=== PATIENT | female | born 1955 | race Caucasian/White ===

== ENCOUNTER → 2018-06-22 20:02 | Outpatient (REF) | payer OTHER, SELFPAY | LOC: LAB 20:02 | PROVIDERS: Family Provider Physician Assistant; PCP Physician Assistant; Visit Provider Otolaryngology | DX: J32.0 Chronic maxillary sinusitis (principal); R09.82 Postnasal drip; R07.0 Pain in throat | CPT/HCPCS: 87070; 87077; 87147; 87186 ==

== ENCOUNTER → 2018-08-30 12:49 | Outpatient (CLI) | payer OTHER, SELFPAY | PROVIDERS: PCP Physician Assistant; Visit Provider Physician Assistant | DX: M81.0 Age-related osteoporosis without current pathological fracture (principal); Z78.0 Asymptomatic menopausal state; Z82.62 Family history of osteoporosis; Z87.891 Personal history of nicotine dependence | CPT/HCPCS: 77080; 77081 ==

== ENCOUNTER → 2018-09-02 08:10 | Outpatient (CLI) | payer OTHER, SELFPAY ==
[2018-09-02 08:50] LABS: Add Manual Diff / Slide Review NO; Basophils Percent Auto 0.3 % (0-2); Eosinophils Percent Auto 3.7 % (2-4); Hematocrit 38.6 % (36-46); Hemoglobin 12.9 g/dL (12.0-16.0); Lymphocytes Percent Auto 36.7 % (25-40); Mean Corpuscular HGB Conc 33.3 % (30-36); Mean Corpuscular Hemoglobin 30.3 PG (26-34); Mean Corpuscular Volume 90.9 fL (80-100); Monocytes Percent Auto 10.6 % (3-14); Neutrophils Absolute Auto 3100 /uL (3000-5900); Neutrophils Percent Auto 48.7 % (50-75); Platelet Count 238 X10^3/uL (150-400); Red Blood Cell Count 4.25 X10^6/uL (4.0-5.2); Red Cell Distribution Width 14.2 % (11.6-14.8); White Blood Cell Count 6.3 X10^3/uL (4.5-11.0)
[2018-09-02 09:11] LABS: Alanine Aminotransferase 36 IU/L (9-52); Albumin 4.4 g/dL (3.5-5.0); Albumin Globulin Ratio 1.7 (1.0-2.8); Alkaline Phosphatase 111 U/L (38-126); Aspartate Aminotransferase 37 IU/L (14-36); BUN Creatinine Ratio 18.8 (6-22); Bilirubin Total 0.5 mg/dL (0.2-1.3); Blood Urea Nitrogen 15 mg/dL (7-17); Calcium 9.3 mg/dL (8.4-10.2); Carbon Dioxide 33 mmol/L (22-32); Chloride 100 mmol/L (98-107); Cholesterol 190 mg/dL (140-199); Estimated Glomerular Filt Rate > 60.0 mL/min (>60); Globulin 2.6 g/dL (1.7-4.1); Glucose 120 mg/dL (80-110); HDL Cholesterol 100 mg/dL (40-60); HEMOLYSIS < 15 (0-50); LDL Cholesterol Calculated 74 mg/dL (<100); Potassium 4.3 mmol/L (3.4-5.1); Sodium 139 mmol/L (137-145); Triglycerides 82 mg/dL (35-150)
[2018-09-02 09:21] LABS: HEMOLYSIS < 15 (0-50); Iron 122 ug/dL (37-170)
[2018-09-02 09:27] LABS: Vitamin D 25 Hydroxy (D3) 79.4 ng/mL (30.0-100.0)
[2018-09-02 09:31] LABS: Percent Iron Saturation 39 % (15-50); Total Iron Binding Capacity 314 ug/dL (265-497); Transferrin 283 mg/dL (206-381)
[2018-09-02 09:59] LABS: Vitamin B12 > 1000 pg/mL (239-931)
== END ==
PROVIDERS: PCP Physician Assistant; Visit Provider Physician Assistant
DX: M81.0 Age-related osteoporosis without current pathological fracture (principal); R53.83 Other fatigue; R74.8 Abnormal levels of other serum enzymes; Z86.2 Personal history of diseases of the blood and blood-forming organs and certain disorders involving the immune mechanism
CPT/HCPCS: 36415; 80053; 80061; 82306; 82607; 83540; 83550; 85025

== ENCOUNTER → 2019-02-12 10:27 | Outpatient (CLI) | payer OTHER, SELFPAY ==
--- NOTE | 2019-02-12 10:29 | DI.MG.S_ITS ---
BILATERAL DIGITAL SCREENING MAMMOGRAM 3D/2D WITH CAD: 02/12/2019 CLINICAL: Routine screening. Comparison is made to exams dated: 12/11/2017 mammogram, 11/18/2016 mammogram, 11/15/2015 mammogram, and 11/10/2014 mammogram - [facility]. The tissue of both breasts is heterogeneously dense. This may lower the sensitivity of mammography. Current study was also evaluated with a Computer Aided Detection (CAD) system. There are benign vascular calcifications in both breasts. No significant masses, calcifications, or other findings are seen in either breast. There has been no significant interval change. IMPRESSION: There is no mammographic evidence of malignancy. A 1 year screening mammogram is recommended. This exam was interpreted at Station ID: [id number]. NOTE: For mammograms, a report in lay terms will be sent to the patient. Approximately 15% of breast malignancies will not be visualized mammographically. In the management of a palpable breast mass, a negative mammogram must not discourage biopsy of a clinically suspicious lesion. Electronically Signed By: Keny estrella/ihsan:02/14/2019 12:16:21 letter sent: Normal Exam ACR BI-RADS Category 2: Benign Finding(s) 3342F
== END ==
PROVIDERS: PCP Physician Assistant; Visit Provider Physician Assistant
DX: Z12.31 Encounter for screening mammogram for malignant neoplasm of breast (principal)
CPT/HCPCS: 77063; 77067

== ENCOUNTER → 2019-03-25 08:37 | Outpatient (CLI) | payer OTHER, SELFPAY ==
[2019-03-25 10:24] LABS: Hematocrit 36.6 % (36-46); Hemoglobin 11.9 g/dL (12.0-16.0)
[2019-03-25 10:46] LABS: HEMOLYSIS < 15 (0-50); Iron 47 ug/dL (37-170)
[2019-03-25 10:57] LABS: Percent Iron Saturation 15 % (15-50); Total Iron Binding Capacity 311 ug/dL (265-497); Transferrin 253 mg/dL (206-381)
[2019-03-25 11:21] LABS: Ferritin 44.1 ng/mL (11.1-264)
== END ==
PROVIDERS: PCP Physician Assistant; Visit Provider Physician Assistant
DX: D50.9 Iron deficiency anemia, unspecified (principal); Z98.84 Bariatric surgery status
CPT/HCPCS: 36415; 82728; 83540; 83550; 85014; 85018

== ENCOUNTER → 2019-05-10 10:02 | Outpatient (CLI) | payer OTHER, SELFPAY ==
[2019-05-10 11:17] LABS: Add Manual Diff / Slide Review NO; Basophils Absolute Auto 0 /uL (0-100); Basophils Percent Auto 0.5 % (0-2); Eosinophils Absolute Auto 300 /uL (0-450); Eosinophils Percent Auto 4.4 % (2-4); Hematocrit 38.6 % (36-46); Hemoglobin 12.8 g/dL (12.0-16.0); Lymphocytes Absolute Auto 2200 /uL (1100-4500); Lymphocytes Percent Auto 36.8 % (25-40); Mean Corpuscular HGB Conc 33.3 % (30-36); Mean Corpuscular Hemoglobin 30.5 PG (26-34); Mean Corpuscular Volume 91.7 fL (80-100); Monocytes Absolute Auto 700 /uL (0-900); Monocytes Percent Auto 10.9 % (3-14); Neutrophils Absolute Auto 2900 /uL (1500-7000); Neutrophils Percent Auto 47.4 % (50-75); Platelet Count 299 X10^3/uL (150-400); Red Blood Cell Count 4.21 X10^6/uL (4.0-5.2); Red Cell Distribution Width 14.7 % (11.6-14.8)
[2019-05-10 11:30] LABS: Alanine Aminotransferase 22 IU/L (9-52); Albumin 4.5 g/dL (3.5-5.0); Albumin Globulin Ratio 1.8 (1.0-2.8); Alkaline Phosphatase 156 U/L (38-126); Aspartate Aminotransferase 32 IU/L (14-36); Bilirubin Total 0.3 mg/dL (0.2-1.3); Blood Urea Nitrogen 16 mg/dL (7-17); Calcium 10.4 mg/dL (8.4-10.2); Carbon Dioxide 29 mmol/L (22-32); Chloride 97 mmol/L (98-107); Globulin 2.5 g/dL (1.7-4.1); Glucose 104 mg/dL (80-110); HEMOLYSIS < 15 (0-50); Sodium 135 mmol/L (137-145)
== END ==
PROVIDERS: PCP Physician Assistant; Visit Provider Hospitalist
DX: R11.0 Nausea (principal)
CPT/HCPCS: 36415; 80053; 85025

== ENCOUNTER → 2019-08-31 09:54 | Outpatient (CLI) | payer OTHER, SELFPAY ==
[2019-08-31 10:55] LABS: HEMOLYSIS < 15 (0-50)
[2019-08-31 11:04] LABS: Alanine Aminotransferase 21 IU/L (9-52); Albumin 4.8 g/dL (3.5-5.0); Albumin Globulin Ratio 1.7 (1.0-2.8); Alkaline Phosphatase 178 U/L (38-126); Aspartate Aminotransferase 31 IU/L (14-36); BUN Creatinine Ratio 17.8 (6-22); Bilirubin Total 0.5 mg/dL (0.2-1.3); Blood Urea Nitrogen 16 mg/dL (7-17); Calcium 9.6 mg/dL (8.4-10.2); Carbon Dioxide 26 mmol/L (22-32); Chloride 98 mmol/L (98-107); Estimated Glomerular Filt Rate > 60.0 mL/min (>60); Globulin 2.9 g/dL (1.7-4.1); Glucose 178 mg/dL (80-110); Potassium 4.3 mmol/L (3.4-5.1); Sodium 133 mmol/L (137-145); Total Protein 7.7 g/dL (6.3-8.2); Vitamin D 25 Hydroxy (D3) 54.6 ng/mL (30.0-100.0)
[2019-09-01 15:07] LABS: HEMOLYSIS < 15 (0-50); Iron 134 ug/dL (37-170)
[2019-09-01 15:18] LABS: Percent Iron Saturation 33 % (15-50); Total Iron Binding Capacity 402 ug/dL (265-497); Transferrin 363 mg/dL (206-381)
[2019-09-01 15:36] LABS: Vitamin B12 > 1000 pg/mL (239-931)
== END ==
PROVIDERS: PCP Physician Assistant; Visit Provider Physician Assistant
DX: E53.8 Deficiency of other specified B group vitamins (principal); M81.0 Age-related osteoporosis without current pathological fracture; Z98.84 Bariatric surgery status; D50.0 Iron deficiency anemia secondary to blood loss (chronic); G43.009 Migraine without aura, not intractable, without status migrainosus; J44.9 Chronic obstructive pulmonary disease, unspecified; J45.909 Unspecified asthma, uncomplicated
CPT/HCPCS: 36415; 80053; 82306; 82607; 83540; 83550

== ENCOUNTER → 2019-09-05 13:47 | Outpatient (CLI) | payer OTHER, SELFPAY ==
[2019-09-05 15:17] LABS: Hemoglobin A1C% w Est Avg Glu 6.2 % (4.0-6.0)
== END ==
PROVIDERS: PCP Physician Assistant; Visit Provider Physician Assistant
DX: R73.09 Other abnormal glucose (principal)
CPT/HCPCS: 36415; 83036

== ENCOUNTER → 2019-12-06 10:54 | Outpatient (CLI) | payer OTHER, SELFPAY ==
[2019-12-06 12:29] LABS: Alanine Aminotransferase 17 IU/L (<35); Albumin 4.5 g/dL (3.5-5.0); Albumin Globulin Ratio 1.8 (1.0-2.8); Alkaline Phosphatase 155 U/L (38-126); Aspartate Aminotransferase 31 IU/L (14-36); BUN Creatinine Ratio 21.4 (6-22); Bilirubin Total 0.2 mg/dL (0.2-1.3); Blood Urea Nitrogen 15 mg/dL (7-17); Calcium 9.4 mg/dL (8.4-10.2); Carbon Dioxide 28 mmol/L (22-32); Chloride 101 mmol/L (98-107); Estimated Glomerular Filt Rate > 60.0 mL/min (>60); Globulin 2.5 g/dL (1.7-4.1); Glucose 75 mg/dL (80-110); HEMOLYSIS < 15 (0-50); Sodium 136 mmol/L (137-145)
[2019-12-06 12:39] LABS: Potassium 5.5 mmol/L (3.4-5.1)
== END ==
PROVIDERS: PCP Physician Assistant; Visit Provider Physician Assistant
DX: R73.01 Impaired fasting glucose (principal); R74.8 Abnormal levels of other serum enzymes
CPT/HCPCS: 36415; 80053; 83036

== ENCOUNTER → 2019-12-20 13:19 | Outpatient (CLI) | payer OTHER, SELFPAY ==
[2019-12-20 14:13] LABS: HEMOLYSIS < 15 (0-50)
== END ==
PROVIDERS: PCP Physician Assistant; Referring Provider Physician Assistant; Visit Provider Physician Assistant
DX: E87.5 Hyperkalemia (principal)
CPT/HCPCS: 36415; 84132

== ENCOUNTER → 2020-05-15 09:42 | Outpatient (CLI) | payer OTHER, SELFPAY ==
--- NOTE | 2020-05-15 | DI.CT.S_ITS ---
PROCEDURE: CT ABDOMEN PELVIS W CON INDICATIONS: Other constipation,Personal history of peptic ulce TECHNIQUE: After the administration of oral and intravenous contrast, 5 mm thick sections acquired from the diaphragms to the symphysis. 5 mm thick coronal and sagittal reformats were performed. For radiation dose reduction, the following was used: automated exposure control, adjustment of mA and/or kV according to patient size. COMPARISON: [facility], CT, CHEST/ABD/PEL WITH CONTRAST, 03/10/2014, 9:54. FINDINGS: Image quality: Excellent. ABDOMEN: Lung bases: Lung bases are clear. Heart size is normal. Solid organs: Liver is normal in size and enhancement. Liver is diffusely lower in attenuation relative to the spleen. Gallbladder is unremarkable. Biliary system is non-dilated. Pancreas enhances normally. Stable appearance of atrophy and coarse calcifications involving the pancreatic tail. Spleen is normal in size and enhancement. No adrenal nodules. Kidneys are normal in size and enhancement, without hydronephrosis. Peritoneum and bowel: Stable post surgical changes of the upper abdomen involving the lesser curvature of the stomach and distal pylorus/proximal duodenum. There is a 1.1 x 1.5 cm hypoattenuating focus adjacent to the medial margin of the duodenum (image 48, series 2) seen anterior to the aorta and IVC which possibly communicates with the duodenal lumen and is likely a duodenal diverticulum. Stomach, small bowel, and colon loops are normal in caliber and wall thickness. Moderate fecal load seen in the descending colon and sigmoid colon. No free fluid or air. No organized fluid collection. Nodes and vessels: No retroperitoneal or mesenteric adenopathy. Scattered atherosclerotic calcifications of the abdominal aorta and iliac vessels without aneurysmal dilatation. Miscellaneous: There is a tiny fat-containing umbilical hernia without acute inflammation. PELVIS: Genitourinary: Urinary bladder is decompressed. Miscellaneous: No inguinal hernias or pelvic adenopathy. Bones: No suspicious bony lesions. Status post ORIF for remote left hip fracture. No acute vertebral body compression fractures. Multilevel spondylitic changes throughout the imaged spine. IMPRESSION: 1. Moderate fecal load seen in the descending colon and sigmoid colon without evidence for obstruction. Findings are consistent with reported history constipation. 2. Stable postsurgical changes of the upper abdomen involving the stomach and proximal duodenum likely sequela of reported history of intervention for peptic ulcer disease. 3. Diffuse hepatic steatosis. Other chronic findings as above. Dictated by: Brendan Crawford M.D. on 05/15/2020 at 12:27 Approved by: Brendan Crawford M.D. on 05/15/2020 at 12:52
[2020-05-15 10:15] LABS: Blood Urea Nitrogen 12 mg/dL (7-17); Estimated Glomerular Filt Rate > 60.0 mL/min (>60)
[2020-05-15 11:24] LABS: Hemoglobin A1C% w Est Avg Glu 6.4 % (4.0-6.0)
[2020-05-15 11:35] LABS: Alanine Aminotransferase 13 IU/L (<35); Albumin 4.1 g/dL (3.5-5.0); Alkaline Phosphatase 142 U/L (38-126); Aspartate Aminotransferase 24 IU/L (14-36); Bilirubin Total 0.4 mg/dL (0.2-1.3); Blood Urea Nitrogen 12 mg/dL (7-17); Calcium 9.4 mg/dL (8.4-10.2); Carbon Dioxide 26 mmol/L (22-32); Chloride 102 mmol/L (98-107); Cholesterol 166 mg/dL (140-199); Estimated Glomerular Filt Rate > 60.0 mL/min (>60); Globulin 2.1 g/dL (1.7-4.1); Glucose 120 mg/dL (80-110); HDL Cholesterol 90 mg/dL (40-60); HEMOLYSIS < 15 (0-50); LDL Cholesterol Calculated 60 mg/dL (<100); Potassium 4.4 mmol/L (3.4-5.1); Sodium 135 mmol/L (137-145); Total Protein 6.2 g/dL (6.3-8.2); Triglycerides 80 mg/dL (35-150)
[2020-05-15 12:55] LABS: Creatinine Urine Random 64.2 mg/dL
[2020-05-15 12:59] LABS: Microalbumi Creatinin Ratio Ur 9.3 ug/mg CR (<30); Microalbumin Urine Random < 0.6 mg/dL (0-1.6)
== END ==
PROVIDERS: PCP Internal Medicine; Referring Provider Internal Medicine Gastroenterology; Visit Provider Internal Medicine Gastroenterology
DX: Z13.220 Encounter for screening for lipoid disorders (principal); Z13.6 Encounter for screening for cardiovascular disorders; K59.09 Other constipation; K76.0 Fatty (change of) liver, not elsewhere classified; E11.9 Type 2 diabetes mellitus without complications; J44.9 Chronic obstructive pulmonary disease, unspecified; Z87.11 Personal history of peptic ulcer disease
CPT/HCPCS: 36415; 74177; 80053; 80061; 82043; 82565; 82570; 83036; 84520; Q9967

== ENCOUNTER → 2020-06-17 10:21 | Outpatient (CLI) | payer OTHER, SELFPAY ==
[2020-06-18 20:29] LABS: COVID19 Sendout Not Detected (Not Detect)
== END ==
PROVIDERS: PCP Internal Medicine; Visit Provider Nurse Practitioner
DX: Z11.59 Encounter for screening for other viral diseases (principal)
CPT/HCPCS: 87635

== ENCOUNTER 2020-06-20 08:34 | Day surgery (SDC) | payer OTHER, SELFPAY ==
[2020-06-20] VITALS (7 sets, daily range): BP systolic 101–128; BP diastolic 63–80; PULSE 64–74; RESP 13–21; TEMP 35.8–36.4; O2SAT 97–99; BMI 19.0
--- NOTE | 2020-06-20 | PATH_ITS ---
[facility] Accession Number: [id number] . 01 Material submitted: . PART A: small bowel - SMALL BOWEL PART B: gastrointestinal site - GASTRIC . 02 Diagnosis: A. Small Bowel: Superficial portions of small bowel mucosa with no significant histomorphologic abnormality. Negative for granulomas, active inflammation, regions of dysplasia or malignancy. . B. Gastric: Portions of gastric body-type mucosa with mild chronic inflammation. Negative for Helicobacter organisms by immunohistochemistry. Negative for intestinal metaplasia. Negative for dysplasia and malignancy. [facility] 06/22/2020 1452 Local . 02 Electronically signed: . Zaina Tesfaye MD, Pathologist NPI- [id number] . 01 Gross description: . Part A: SMALL BOWEL: Received in formalin are 2 fragment(s) of mejia, soft tissue measuring 0.2 x 0.2 x 0.2 cm to 0.3 x 0.2 x 0.2 cm submitted entirely in 1 cassette(s) Part B: GASTRIC: Received in formalin are 2 fragment(s) of mejia, soft tissue measuring 0.2 x 0.2 x 0.1 cm to 0.3 x 0.2 x 0.2 cm submitted entirely in 1 cassette(s) /JONNY 06/21/2020 0139 Local . 02 Microscopic: . B. An immunohistochemical stain was performed to evaluate for Helicobacter organisms and is negative. The control stain showed appropriate reactivity. . * This test was developed and its performance characteristics determined by [employer]. It has not been cleared or approved by the U.S. Food and Drug Administration. The FDA has determined that such clearance or approval is not necessary. This test is used for clinical purposes. It should not be regarded as investigational or for research. . 02 Pathologist provided ICD-10: Z87.11, K29.70 . 02 CPT . 131858, 729011, U92256 Performed at: [facility] [address] [place] [address], [place], [place] [id number] MD Brant Hamilton MD Phone: [phone] [facility]formed [facility]: [facility] [address] [place], [place] [id number] MD Mariana Acosta MD Phone: [phone]
[2020-06-20] MEDS: fentaNYL 250 MCG/5 ML INJ IV (09:59)
[2020-06-20] MEDS: MIDAZOLAM 5 MG/5 ML VIAL IV ×2 (10:01→10:08)
--- NOTE | 2020-06-20 10:01 | PM.HP.1 ---
History of Present Illness History of Present Illness Date Patient Seen: 06/20/20 Time Patient Seen: 10:01 Chief complaint: EGD Narrative: History of peptic ulcer disease with GI bleeding at the anastomotic site from a Billroth II anastomosis. Need to follow-up to ensure complete healing. Patient History Medical History (Updated 02/29/20 @ 10:04 by Mike Amezcua MD) Asthma (Acute Unknown) Cervical spine disease (Chronic Unknown) Chronic constipation (Chronic) Depression (Chronic Unknown) Diabetes type 2, controlled (Chronic) Herpes (Chronic ~1992) History of bleeding peptic ulcer (Resolved 2011) Migraines (Chronic Unknown) Osteoporosis (Chronic Unknown) Pancreatic insufficiency (Chronic) Peptic ulcer disease (Chronic Unknown) Substance abuse (Resolved ~1983) Surgical History (Updated 01/12/20 @ 12:27 by Mike Amezcua MD) History of incision and drainage (Resolved 02/2018) History of open reduction and internal fixation (ORIF) procedure (Resolved 01/2017) Hx of gastric bypass (Resolved Unknown) Family & Social History Tobacco & Substance use: Smoking Status Former smoker alcohol intake former Substance Use Type does not use Meds Home Medications and Allergies Home Medications Medication Instructions Recorded Confirmed Type [VITAMIN B-12] 1 tab SUBLINGUAL QDAY #0 10/28/16 06/20/20 History [VITAMIN D3] 1 tab PO QDAY #0 10/28/16 06/20/20 History ipratropium-albuterol 3 ml INH Q6HP PRN #2 box 02/01/18 06/20/20 Rx Sucralfate See Rx Instructions .ROUTE .COMPLEX 06/22/18 04/17/20 History Calcium/Magnesium See Rx Instructions .ROUTE .COMPLEX 08/02/18 06/20/20 History [place] 3 See Rx Instructions .ROUTE .COMPLEX 08/02/18 06/20/20 History Reclast See Rx Instructions .ROUTE .COMPLEX 08/02/18 06/20/20 History olopatadine 0.6 % nasal spray 2 spray NASAL BID #30.5 gram 03/16/19 06/20/20 Rx bisacodyl 10 mg rectal suppository 10 mg [place] PRN PRN #12 sup 04/12/19 06/20/20 Rx onabotulinumtoxinA 200 unit 200 unit IM ONCE #1 each 05/24/19 06/20/20 Rx solution for injection scopolamine base 1 mg over 3 days 1 patch TRANSDERMAL Q3D PRN #4 each 05/24/19 04/17/20 Rx transdermal patch ferrous sulfate 5 ml PO BID #1 bot 06/30/19 06/20/20 Rx hydroxyzine pamoate 25 mg capsule See Rx Instructions PO DAILY PRN 08/03/19 06/20/20 Rx #60 cap conjugated estrogens 0.625 mg/gram 0.3125 mg VAG 2XW #30 gram 08/31/19 06/20/20 Rx vaginal cream ipratropium 20 mcg-albuterol 100 1 puff INHALATION QID PRN #4 gram 09/21/19 06/20/20 Rx mcg/actuation mist for inhalation orphenadrine citrate 100 mg 100 mg PO DAILY #30 tab 10/17/19 06/20/20 Rx tablet,extended release fluticasone propionate 110 1 puff INHALATION BID #12 gram 11/01/19 06/20/20 Rx mcg/actuation HFA aerosol inhaler pantoprazole 40 mg tablet,delayed 40 mg PO BID #180 tab 11/01/19 06/20/20 Rx release olopatadine 0.1 % eye drops 1 drop EYE-BOTH BID #5 ml 11/17/19 06/20/20 Rx Acupuncture 1 each SUBCUT .EVERY 2 WEEKS #16 11/18/19 06/20/20 Rx each Chiropractor 1 each TOPICAL .EVERY 2 WEEKS #24 11/18/19 06/20/20 Rx each Massage Therapy 1 each TOPICAL .EVERY 2 WEEKS #24 11/18/19 06/20/20 Rx each montelukast 10 mg tablet 10 mg PO QDAY #90 tab 01/12/20 06/20/20 Rx metformin 500 mg tablet,extended 500 mg PO DAILY #90 tab 02/13/20 06/20/20 Rx release 24 hr venlafaxine 75 mg tablet 150 mg PO BID #360 tab 02/29/20 04/17/20 Rx amitriptyline 50 mg tablet 100 mg PO HS #60 tab 03/16/20 06/20/20 Rx buspirone 10 mg tablet 10 mg PO BID #180 tab 03/16/20 06/20/20 Rx lubiprostone 24 mcg capsule 24 mcg PO BID cap 04/17/20 06/20/20 History acyclovir 400 mg tablet See Rx Instructions .ROUTE 04/20/20 06/20/20 Rx .COMPLEX #60 tablet baclofen 20 mg tablet 20 mg PO .COMPLEX #180 tab 04/20/20 06/20/20 Rx misoprostol 200 mcg tablet 200 mcg PO BID #60 tab 05/10/20 06/20/20 Rx benzonatate 200 mg capsule 200 mg PO TID PRN #30 cap 05/28/20 06/20/20 Rx ondansetron 8 mg disintegrating 8 mg PO TID PRN #30 tab 05/30/20 06/20/20 Rx tablet hydrocodone 7.5 mg-acetaminophen 1 tab PO Q12H PRN #15 tab 05/31/20 06/20/20 Rx 325 mg tablet iumiro-whghdqfi-evsjbjh 2 cap PO TID #540 cap 06/18/20 06/20/20 Rx 3,000-9,500-15,000 unit capsule,delayed releas Allergies Allergy/AdvReac Type Severity Reaction Status Date / Time Sulfa (Sulfonamide Allergy Severe ITCHING Verified 06/17/20 10:33 Antibiotics) [SULFA (SULFONAMIDE ANTIBIOTICS)] codeine [CODEINE] AdvReac Mild JITTERS Verified 06/17/20 10:33 morphine [MORPHINE] AdvReac Mild JITTERS Verified 06/17/20 10:33 Exam Vital Signs (past 8 hours): - 06/20/20 09:23 Temperature 97.5 F L Pulse Rate 74 Respiratory Rate 16 Blood Pressure 118/80 Pulse Oximetry 98 Oxygen Delivery Method Room Air Narrative Exam Narrative: Oropharynx free of lesions Chest clear to auscultation percussion Cardiac exam reveals no S3 or murmur Assessment & Plan Assessment & Plan narrative: History of anastomotic ulcer with GI bleeding need to check for complete healing. Risks, benefits, alternatives have been explained
--- NOTE | 2020-06-20 10:02 | PM.OP.ENDO ---
Operative Date/Time/Diagnoses Date of procedure: 06/20/20 Time of procedure: 10:02 Pre-op diagnosis: A see indication and findings Procedure & Clinicians Study performed: EGD Same procedure as scheduled: Yes Indications: History of anastomotic ulcer with GI bleeding at the site. Need to follow up for complete healing. Surgeon: Kera Lindsey Procedure Notes Procedure in detail: After informed consent was obtained patient was placed in left lateral decubitus position. The video upper scope placed into the oropharynx and with the patient's of small in the esophagus. The esophagus stomach and duodenum were carefully examined. On withdrawal retroflexed view the GE junction was performed. The scope was removed. The patient tolerated procedure well. Blood loss none Complications none Sedation Total sedation time
--- NOTE | 2020-06-20 10:14 | PM.OP.ENDO ---
Operative Date/Time/Diagnoses Date of procedure: 06/20/20 Time of procedure: 10:14 Pre-op diagnosis: See Procedure & Clinicians Study performed: EGD Same procedure as scheduled: Yes Indications: History of peptic ulcer disease with some continued symptoms. This had of bleeding anastomotic ulcer. Need to check for complete healing. Status post Billroth II anastomosis. Surgeon: Kera Lindsey Procedure Notes Procedure in detail: After informed consent was obtained patient was placed in left lateral decubitus position. The video upper scope was placed in the oropharynx and with the patient's help swelled the esophagus. The esophagus stomach and duodenum were carefully examined. On withdrawal, retroflexed view of the GE junction was performed. The scope was removed. The patient tolerated the procedure well. Blood loss none Complications none Sedation Total sedation time 16 minutes Versed 4 mg fentanyl 100 mg IV titration Findings 1. Normal esophagus and normal GE junction 2. Beefy red mucosa in the remaining body of the stomach consistent with typical sore up to anastomosis. Biopsies taken to rule out Helicobacter 3. Two anastomoses seen 1 in mid body greater curve in 1 distal. Both were wide open both had no ulceration. 4. The more proximal anastomosis could be traversed easily and the scope passed. I assume that this is the efferent limb. Biopsies taken in the small bowel to rule out celiac 5. The distal anastomosis took a very sharp turn right out of these surgical sites. I was unable to pass scope beyond this easily. We will merely await biopsy results and have her come back to the office to discuss further. Fortunately ulceration is completely healed.
--- NOTE | 2020-06-20 10:19 | SUR.PHASEI ---
Addendum entered by Alba Krishnan R.N. 06/20/20 10:43: Patient remained stable throughout pacu. Breathing normally and vitals stable. Transferred to Phase 2 Original Note: Patient noted to be apneic on arrival to PACU. Placed on monitors, placed on 4L O2, and given a sternal rub. Patient opened eyes and started breathing normally. 98% O2 saturation, heart rate in the 60's and blood pressure 127/74.
--- NOTE | 2020-06-20 11:11 | SUR.PHASEII ---
1045-Pt wanting to go home. All dc instructions given and pt verbalizes understanding. Getting dressed now. Iv dcd and site clear. on his way for pu.
--- NOTE | 2020-06-20 11:12 | SUR.PHASEII ---
1100-Pt dcd via [facility] in stable condition to private vehicle at [facility]. Gait steady and taking po fluids without problems
== END 2020-06-20 11:00 | disposition home or self-care (01) ==
PROVIDERS: PCP Internal Medicine; Referring Provider Internal Medicine; Visit Provider Internal Medicine Gastroenterology
PROC: 0DJ08ZZ Inspection of Upper Intestinal Tract, Via Natural or Artificial Opening Endoscopic (ICD-10-PCS; CPT 43235; principal; 2020-06-20 09:30)
DX: K29.70 Gastritis, unspecified, without bleeding (principal); Z87.11 Personal history of peptic ulcer disease; K59.00 Constipation, unspecified; K86.89 Other specified diseases of pancreas
CPT/HCPCS: 43239; J2250; J3010

== ENCOUNTER → 2020-07-17 10:33 | Outpatient (CLI) | payer OTHER, SELFPAY ==
[2020-07-17 11:59] LABS: BUN Creatinine Ratio 23.3 (6-22); Blood Urea Nitrogen 17 mg/dL (7-17); Estimated Glomerular Filt Rate > 60.0 mL/min (>60)
== END ==
PROVIDERS: PCP Internal Medicine; Referring Provider Internal Medicine; Visit Provider Internal Medicine
DX: Z01.812 Encounter for preprocedural laboratory examination (principal)
CPT/HCPCS: 36415; 82565; 84520

== ENCOUNTER → 2020-12-19 08:58 | Outpatient (CLI) | payer MEDICARE, BC, SELFPAY ==
[2020-12-19 09:44] LABS: Hemoglobin A1C% w Est Avg Glu 6.5 % (4.0-6.0)
[2020-12-19 09:46] LABS: Alanine Aminotransferase 12 IU/L (<35); Albumin Globulin Ratio 1.4 (1.0-2.8); Alkaline Phosphatase 128 U/L (38-126); Aspartate Aminotransferase 24 IU/L (14-36); BUN Creatinine Ratio 16.7 (6-22); Bilirubin Total 0.5 mg/dL (0.2-1.3); Blood Urea Nitrogen 15 mg/dL (7-17); Calcium 9.6 mg/dL (8.4-10.2); Carbon Dioxide 31 mmol/L (22-32); Chloride 103 mmol/L (98-107); Estimated Glomerular Filt Rate > 60.0 mL/min (>60); Globulin 2.8 g/dL (1.7-4.1); Glucose 132 mg/dL (80-110); HEMOLYSIS 15 (0-50); Magnesium 1.7 mg/dL (1.6-2.3); Potassium 4.3 mmol/L (3.4-5.1); Sodium 135 mmol/L (137-145); Total Protein 6.8 g/dL (6.3-8.2)
[2020-12-19 09:55] LABS: HEMOLYSIS < 15 (0-50); Iron 146 ug/dL (37-170)
[2020-12-19 10:08] LABS: Percent Iron Saturation 36 % (15-50); Total Iron Binding Capacity 402 ug/dL (265-497); Transferrin 298 mg/dL (206-381)
== END ==
PROVIDERS: PCP Internal Medicine; Referring Provider Internal Medicine; Visit Provider Internal Medicine
DX: E11.9 Type 2 diabetes mellitus without complications (principal); G43.709 Chronic migraine without aura, not intractable, without status migrainosus; J44.9 Chronic obstructive pulmonary disease, unspecified; K59.09 Other constipation; M81.0 Age-related osteoporosis without current pathological fracture
CPT/HCPCS: 36415; 80053; 83036; 83540; 83550; 83735

== ENCOUNTER → 2021-03-19 16:14 | Outpatient (CLI) | payer MEDICARE, BC, SELFPAY ==
[2021-03-19 16:42] LABS: Add Manual Diff / Slide Review NO; Basophils Absolute Auto 0 /uL (0-100); Basophils Percent Auto 0.4 % (0-2); Eosinophils Absolute Auto 300 /uL (0-450); Eosinophils Percent Auto 5.1 % (2-4); Hematocrit 33.7 % (36-46); Hemoglobin 11.1 g/dL (12.0-16.0); Lymphocytes Absolute Auto 1600 /uL (1100-4500); Lymphocytes Percent Auto 23.7 % (25-40); Mean Corpuscular HGB Conc 32.8 % (30-36); Mean Corpuscular Hemoglobin 29.4 PG (26-34); Mean Corpuscular Volume 89.5 fL (80-100); Monocytes Absolute Auto 500 /uL (0-900); Monocytes Percent Auto 7.8 % (3-14); Neutrophils Absolute Auto 4300 /uL (1500-7000); Platelet Count 290 X10^3/uL (150-400); Red Blood Cell Count 3.76 X10^6/uL (4.0-5.2); Red Cell Distribution Width 14.2 % (11.6-14.8); White Blood Cell Count 6.8 X10^3/uL (4.5-11.0)
[2021-03-19 16:59] LABS: Hemoglobin A1C% w Est Avg Glu 6.3 % (4.0-6.0)
[2021-03-19 17:14] LABS: Iron 61 ug/dL (37-170)
[2021-03-19 17:27] LABS: Percent Iron Saturation 15 % (15-50); Total Iron Binding Capacity 415 ug/dL (265-497)
[2021-03-19 17:51] LABS: Ferritin 8 ng/mL (11-264)
[2021-03-19 18:21] LABS: Folate > 20.0 ng/mL (2.76-20.0); Vitamin B12 > 1000 pg/mL (239-931)
== END ==
PROVIDERS: PCP Internal Medicine; Referring Provider Physician Assistant; Visit Provider Physician Assistant
DX: R73.01 Impaired fasting glucose (principal); D64.9 Anemia, unspecified; R53.83 Other fatigue; E03.9 Hypothyroidism, unspecified; E11.8 Type 2 diabetes mellitus with unspecified complications; E78.2 Mixed hyperlipidemia; E78.5 Hyperlipidemia, unspecified; I10 Essential (primary) hypertension
CPT/HCPCS: 36415; 82607; 82728; 82746; 83036; 83540; 83550; 85025

== ENCOUNTER → 2021-05-30 16:38 | Outpatient (CLI) | payer MEDICARE, BC, SELFPAY ==
[2021-05-30 17:46] LABS: Add Manual Diff / Slide Review NO; Basophils Absolute Auto 0 /uL (0-100); Basophils Percent Auto 0.4 % (0-2); Eosinophils Absolute Auto 200 /uL (0-450); Eosinophils Percent Auto 2.6 % (2-4); Hematocrit 36.2 % (36-46); Lymphocytes Absolute Auto 1700 /uL (1100-4500); Lymphocytes Percent Auto 24.6 % (25-40); Mean Corpuscular HGB Conc 33.1 % (30-36); Mean Corpuscular Hemoglobin 29.7 PG (26-34); Mean Corpuscular Volume 89.8 fL (80-100); Monocytes Absolute Auto 600 /uL (0-900); Monocytes Percent Auto 7.9 % (3-14); Neutrophils Absolute Auto 4600 /uL (1500-7000); Neutrophils Percent Auto 64.5 % (50-75); Platelet Count 266 X10^3/uL (150-400); Red Blood Cell Count 4.03 X10^6/uL (4.0-5.2); Red Cell Distribution Width 14.8 % (11.6-14.8); White Blood Cell Count 7.1 X10^3/uL (4.5-11.0)
[2021-05-30 17:52] LABS: Hemoglobin A1C% w Est Avg Glu 6.3 % (4.0-6.0)
[2021-05-30 17:54] LABS: Alanine Aminotransferase 19 IU/L (<35); Albumin 3.7 g/dL (3.5-5.0); Albumin Globulin Ratio 1.5 (1.0-2.8); Alkaline Phosphatase 147 U/L (38-126); Aspartate Aminotransferase 27 IU/L (14-36); BUN Creatinine Ratio 18.9 (6-22); Bilirubin Total 0.2 mg/dL (0.2-1.3); Blood Urea Nitrogen 14 mg/dL (7-17); Carbon Dioxide 28 mmol/L (22-32); Chloride 103 mmol/L (98-107); Estimated Glomerular Filt Rate > 60.0 mL/min (>60); Globulin 2.5 g/dL (1.7-4.1); Glucose 226 mg/dL (80-110); HEMOLYSIS < 15 (0-50); Sodium 135 mmol/L (137-145); Total Protein 6.2 g/dL (6.3-8.2)
[2021-05-30 18:09] LABS: Total Iron Binding Capacity 349 ug/dL (265-497)
[2021-05-30 18:36] LABS: Ferritin 16 ng/mL (11-264)
[2021-05-30 19:06] LABS: Vitamin B12 > 1000 pg/mL (239-931)
[2021-05-30 20:27] LABS: Percent Iron Saturation 36 % (15-50)
[2021-05-30 20:28] LABS: Iron 126 ug/dL (37-170)
== END ==
PROVIDERS: PCP Internal Medicine; Referring Provider Internal Medicine Infectious Disease; Visit Provider Physician Assistant
DX: J32.9 Chronic sinusitis, unspecified (principal); D64.9 Anemia, unspecified; R73.01 Impaired fasting glucose; R11.2 Nausea with vomiting, unspecified; R53.83 Other fatigue; E03.9 Hypothyroidism, unspecified; E11.8 Type 2 diabetes mellitus with unspecified complications; E11.9 Type 2 diabetes mellitus without complications; E78.2 Mixed hyperlipidemia; E78.5 Hyperlipidemia, unspecified; I10 Essential (primary) hypertension
CPT/HCPCS: 36415; 80053; 82607; 82728; 82746; 83036; 83540; 83550; 85025

== ENCOUNTER 2021-06-07 13:39 | Observation (INO) | payer MEDICARE, BC, SELFPAY ==
[2021-06-07] VITALS (13 sets, daily range): BP systolic 115–157; BP diastolic 43–99; PULSE 66–101; RESP 12–28; TEMP 36.2–36.6; O2SAT 92–100; BMI 19.0; BMI 18.6
[2021-06-07 15:03] LABS: Add Manual Diff / Slide Review NO; Basophils Absolute Auto 0 /uL (0-100); Basophils Percent Auto 0.5 % (0-2); Eosinophils Absolute Auto 100 /uL (0-450); Eosinophils Percent Auto 1.2 % (2-4); Hematocrit 29.2 % (36-46); Hemoglobin 9.9 g/dL (12.0-16.0); Lymphocytes Absolute Auto 2000 /uL (1100-4500); Lymphocytes Percent Auto 25.2 % (25-40); Mean Corpuscular HGB Conc 33.7 % (30-36); Mean Corpuscular Hemoglobin 29.9 PG (26-34); Mean Corpuscular Volume 88.6 fL (80-100); Monocytes Absolute Auto 800 /uL (0-900); Monocytes Percent Auto 9.6 % (3-14); Neutrophils Absolute Auto 5100 /uL (1500-7000); Neutrophils Percent Auto 63.5 % (50-75); Platelet Count 251 X10^3/uL (150-400); Red Cell Distribution Width 14.7 % (11.6-14.8)
[2021-06-07] MEDS: SODIUM CHLORIDE 0.9% 1,000 ML 1000 ML IV (15:12)
[2021-06-07] MEDS: ONDANSETRON 4 MG/2 ML INJ IV ×2 (15:14→21:14)
[2021-06-07 15:16] LABS: Creatine Kinase 45 U/L (30-135)
[2021-06-07 15:18] LABS: Alanine Aminotransferase 20 IU/L (<35); Albumin 3.5 g/dL (3.5-5.0); Albumin Globulin Ratio 1.5 (1.0-2.8); Alkaline Phosphatase 92 U/L (38-126); Aspartate Aminotransferase 24 IU/L (14-36); BUN Creatinine Ratio 53.3 (6-22); Bilirubin Total 0.2 mg/dL (0.2-1.3); Blood Urea Nitrogen 32 mg/dL (7-17); Carbon Dioxide 26 mmol/L (22-32); Chloride 103 mmol/L (98-107); Estimated Glomerular Filt Rate > 60.0 mL/min (>60); Globulin 2.4 g/dL (1.7-4.1); Glucose 163 mg/dL (80-110); HEMOLYSIS < 15 (0-50); Potassium 3.8 mmol/L (3.4-5.1); Sodium 133 mmol/L (137-145); Total Protein 5.9 g/dL (6.3-8.2)
[2021-06-07 15:29] LABS: Troponin I < 0.012 ng/mL (0.01-0.034)
--- NOTE | 2021-06-07 15:29 | ED.DIZZY ---
HPI - Dizziness General Chief Complaint: Dizziness Stated Complaint: Dehydrated, Dizzy, Cramping Time Seen by Provider: 06/07/21 14:15 Source: patient Mode of arrival: Wheelchair Limitations: no limitations History of Present Illness HPI Narrative: Patient is a 65-year-old female with history of GI bleeding, chronic sinusitis presenting today with a diarrhea abdominal pain and nausea. She states that she has had chronic ongoing sinusitis she saw specialist who detected MRSA. She then went to infectious disease specialist who started her on rifampin and then later added doxycycline as well. She has been on these medications for the last 2 weeks if caused her to have multiple episodes of diarrhea nausea and abdominal cramping. She occasionally feels dizzy and lightheaded when she stands up. She has been taking lots of Pepto-Bismol to help with her pain which does not seem to be helping. Today she just generally feels weak. She has previously had endoscopies. She says that she can not take medication without food but was unable to keep food down. She is not on any anti-platelet or anticoagulation medications. Related Data Home Medications Medication Instructions Recorded Confirmed [place] 3 See Rx Instructions .ROUTE .COMPLEX 08/02/18 06/07/21 Reclast See Rx Instructions .ROUTE .COMPLEX 08/02/18 06/07/21 fluticasone propionate 110 1 puff INHALATION PRN PRN 06/08/21 06/08/21 mcg/actuation HFA aerosol inhaler (Flovent HFA) Previous Rx's Medication Instructions Recorded olopatadine 0.6 % nasal spray 2 spray NASAL BID #30.5 gram 03/16/19 onabotulinumtoxinA 200 unit 200 unit IM ONCE #1 each 05/24/19 solution for injection (Botox) ipratropium 20 mcg-albuterol 100 1 puff INHALATION QID PRN #4 gram 09/21/19 mcg/actuation mist for inhalation (Combivent Respimat) olopatadine 0.1 % eye drops 1 drop EYE-BOTH BID #5 ml 11/17/19 Chiropractor 1 each TOPICAL .EVERY 2 WEEKS #24 11/18/19 each Massage Therapy 1 each TOPICAL .EVERY 2 WEEKS #24 11/18/19 each venlafaxine 75 mg tablet 150 mg PO BID #360 tab 02/29/20 baclofen 20 mg tablet 20 mg PO .COMPLEX #180 tab 04/20/20 scopolamine base 1 mg over 3 days 1 patch TRANSDERMAL Q3D PRN #4 each 06/22/20 transdermal patch sucralfate 1 gram tablet 1 gram PO BID PRN #180 tab 06/25/20 acyclovir 400 mg tablet 400 mg PO QID #1080 tab 07/30/20 amitriptyline 50 mg tablet 100 - 200 mg PO HS #1080 tab 07/30/20 hydrocodone 7.5 mg-acetaminophen 1 tab PO Q12H PRN #30 tab 07/30/20 325 mg tablet ipratropium 0.5 mg-albuterol 3 mg 3 ml INHALATION Q6HP PRN #2 ml 08/02/20 (2.5 mg base)/3 mL nebulization soln [id number] 1 cap PO TID #90 cap 10/01/20 6,000-19,000-30,000 unit capsule,delayed rel misoprostol 200 mcg tablet 200 mcg PO BID #180 tab 11/29/20 (Cytotec) montelukast 10 mg tablet 10 mg PO QDAY #90 tab 12/03/20 (Singulair) pantoprazole 40 mg tablet,delayed 40 mg PO BID #90 tab 12/17/20 release (Protonix) buspirone 10 mg tablet 10 mg PO BID #180 tab 03/08/21 hydroxyzine pamoate 25 mg capsule See Rx Instructions PO DAILY PRN 03/13/21 #60 cap ondansetron 8 mg disintegrating 8 mg PO TID PRN #30 tab 05/27/21 tablet Allergies Allergy/AdvReac Type Severity Reaction Status Date / Time fentanyl Allergy Severe Drug Verified 06/07/21 13:46 Sick/Can't take it. Adverse Reaction as well. Sulfa (Sulfonamide Allergy Severe ITCHING Verified 06/07/21 13:46 Antibiotics) [SULFA (SULFONAMIDE ANTIBIOTICS)] codeine [CODEINE] AdvReac Mild JITTERS Verified 06/07/21 13:46 morphine [MORPHINE] AdvReac Mild JITTERS Verified 06/07/21 13:46 Review of Systems Review of Systems Narrative: GENERAL: Denies chills, fatigue, malaise, fever, sweats, travel HEENT: Denies sinus pain, ear pain, sore throat, difficulty swallowing, neck pain RESPIRATORY: Denies dyspnea, cough, wheezing, hemoptysis, sputum. CARDIOVASCULAR: Denies chest pain, palpitations, orthopnea, edema GASTROINTESTINAL: See HPI : Denies dysuria, frequency, incontinence, hematuria, urinary retention, flank pain. MUSCULOSKELETAL: Denies weakness, joint pain, or bony pain SKIN: No rash, no erythema, no pruritus NEUROLOGIC: Denies weakness, dizziness, headache, numbness, change in speech, confusion PSYCHIATRIC: No concerning psychosocial issues. 12 point review of systems is negative except for those stated above and HPI Patient History Medical History Asthma (Unknown) Cervical spine disease (Unknown) Chronic constipation Depression (Unknown) Diabetes type 2, controlled Herpes (~1992) History of bleeding peptic ulcer (2011) Migraines (Unknown) Osteoporosis (Unknown) Pancreatic insufficiency Peptic ulcer disease (Unknown) Substance abuse (~1983) Surgical History History of incision and drainage (02/2018) History of open reduction and internal fixation (ORIF) procedure (01/2017) Hx of gastric bypass (Unknown) Family History Mother Pancreatic cancer Father Old age Son Alive and well Social History household members: spouse and children Smoking Status: Former smoker Tobacco: How many years used: 20 second hand exposure: No alcohol intake: former substance use type: does not use Smoking Status: Former smoker alcohol intake frequency: holidays/special occasions only Substance Use Type: does not use Exam Initial Vital Signs Initial Vital Signs: Vital Signs Temperature 97.2 F L 06/07/21 13:45 Pulse Rate 91 H 06/07/21 13:45 Respiratory Rate 14 06/07/21 13:45 Blood Pressure 139/76 06/07/21 13:45 Pulse Oximetry 100 06/07/21 13:45 GENERAL: 65-year-old female slightly anxious and in no acute distress. HEENT: Head atraumatic,EOMI, pupils reactive, face symmetric, moist mucous membranes CARDIOVASCULAR: Regular rate and rhythm without murmurs, rubs or gallops. RESPIRATORY: Breath sounds equal bilaterally, no wheezes rales or rhonchi. ABDOMEN: Soft, nontender. Normoactive bowel sounds all 4 quadrants. No guarding or rebound. RECTAL: Hemoccult-positive, no hemorrhoids, nontender EXTREMITIES: Normal range of motion, no clubbing or edema. Neurovascularly intact NEUROLOGICAL: Alert and oriented x4.Normal gait and speech. SKIN: Warm, dry, no laceration, no petechiae, no rashes or lesions. Course Orders Ordered: Sodium Chloride (Normal Saline 0.9%) 1,000 mls @ 100 mls/hr IV CONT CHAYO Last Admin: 06/08/21 05:39 Dose: 100 mls/hr Documented by: Infusion: 06/08/21 05:39 Dose: 100 mls/hr Documented by: Admin: 06/07/21 21:19 Dose: 100 mls/hr Documented by: JEANINE Naloxone HCl (Naloxone 0.4 Mg/Ml Vial) 0.2 mg IV Q2MIN PRN PRN Reason: Opiate Reversal Ondansetron HCl (Ondansetron 4 Mg/2 Ml Inj) 4 mg IV Q6HR PRN PRN Reason: Nausea And Vomiting Last Admin: 06/08/21 05:34 Dose: 4 mg Documented by: Admin: 06/07/21 21:14 Dose: 4 mg Documented by: JEANINE Ondansetron HCl (Ondansetron 4 Mg/2 Ml Inj) 4 mg IV Q6HR PRN PRN Reason: Nausea And Vomiting Oxycodone HCl (Oxycodone Ir 5 Mg Tablet) 5 mg PO Q3HR PRN PRN Reason: Pain, Moderate (4-6) Last Admin: 06/08/21 05:34 Dose: 5 mg Documented by: Admin: 06/08/21 01:16 Dose: 5 mg Documented by: Admin: 06/07/21 21:35 Dose: 5 mg Documented by: JEANINE Pantoprazole Sodium (Pantoprazole 40 Mg Vial) 40 mg IV BID [facility] Last Admin: 06/07/21 21:13 Dose: 40 mg Documented by: JEANINE Pantoprazole Sodium (Pantoprazole 40 Mg Vial) 40 mg IV BID [facility] Last Admin: 06/07/21 21:32 Dose: Not Given Documented by: JEANINE Prochlorperazine (Prochlorperazine 10 Mg/2 Ml Vial) 5 mg IV Q6HR PRN PRN Reason: Nausea Last Admin: 06/08/21 01:17 Dose: 5 mg Documented by: ZITA Prochlorperazine (Prochlorperazine 10 Mg/2 Ml Vial) 5 mg IV Q6HR PRN PRN Reason: Nausea Sennosides (Sennosides 8.6 Mg Tablet) 17.2 mg PO BEDTIME CHAYO Last Admin: 06/07/21 21:13 Dose: 17.2 mg Documented by: TRANGNOTT Discontinued Medications Sodium Chloride (Normal Saline 0.9%) 1,000 mls @ 1,000 mls/hr IV CONT CHAYO Last Infusion: 06/07/21 16:41 Dose: 0 mls/hr Documented by: [email or web address] Admin: 06/07/21 15:12 Dose: 1,000 mls/hr Documented by: [email or web address] Morphine Sulfate (Morphine 2 Mg/Ml Inj) 2 mg IV Q4HR PRN PRN Reason: Pain, Moderate (4-6) Ondansetron HCl (Ondansetron 4 Mg/2 Ml Inj) 4 mg IV NOW ONE Stop: 06/07/21 15:03 Last Admin: 06/07/21 15:14 Dose: 4 mg Documented by: [email or web address] Pantoprazole Sodium (Pantoprazole 40 Mg Vial) 40 mg IV NOW ONE Stop: 06/07/21 15:30 Last Admin: 06/07/21 16:30 Dose: 40 mg Documented by: [email or web address] Vital Signs Vital signs: Vital Signs - 8 hr 06/07/21 13:45 06/07/21 14:30 06/07/21 14:31 Temperature 97.2 F L Pulse Rate 91 H 78 77 Respiratory Rate 14 Blood Pressure 139/76 126/64 Pulse Oximetry 100 92 94 06/07/21 15:00 06/07/21 15:30 06/07/21 15:31 Temperature Pulse Rate 72 66 67 Respiratory Rate 12 20 28 H Blood Pressure 120/67 119/99 H Pulse Oximetry 98 96 100 06/07/21 16:00 06/07/21 16:25 06/07/21 16:30 Temperature Pulse Rate 68 78 77 Respiratory Rate 26 H Blood Pressure 134/72 134/69 141/64 H Pulse Oximetry 100 100 98 MDM - Dizziness Lab Data Result diagrams: 06/08/21 06:43 06/07/21 14:55 Labs: Lab Results 06/07/21 06/07/21 06/07/21 Range/Units 14:55 14:55 14:55 WBC 8.0 (4.5-11.0) X10^3/uL RBC 3.30 L (4.0-5.2) X10^6/uL Hgb 9.9 L (12.0-16.0) g/dL Hct 29.2 L (36-46) % MCV 88.6 (80-100) fL MCH 29.9 (26-34) PG MCHC 33.7 (30-36) % RDW 14.7 (11.6-14.8) % Plt Count 251 (150-400) X10^3/uL Neut % (Auto) 63.5 (50-75) % Lymph % (Auto) 25.2 (25-40) % [place] % (Auto) 9.6 (3-14) % Eos % (Auto) 1.2 L (2-4) % Baso % (Auto) 0.5 (0-2) % Neut # (Auto) 5100 (1998-5747) /uL Lymph # (Auto) 2000 (5883-6798) /uL [place] # (Auto) 800 (0-900) /uL Eos # (Auto) 100 (0-450) /uL Baso # (Auto) 0 (0-100) /uL Sodium 133 L (137-145) mmol/L Potassium 3.8 (3.4-5.1) mmol/L Chloride 103 (98-107) mmol/L Carbon Dioxide 26 (22-32) mmol/L BUN 32 H (7-17) mg/dL Creatinine 0.60 (0.52-1.04) mg/dL Estimated GFR > 60.0 (>60) mL/min BUN/Creatinine Ratio 53.3 H (6-22) Glucose 163 H (80-110) mg/dL Calcium 9.0 (8.4-10.2) mg/dL Total Bilirubin 0.2 (0.2-1.3) mg/dL AST 24 (14-36) IU/L ALT 20 (<35) IU/L Alkaline Phosphatase 92 D (38-126) U/L Total Creatine Kinase 45 (30-135) U/L CK-MB (CK-2) TNP CK-MB (CK-2) Rel Index TNP Troponin I < 0.012 (0.01-0.034) ng/mL Total Protein 5.9 L (6.3-8.2) g/dL Albumin 3.5 (3.5-5.0) g/dL Globulin 2.4 (1.7-4.1) g/dL Albumin/Globulin Ratio 1.5 (1.0-2.8) SARS-CoV-2 (PCR) (Negative) 06/07/21 Range/Units 16:35 WBC (4.5-11.0) X10^3/uL RBC (4.0-5.2) X10^6/uL Hgb (12.0-16.0) g/dL Hct (36-46) % MCV (80-100) fL MCH (26-34) PG MCHC (30-36) % RDW (11.6-14.8) % Plt Count (150-400) X10^3/uL Neut % (Auto) (50-75) % Lymph % (Auto) (25-40) % [place] % (Auto) (3-14) % Eos % (Auto) (2-4) % Baso % (Auto) (0-2) % Neut # (Auto) (1362-5106) /uL Lymph # (Auto) (3216-7387) /uL [place] # (Auto) (0-900) /uL Eos # (Auto) (0-450) /uL Baso # (Auto) (0-100) /uL Sodium (137-145) mmol/L Potassium (3.4-5.1) mmol/L Chloride (98-107) mmol/L Carbon Dioxide (22-32) mmol/L BUN (7-17) mg/dL Creatinine (0.52-1.04) mg/dL Estimated GFR (>60) mL/min BUN/Creatinine Ratio (6-22) Glucose (80-110) mg/dL Calcium (8.4-10.2) mg/dL Total Bilirubin (0.2-1.3) mg/dL AST (14-36) IU/L ALT (<35) IU/L Alkaline Phosphatase (38-126) U/L Total Creatine Kinase (30-135) U/L CK-MB (CK-2) CK-MB (CK-2) Rel Index Troponin I (0.01-0.034) ng/mL Total Protein (6.3-8.2) g/dL Albumin (3.5-5.0) g/dL Globulin (1.7-4.1) g/dL Albumin/Globulin Ratio (1.0-2.8) SARS-CoV-2 (PCR) Negative (Negative) Urine Dip Bedside Urine Glucose Negative Bedside Urine Bilirubin - Negative Bedside Urine Ketone - Negative Urine Specific Recluse 1.010 Bedside Urine Occult Blood ++ Bedside Urine pH 6.5 Bedside Urine Protein - Negative Bedside Urine Urobilinogen - Negative Bedside Urine Nitrite - Negative Bedside Urine Leukocytes - Negative Esterase Imaging Data CT scan - abdomen/pelvis: Radiologist's Impression: PROCEDURE: CT ABDOMEN PELVIS W CON INDICATIONS: pain GI bleed TECHNIQUE: After the administration of intravenous contrast, axial sections acquired from the lung bases to the pubic symphysis. Coronal and sagittal reformats were performed. For radiation dose reduction, the following was used: automated exposure control, adjustment of mA and/or kV according to patient size. COMPARISON: [facility], CT, CT ABDOMEN PELVIS W CON, 05/15/2020, 10:59. FINDINGS: Image quality: Portions of the lower pelvis are suboptimally evaluated secondary to metallic streak artifact from hip arthroplasty. Lung bases: Unremarkable. Heart: No significant findings. ABDOMEN: Liver: The liver is mildly enlarged with steatosis. Gallbladder: The gallbladder is unremarkable. Biliary ducts: Unremarkable. Pancreas: Pancreas demonstrates calcifications likely sequela of prior inflammation. Spleen: Unremarkable. Adrenal Glands: Unremarkable. Kidneys and Ureters: No obstruction. Stomach and Bowel: Prominent colonic stool is present without obstruction. Postsurgical changes within the upper abdomen are again noted. 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 Minimal scattered diverticula without associated inflammatory change. Peritoneum: No abnormal intraperitoneal fluid. No free air. Ventral Wall: No hernias. Abdominal Nodes: No retroperitoneal or mesenteric adenopathy by size criteria. Vessels: Aorta and inferior vena cava are normal in size. PELVIS: Pelvic Organs: Unremarkable. Bladder: Unremarkable. Pelvic Nodes: No enlarged lymph nodes. Miscellaneous: No hernias are seen. Bones: Unremarkable. IMPRESSION: 1. Prominent colonic stool consistent with constipation. No obstruction. 2. Minimal scattered diverticula consistent with diverticulosis. No associated inflammatory change. Dictated by: Odalis Damon M.D. on 06/07/2021 at 16:38 ECG Data Interpretation: Sinus rhythm rate 77 IA interval 136 QRS 90 low voltage T-wave inversion noted in lead 3, which is new from [place] E[place] [address] elevations and no congruent changes MDM Narrative Medical decision making narrative: Initially black stool thought to be from Pepto-Bismol however hemoglobin today is 9.9 with hematocrit 29 last week it was 12/36 and she is Hemoccult-positive. I do not believe this to be from antibiotics she is taking. She has a prior history of what she thinks is gastric ulcers. She has no abdominal pain she is generally weak. She is otherwise hemodynamically stable. 1700-Dr. Elliott updated patient's symptoms test results and happily consult 1715 Dr. de leon updated on patient's symptoms test results and happily admits Discharge Plan Departure Patient Disposition: Admitted as Observation Clinical Impression: Acute GI bleeding Admit Date/Time: 06/07/21 17:25 Admit Provider: Sheri De Leon
--- NOTE | 2021-06-07 16:03 | DI.CT.S_ITS ---
PROCEDURE: CT ABDOMEN PELVIS W CON INDICATIONS: pain GI bleed TECHNIQUE: After the administration of intravenous contrast, axial sections acquired from the lung bases to the pubic symphysis. Coronal and sagittal reformats were performed. For radiation dose reduction, the following was used: automated exposure control, adjustment of mA and/or kV according to patient size. COMPARISON: [facility], CT, CT ABDOMEN PELVIS W CON, 05/15/2020, 10:59. FINDINGS: Image quality: Portions of the lower pelvis are suboptimally evaluated secondary to metallic streak artifact from hip arthroplasty. Lung bases: Unremarkable. Heart: No significant findings. ABDOMEN: Liver: The liver is mildly enlarged with steatosis. Gallbladder: The gallbladder is unremarkable. Biliary ducts: Unremarkable. Pancreas: Pancreas demonstrates calcifications likely sequela of prior inflammation. Spleen: Unremarkable. Adrenal Glands: Unremarkable. Kidneys and Ureters: No obstruction. Stomach and Bowel: Prominent colonic stool is present without obstruction. Postsurgical changes within the upper abdomen are again noted. 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 Minimal scattered diverticula without associated inflammatory change. Peritoneum: No abnormal intraperitoneal fluid. No free air. Ventral Wall: No hernias. Abdominal Nodes: No retroperitoneal or mesenteric adenopathy by size criteria. Vessels: Aorta and inferior vena cava are normal in size. PELVIS: Pelvic Organs: Unremarkable. Bladder: Unremarkable. Pelvic Nodes: No enlarged lymph nodes. Miscellaneous: No hernias are seen. Bones: Unremarkable. IMPRESSION: 1. Prominent colonic stool consistent with constipation. No obstruction. 2. Minimal scattered diverticula consistent with diverticulosis. No associated inflammatory change. Dictated by: Odalis Damon M.D. on 06/07/2021 at 16:38 Approved by: Odalis Damon M.D. on 06/07/2021 at 16:42
[2021-06-07] MEDS: PANTOPRAZOLE 40 MG VIAL IV ×2 (16:30→21:13)
[2021-06-07 17:35] LABS: COVID19 - ADMIT (NP swab/PCR) Negative (Negative)
--- NOTE | 2021-06-07 20:51 | PM.CN ---
History of Present Illness Consult details Date Patient Seen: 06/07/21 Time Patient Seen: 20:51 Chief complaint: Black bowel movements Narrative: The patient is a woman who for the last 2 or 3 days has been having black bowel movements. She thought it was due to Pepto-Bismol but then realized was not. She does have a history of hematemesis in the past and peptic ulcer disease treated his recently as 2019. She has had by history a prior gastric perforation and bypass. This was 35 years ago.(from the prior op notes and her history I suspect she had an antrectomy and Billroth II anastomosis, but I do not have those records.) The patient has been weak. She blames all of this on antibiotics she took to get rid of MRSA. She was on doxycycline and rifampin started 2 weeks ago. She has stopped some because they caused her to have nausea and breakthrough migraines migraines.(she uses Botox injections to control her migraines along with other meds) Meds Home Medications and Allergies Home Medications Medication Instructions Recorded Confirmed Type [place] 3 See Rx Instructions .ROUTE .COMPLEX 08/02/18 06/07/21 History Reclast See Rx Instructions .ROUTE .COMPLEX 08/02/18 06/07/21 History olopatadine 0.6 % nasal spray 2 spray NASAL BID #30.5 gram 03/16/19 06/07/21 Rx onabotulinumtoxinA 200 unit 200 unit IM ONCE #1 each 05/24/19 06/07/21 Rx solution for injection (Botox) ipratropium 20 mcg-albuterol 100 1 puff INHALATION QID PRN #4 gram 09/21/19 06/07/21 Rx mcg/actuation mist for inhalation (Combivent Respimat) fluticasone propionate 110 1 puff INHALATION BID #12 gram 11/01/19 06/07/21 Rx mcg/actuation HFA aerosol inhaler (Flovent HFA) olopatadine 0.1 % eye drops 1 drop EYE-BOTH BID #5 ml 11/17/19 06/07/21 Rx Chiropractor 1 each TOPICAL .EVERY 2 WEEKS #24 11/18/19 06/07/21 Rx each Massage Therapy 1 each TOPICAL .EVERY 2 WEEKS #24 11/18/19 06/07/21 Rx each venlafaxine 75 mg tablet 150 mg PO BID #360 tab 02/29/20 06/07/21 Rx baclofen 20 mg tablet 20 mg PO .COMPLEX #180 tab 04/20/20 06/07/21 Rx scopolamine base 1 mg over 3 days 1 patch TRANSDERMAL Q3D PRN #4 each 06/22/20 06/07/21 Rx transdermal patch sucralfate 1 gram tablet 1 gram PO BID PRN #180 tab 06/25/20 06/07/21 Rx acyclovir 400 mg tablet 400 mg PO QID #1080 tab 07/30/20 06/07/21 Rx amitriptyline 50 mg tablet 100 - 200 mg PO HS #1080 tab 07/30/20 06/07/21 Rx hydrocodone 7.5 mg-acetaminophen 1 tab PO Q12H PRN #30 tab 07/30/20 06/07/21 Rx 325 mg tablet ipratropium 0.5 mg-albuterol 3 mg 3 ml INHALATION Q6HP PRN #2 ml 08/02/20 06/07/21 Rx (2.5 mg base)/3 mL nebulization soln [id number] 1 cap PO TID #90 cap 10/01/20 06/07/21 Rx 6,000-19,000-30,000 unit capsule,delayed rel misoprostol 200 mcg tablet 200 mcg PO BID #180 tab 11/29/20 06/07/21 Rx (Cytotec) montelukast 10 mg tablet 10 mg PO QDAY #90 tab 12/03/20 06/07/21 Rx (Singulair) pantoprazole 40 mg tablet,delayed 40 mg PO BID #90 tab 12/17/20 06/07/21 Rx release (Protonix) buspirone 10 mg tablet 10 mg PO BID #180 tab 03/08/21 06/07/21 Rx hydroxyzine pamoate 25 mg capsule See Rx Instructions PO DAILY PRN 03/13/21 06/07/21 Rx #60 cap ondansetron 8 mg disintegrating 8 mg PO TID PRN #30 tab 05/27/21 06/07/21 Rx tablet Allergies Allergy/AdvReac Type Severity Reaction Status Date / Time fentanyl Allergy Severe Drug Verified 06/07/21 13:46 Sick/Can't take it. Adverse Reaction as well. Sulfa (Sulfonamide Allergy Severe ITCHING Verified 06/07/21 13:46 Antibiotics) [SULFA (SULFONAMIDE ANTIBIOTICS)] codeine [CODEINE] AdvReac Mild JITTERS Verified 06/07/21 13:46 morphine [MORPHINE] AdvReac Mild JITTERS Verified 06/07/21 13:46 Review of Systems Review of Systems Narrative: Patient has migraine now. No cough or cold. No chest pain heart problems. No hematemesis. No alcohol use or smoking. Exam Vital Signs (past 8 hours): - 06/07/21 13:45 06/07/21 14:30 06/07/21 14:31 Temperature 97.2 F L Pulse Rate 91 H 78 77 Pulse Rate [Orthostatic Lying] Pulse Rate [Orthostatic Sitting] Pulse Rate [Orthostatic Standing] Respiratory Rate 14 Blood Pressure 139/76 126/64 Blood Pressure [Orthostatic Lying] Blood Pressure [Orthostatic Sitting] Blood Pressure [Orthostatic Standing] Pulse Oximetry 100 92 94 06/07/21 15:00 06/07/21 15:30 06/07/21 15:31 Temperature Pulse Rate 72 66 67 Pulse Rate [Orthostatic Lying] Pulse Rate [Orthostatic Sitting] Pulse Rate [Orthostatic Standing] Respiratory Rate 12 20 28 H Blood Pressure 120/67 119/99 H Blood Pressure [Orthostatic Lying] Blood Pressure [Orthostatic Sitting] Blood Pressure [Orthostatic Standing] Pulse Oximetry 98 96 100 06/07/21 16:00 06/07/21 16:25 06/07/21 16:30 Temperature Pulse Rate 68 78 77 Pulse Rate [Orthostatic Lying] Pulse Rate [Orthostatic Sitting] Pulse Rate [Orthostatic Standing] Respiratory Rate 26 H Blood Pressure 134/72 134/69 141/64 H Blood Pressure [Orthostatic Lying] Blood Pressure [Orthostatic Sitting] Blood Pressure [Orthostatic Standing] Pulse Oximetry 100 100 98 06/07/21 17:00 06/07/21 17:43 06/07/21 18:10 Temperature 97.8 F Pulse Rate 75 80 Pulse Rate [Orthostatic Lying] 76 Pulse Rate [Orthostatic Sitting] 87 Pulse Rate [Orthostatic Standing] 101 H Respiratory Rate 23 17 Blood Pressure 145/63 H 124/43 L Blood Pressure [Orthostatic Lying] 140/72 Blood Pressure [Orthostatic Sitting] 157/93 H Blood Pressure [Orthostatic Standing] 115/72 Pulse Oximetry 100 98 Oxygen Delivery Method Room Air Oxygen Flow Rate 0 Narrative Exam Narrative: Thin cooperative woman in no apparent distress. Eyes are nonicteric. Lungs are clear to auscultation no rales or rhonchi. Heart regular rate and rhythm without murmur gallop. Abdomen is soft no tenderness. No guarding. No hernias appreciated. Objective Labs Result Diagrams: 06/07/21 14:55 06/07/21 14:55 Labs: Laboratory Results - last 24 hr 06/07/21 06/07/21 06/07/21 14:55 14:55 14:55 WBC 8.0 RBC 3.30 L Hgb 9.9 L Hct 29.2 L MCV 88.6 MCH 29.9 MCHC 33.7 RDW 14.7 Plt Count 251 Neut % (Auto) 63.5 Lymph % (Auto) 25.2 [place] % (Auto) 9.6 Eos % (Auto) 1.2 L Baso % (Auto) 0.5 Neut # (Auto) 5100 Lymph # (Auto) 2000 [place] # (Auto) 800 Eos # (Auto) 100 Baso # (Auto) 0 Sodium 133 L Potassium 3.8 Chloride 103 Carbon Dioxide 26 BUN 32 H Creatinine 0.60 Estimated GFR > 60.0 BUN/Creatinine Ratio 53.3 H Glucose 163 H Calcium 9.0 Total Bilirubin 0.2 AST 24 ALT 20 Alkaline Phosphatase 92 D Total Creatine Kinase 45 CK-MB (CK-2) TNP CK-MB (CK-2) Rel Index TNP Troponin I < 0.012 Total Protein 5.9 L Albumin 3.5 Globulin 2.4 Albumin/Globulin Ratio 1.5 SARS-CoV-2 (PCR) 06/07/21 16:35 WBC RBC Hgb Hct MCV MCH MCHC RDW Plt Count Neut % (Auto) Lymph % (Auto) Worth % (Auto) Eos % (Auto) Baso % (Auto) Neut # (Auto) Lymph # (Auto) Worth # (Auto) Eos # (Auto) Baso # (Auto) Sodium Potassium Chloride Carbon Dioxide BUN Creatinine Estimated GFR BUN/Creatinine Ratio Glucose Calcium Total Bilirubin AST ALT Alkaline Phosphatase Total Creatine Kinase CK-MB (CK-2) CK-MB (CK-2) Rel Index Troponin I Total Protein Albumin Globulin Albumin/Globulin Ratio SARS-CoV-2 (PCR) Negative Assessment & Plan Assessment and plan (1) Acute GI bleeding: Status: Acute Assessment & Plan narrative: Monitor hematocrit. Begin Protonix IV(already begun in the emergency room) plan EGD in a.m.. Patient was made aware that Dr. Garner my partner would be doing it. She will be put to sleep for that procedure. Given her overall disposition and the possibility of blood in her upper tract I think it appropriate to have an anesthesiologist available and intubate the patient to protect her airway. She had questions about what medication will be given and I told her it would be more appropriate asked the anesthesiologist tomorrow.
[2021-06-07] MEDS: SENNOSIDES 8.6 MG TABLET 17.2 MG PO (21:13)
[2021-06-07] MEDS: SODIUM CHLORIDE 0.9% 1,000 ML 100 ML IV (21:19)
[2021-06-07] MEDS: OXYCODONE IR 5 MG TABLET PO (21:35)
[2021-06-08] VITALS (21 sets, daily range): BP systolic 104–147; BP diastolic 43–78; PULSE 68–95; RESP 12–18; TEMP 36.1–37.1; O2SAT 94–100; BMI 18.6
--- NOTE | 2021-06-08 | PATH_ITS ---
[facility] Accession Number: [id number] . 01 Material submitted: . small bowel - SMALL BOWEL . 01 Clinical history: . BLACK BOWEL MOVEMENTS . 02 Diagnosis: Small Bowel, Biopsies: Duodenal mucosa with no diagnostic abnormality. Negative for active inflammation, features of sprue, dysplasia, or malignancy. . I 06/12/2021 1339 Local . 02 Electronically signed: . Eloy Ashley MD, PhD, Pathologist NPI- [id number] . 01 Gross description: . SMALL BOWEL: Received in formalin are 2 fragment(s) of mejia, soft tissue measuring 0.2 x 0.2 x 0.2 cm to 0.2 x 0.2 x 0.2 cm submitted entirely in 1 cassette(s) /RICHA 06/11/2021 0519 Local . 02 Pathologist provided ICD-10: K92.2 . 02 CPT . 849310 Performed at: 01 [facility] [address], [place], [place] [id number] MD Brant Hamilton MD Phone: [phone] Performed at: 02 [facility] [address] [place], [place] [id number] MD Mariana Acosta MD Phone: [phone]
--- NOTE | 2021-06-08 01:11 | P.HP_ITS ---
History of Present Illness History of Present Illness Date Patient Seen: 06/07/21 Time Patient Seen: 21:00 Chief complaint: Black bowel movements Narrative: Shirin Tuttle is a 65 y.o. female with a history of hematemesis in the past and peptic ulcer disease having undergone endoscopy as recently as 2019 who presented with a several week history of nausea, she states it snowballed early this week and has aggrevated her migranes. She has had by history a prior gastric perforation and bypass antrectomy and Billroth II anastomosis. She was recently treated for MRSA with doxycycline and rifampin 2 weeks ago, and believes the initiation of these antibiotics triggered her migraines. She goes to a chronic pain clinic and has been receiving Botox injections for migraines and states this is the only therapy that helpes. She states she has been weak, was developing hot and cold flashes since arriving to the floor, compaints of abdominal crampting, nausea and vomiting black emesis as well as having black, clumpy stool. She denies dysurea. Dr. Elliott saw her in the ED and plans are for her to undergo an upper endoscopy under general anesthesia. CT of the abdomen indicated stool obstipation and scattered diverticula consistent with diverticulitis. Patient is afebrile, blood pressure 124/43, heart rate 80, respiratory rate 17, oxygen saturation 98% on room air, she weighs 55.4 kg with a BMI of 18.6. Hemoglobin hematocrit are slightly low 9.9 and 29.2 respectively however the this appears to be a slightly lower than her baseline, glucose is 163, COVID-19 PCR was negative. Patient History Medical History (Updated 06/08/21 @ 01:39 by MARY Jerry) Asthma (Unknown) Cervical spine disease (Unknown) Chronic constipation Depression (Unknown) Diabetes type 2, controlled Herpes (~1992) History of bleeding peptic ulcer (2011) Migraines (Unknown) Osteoporosis (Unknown) Pancreatic insufficiency Peptic ulcer disease (Unknown) Substance abuse (~1983) Surgical History History of incision and drainage (02/2018) History of open reduction and internal fixation (ORIF) procedure (01/2017) Hx of gastric bypass (Unknown) Family & Social History Family History Mother Pancreatic cancer Father Old age Son Alive and well Social History: household members spouse,children Safety & Behavioral: Feels Safe in Current Yes Environment Been Physically Hurt or No Threatened By a Person Suicidal Ideation Description None Suicide Plan Description No Plan Tobacco & Substance use: Smoking Status Former smoker alcohol intake former alcohol intake frequency holiday/special occasion Substance Use Type does not use Meds Home Medications and Allergies Home Medications Medication Instructions Recorded Confirmed Type [place] 3 See Rx Instructions .ROUTE .COMPLEX 08/02/18 06/07/21 History Reclast See Rx Instructions .ROUTE .COMPLEX 08/02/18 06/07/21 History olopatadine 0.6 % nasal spray 2 spray NASAL BID #30.5 gram 03/16/19 06/07/21 Rx onabotulinumtoxinA 200 unit 200 unit IM ONCE #1 each 05/24/19 06/07/21 Rx solution for injection (Botox) ipratropium 20 mcg-albuterol 100 1 puff INHALATION QID PRN #4 gram 09/21/19 06/07/21 Rx mcg/actuation mist for inhalation (Combivent Respimat) olopatadine 0.1 % eye drops 1 drop EYE-BOTH BID #5 ml 11/17/19 06/07/21 Rx Chiropractor 1 each TOPICAL .EVERY 2 WEEKS #24 11/18/19 06/07/21 Rx each Massage Therapy 1 each TOPICAL .EVERY 2 WEEKS #24 11/18/19 06/07/21 Rx each venlafaxine 75 mg tablet 150 mg PO BID #360 tab 02/29/20 06/07/21 Rx baclofen 20 mg tablet 20 mg PO .COMPLEX #180 tab 04/20/20 06/07/21 Rx scopolamine base 1 mg over 3 days 1 patch TRANSDERMAL Q3D PRN #4 each 06/22/20 06/07/21 Rx transdermal patch sucralfate 1 gram tablet 1 gram PO BID PRN #180 tab 06/25/20 06/07/21 Rx acyclovir 400 mg tablet 400 mg PO QID #1080 tab 07/30/20 06/07/21 Rx amitriptyline 50 mg tablet 100 - 200 mg PO HS #1080 tab 07/30/20 06/07/21 Rx hydrocodone 7.5 mg-acetaminophen 1 tab PO Q12H PRN #30 tab 07/30/20 06/07/21 Rx 325 mg tablet ipratropium 0.5 mg-albuterol 3 mg 3 ml INHALATION Q6HP PRN #2 ml 08/02/20 06/07/21 Rx (2.5 mg base)/3 mL nebulization soln vylqcz-rjifkniq-qalukij 1 cap PO TID #90 cap 10/01/20 06/07/21 Rx 6,000-19,000-30,000 unit capsule,delayed rel misoprostol 200 mcg tablet 200 mcg PO BID #180 tab 11/29/20 06/07/21 Rx (Cytotec) montelukast 10 mg tablet 10 mg PO QDAY #90 tab 12/03/20 06/07/21 Rx (Singulair) pantoprazole 40 mg tablet,delayed 40 mg PO BID #90 tab 12/17/20 06/07/21 Rx release (Protonix) buspirone 10 mg tablet 10 mg PO BID #180 tab 03/08/21 06/07/21 Rx hydroxyzine pamoate 25 mg capsule See Rx Instructions PO DAILY PRN 03/13/21 06/07/21 Rx #60 cap ondansetron 8 mg disintegrating 8 mg PO TID PRN #30 tab 05/27/21 06/07/21 Rx tablet fluticasone propionate 110 1 puff INHALATION PRN PRN 06/08/21 06/08/21 History mcg/actuation HFA aerosol inhaler (Flovent HFA) Allergies Allergy/AdvReac Type Severity Reaction Status Date / Time fentanyl Allergy Severe Drug Verified 06/07/21 13:46 Sick/Can't take it. Adverse Reaction as well. Sulfa (Sulfonamide Allergy Severe ITCHING Verified 06/07/21 13:46 Antibiotics) [SULFA (SULFONAMIDE ANTIBIOTICS)] codeine [CODEINE] AdvReac Mild JITTERS Verified 06/07/21 13:46 morphine [MORPHINE] AdvReac Mild JITTERS Verified 06/07/21 13:46 Review of Systems Review of Systems ROS: Yes All systems reviewed with the patient and are negative except as otherwise documented Exam Vital Signs (past 8 hours): - 06/07/21 17:43 06/07/21 18:10 06/07/21 21:31 Temperature 97.8 F Pulse Rate 80 Pulse Rate [Orthostatic Lying] 76 Pulse Rate [Orthostatic Sitting] 87 Pulse Rate [Orthostatic Standing] 101 H Respiratory Rate 17 Blood Pressure 124/43 L Blood Pressure [Orthostatic Lying] 140/72 Blood Pressure [Orthostatic Sitting] 157/93 H Blood Pressure [Orthostatic Standing] 115/72 Pulse Oximetry 98 98 Oxygen Delivery Method Room Air Oxygen Flow Rate 0 Narrative Exam Narrative: Gen: Alert, oriented ill and cachectic appearing 65 y.o. female, appears older than stated age HEENT: normocephalic, atraumatic, conjunctiva clear, sclera non-icteric, oral mucosa pink and moist Neck: supple, full ROM, no JVD, trachea is midline Resp: Lungs CTA, non-labored breathing CV: RRR, no murmur or rubs Abd: soft, non-tender, hypoactive BTs Skin: mildly jaundiced appearing no lesions or rashes, dry and intact Neuro: Alert and oriented X 4 w/no focal deficits. Speech clear and coherent. Extremities: moves all 4 extremities, is ambulatory, negative Kayla?s sign Psyche: anxious Objective Labs Result Diagrams: 06/07/21 14:55 06/07/21 14:55 Labs: Laboratory Results - last 24 hr 06/07/21 06/07/21 06/07/21 14:55 14:55 14:55 WBC 8.0 RBC 3.30 L Hgb 9.9 L Hct 29.2 L MCV 88.6 MCH 29.9 MCHC 33.7 RDW 14.7 Plt Count 251 Neut % (Auto) 63.5 Lymph % (Auto) 25.2 [place] % (Auto) 9.6 Eos % (Auto) 1.2 L Baso % (Auto) 0.5 Neut # (Auto) 5100 Lymph # (Auto) 2000 [place] # (Auto) 800 Eos # (Auto) 100 Baso # (Auto) 0 Sodium 133 L Potassium 3.8 Chloride 103 Carbon Dioxide 26 BUN 32 H Creatinine 0.60 Estimated GFR > 60.0 BUN/Creatinine Ratio 53.3 H Glucose 163 H Calcium 9.0 Total Bilirubin 0.2 AST 24 ALT 20 Alkaline Phosphatase 92 D Total Creatine Kinase 45 CK-MB (CK-2) TNP CK-MB (CK-2) Rel Index TNP Troponin I < 0.012 Total Protein 5.9 L Albumin 3.5 Globulin 2.4 Albumin/Globulin Ratio 1.5 SARS-CoV-2 (PCR) 06/07/21 16:35 WBC RBC Hgb Hct MCV MCH MCHC RDW Plt Count Neut % (Auto) Lymph % (Auto) [place] % (Auto) Eos % (Auto) Baso % (Auto) Neut # (Auto) Lymph # (Auto) [place] # (Auto) Eos # (Auto) Baso # (Auto) Sodium Potassium Chloride Carbon Dioxide BUN Creatinine Estimated GFR BUN/Creatinine Ratio Glucose Calcium Total Bilirubin AST ALT Alkaline Phosphatase Total Creatine Kinase CK-MB (CK-2) CK-MB (CK-2) Rel Index Troponin I Total Protein Albumin Globulin Albumin/Globulin Ratio SARS-CoV-2 (PCR) Negative Assessment & Plan Assessment & Plan narrative: Shirin Escobar is a 65 y.o. with a history of upper GI bleeds and a Billroth II gastric bypass who presents with a likely upper GI bleed and plans are for her to undergo an upper endoscopy under general anesthesia. 1. Upper GI bleed, acute and present on admission * NPO past midnight * IV Protonix 40 mg bid * Upper endoscopy to be done by Dr. Garner 2. Nausea and vomiting in the setting of an upper GI bleed, present on admission * IV Zofran and compazine for nausea and vomiting. * Pain control with IV dilaudid 3. Moderate protein malnutrition with a BMI of 18% in the setting of the Billroth II enterotomy, chronic and present on admission * Dietary consult ordered VTE prophylaxis: Wells risk score: 1 Bilateral SCDs Consults: Dr. Elliott, General Surgery, consult and involvement is appreciated. Patient is admitted under inpatient status with expected length of stay greater than 2 midnights due to severity of presenting symptoms, risk of adverse event, and complexity of treatment plan. FEN: NS at 100 ml/hour, NPO, BMP and magnesium in the am. Dispo: Eventual discharge to home Code Status: Full Code as discussed with patient who states her son, Mike Tuttle is her surrogate and POA COVID-19 COVID-19 status: Negative Result date/Date tested (Pos, Neg/Pending): 06/07/21 Scores Wells' Criteria for PE Clinical signs and symptoms of DVT: No PE is #1 Dx or equally likely: No Heart rate > 100: No Immobilization at least 3 days or surg in previous 4 weeks: No History of PE or DVT: No Hemoptysis: Yes Malignancy w/Treatment within 6 months or palliative: No Wells' PE Score total: 1 Quality VTE Deep Vein Thrombosis/Pulmonary Embolism Present on Admission: No MIPS - Admit I confirm the patient?s Advance Care Plan is present, Code status is documented, Surrogate decision maker is in patient?s record [If Yes, STOP here]: Yes
[2021-06-08] MEDS: OXYCODONE IR 5 MG TABLET PO ×4 (01:16→13:45)
[2021-06-08] MEDS: PROCHLORPERAZINE 10 MG/2 ML VIAL 5 MG IV ×3 (01:17→15:27)
[2021-06-08 02:06] LABS: Hemoglobin 7.6 g/dL (12.0-16.0)
[2021-06-08 02:13] LABS: Hematocrit 23.2 % (36-46)
[2021-06-08] MEDS: ONDANSETRON 4 MG/2 ML INJ IV ×4 (05:34→18:08)
[2021-06-08] MEDS: SODIUM CHLORIDE 0.9% 1,000 ML 100 ML IV (05:39)
[2021-06-08 07:00] LABS: Add Manual Diff / Slide Review NO; Basophils Absolute Auto 0 /uL (0-100); Basophils Percent Auto 0.6 % (0-2); Eosinophils Absolute Auto 200 /uL (0-450); Eosinophils Percent Auto 3.1 % (2-4); Hematocrit 23.1 % (36-46); Hemoglobin 7.6 g/dL (12.0-16.0); Lymphocytes Absolute Auto 2000 /uL (1100-4500); Lymphocytes Percent Auto 33.5 % (25-40); Mean Corpuscular HGB Conc 33.1 % (30-36); Mean Corpuscular Hemoglobin 29.7 PG (26-34); Mean Corpuscular Volume 89.9 fL (80-100); Monocytes Absolute Auto 600 /uL (0-900); Monocytes Percent Auto 9.7 % (3-14); Neutrophils Absolute Auto 3100 /uL (1500-7000); Neutrophils Percent Auto 53.1 % (50-75); Platelet Count 182 X10^3/uL (150-400); Red Blood Cell Count 2.57 X10^6/uL (4.0-5.2); Red Cell Distribution Width 14.7 % (11.6-14.8); White Blood Cell Count 5.9 X10^3/uL (4.5-11.0)
[2021-06-08 07:55] LABS: Alanine Aminotransferase 16 IU/L (<35); Albumin 2.8 g/dL (3.5-5.0); Albumin Globulin Ratio 1.3 (1.0-2.8); Alkaline Phosphatase 71 U/L (38-126); Aspartate Aminotransferase 26 IU/L (14-36); BUN Creatinine Ratio 29.6 (6-22); Bilirubin Unconjugated 0.1 mg/dL (0.0-1.1); Blood Urea Nitrogen 16 mg/dL (7-17); Calcium 8.3 mg/dL (8.4-10.2); Carbon Dioxide 24 mmol/L (22-32); Chloride 110 mmol/L (98-107); Estimated Glomerular Filt Rate > 60.0 mL/min (>60); Globulin 2.2 g/dL (1.7-4.1); Glucose 106 mg/dL (80-110); HEMOLYSIS < 15 (0-50); Magnesium 1.6 mg/dL (1.6-2.3); Potassium 3.7 mmol/L (3.4-5.1); Sodium 135 mmol/L (137-145)
[2021-06-08 08:07] LABS: Bilirubin Total < 0.1 mg/dL (0.2-1.3)
[2021-06-08] MEDS: PANTOPRAZOLE 40 MG VIAL IV ×2 (08:19→20:05)
[2021-06-08] MEDS: LACTATED RINGERS 1,000 ML 100 ML IV (08:45)
--- NOTE | 2021-06-08 08:49 | PM.PREOP ---
Pre-operative Note Interval Note History & Physical reviewed/Exam performed by Physician: Yes Changes to H&P: No
--- NOTE | 2021-06-08 09:06 | P.OP.ENDO_ITS ---
Operative Date/Time/Diagnoses Date of procedure: 06/08/21 Time of procedure: 09:06 Pre-op diagnosis: GI bleed Post-op diagnosis: other (gastritis, marginal ulcer) Procedure Notes Procedure in detail: Patient placed in left lateral decubitus position. Time out was performed. Patient was intubated with an endotracheal tube. A bite block was placed. the scope was inserted into the mouth and advanced through the eso phagus and into the stomach. The stomach was notable for diffuse gastritis. At the gastro jejunostomy there was ulceration consistent with a marginal ulcer. No active bleeding. Biopsy of the GJ junction was performed with forceps labeled small bowel. The small bowel was transverse for several cm and was grossly normal in its appearance.. The scope was retroflexed within the stomach and there was a no l hiatal hernia. The scope was withdrawn into the esophagus the Z line was seen at 40 cm from the incisions. There was no Albarado's esophagitis or masses or strictures. Stomach was desufflated and scope removed. Patient tolerated procedure well. Specimen(s): other (Small-bowel) Complications: none Impression: Marginal ulcer Post-procedure Plan for aftercare: Continue IV Protonix Disposition: Acute Care
--- NOTE | 2021-06-08 10:03 | P.PN_ITS ---
Subjective Subjective Date Patient Seen: 06/08/21 Time Patient Seen: 10:03 Interval history: She complains of back pain, sore throat, mild nausea after EGD today. No further bowel movements today. Denies chest pain, shortness of breath, weakness, fatigue. EGD showed a marginal ulcer, biopsies were taken, likely secondary to her history of gastric bypass. Exam Vital Signs (past 8 hours): - 06/08/21 04:11 06/08/21 05:00 06/08/21 08:41 Temperature 97.0 F L 97.5 F L Pulse Rate 79 76 Respiratory Rate 18 14 Blood Pressure 104/59 L 121/65 Pulse Oximetry 99 99 99 06/08/21 09:11 06/08/21 09:15 06/08/21 09:21 Temperature 98.7 F Pulse Rate 89 87 91 H Respiratory Rate 15 15 12 Blood Pressure 147/69 H 131/72 127/65 Pulse Oximetry 98 97 98 06/08/21 09:25 Temperature Pulse Rate 81 Respiratory Rate 17 Blood Pressure 123/70 Pulse Oximetry 94 Oxygen Delivery Method Room Air Oxygen Flow Rate 0 Narrative Exam Narrative: Gen: Alert, oriented pale, chronically ill appearing 65 y.o. female HEENT: normocephalic, atraumatic, conjunctiva clear, sclera non-icteric, oral mucosa pink and moist Neck: supple, full ROM, no JVD, trachea is midline Resp: Lungs CTA, non-labored breathing CV: RRR, no murmur or rubs Abd: soft, non-tender, hypoactive BTs Skin: no lesions or rashes, dry and intact Neuro: Alert and oriented X 4 w/no focal deficits. Speech clear and coherent. Extremities: moves all 4 extremities, is ambulatory, negative Kayla?s sign Psyche: anxious Objective Labs Result Diagrams: 06/08/21 06:43 06/08/21 06:43 Labs: Laboratory Results - last 24 hr 06/07/21 06/07/21 06/07/21 14:55 14:55 14:55 WBC 8.0 RBC 3.30 L Hgb 9.9 L Hct 29.2 L MCV 88.6 MCH 29.9 MCHC 33.7 RDW 14.7 Plt Count 251 Neut % (Auto) 63.5 Lymph % (Auto) 25.2 [place] % (Auto) 9.6 Eos % (Auto) 1.2 L Baso % (Auto) 0.5 Neut # (Auto) 5100 Lymph # (Auto) 2000 [place] # (Auto) 800 Eos # (Auto) 100 Baso # (Auto) 0 Sodium 133 L Potassium 3.8 Chloride 103 Carbon Dioxide 26 BUN 32 H Creatinine 0.60 Estimated GFR > 60.0 BUN/Creatinine Ratio 53.3 H Glucose 163 H Calcium 9.0 Magnesium Total Bilirubin 0.2 Conjugated Bilirubin Unconjugated Bilirubin AST 24 ALT 20 Alkaline Phosphatase 92 D Total Creatine Kinase 45 CK-MB (CK-2) TNP CK-MB (CK-2) Rel Index TNP Troponin I < 0.012 Total Protein 5.9 L Albumin 3.5 Globulin 2.4 Albumin/Globulin Ratio 1.5 SARS-CoV-2 (PCR) Blood Type Antibody Screen 06/07/21 06/08/21 06/08/21 16:35 01:50 01:50 WBC RBC Hgb 7.6 L Hct 23.2 L MCV MCH MCHC RDW Plt Count Neut % (Auto) Lymph % (Auto) [place] % (Auto) Eos % (Auto) Baso % (Auto) Neut # (Auto) Lymph # (Auto) [place] # (Auto) Eos # (Auto) Baso # (Auto) Sodium Potassium Chloride Carbon Dioxide BUN Creatinine Estimated GFR BUN/Creatinine Ratio Glucose Calcium Magnesium Total Bilirubin Conjugated Bilirubin Unconjugated Bilirubin AST ALT Alkaline Phosphatase Total Creatine Kinase CK-MB (CK-2) CK-MB (CK-2) Rel Index Troponin I Total Protein Albumin Globulin Albumin/Globulin Ratio SARS-CoV-2 (PCR) Negative Blood Type O Positive Antibody Screen Negative 06/08/21 06/08/21 06:43 06:43 WBC 5.9 RBC 2.57 L Hgb 7.6 L Hct 23.1 L MCV 89.9 MCH 29.7 MCHC 33.1 RDW 14.7 Plt Count 182 Neut % (Auto) 53.1 Lymph % (Auto) 33.5 [place] % (Auto) 9.7 Eos % (Auto) 3.1 Baso % (Auto) 0.6 Neut # (Auto) 3100 Lymph # (Auto) 2000 [place] # (Auto) 600 Eos # (Auto) 200 Baso # (Auto) 0 Sodium 135 L Potassium 3.7 Chloride 110 H Carbon Dioxide 24 BUN 16 Creatinine 0.54 Estimated GFR > 60.0 BUN/Creatinine Ratio 29.6 H Glucose 106 Calcium 8.3 L Magnesium 1.6 Total Bilirubin < 0.1 L Conjugated Bilirubin 0.0 Unconjugated Bilirubin 0.1 AST 26 ALT 16 Alkaline Phosphatase 71 Total Creatine Kinase CK-MB (CK-2) CK-MB (CK-2) Rel Index Troponin I Total Protein 5.0 L Albumin 2.8 L Globulin 2.2 Albumin/Globulin Ratio 1.3 SARS-CoV-2 (PCR) Blood Type Antibody Screen [facility] Medical History Asthma (Unknown) Cervical spine disease (Unknown) Chronic constipation Depression (Unknown) Diabetes type 2, controlled Herpes (~1992) History of bleeding peptic ulcer (2011) Migraines (Unknown) Osteoporosis (Unknown) Pancreatic insufficiency Peptic ulcer disease (Unknown) Substance abuse (~1983) Surgical History History of incision and drainage (02/2018) History of open reduction and internal fixation (ORIF) procedure (01/2017) Hx of gastric bypass (Unknown) Family History Mother Pancreatic cancer Father Old age Son Alive and well Social History household members: spouse and children Smoking Status: Former smoker Tobacco: How many years used: 20 second hand exposure: No alcohol intake: former substance use type: does not use Assessment & Plan Assessment & Plan narrative: Shirin Escobar is a 65 y.o. with a history of upper GI bleeds and a Billroth II gastric bypass who presents with a likely upper GI bleed and plans are for her to undergo an upper endoscopy under general anesthesia. 1. Upper GI bleed, acute and present on admission continue IV protonix, carafate added per surgery. EGD showing a marginal ulcer, biopsies taken. Appreciate general surgery consultation from Dr. Garner. watch h/h today, continue regular diet, okay to discharge home tomorrow if stable h/h. 2. Nausea and vomiting in the setting of an upper GI bleed, present on admission IV Zofran and compazine for nausea and vomiting. Pain control with oral medications. 3. Moderate protein malnutrition with a BMI of 18% in the setting of the Billroth II, chronic and present on admission Dietary consult ordered 4. COPD, chronic - replace home medications with pulmicort BID, duonebs BID, prn albuterol. - no evidence for COPD exacerbation 5. Anxiety and depression, chronic - continue home medications 6. Chronic headaches and migraine - can resume home baclofen. VTE prophylaxis: SCDs given GI bleeding. Consults: General surgery. Dispo: Eventual discharge to home, probably tomorrow. Code Status: Full Code as discussed with patient who states her son, Mike Tuttle is her surrogate and POA Quality VTE Deep Vein Thrombosis/Pulmonary Embolism Present on Admission: No
--- NOTE | 2021-06-08 11:10 | CM.DANOTE ---
Addendum entered by CHRISTINE Briceño 06/08/21 12:49: ADD: SW went by pt's room again and spoke to RN who states pt is really feeling unwell and requested SW hold off until tomorrow as pt is not discharging today and no concerns noted at this time by MD vendor representatives. Plan: SW to complete bedside assessment tomorrow when pt more medically appropriate to participate to confirm safe home plan. No d/c needs at this time. BF Original Note: Patient is a 65 yo female who was admitted on 06/07/21 for Dehydration/Cramps. Pt has MCR and [employer] OUT [employer] PRE for insurance and her PCP is Dr. Bala Paula. EMR was reviewed. Per MD, pt with hx of peptic ulcer, endoscopy, gastric perforation, migraines and Surgeon to Consult. Per Surgeon, pt to have upper endoscopy today for likely upper GI Bleed. SW attempted bedside assessment this morning but pt was off the floor for endoscopy. SW attempted bedside assessment again when pt returned and FINANCE OFFICER getting pt up to void and pt states she is feeling very nauseous and sick right now post procedure. Per hospitalist, pt still quite tender and not medically stable to d/c yet today but will begin advancing her diet with plan of likely d/c home tomorrow if stable. Plan: SW to follow for bedside assessment later today when pt more medically appropriate to participate towards confirming safe d/c plan home with family assist. CHRISTINE Briceño Discharge Planning/Care Management CM Discharge Assessment Start: 06/08/21 11:08 Freq: Status: Active Protocol: Document 06/08/21 11:08 (Rec: 06/08/21 11:10 [id number]) Discharge Planning Assessment Assigned Sod Cutter CHRISTINE Benoit DPOA/Assigned Designee Name giancarlo Tuttle Contact Information [phone] Advance Directives? No Advance Directives on File No History Provided By Patient,Medical Record Has Patient been admitted in last 30 No days? Prior Living Arrangements House Household Members spouse,children Type of transporation used prior to Drives own vehicle admit Independent with ADL's Yes Is patient alert and oriented? Yes Caregiver for Another No Barriers to Discharge No Discharge Plan Home Transportation Arrangement Family can provide transport at d/c Referrals Initiated None needed Review Status In Process Please Provide Date Initial DC 06/08/21 Assessment Was Performed Next Review Type Continued Stay Review
[2021-06-08] MEDS: SUCRALFATE 1 GM TABLET PO ×2 (12:02→17:03)
[2021-06-08] MEDS: LIPASE/PROTEASE/AMYLASE 5/17/24 CAP PO ×2 (12:09→17:03)
--- NOTE | 2021-06-08 13:54 | PC.NURSE ---
Frequent nausea, only slightly alleviated with IV Zofran and Compezine; ice pack to back of neck; @ 1400 belching and dry heaves, BTs hyperactive; moderate pain to RLQ, PO Oxycodone
[2021-06-08] MEDS: hydrOXYzine pamoate 25 MG CAPSULE PO (16:24)
[2021-06-08] MEDS: BUSPIRONE 5 MG TABLET 10 MG PO (20:05)
[2021-06-08] MEDS: AMITRIPTYLINE 25 MG TABLET 100 MG PO (20:05)
[2021-06-08] MEDS: VENLAFAXINE HCL 100 MG TABLET 150 MG PO (20:06)
[2021-06-09] VITALS: BP 144/77; PULSE 80
[2021-06-09] MEDS: OXYCODONE IR 5 MG TABLET PO ×2 (00:01→03:51)
[2021-06-09 01:45] VITALS: O2SAT 99
[2021-06-09] MEDS: ONDANSETRON 4 MG/2 ML INJ IV (03:51)
[2021-06-09 04:00] VITALS: BP 119/61; PULSE 73; RESP 16; TEMP 35.9; O2SAT 97
[2021-06-09 05:48] LABS: Add Manual Diff / Slide Review NO; Basophils Absolute Auto 0 /uL (0-100); Basophils Percent Auto 0.5 % (0-2); Eosinophils Absolute Auto 300 /uL (0-450); Eosinophils Percent Auto 4.1 % (2-4); Hematocrit 23.3 % (36-46); Hemoglobin 7.8 g/dL (12.0-16.0); Lymphocytes Absolute Auto 1500 /uL (1100-4500); Lymphocytes Percent Auto 20.5 % (25-40); Mean Corpuscular HGB Conc 33.3 % (30-36); Mean Corpuscular Hemoglobin 29.8 PG (26-34); Mean Corpuscular Volume 89.4 fL (80-100); Monocytes Absolute Auto 700 /uL (0-900); Monocytes Percent Auto 9.1 % (3-14); Neutrophils Absolute Auto 4900 /uL (1500-7000); Neutrophils Percent Auto 65.8 % (50-75); Platelet Count 172 X10^3/uL (150-400); Red Cell Distribution Width 14.6 % (11.6-14.8); White Blood Cell Count 7.4 X10^3/uL (4.5-11.0)
[2021-06-09] MEDS: hydrOXYzine pamoate 25 MG CAPSULE PO (05:48)
[2021-06-09] MEDS: SUCRALFATE 1 GM TABLET PO ×2 (05:48)
[2021-06-09 05:49] VITALS: BP 119/61; PULSE 73
[2021-06-09] MEDS: PROCHLORPERAZINE 10 MG/2 ML VIAL 5 MG IV ×2 (05:49)
[2021-06-09 05:59] LABS: Alanine Aminotransferase 15 IU/L (<35); Albumin 2.9 g/dL (3.5-5.0); Albumin Globulin Ratio 1.3 (1.0-2.8); Alkaline Phosphatase 66 U/L (38-126); Aspartate Aminotransferase 24 IU/L (14-36); Bilirubin Total 0.1 mg/dL (0.2-1.3); Bilirubin Unconjugated 0.1 mg/dL (0.0-1.1); Globulin 2.2 g/dL (1.7-4.1); HEMOLYSIS < 15 (0-50); Magnesium 1.6 mg/dL (1.6-2.3); Total Protein 5.1 g/dL (6.3-8.2)
[2021-06-09 06:01] LABS: BUN Creatinine Ratio 16.7 (6-22); Blood Urea Nitrogen 8 mg/dL (7-17); Calcium 8.4 mg/dL (8.4-10.2); Carbon Dioxide 26 mmol/L (22-32); Chloride 107 mmol/L (98-107); Estimated Glomerular Filt Rate > 60.0 mL/min (>60); Glucose 114 mg/dL (80-110); HEMOLYSIS < 15 (0-50); Potassium 3.7 mmol/L (3.4-5.1); Sodium 134 mmol/L (137-145)
[2021-06-09 07:50] VITALS: O2SAT 94
[2021-06-09 07:52] VITALS: BP 123/65; PULSE 77; RESP 15; TEMP 36.6; O2SAT 99
[2021-06-09] MEDS: BUSPIRONE 5 MG TABLET 10 MG PO (08:12)
[2021-06-09] MEDS: MONTELUKAST 10 MG TABLET PO (08:12)
[2021-06-09] MEDS: PANTOPRAZOLE 40 MG VIAL IV (08:13)
[2021-06-09] MEDS: VENLAFAXINE HCL 100 MG TABLET 150 MG PO (08:15)
[2021-06-09] MEDS: LIPASE/PROTEASE/AMYLASE 5/17/24 CAP PO (08:15)
[2021-06-09] MEDS: SODIUM CHLORIDE 0.9% 1,000 ML 100 ML IV (08:25)
--- NOTE | 2021-06-09 08:31 | P.DS_ITS ---
History of Present Illness History of Present Illness Date Patient Seen: 06/09/21 Time Patient Seen: 08:31 Chief complaint: Black bowel movements Narrative: Per MARY Jerry: Shirin Tuttle is a 65 y.o. female with a history of hematemesis in the past and peptic ulcer disease having undergone endoscopy as recently as 2019 who present ed with a several week history of nausea, she states it snowballed early this week and has aggrevated her migranes. She has had by history a prior gastric perforation and bypass antrectomy and Billroth II anastomosis. She was recently treated for MRSA with doxycycline and rifampin 2 weeks ago, and believes the initiation of these antibiotics triggered her migraines. She goes to a chronic pain clinic and has been receiving Botox injections for migraines and states this is the only therapy that helpes. She states she has been weak, was developing hot and cold flashes since arriving to the floor, compaints of abdominal crampting, nausea and vomiting black emesis as well as having black, clumpy stool. She denies dysurea. Dr. Elliott saw her in the ED and plans are for her to undergo an upper endoscopy under general anesthesia. CT of the abdomen indicated stool obstipation and scattered diverticula consistent with diverticulitis. Patient is afebrile, blood pressure 124/43, heart rate 80, respiratory rate 17, oxygen saturation 98% on room air, she weighs 55.4 kg with a BMI of 18.6. Hemoglobin hematocrit are slightly low 9.9 and 29.2 respectively however the this appears to be a slightly lower than her baseline, glucose is 163, COVID-19 PCR was negative. Discharge Providers Provider Date of admission: 06/07/21 17:25 Discharge Date: 06/09/21 Primary care physician: Bala Paula MD Consults: 06/07/21 21:06 Consult to General Surgery Routine Comment: Consulting Provider: Josiah Elliott Reason for consultation: Upper GIB Has provider been notified: Yes 06/08/21 09:00 Consult to Dietitian, Adult Routine Comment: Reason For Exam: Billroth II gastric bypass Discharge provider: Elpidio Tinoco DO Summary Hospital Course Discharge Diagnosis: 1. Acute blood loss anemia secondary to Upper GI bleed, acute and present on admission. GI bleeding from marginal ulcer. 2. Nausea and vomiting in the setting of an upper GI bleed, present on admission 3. Moderate protein malnutrition with a BMI of 18% in the setting of the Billroth II, chronic and present on admission 4. COPD, chronic 5. Anxiety and depression, chronic 6. Chronic headaches and migraine Hospital Course: This is a 65-year-old female with a past medical history of anxiety depression, chronic headaches, COPD, and previous Biliroth II surgery who was admitted with acute blood loss anemia secondary to a GI bleed. EGD was performed which ultimately showed a marginal ulcer. After initiation of Protonix, sucralfate was also added according to the General surgery recommendations. Biopsies were taken the patient will follow-up with [facility] for these results. She was recommended for at least 24 hours of monitoring after EGD given the appearance of her marginal ulcer. Ultimately her H&H stabilized and actually improved after initiation of a diet after her EGD. Patient was discharged on sucralfate as well as Protonix 40 mg twice a day. Her nausea was controlled and improved over the course of admission. No other medication changes are recommended at this time. Recommend the patient follow- up with her primary care provider in approximately 2 weeks. Code Status: Full Code as discussed with patient who states her son, Mike Tuttle is her surrogate and POA Exam Vital Signs (past 8 hours): - 06/09/21 01:45 06/09/21 04:00 06/09/21 05:49 Temperature 96.6 F L Pulse Rate 73 73 Respiratory Rate 16 Blood Pressure 119/61 119/61 Pulse Oximetry 99 97 06/09/21 07:50 06/09/21 07:52 Temperature 97.9 F Pulse Rate 77 Respiratory Rate 15 Blood Pressure 123/65 Pulse Oximetry 94 99 Oxygen Delivery Method Room Air Oxygen Flow Rate 0 Narrative Exam Narrative: Gen: Alert, oriented pale, chronically ill appearing 65 y.o. female HEENT: normocephalic, atraumatic, conjunctiva clear, sclera non-icteric, oral mucosa pink and moist Neck: supple, full ROM, no JVD, trachea is midline Resp: Lungs CTA, non-labored breathing CV: RRR, no murmur or rubs Abd: soft, non-tender, hypoactive BTs Skin: no lesions or rashes, dry and intact Neuro: Alert and oriented X 4 w/no focal deficits. Speech clear and coherent. Extremities: moves all 4 extremities, is ambulatory, negative Kayla?s sign Psyche: anxious Objective Labs Result Diagrams: 06/09/21 05:25 06/09/21 05:25 Labs: Laboratory Results - last 24 hr 06/09/21 06/09/21 06/09/21 05:25 05:25 05:25 WBC 7.4 RBC 2.60 L Hgb 7.8 L Hct 23.3 L MCV 89.4 MCH 29.8 MCHC 33.3 RDW 14.6 Plt Count 172 Neut % (Auto) 65.8 Lymph % (Auto) 20.5 L [place] % (Auto) 9.1 Eos % (Auto) 4.1 H Baso % (Auto) 0.5 Neut # (Auto) 4900 Lymph # (Auto) 1500 [place] # (Auto) 700 Eos # (Auto) 300 Baso # (Auto) 0 Sodium 134 L Potassium 3.7 Chloride 107 Carbon Dioxide 26 BUN 8 Creatinine 0.48 L Estimated GFR > 60.0 BUN/Creatinine Ratio 16.7 Glucose 114 H Calcium 8.4 Magnesium 1.6 Total Bilirubin 0.1 L Conjugated Bilirubin 0.0 Unconjugated Bilirubin 0.1 AST 24 ALT 15 Alkaline Phosphatase 66 Total Protein 5.1 L Albumin 2.9 L Globulin 2.2 Albumin/Globulin Ratio 1.3 [facility] Medical History Asthma (Unknown) Cervical spine disease (Unknown) Chronic constipation Depression (Unknown) Diabetes type 2, controlled Herpes (~1992) History of bleeding peptic ulcer (2011) Migraines (Unknown) Osteoporosis (Unknown) Pancreatic insufficiency Peptic ulcer disease (Unknown) Substance abuse (~1983) Surgical History History of incision and drainage (02/2018) History of open reduction and internal fixation (ORIF) procedure (01/2017) Hx of gastric bypass (Unknown) Family History Mother Pancreatic cancer Father Old age Son Alive and well Social History household members: spouse and children Smoking Status: Former smoker Tobacco: How many years used: 20 second hand exposure: No alcohol intake: former substance use type: does not use Discharge Plan Discharge Plan Patient Disposition: Home Provider Discharge Comment: You were admitted to the hospital with bleeding from her stomach. You had an EGD which showed that you had a ulcer. Please continue taking pantoprazole and sucralfate. Please follow-up with General surgery either with a phone call or in the office for the results of your biopsy. Try and schedule follow-up with your primary care provider in the next 2 weeks or so. No other medication changes are recommended at this time. Discharge orders & Medications Prescriptions: Continued [place] 3 See Rx Instructions .ROUTE .COMPLEX RF: 0 Reclast See Rx Instructions .ROUTE .COMPLEX RF: 0 Combivent Respimat 20-100 mcg/actuation mist 1 puff INHALATION QID PRN (Reason: shortness of breath or wheezing) Qty: 4 RF: 6 olopatadine 0.1 % drops 1 drop EYE-BOTH BID Qty: 5 RF: 3 Massage Therapy 1 each topical .EVERY 2 WEEKS Qty: 24 RF: 0 Chiropractor 1 each topical .EVERY 2 WEEKS Qty: 24 RF: 3 baclofen 20 mg tablet 20 mg PO .COMPLEX Qty: 180 RF: 11 scopolamine base 1 mg over 3 days patch 3 day 1 patch transdermal Q3D PRN (Reason: nausea and vomiting) Qty: 4 RF: 2 sucralfate 1 gram tablet 1 gram PO BID PRN (Reason: acid reflux) Qty: 180 RF: 3 ipratropium-albuterol 0.5 mg-3 mg(2.5 mg base)/3 mL solution for nebulization 3 ml inhalation Q6HP PRN (Reason: shortness of breath or wheezing) Qty: 2 RF: 3 arexxh-dhegauqx-gmdrnuj 6,000-19,000 -30,000 unit capsule,delayed release(DR/EC) 1 cap PO TID Qty: 90 RF: 3 misoprostol [Cytotec] 200 mcg tablet 200 mcg PO BID Qty: 180 RF: 2 montelukast [Singulair] 10 mg tablet 10 mg PO QDAY Qty: 90 RF: 3 buspirone 10 mg tablet 10 mg PO BID Qty: 180 RF: 2 hydroxyzine pamoate 25 mg capsule See Rx Instructions PO DAILY PRN (Reason: anxiety) Qty: 60 RF: 3 ondansetron 8 mg tablet,disintegrating 8 mg PO TID PRN (Reason: nausea and vomiting) Qty: 30 RF: 1 olopatadine 0.6 % spray,non-aerosol 2 spray NASAL BID Qty: 30.5 RF: 3 venlafaxine 75 mg tablet 150 mg PO BID Qty: 360 RF: 3 acyclovir 400 mg tablet 400 mg PO QID Qty: 1080 RF: 3 amitriptyline 50 mg tablet 100 - 200 mg PO HS Qty: 1080 RF: 3 hydrocodone-acetaminophen 7.5-325 mg tablet 1 tab PO Q12H PRN (Reason: pain) Qty: 30 RF: 0 Flovent HFA 110 mcg/actuation HFA aerosol inhaler 1 puff INHALATION PRN PRN (Reason: Congestion) RF: 0 pantoprazole [Protonix] 40 mg tablet,delayed release (DR/EC) 40 mg PO BID 30 Days Qty: 60 RF: 1 Botox 200 unit recon soln 200 unit IM ONCE Qty: 1 RF: 3 Follow up/Referrals: Bala Paula MD [Primary Care Provider] - Diet/Activity/Treatments Diet: Diet as Tolerated Activity: As tolerated Visit Report/Discharge Packet Stand Alone Forms: EGD Result: [facility] Discharge Data Primary Care Provider: Bala Paula Attending Provider: Sheri De Leon VTE Deep Vein Thrombosis/Pulmonary Embolism Present on Admission: No
[2021-06-09] MEDS: BUSPIRONE 5 MG TABLET 20 MG PO (09:31)
--- NOTE | 2021-06-09 10:27 | PC.NURSE ---
Discharge note: Patient ambulating independently in room, tolerated breakfast. Discharged home per MD order. Discussed importance of F/U with General surgery and PMD in 2 weeks. Discussed importance of new RX medication adherence, signs of worsening symptoms, and EGD aftercare. Both spouse and patient verbalized understanding. Home via private vehicle, accompanied by spouse.
== END 2021-06-09 10:00 | disposition home or self-care (01) ==
LOC: ED 17:24 → AC 17:25
PROVIDERS: Internal Medicine; Nurse Practitioner Family; Specialist; Admitting Provider Internal Medicine; Emergency Provider Emergency Medicine; PCP Internal Medicine; Referring Provider Emergency Medicine; Visit Provider Internal Medicine
PROC: 0DJ08ZZ Inspection of Upper Intestinal Tract, Via Natural or Artificial Opening Endoscopic (ICD-10-PCS; CPT 43235; principal; 2021-06-08 08:30)
DX: D62 Acute posthemorrhagic anemia (principal); K28.4 Chronic or unspecified gastrojejunal ulcer with hemorrhage; K29.70 Gastritis, unspecified, without bleeding; G43.909 Migraine, unspecified, not intractable, without status migrainosus; E44.0 Moderate protein-calorie malnutrition; Z68.1 Body mass index [BMI] 19.9 or less, adult; K86.89 Other specified diseases of pancreas; F32.9 Major depressive disorder, single episode, unspecified; F41.9 Anxiety disorder, unspecified; J44.9 Chronic obstructive pulmonary disease, unspecified; Z98.84 Bariatric surgery status; Z87.891 Personal history of nicotine dependence; Z20.822 Contact with and (suspected) exposure to COVID-19
CPT/HCPCS: 43239; 36415; 74177; 80048; 80053; 80076; 81003; 82550; 83735; 84484; 85014; 85018; 85025; 86850; 86900; 86901; 87635; 93005; 93010; 96361; 96374; 96375; 96376; 99225; 99284; C9803; G0378; A9270; C9113; J0780; J2405; Q9967

== ENCOUNTER 2021-06-14 19:33 | Observation (INO) | payer MEDICARE, BC, SELFPAY ==
[2021-06-07 21:43] VITALS: BMI 18.6
[2021-06-14] VITALS (8 sets, daily range): BP systolic 135–155; BP diastolic 70–76; PULSE 68–85; RESP 14–20; TEMP 36.8; O2SAT 99–100; BMI 19.0
[2021-06-14 20:14] LABS: Add Manual Diff / Slide Review NO; Basophils Absolute Auto 0 /uL (0-100); Basophils Percent Auto 0.4 % (0-2); Eosinophils Absolute Auto 400 /uL (0-450); Eosinophils Percent Auto 6.2 % (2-4); Hematocrit 19.6 % (36-46); Lymphocytes Absolute Auto 1800 /uL (1100-4500); Lymphocytes Percent Auto 27.5 % (25-40); Mean Corpuscular HGB Conc 33.5 % (30-36); Mean Corpuscular Hemoglobin 30.3 PG (26-34); Mean Corpuscular Volume 90.5 fL (80-100); Monocytes Absolute Auto 600 /uL (0-900); Monocytes Percent Auto 8.8 % (3-14); Neutrophils Absolute Auto 3700 /uL (1500-7000); Neutrophils Percent Auto 57.1 % (50-75); Platelet Count 277 X10^3/uL (150-400); Red Blood Cell Count 2.17 X10^6/uL (4.0-5.2); Red Cell Distribution Width 15.4 % (11.6-14.8); White Blood Cell Count 6.5 X10^3/uL (4.5-11.0)
[2021-06-14 20:16] LABS: Hemoglobin 6.6 g/dL (12.0-16.0)
[2021-06-14 20:23] LABS: Alanine Aminotransferase 18 IU/L (<35); Albumin 3.7 g/dL (3.5-5.0); Albumin Globulin Ratio 1.5 (1.0-2.8); Alkaline Phosphatase 104 U/L (38-126); Aspartate Aminotransferase 29 IU/L (14-36); BUN Creatinine Ratio 17.3 (6-22); Bilirubin Total 0.2 mg/dL (0.2-1.3); Blood Urea Nitrogen 14 mg/dL (7-17); Calcium 9.2 mg/dL (8.4-10.2); Carbon Dioxide 25 mmol/L (22-32); Chloride 105 mmol/L (98-107); Estimated Glomerular Filt Rate > 60.0 mL/min (>60); Globulin 2.4 g/dL (1.7-4.1); Glucose 128 mg/dL (80-110); HEMOLYSIS < 15 (0-50); Potassium 4.2 mmol/L (3.4-5.1); Sodium 135 mmol/L (137-145); Total Protein 6.1 g/dL (6.3-8.2)
--- NOTE | 2021-06-14 21:40 | PC.NURSE ---
Second PIV unsuccessful x1
--- NOTE | 2021-06-14 22:09 | ED.GIBLEED ---
HPI - GI Bleed General Chief complaint: GI Bleed Stated complaint: CRAMPING OF THE STOMACH AND SHOULDERS SENT BY Time Seen by Provider: 06/14/21 20:47 Source: patient Mode of arrival: Ambulatory Limitations: no limitations History of Present Illness HPI Narrative: 65-year-old woman with history of chronic sinusitis and GI bleeding and prior Billroth II surgery, presents with recurrent bleeding. She was initially seen on June 07 after taking rifampin and doxycycline for chronic sinusitis and having multiple episodes of diarrhea and abdominal cramping. She is found to be moderately anemic and was admitted to the hospitalist service with surgical consult for endoscopy. She underwent an upper endoscopy on June 08 that showed diffuse gastritis and at the gastro jejunostomy there was ulceration consistent with a marginal ulcer. She ended up not receiving any blood at that time was discharged home and continued to have nausea no vomiting and had had a bowel movement until yesterday after she took some MiraLax. Since then she has been having black/melanic diarrhea with increasing dizziness continued migraine pain and mild epigastric pain with mild diffuse abdominal cramping. Related Data Home Medications Medication Instructions Recorded Confirmed [place] 3 See Rx Instructions .ROUTE .COMPLEX 08/02/18 06/07/21 Reclast See Rx Instructions .ROUTE .COMPLEX 08/02/18 06/07/21 fluticasone propionate 110 1 puff INHALATION PRN PRN 06/08/21 06/08/21 mcg/actuation HFA aerosol inhaler (Flovent HFA) Previous Rx's Medication Instructions Recorded olopatadine 0.6 % nasal spray 2 spray NASAL BID #30.5 gram 03/16/19 onabotulinumtoxinA 200 unit 200 unit IM ONCE #1 each 05/24/19 solution for injection (Botox) ipratropium 20 mcg-albuterol 100 1 puff INHALATION QID PRN #4 gram 09/21/19 mcg/actuation mist for inhalation (Combivent Respimat) olopatadine 0.1 % eye drops 1 drop EYE-BOTH BID #5 ml 11/17/19 Chiropractor 1 each TOPICAL .EVERY 2 WEEKS #24 11/18/19 each Massage Therapy 1 each TOPICAL .EVERY 2 WEEKS #24 11/18/19 each venlafaxine 75 mg tablet 150 mg PO BID #360 tab 04/15/20 baclofen 20 mg tablet 20 mg PO .COMPLEX #180 tab 04/20/20 scopolamine base 1 mg over 3 days 1 patch TRANSDERMAL Q3D PRN #4 each 06/22/20 transdermal patch sucralfate 1 gram tablet 1 gram PO BID PRN #180 tab 06/25/20 acyclovir 400 mg tablet 400 mg PO QID #1080 tab 07/30/20 amitriptyline 50 mg tablet 100 - 200 mg PO HS #1080 tab 07/30/20 hydrocodone 7.5 mg-acetaminophen 1 tab PO Q12H PRN #30 tab 07/30/20 325 mg tablet ipratropium 0.5 mg-albuterol 3 mg 3 ml INHALATION Q6HP PRN #2 ml 08/02/20 (2.5 mg base)/3 mL nebulization soln [id number] 1 cap PO TID #90 cap 10/01/20 6,000-19,000-30,000 unit capsule,delayed rel misoprostol 200 mcg tablet 200 mcg PO BID #180 tab 11/29/20 (Cytotec) montelukast 10 mg tablet 10 mg PO QDAY #90 tab 12/03/20 (Singulair) buspirone 10 mg tablet 10 mg PO BID #180 tab 03/08/21 hydroxyzine pamoate 25 mg capsule See Rx Instructions PO DAILY PRN 03/13/21 #60 cap ondansetron 8 mg disintegrating 8 mg PO TID PRN #30 tab 05/27/21 tablet pantoprazole 40 mg tablet,delayed 40 mg PO BID 30 Days #60 tab 06/09/21 release (Protonix) Allergies Allergy/AdvReac Type Severity Reaction Status Date / Time fentanyl Allergy Severe Drug Verified 06/14/21 19:40 Sick/Can't take it. Adverse Reaction as well. Sulfa (Sulfonamide Allergy Severe ITCHING Verified 06/14/21 19:40 Antibiotics) [SULFA (SULFONAMIDE ANTIBIOTICS)] codeine [CODEINE] AdvReac Mild JITTERS Verified 06/14/21 19:40 morphine [MORPHINE] AdvReac Mild JITTERS Verified 06/14/21 19:40 Review of Systems Review of Systems Narrative: Remainder of complete review of systems is otherwise unremarkable except for that included in the HPI. Patient History Medical History Asthma (Unknown) Cervical spine disease (Unknown) Chronic constipation Depression (Unknown) Diabetes type 2, controlled Herpes (~1992) History of bleeding peptic ulcer (2011) Migraines (Unknown) Osteoporosis (Unknown) Pancreatic insufficiency Peptic ulcer disease (Unknown) Substance abuse (~1983) Surgical History History of incision and drainage (02/2018) History of open reduction and internal fixation (ORIF) procedure (01/2017) Hx of gastric bypass (Unknown) Family History Mother Pancreatic cancer Father Old age Son Alive and well Social History household members: spouse and children Smoking Status: Former smoker Tobacco: How many years used: 20 second hand exposure: No alcohol intake: former substance use type: does not use Smoking Status: Former smoker alcohol intake frequency: holidays/special occasions only Substance Use Type: does not use Exam Narrative Exam Narrative: General: Frail-appearing but in no acute distress. Able to give a complete and coherent history. Well-nourished well-developed HEENT: Moist mucous membranes, normal sclera with reactive pupils, Neck: No JVD, supple Respiratory: Lungs are clear to auscultation, no wheezing no rales no rhonchi. Full and symmetrical air movement Cardiac: Regular rate and rhythm no murmurs no bruits Abdomen: Soft, mild diffuse tenderness and more specific mild tenderness in the epigastrium with hyperactive bowel tones and no flank pain appreciated Skin: Warm and dry, no rashes Neurologic: Grossly neurologically intact with no obvious asymmetries or abnormalities Extremities: No trauma, pale with slightly delayed capillary refill distally Psych: Cooperative, appropriate insight and affect Initial Vital Signs Initial Vital Signs: Vital Signs Temperature 98.3 F 06/14/21 19:35 Pulse Rate 85 06/14/21 19:35 Respiratory Rate 14 06/14/21 19:35 Blood Pressure 155/71 H 06/14/21 19:35 Pulse Oximetry 99 06/14/21 19:35 Course Orders Ordered: ED Orders 06/15/21 00:02 Packed Cells Stat Acetaminophen (Acetaminophen 325 Mg Tablet) 650 mg PO Q6HR PRN PRN Reason: Fever/Mild Pain (1-3) Albuterol/Ipratropium (Albuterol/Ipratropium 3 Ml Ampul) 3 ml INH RTQ4HR PRN PRN Reason: Shortness Of Breath Budesonide (Budesonide 0.5 Mg/2 Ml Neb) 0.5 mg INH RTBID CHAYO Hydromorphone HCl (Hydromorphone 0.5 Mg Inj) 0.5 mg IV Q15MIN PRN PRN Reason: Pain, Last Admin: 06/15/21 00:15 Dose: 0.5 mg Documented by: DAVINA Sodium Chloride (Normal Saline 0.9%) 1,000 mls @ 150 mls/hr IV CONT [facility] Last Admin: 06/15/21 06:57 Dose: 150 mls/hr Documented by: BONIFACIO Naloxone HCl (Naloxone 0.4 Mg/Ml Vial) 0.2 mg IV Q2MIN PRN PRN Reason: Opiate Reversal Ondansetron HCl (Ondansetron 4 Mg/2 Ml Inj) 4 mg IV Q8HR PRN PRN Reason: Nausea And Vomiting Pantoprazole Sodium (Pantoprazole 40 Mg Vial) 40 mg IV BID CHAYO Prochlorperazine (Prochlorperazine 10 Mg/2 Ml Vial) 10 mg IV Q6HR PRN PRN Reason: Nausea Discontinued Medications Sodium Chloride (Normal Saline 0.9%) 1,000 mls @ 150 mls/hr IV CONT [facility] Last Admin: 06/15/21 06:08 Dose: Not Given Documented by: BONIFACIO Ondansetron HCl (Ondansetron 4 Mg/2 Ml Inj) 4 mg IV NOW ONE Stop: 06/15/21 00:03 Last Admin: 06/15/21 00:15 Dose: 4 mg Documented by: DAVINA Pantoprazole Sodium (Pantoprazole 40 Mg Vial) 80 mg IV NOW ONE Stop: 06/15/21 00:03 Last Admin: 06/15/21 00:15 Dose: 80 mg Documented by: DAVINA Prochlorperazine (Prochlorperazine 10 Mg/2 Ml Vial) 10 mg IV NOW ONE Stop: 06/15/21 00:03 Last Admin: 06/15/21 00:15 Dose: 10 mg Documented by: HGUBERN Vital Signs Vital signs: Vital Signs - 8 hr 06/14/21 23:30 Pulse Rate 69 Respiratory Rate 16 Blood Pressure 142/76 H Pulse Oximetry 99 MDM - GI Bleed Medical Records Medical records narrative: 65-year-old woman with history of GI bleeding at the marginal site with her Billroth II surgery. Was hospitalized last week with upper endoscopy done. Did not receive blood at that time. Has not had a bowel movement after discharge from that hospitalization until yesterday after she took MiraLax. At that point she is having zahra melena with increasing dizziness. Continued epigastric pain and abdominal cramping. She continues to have migraine pain which responded well with Compazine with her last visit. Pain was controlled with hydrocodone 7.5 mg she is continued on her Protonix b.i.d.. Will admit her to the hospitalist service with 2 unit of blood given and H&H at 6.6 and 19.6 and evidence of ongoing bleeding. Platelets are at 277, she is not on anticoagulants and are all within normal limits. Lab Data Result diagrams: 06/14/21 19:50 06/14/21 19:50 Labs: Lab Results 06/14/21 06/14/21 06/14/21 Range/Units 19:50 19:50 19:50 WBC 6.5 (4.5-11.0) X10^3/uL RBC 2.17 L (4.0-5.2) X10^6/uL Hgb 6.6 L* (12.0-16.0) g/dL Hct 19.6 L* (36-46) % MCV 90.5 (80-100) fL MCH 30.3 (26-34) PG MCHC 33.5 (30-36) % RDW 15.4 H (11.6-14.8) % Plt Count 277 (150-400) X10^3/uL Neut % (Auto) 57.1 (50-75) % Lymph % (Auto) 27.5 (25-40) % Kim[place] % (Auto) 8.8 (3-14) % Eos % (Auto) 6.2 H (2-4) % Baso % (Auto) 0.4 (0-2) % Neut # (Auto) 3700 (9600-8550) /uL Lymph # (Auto) 1800 (3971-6475) /uL [place] # (Auto) 600 (0-900) /uL Eos # (Auto) 400 (0-450) /uL Baso # (Auto) 0 (0-100) /uL Sodium 135 L (137-145) mmol/L Potassium 4.2 (3.4-5.1) mmol/L Chloride 105 (98-107) mmol/L Carbon Dioxide 25 (22-32) mmol/L BUN 14 (7-17) mg/dL Creatinine 0.81 (0.52-1.04) mg/dL Estimated GFR > 60.0 (>60) mL/min BUN/Creatinine Ratio 17.3 (6-22) Glucose 128 H (80-110) mg/dL Calcium 9.2 (8.4-10.2) mg/dL Magnesium (1.6-2.3) mg/dL Total Bilirubin 0.2 (0.2-1.3) mg/dL AST 29 (14-36) IU/L ALT 18 (<35) IU/L Alkaline Phosphatase 104 (38-126) U/L Total Protein 6.1 L (6.3-8.2) g/dL Albumin 3.7 (3.5-5.0) g/dL Globulin 2.4 (1.7-4.1) g/dL Albumin/Globulin Ratio 1.5 (1.0-2.8) SARS-CoV-2 (PCR) (Negative) Blood Type O Positive Antibody Screen Negative Crossmatch See Detail 06/14/21 06/14/21 Range/Units 19:50 21:18 WBC (4.5-11.0) X10^3/uL RBC (4.0-5.2) X10^6/uL Hgb (12.0-16.0) g/dL Hct (36-46) % MCV (80-100) fL MCH (26-34) PG MCHC (30-36) % RDW (11.6-14.8) % Plt Count (150-400) X10^3/uL Neut % (Auto) (50-75) % Lymph % (Auto) (25-40) % Kimble % (Auto) (3-14) % Eos % (Auto) (2-4) % Baso % (Auto) (0-2) % Neut # (Auto) (1589-5838) /uL Lymph # (Auto) (2897-6507) /uL Kimble # (Auto) (0-900) /uL Eos # (Auto) (0-450) /uL Baso # (Auto) (0-100) /uL Sodium (137-145) mmol/L Potassium (3.4-5.1) mmol/L Chloride (98-107) mmol/L Carbon Dioxide (22-32) mmol/L BUN (7-17) mg/dL Creatinine (0.52-1.04) mg/dL Estimated GFR (>60) mL/min BUN/Creatinine Ratio (6-22) Glucose (80-110) mg/dL Calcium (8.4-10.2) mg/dL Magnesium 1.6 (1.6-2.3) mg/dL Total Bilirubin (0.2-1.3) mg/dL AST (14-36) IU/L ALT (<35) IU/L Alkaline Phosphatase (38-126) U/L Total Protein (6.3-8.2) g/dL Albumin (3.5-5.0) g/dL Globulin (1.7-4.1) g/dL Albumin/Globulin Ratio (1.0-2.8) SARS-CoV-2 (PCR) Negative (Negative) Blood Type Antibody Screen Crossmatch Point of Care Testing Stool Occult Blood Positive Glucose POC 121 Discharge Plan Departure Patient Disposition: Admitted As Inpatient Clinical Impression: Acute GI bleeding Admit Date/Time: 06/15/21 00:07 Admit Provider: Lucina Archuleta
[2021-06-14 22:12] LABS: COVID19 - ADMIT (NP swab/PCR) Negative (Negative)
--- NOTE | 2021-06-14 23:51 | PC.NURSE ---
Assisted pt to bathroom. steady on feet with acute dizziness. large dark incontinent stool. assisted with incontinence care and pt ambulated back to room. awaiting blood transfusion and admission.
[2021-06-15] VITALS (20 sets, daily range): BP systolic 105–149; BP diastolic 59–78; PULSE 66–81; RESP 14–22; TEMP 35.9–36.7; O2SAT 96–99; BMI 17.6
[2021-06-15] MEDS: HYDROMORPHONE 0.5 MG INJ IV (00:15)
[2021-06-15] MEDS: ONDANSETRON 4 MG/2 ML INJ IV (00:15)
[2021-06-15] MEDS: PROCHLORPERAZINE 10 MG/2 ML VIAL IV (00:15)
[2021-06-15] MEDS: PANTOPRAZOLE 40 MG VIAL 80 MG IV (00:15)
--- NOTE | 2021-06-15 00:35 | P.HP_ITS ---
History of Present Illness History of Present Illness Date Patient Seen: 06/15/21 Time Patient Seen: 00:35 Chief complaint: CRAMPING OF THE STOMACH AND SHOULDERS SENT BY DR Matthew: Patient is a 65-year-old woman Shirin Tuttle with history of chronic sinusitis and GI bleeding and prior Billroth II surgery, presents with recurrent bleeding. She was initially seen on June 07 after taking rifampin and doxycycline for chronic sinusitis and having multiple episodes of diarrhea and abdominal cramping. She is found to be moderately anemic and was admitted to [facility] hospitalist service with upper GI bleed-surgical consult for endoscopy. She underwent an upper endoscopy on June 08 that showed diffuse gastritis and at the gastro jejunostomy there was a ulceration consistent with a marginal ulcer. She ended up not receiving any blood at that time was discharged home and continued to have nausea, no vomiting and had not had a bowel movement since hospital discharge, until she took some MiraLax yesterday. Since then she has been having black/melanic diarrhea x 8 with increasing dizziness continued migraine pain and mild epigastric pain with mild diffuse abdominal cramping. Patient became very dizzy when she got up to the restroom in the ED and produced voluminous black melanotic liquid stool. Upon admit patient is pale extremely fatigued alert and orientated x3, in no pain or discomfort at this time. Patient's nausea, abdominal cramping, pain, and shortness of breath resolved with interventions in ED. Patient is receiving her 1st blood transfusion at this time. Patient's vitals are stable BP 142/76, HR 69, R 16, O2 saturation 99% on room air. Patient's H&H were significantly low with HGB of 6.6 and HCT of 19.6, Dr. Krishnamurthy ordered 2 units for infusion. Patient's platelets were normal at 277 and MCV was also normal, RBCs 2.17. Patient's chemistries were predominantly unremarkable mildly low sodium 135, glucose 128, total protein 6.1. Patient's EGD results are stated above from 06/[address] Garner. Patient admitted for acute lower GI bleed Patient History Medical History Asthma (Unknown) Cervical spine disease (Unknown) Chronic constipation Depression (Unknown) Diabetes type 2, controlled Herpes (~1992) History of bleeding peptic ulcer (2011) Migraines (Unknown) Osteoporosis (Unknown) Pancreatic insufficiency Peptic ulcer disease (Unknown) Substance abuse (~1983) Surgical History History of incision and drainage (02/2018) History of open reduction and internal fixation (ORIF) procedure (01/2017) Hx of gastric bypass (Unknown) Family & Social History Family History Mother Pancreatic cancer Father Old age Son Alive and well Social History: household members spouse,children Safety & Behavioral: Feels Safe in Current Yes Environment Been Physically Hurt or No Threatened By a Person Tobacco & Substance use: Smoking Status Former smoker alcohol intake former alcohol intake frequency holiday/special occasion Substance Use Type does not use Meds Home Medications and Allergies Home Medications Medication Instructions Recorded Confirmed Type [place] 3 See Rx Instructions .ROUTE .COMPLEX 08/02/18 06/07/21 History Reclast See Rx Instructions .ROUTE .COMPLEX 08/02/18 06/07/21 History olopatadine 0.6 % nasal spray 2 spray NASAL BID #30.5 gram 03/16/19 06/07/21 Rx onabotulinumtoxinA 200 unit 200 unit IM ONCE #1 each 05/24/19 06/07/21 Rx solution for injection (Botox) ipratropium 20 mcg-albuterol 100 1 puff INHALATION QID PRN #4 gram 09/21/19 06/07/21 Rx mcg/actuation mist for inhalation (Combivent Respimat) olopatadine 0.1 % eye drops 1 drop EYE-BOTH BID #5 ml 11/17/19 06/07/21 Rx Chiropractor 1 each TOPICAL .EVERY 2 WEEKS #24 11/18/19 06/07/21 Rx each Massage Therapy 1 each TOPICAL .EVERY 2 WEEKS #24 11/18/19 06/07/21 Rx each venlafaxine 75 mg tablet 150 mg PO BID #360 tab 02/29/20 06/07/21 Rx baclofen 20 mg tablet 20 mg PO .COMPLEX #180 tab 04/20/20 06/07/21 Rx scopolamine base 1 mg over 3 days 1 patch TRANSDERMAL Q3D PRN #4 each 06/22/20 06/07/21 Rx transdermal patch sucralfate 1 gram tablet 1 gram PO BID PRN #180 tab 06/25/20 06/07/21 Rx acyclovir 400 mg tablet 400 mg PO QID #1080 tab 07/30/20 06/07/21 Rx amitriptyline 50 mg tablet 100 - 200 mg PO HS #1080 tab 07/30/20 06/07/21 Rx hydrocodone 7.5 mg-acetaminophen 1 tab PO Q12H PRN #30 tab 07/30/20 06/07/21 Rx 325 mg tablet ipratropium 0.5 mg-albuterol 3 mg 3 ml INHALATION Q6HP PRN #2 ml 08/02/20 06/07/21 Rx (2.5 mg base)/3 mL nebulization soln [id number] 1 cap PO TID #90 cap 10/01/20 06/07/21 Rx 6,000-19,000-30,000 unit capsule,delayed rel misoprostol 200 mcg tablet 200 mcg PO BID #180 tab 11/29/20 06/07/21 Rx (Cytotec) montelukast 10 mg tablet 10 mg PO QDAY #90 tab 12/03/20 06/07/21 Rx (Singulair) buspirone 10 mg tablet 10 mg PO BID #180 tab 03/08/21 06/07/21 Rx hydroxyzine pamoate 25 mg capsule See Rx Instructions PO DAILY PRN 03/13/21 06/07/21 Rx #60 cap ondansetron 8 mg disintegrating 8 mg PO TID PRN #30 tab 05/27/21 06/07/21 Rx tablet fluticasone propionate 110 1 puff INHALATION PRN PRN 06/08/21 06/08/21 History mcg/actuation HFA aerosol inhaler (Flovent HFA) pantoprazole 40 mg tablet,delayed 40 mg PO BID 30 Days #60 tab 06/09/21 Rx release (Protonix) Allergies Allergy/AdvReac Type Severity Reaction Status Date / Time fentanyl Allergy Severe Drug Verified 06/14/21 19:40 Sick/Can't take it. Adverse Reaction as well. Sulfa (Sulfonamide Allergy Severe ITCHING Verified 06/14/21 19:40 Antibiotics) [SULFA (SULFONAMIDE ANTIBIOTICS)] codeine [CODEINE] AdvReac Mild JITTERS Verified 06/14/21 19:40 morphine [MORPHINE] AdvReac Mild JITTERS Verified 06/14/21 19:40 Review of Systems Review of Systems Narrative: All systems reviewed with the patient and are negative except otherwise documented. Exam Vital Signs (past 8 hours): - 06/14/21 19:35 06/14/21 21:26 06/14/21 21:30 Temperature 98.3 F Pulse Rate 85 74 74 Respiratory Rate 14 19 18 Blood Pressure 155/71 H Pulse Oximetry 99 100 06/14/21 22:00 06/14/21 22:30 06/14/21 22:54 Temperature Pulse Rate 72 76 69 Respiratory Rate 18 20 17 Blood Pressure 135/70 Pulse Oximetry 99 100 06/14/21 23:00 06/14/21 23:30 06/15/21 00:15 Temperature Pulse Rate 68 69 69 Respiratory Rate 17 16 16 Blood Pressure 143/70 H 142/76 H 149/75 H Pulse Oximetry 100 99 96 Oxygen Delivery Method Room Air Narrative Exam Narrative: General: Patient is a thin, pale female, who appears younger than stated age, in no distress at this time. HEENT: Normocephalic, atraumatic, extraocular muscles intact, oral pharynx is clear and mucous membranes are moist. Neck is supple and symmetric, trachea is midline, no adenopathy, no thyroid enlargement, nontender, no masses palpated. Negative for JVD Chest: Normal AP diameter and contour without kyphoscoliosis, no nasal flaring, retractions, or tachypneic labored Lungs: Auscultation of all lung mares are clear without adventitious sounds, wheezes, rhonchi, or rales. Cardio: S1 & S2 with regular rate and rhythm without murmur, rubs, or gallops, no carotid bruit, no cardiac pulsations present. Abdomen: Soft mildly tender with palpation, negative for organomegaly, or masses. Bowel sounds are present in all 4 quadrants without guarding or rebound, no CVA tenderness. Musculoskeletal: Muscle strength and tone are equal within normal limits, no deformity, crepitus, effusions, cyanosis, clubbing or edema present. Full range of motion intact radial and pedal pulses are normal. Skin: Pale Warm dry and intact without rashes, ulcerations or petechiae. Neuro: Alert and orientated x3, strength is +5/5 in all extremities, sensation to touch intact, no gross deficits noted of cranial nerves. Psych: Patient has a well-kept appearance, appropriate affect, mental status attitude thought context and judgment are appropriate for age. Objective Labs Result Diagrams: 06/14/21 19:50 06/14/21 19:50 Labs: Laboratory Results - last 24 hr 06/14/21 06/14/21 06/14/21 19:50 19:50 19:50 WBC 6.5 RBC 2.17 L Hgb 6.6 L* Hct 19.6 L* MCV 90.5 MCH 30.3 MCHC 33.5 RDW 15.4 H Plt Count 277 Neut % (Auto) 57.1 Lymph % (Auto) 27.5 [place] % (Auto) 8.8 Eos % (Auto) 6.2 H Baso % (Auto) 0.4 Neut # (Auto) 3700 Lymph # (Auto) 1800 [place] # (Auto) 600 Eos # (Auto) 400 Baso # (Auto) 0 Sodium 135 L Potassium 4.2 Chloride 105 Carbon Dioxide 25 BUN 14 Creatinine 0.81 Estimated GFR > 60.0 BUN/Creatinine Ratio 17.3 Glucose 128 H Calcium 9.2 Total Bilirubin 0.2 AST 29 ALT 18 Alkaline Phosphatase 104 Total Protein 6.1 L Albumin 3.7 Globulin 2.4 Albumin/Globulin Ratio 1.5 SARS-CoV-2 (PCR) Blood Type O Positive Antibody Screen Negative Crossmatch See Detail 06/14/21 21:18 WBC RBC Hgb Hct MCV MCH MCHC RDW Plt Count Neut % (Auto) Lymph % (Auto) [place] % (Auto) Eos % (Auto) Baso % (Auto) Neut # (Auto) Lymph # (Auto) [place] # (Auto) Eos # (Auto) Baso # (Auto) Sodium Potassium Chloride Carbon Dioxide BUN Creatinine Estimated GFR BUN/Creatinine Ratio Glucose Calcium Total Bilirubin AST ALT Alkaline Phosphatase Total Protein Albumin Globulin Albumin/Globulin Ratio SARS-CoV-2 (PCR) Negative Blood Type Antibody Screen Crossmatch Assessment & Plan Assessment & Plan narrative: Shirin Escobar is a 65 y.o. with a history of upper GI bleeds and a Billroth II gastric bypass who presents with a acute lower GI bleed following admit for upper GI bleed and endoscopy completed on 06/08/[address] Garner which demonstrated marginal ulcer at the gastro jejunostomy. Patient require surgery consult and likely colonoscopy by Dr. Elliott 1. Lower GI bleed, acute, resulting in acute anemia, present on admission in the setting of upper GI bleed hospitalization 06/08-. -on patient's to 06/08- admission patient did not require blood transfusion, Today patient received 2 units. - melena OBSERVED in ED, usually originates proximal to the ligament of Treitz (90 percent), though it may also originate from the small bowel, or colon. -Patient comorbidities that complicate or exacerbate anemia condition include older patient age, and COPD. Rule out upper GI &/or Lower GI Bleeding, duodenitis, esophageal varices, portal hypertensive gastropathy, angiodysplasia, gastric reflux, gastritis, peptic ulcer disease, aerophagia, Leah-Singletary tear, and or gastric cancer. -closely monitor airway, clinical status, vital signs, cardiac rhythm, urinary output. -vital signs if unstable q.1 hours x2, then q.4 hours if stable, call for heart rate> 100, systolic BP< 100, activity-bed rest with bed side commode, fall precautions, re-evaluate tomorrow, strict I&O Q shift, No VTE/DVT prophylaxis due to bleeding risk. -IV protonix 40mg BID, -EGD 06/08/21: marginal ulcer at the gastro jejunostomy -Ordered general surgery consultation: Dr. Amezcua -NPO -patient was typed and cross in ER (O+)patient receiving 2 units of blood then will reassess H&H 30-45 minutes following 2nd transfusion and then will re-florin luate, goal hemoglobin> 7. -for hypertension initial fluid bolus 1000 cc LR -hypotension instability with a hemoglobin less than 9 transfuse 2-4 packed red blood cells. -avoid over transfusion with possible variceal bleeding. -Continue Misoprostol, protonix 40mg PO BID, sucralfate -all patient's ORAL meds will be continued once no longer NPO. 2. Nausea and vomiting in the setting of an lower GI bleed, present on admission -IV Zofran and compazine for nausea and vomiting. -Pain control with Iv meds at this time PRN. 3. Moderate protein malnutrition with a BMI of 19 in the setting of the Billroth II, chronic and present on admission -consideration will be given to Dietary consult ordered 4. COPD, chronic, present on admission - replace home medications with pulmicort BID, duonebs BID, prn albuterol. (replacing patient's Ipratropium/albuterol nebulizer, montelukast, flovent) - no evidence for COPD exacerbation 5. Anxiety and depression, chronic - continue amitriptyline, buspirone, venlafaxine 6. Chronic headaches and migraine - continue baclofen & PRN compazine VTE prophylaxis: SCDs given GI bleeding. Consults: General surgery. Dispo: Eventual discharge to home, probably tomorrow. Code Status: Full Code Surrogate decision maker: Mike Pitt COVID PCR: Negative COVID vaccination: VTE prophylaxis: SCDs ONLY given GI bleeding. Consults: General surgery. Dr. Elliott Estimated length of stay: Longer than 2 midnights, as patient will likely need a colonoscopy and resolution of lower GI bleeding. I have utilized all available immediate resources to obtain, update, or review the patient's current medications. I confirmed that the patient's advanced care plan is present, Code status is documented and/or surrogate decision maker is listed in the patient's medical record.
[2021-06-15 00:51] LABS: Magnesium 1.6 mg/dL (1.6-2.3)
[2021-06-15] MEDS: SODIUM CHLORIDE 0.9% 1,000 ML 150 ML IV (06:57)
--- NOTE | 2021-06-15 07:50 | PC.ADMIT ---
[email or web address] Admission Note: Patient arrived from ED in w/c via this RN. Pt able to transfer from bed to chair to bed with no difficulty. Pt pale, reports fatigue and mild dizziness on fast movement. Pt educated on changing positions slowly. Pt in no apparent cardiovascular or respiratory distress, resp equal bilat unlabored, AOx4, room air. To receive 2 units PRBC. Pt passed small dark tarry stool at approx 0045, guaiac positive. Bedrest only pivot to BSC. The patient,Shirin Tuttle,65 y/o, was given written information regarding hospital policies, unit procedures and contact persons. Patient's smoking status: Former smoker. Vital Signs - 8 hr 06/15/21 00:15 06/15/21 00:27 06/15/21 01:13 Temperature 96.6 F L Pulse Rate 69 69 Respiratory Rate 16 16 Blood Pressure 149/75 H 123/67 Pulse Oximetry 96 97 96 06/15/21 01:38 06/15/21 01:54 06/15/21 04:19 Temperature 97.6 F 97.8 F 96.8 F L Pulse Rate 73 72 70 Respiratory Rate 16 15 16 Blood Pressure 105/59 L 107/64 109/59 L Pulse Oximetry 06/15/21 04:22 06/15/21 04:25 06/15/21 04:38 Temperature 96.8 F L 96.8 F L Pulse Rate 70 67 Respiratory Rate 16 14 Blood Pressure 109/59 L 109/60 Pulse Oximetry 97 06/15/21 05:00 06/15/21 06:44 Temperature 96.8 F L 96.9 F L Pulse Rate 68 66 Respiratory Rate 16 16 Blood Pressure 109/60 122/70 Pulse Oximetry 97
[2021-06-15 07:57] LABS: Add Manual Diff / Slide Review NO; Basophils Absolute Auto 0 /uL (0-100); Basophils Percent Auto 0.9 % (0-2); Eosinophils Absolute Auto 300 /uL (0-450); Hematocrit 26.1 % (36-46); Hemoglobin 8.8 g/dL (12.0-16.0); Lymphocytes Absolute Auto 1400 /uL (1100-4500); Lymphocytes Percent Auto 29.4 % (25-40); Mean Corpuscular HGB Conc 33.7 % (30-36); Mean Corpuscular Hemoglobin 29.7 PG (26-34); Mean Corpuscular Volume 88.1 fL (80-100); Monocytes Absolute Auto 600 /uL (0-900); Monocytes Percent Auto 11.9 % (3-14); Neutrophils Absolute Auto 2400 /uL (1500-7000); Neutrophils Percent Auto 50.8 % (50-75); Platelet Count 220 X10^3/uL (150-400); Red Blood Cell Count 2.96 X10^6/uL (4.0-5.2); Red Cell Distribution Width 15.5 % (11.6-14.8); White Blood Cell Count 4.7 X10^3/uL (4.5-11.0)
--- NOTE | 2021-06-15 07:59 | PM.CN ---
History of Present Illness Consult details Date Patient Seen: 06/15/21 Time Patient Seen: 08:00 Chief complaint: CRAMPING OF THE STOMACH AND SHOULDERS SENT BY Reason for consult: Intestinal bleeding Requesting provider: Lucina Archuleta Narrative: The patient is a woman who was recently hospitalized for a bleeding marginal ulcer and gastritis. She went home and continued to take her Protonix as prescribed. She did not have a bowel movement for 8 days. Yesterday she began having black bowel movements just assumed it was old blood that had been in her intestine. However it persisted and she became dizzy and lightheaded and weak. She presented to the emergency room was found to be profoundly anemic compared to her last visit and was transfused and admitted. I am asked to see her regarding this bleeding. Meds Home Medications and Allergies Home Medications Medication Instructions Recorded Confirmed Type [place] 3 See Rx Instructions .ROUTE .COMPLEX 08/02/18 06/07/21 History Reclast See Rx Instructions .ROUTE .COMPLEX 08/02/18 06/07/21 History olopatadine 0.6 % nasal spray 2 spray NASAL BID #30.5 gram 03/16/19 06/07/21 Rx onabotulinumtoxinA 200 unit 200 unit IM ONCE #1 each 05/24/19 06/07/21 Rx solution for injection (Botox) ipratropium 20 mcg-albuterol 100 1 puff INHALATION QID PRN #4 gram 09/21/19 06/07/21 Rx mcg/actuation mist for inhalation (Combivent Respimat) olopatadine 0.1 % eye drops 1 drop EYE-BOTH BID #5 ml 11/17/19 06/07/21 Rx Chiropractor 1 each TOPICAL .EVERY 2 WEEKS #24 11/18/19 06/07/21 Rx each Massage Therapy 1 each TOPICAL .EVERY 2 WEEKS #24 11/18/19 06/07/21 Rx each venlafaxine 75 mg tablet 150 mg PO BID #360 tab 02/29/20 06/07/21 Rx baclofen 20 mg tablet 20 mg PO .COMPLEX #180 tab 04/20/20 06/07/21 Rx scopolamine base 1 mg over 3 days 1 patch TRANSDERMAL Q3D PRN #4 each 06/22/20 06/07/21 Rx transdermal patch sucralfate 1 gram tablet 1 gram PO BID PRN #180 tab 06/25/20 06/07/21 Rx acyclovir 400 mg tablet 400 mg PO QID #1080 tab 07/30/20 06/07/21 Rx amitriptyline 50 mg tablet 100 - 200 mg PO HS #1080 tab 07/30/20 06/07/21 Rx hydrocodone 7.5 mg-acetaminophen 1 tab PO Q12H PRN #30 tab 07/30/20 06/07/21 Rx 325 mg tablet ipratropium 0.5 mg-albuterol 3 mg 3 ml INHALATION Q6HP PRN #2 ml 08/02/20 06/07/21 Rx (2.5 mg base)/3 mL nebulization soln [id number] 1 cap PO TID #90 cap 10/01/20 06/07/21 Rx 6,000-19,000-30,000 unit capsule,delayed rel misoprostol 200 mcg tablet 200 mcg PO BID #180 tab 11/29/20 06/07/21 Rx (Cytotec) montelukast 10 mg tablet 10 mg PO QDAY #90 tab 12/03/20 06/07/21 Rx (Singulair) buspirone 10 mg tablet 10 mg PO BID #180 tab 03/08/21 06/07/21 Rx hydroxyzine pamoate 25 mg capsule See Rx Instructions PO DAILY PRN 03/13/21 06/07/21 Rx #60 cap ondansetron 8 mg disintegrating 8 mg PO TID PRN #30 tab 05/27/21 06/07/21 Rx tablet fluticasone propionate 110 1 puff INHALATION PRN PRN 06/08/21 06/08/21 History mcg/actuation HFA aerosol inhaler (Flovent HFA) pantoprazole 40 mg tablet,delayed 40 mg PO BID 30 Days #60 tab 06/09/21 Rx release (Protonix) Allergies Allergy/AdvReac Type Severity Reaction Status Date / Time fentanyl Allergy Severe Drug Verified 06/14/21 19:40 Sick/Can't take it. Adverse Reaction as well. Sulfa (Sulfonamide Allergy Severe ITCHING Verified 06/14/21 19:40 Antibiotics) [SULFA (SULFONAMIDE ANTIBIOTICS)] codeine [CODEINE] AdvReac Mild JITTERS Verified 06/14/21 19:40 morphine [MORPHINE] AdvReac Mild JITTERS Verified 06/14/21 19:40 Review of Systems Review of Systems Narrative: No chest pain or breathing problems at this time. No cough or cold. Feels better now than she did last week when she was in the hospital. No seizures. Takes meds for anxiety and for respiratory issues and for pancreatic insufficiency. Exam Vital Signs (past 8 hours): - 06/15/21 00:15 06/15/21 00:27 06/15/21 01:13 Temperature 96.6 F L Pulse Rate 69 69 Respiratory Rate 16 16 Blood Pressure 149/75 H 123/67 Pulse Oximetry 96 97 96 06/15/21 01:38 06/15/21 01:54 06/15/21 04:19 Temperature 97.6 F 97.8 F 96.8 F L Pulse Rate 73 72 70 Respiratory Rate 16 15 16 Blood Pressure 105/59 L 107/64 109/59 L Pulse Oximetry 06/15/21 04:22 06/15/21 04:25 06/15/21 04:38 Temperature 96.8 F L 96.8 F L Pulse Rate 70 67 Respiratory Rate 16 14 Blood Pressure 109/59 L 109/60 Pulse Oximetry 97 06/15/21 05:00 06/15/21 06:44 Temperature 96.8 F L 96.9 F L Pulse Rate 68 66 Respiratory Rate 16 16 Blood Pressure 109/60 122/70 Pulse Oximetry 97 Oxygen Delivery Method Room Air Oxygen Flow Rate 0 Narrative Exam Narrative: Patient is alert oriented. Speech rate and content are appropriate. Less anxious than her last admission. Lungs are clear to auscultation without rales or rhonchi. Equal percussion. Heart regular rate and rhythm without murmur gallop. No bruit in the neck. Abdomen is scaphoid soft. Nontender. No obvious ventral/incisional hernias. Objective Labs Result Diagrams: 06/14/21 19:50 06/14/21 19:50 Labs: Laboratory Results - last 24 hr 06/14/21 06/14/21 06/14/21 19:50 19:50 19:50 WBC 6.5 RBC 2.17 L Hgb 6.6 L* Hct 19.6 L* MCV 90.5 MCH 30.3 MCHC 33.5 RDW 15.4 H Plt Count 277 Neut % (Auto) 57.1 Lymph % (Auto) 27.5 [place] % (Auto) 8.8 Eos % (Auto) 6.2 H Baso % (Auto) 0.4 Neut # (Auto) 3700 Lymph # (Auto) 1800 [place] # (Auto) 600 Eos # (Auto) 400 Baso # (Auto) 0 Sodium 135 L Potassium 4.2 Chloride 105 Carbon Dioxide 25 BUN 14 Creatinine 0.81 Estimated GFR > 60.0 BUN/Creatinine Ratio 17.3 Glucose 128 H Calcium 9.2 Magnesium Total Bilirubin 0.2 AST 29 ALT 18 Alkaline Phosphatase 104 Total Protein 6.1 L Albumin 3.7 Globulin 2.4 Albumin/Globulin Ratio 1.5 SARS-CoV-2 (PCR) Blood Type O Positive Antibody Screen Negative Crossmatch See Detail 06/14/21 06/14/21 19:50 21:18 WBC RBC Hgb Hct MCV MCH MCHC RDW Plt Count Neut % (Auto) Lymph % (Auto) [place] % (Auto) Eos % (Auto) Baso % (Auto) Neut # (Auto) Lymph # (Auto) [place] # (Auto) Eos # (Auto) Baso # (Auto) Sodium Potassium Chloride Carbon Dioxide BUN Creatinine Estimated GFR BUN/Creatinine Ratio Glucose Calcium Magnesium 1.6 Total Bilirubin AST ALT Alkaline Phosphatase Total Protein Albumin Globulin Albumin/Globulin Ratio SARS-CoV-2 (PCR) Negative Blood Type Antibody Screen Crossmatch Assessment & Plan Assessment and plan (1) Acute GI bleeding: Status: Acute (2) Acute blood loss anemia: Status: Acute Assessment & Plan narrative: I think this is likely a recurrent upper GI bleed. However I will do an unprepped colonoscopy as well. I have discussed the procedures with the patient including risks of bleeding perforation and the potential to do interventions such as injection or clipping. All questions were answered. She is from a with these procedures. Will perform these under general anesthesia in order to protect her airway in given the complexity of her medical issues.
[2021-06-15] MEDS: BUDESONIDE 0.5 MG/2 ML NEB INH (08:01)
[2021-06-15 08:06] LABS: Prothrombin Time 11.4 SECONDS (10.1-12.7)
[2021-06-15 08:09] LABS: BUN Creatinine Ratio 16.9 (6-22); Blood Urea Nitrogen 11 mg/dL (7-17); Calcium 8.5 mg/dL (8.4-10.2); Carbon Dioxide 28 mmol/L (22-32); Chloride 107 mmol/L (98-107); Estimated Glomerular Filt Rate > 60.0 mL/min (>60); Glucose 104 mg/dL (80-110); HEMOLYSIS < 15 (0-50); PTT Partial Thromboplastin Tim 28 SECONDS (26.4-36.2); Potassium 4.2 mmol/L (3.4-5.1); Sodium 134 mmol/L (137-145)
--- NOTE | 2021-06-15 09:27 | P.DS_ITS ---
History of Present Illness History of Present Illness Chief complaint: CRAMPING OF THE STOMACH AND SHOULDERS SENT BY DR Matthew: Eric Archuleta: Patient is a 65-year-old woman Shirin Tuttle with history of chronic sinusitis and GI bleeding and prior Billroth II surgery, presents with recurrent bleeding. She was initially seen on June 07 after taking rifampin and doxycycline for chronic sinusitis and having multiple episodes of diarrhea and abdominal cramping. She is found to be moderately anemic and was admitted to the hospitalist service with upper GI bleed-surgical consult for endoscopy. She underwent an upper endoscopy on June 08 that showed diffuse gastritis and at the gastro jejunostomy there was a ulceration consistent with a marginal ulcer. She ended up not receiving any blood at that time was discharged home and continued to have nausea, no vomiting and had not had a bowel movement since hospital discharge, until she took some MiraLax yesterday. Since then she has been having black/melanic diarrhea x 8 with increasing dizziness continued migraine pain and mild epigastric pain with mild diffuse abdominal cramping. Patient became very dizzy when she got up to the restroom in the ED and produced voluminous black melanotic liquid stool. Upon admit patient is pale extremely fatigued alert and orientated x3, in no pain or discomfort at this time. Patient's nausea, abdominal cramping, pain, and shortness of breath resolved with interventions in ED. Patient is receiving her 1st blood transfusion at this time. Patient's vitals are stable BP 142/76, HR 69, R 16, O2 saturation 99% on room air. Patient's H&H were significantly low with HGB of 6.6 and HCT of 19.6, Dr. Krishnamurthy ordered 2 units for infusion. Patient's platelets were normal at 277 and MCV was also normal, RBCs 2.17. Patient's chemistries were predominantly unremarkable mildly low sodium 135, glucose 128, total protein 6.1. Patient's EGD results are stated above from 06/[address] Garner. Patient admitted for acute lower GI bleed Discharge Providers Provider Date of admission: 06/15/21 00:07 Discharge Date: 06/15/21 Primary care physician: Bala Paula MD Consults: 06/15/21 00:24 Consult to General Surgery Routine Comment: Patient hospitalized to , Dr. Garner consult Consulting Provider: Josiah Elliott Reason for consultation: acute Lower GI following UGI bleed/EGD 06/08/21 Has provider been notified: No 06/15/21 01:50 Consult to Dietitian, Adult Routine Comment: Reason For Exam: recent and current hospitalization for gi bleed Discharge provider: Cricket Batista MD Summary Hospital Course Discharge Diagnosis: 1. Acute anemia, symptomatic with EGD/colo showing no evidence of bleeding 2. Moderate protein calorie malnutrition, BMI 17.6 3. COPD 4. Anxiety 5. Depression 6. Chronic headaches Hospital Course: Ms. Tuttle represented to the hospital after having dark stools noted, and some lightheadedness. During her previous recent admission she was found to have a marginal ulcer and given sucralfate and protonix. She did not need transfusion. Patient came in after trying laxative and having dark colored stools. Her hemoglobin was low at 6.6. She did get trasnfused 2U PRBC. She had repeat EGD done which showed improved appearance of the ulcer, no blood or stigmata of recent bleeding. Her colonoscopy showed brown stool, no gross evidence of malignancy or bleeding. Her hemoglobin was monitored and improved to greater than 9. She was feeling improved. She was discharged and recommended to continue on protonix and sucralfate. She may have intermittent bleeding, and in that case she may need to be at a hospital that has angiographic possibilities. She has iron at home and she was encouraged to restart her iron and follow up closely with her PCP to monitor her hemoglobin. Exam Vital Signs (past 8 hours): Oxygen Delivery Method Room Air Oxygen Flow Rate 0 Narrative Exam Narrative: General: no acute distress PULM: clear bilaterally, no wheezes, rhonchi, rales Cardio: regular rate and rhythm, no murmurs Abdomen: Soft, nontender, not distended Objective Labs Result Diagrams: 06/15/21 13:45 06/15/21 07:51 [facility] Medical History Asthma (Unknown) Cervical spine disease (Unknown) Chronic constipation Depression (Unknown) Diabetes type 2, controlled Herpes (~1992) History of bleeding peptic ulcer (2011) Migraines (Unknown) Osteoporosis (Unknown) Pancreatic insufficiency Peptic ulcer disease (Unknown) Substance abuse (~1983) Surgical History History of incision and drainage (02/2018) History of open reduction and internal fixation (ORIF) procedure (01/2017) Hx of gastric bypass (Unknown) Family History Mother Pancreatic cancer Father Old age Son Alive and well Social History household members: spouse and children Smoking Status: Former smoker Tobacco: How many years used: 20 second hand exposure: No alcohol intake: former substance use type: does not use Discharge Plan Discharge Plan Patient Disposition: Home Provider Discharge Comment: Ms. Tuttle was admitted after being found with a low blood count (anemia). She was transfused blood and she felt better. She had an endoscopy and colonoscopy that showed no active bleeding. She will be discharged home. She had previously stopped taking her iron, but she has liquid iron at home, and she was encouraged to restart taking that twice a day. She should follow closely with her PCP within one week. Discharge orders & Medications Prescriptions: New ferrous sulfate 300 mg (60 mg iron)/5 mL liquid 300 mg PO BID Qty: 500 RF: 0 Continued [place] 3 See Rx Instructions .ROUTE .COMPLEX RF: 0 Reclast See Rx Instructions .ROUTE .COMPLEX RF: 0 Combivent Respimat 20-100 mcg/actuation mist 1 puff INHALATION QID PRN (Reason: shortness of breath or wheezing) Qty: 4 RF: 6 olopatadine 0.1 % drops 1 drop EYE-BOTH BID Qty: 5 RF: 3 Massage Therapy 1 each topical .EVERY 2 WEEKS Qty: 24 RF: 0 Chiropractor 1 each topical .EVERY 2 WEEKS Qty: 24 RF: 3 baclofen 20 mg tablet 20 mg PO .COMPLEX Qty: 180 RF: 11 scopolamine base 1 mg over 3 days patch 3 day 1 patch transdermal Q3D PRN (Reason: nausea and vomiting) Qty: 4 RF: 2 sucralfate 1 gram tablet 1 gram PO BID PRN (Reason: acid reflux) Qty: 180 RF: 3 ipratropium-albuterol 0.5 mg-3 mg(2.5 mg base)/3 mL solution for nebulization 3 ml inhalation Q6HP PRN (Reason: shortness of breath or wheezing) Qty: 2 RF: 3 fahaob-lsnltedu-irhrigi 6,000-19,000 -30,000 unit capsule,delayed release(DR/EC) 1 cap PO TID Qty: 90 RF: 3 misoprostol [Cytotec] 200 mcg tablet 200 mcg PO BID Qty: 180 RF: 2 montelukast [Singulair] 10 mg tablet 10 mg PO QDAY Qty: 90 RF: 3 hydroxyzine pamoate 25 mg capsule See Rx Instructions PO DAILY PRN (Reason: anxiety) Qty: 60 RF: 3 ondansetron 8 mg tablet,disintegrating 8 mg PO TID PRN (Reason: nausea and vomiting) Qty: 30 RF: 1 olopatadine 0.6 % spray,non-aerosol 2 spray NASAL BID Qty: 30.5 RF: 3 venlafaxine 75 mg tablet 150 mg PO BID Qty: 360 RF: 3 acyclovir 400 mg tablet 400 mg PO QID Qty: 1080 RF: 3 amitriptyline 50 mg tablet 100 - 200 mg PO HS Qty: 1080 RF: 3 hydrocodone-acetaminophen 7.5-325 mg tablet 1 tab PO Q12H PRN (Reason: pain) Qty: 30 RF: 0 Flovent HFA 110 mcg/actuation HFA aerosol inhaler 1 puff INHALATION PRN PRN (Reason: Congestion) RF: 0 pantoprazole [Protonix] 40 mg tablet,delayed release (DR/EC) 40 mg PO BID 30 Days Qty: 60 RF: 1 buspirone 10 mg tablet 30 mg PO DAILY RF: 0 Botox 200 unit recon soln 200 unit IM ONCE Qty: 1 RF: 3 Follow up/Referrals: Bala Paula MD [Primary Care Provider] - Diet/Activity/Treatments Diet: Regular Visit Report/Discharge Packet Instructions: Blood Transfusion, Upper GI Endoscopy, DI for Colonoscopy, DI for Gastrointestinal Bleeding Discharge Data Primary Care Provider: Bala Paula Attending Provider: Lucina Archuleta VTE Deep Vein Thrombosis/Pulmonary Embolism Present on Admission: No MIPS - DC The patient has current or prior documentation of left ventricular ejection fraction (LVEF) less than 40%, or moderate or severely depressed left ventricular systolic function.: No
[2021-06-15] MEDS: PANTOPRAZOLE 40 MG VIAL IV (09:51)
--- NOTE | 2021-06-15 09:58 | PM.OP.ENDO ---
Operative Date/Time/Diagnoses Date of procedure: 06/15/21 Time of procedure: 09:59 Pre-op diagnosis: Intestinal bleeding. Acute blood loss anemia. Post-op diagnosis: same ( Healing anastomotic ulcer. No evidence of significant bleeding in the GI tract At this time.) Procedure & Clinicians Study performed: EGD. Unprepped colonoscopy. Same procedure as scheduled: Yes Indications: Acute blood loss anemia. Reported melanotic stool. Surgeon: Josiah Elliott Procedure Notes SCOAP/Timeout: per formed Procedure in detail: The patient had topical anesthetic applied to oropharynx. She was placed in the supine position and underwent General endotracheal anesthesia. No narcotics were given. A bite block was inserted and the scope was advanced through it into the esophagus. The esophagus was unremarkable. GE junction was noted and carefully examined. There were no varices seen. No evidence of any esophageal tears from vomiting. No ulcerations. No findings consistent with Albarado's.. The stomach insufflated well. There was no blood in the upper tract. If there was any gastritis it was mild And not obvious. There were no lesions seen in the body, antrum or at the incisura. The outlet the of the stomach consisted of what appeared to be a no brought to anastomosis. Both limbs were cannulated. They contain bile stained fluid. There was no blood. I was able to see a very superficial and healing ulcer at the anastomosis. There was no visible vessel. There was no evidence of recent bleed. Scope was brought back into the stomach and retroflexed. The proximal stomach was normal in appearance.. The scope was straightened and brought out through the esophagus again. No lesions were seen. The scope was removed and the patient tolerated the procedure well. the patient was placed in left lateral decubitus position. Digital exam revealed dark brown stool. This was not melanotic. Scope was inserted and advanced through the colon. It was impossible to see the landmarks but it appeared that we reach the cecum. There was liquid brown stool throughout the colon. There was no evidence of any maroon stool or bleeding site. the stool did not have the characteristic smell of blood in stool. The scope was slowly removed. Mucosal detail was obscured by the amount of stool in her colon. That being said, there were no large lesions or findings suggesting of malignancy or large polyp. The scope was ultimately removed. The patient tolerated the procedure well. Recommend continuation of her proton pump inhibitor. Scope withdrawal time: Not applicable Sedation minutes: 0 Findings: other findings ( healing anastomotic ulcer in stomach. Did not appear to be the source of any blood loss.) Specimen(s): none sent Complications: none Post-procedure Recommendations: Other recommendation ( if patient continues to drop her hematocrit consider transfer to a hospital with angiographic or enteroscopic (small intestinal endoscopy) capability.) Follow up: as needed Disposition: PACU
--- NOTE | 2021-06-15 10:01 | SUR.PHASEI ---
received to PACU after general anesthesia. Airway patent, self maintained. Report from BRADFORD Calderon and Dr Cohen.
--- NOTE | 2021-06-15 10:27 | SUR.PHASEI ---
Pt with brown, liquid stool x2. Report called to BRADFORD Bah. Pt transferred to room 208 by BRADFORD Calderon.
--- NOTE | 2021-06-15 11:06 | PC.NURSE ---
Returned from pacu, having stool and gas, transfered to commode on her request. Denies any dizziness or problems. Had some more liquid stool and then returned to bed. bp sys of 140, pulse in the 60's, O2 sat is 95% or greater. Denies any problems or pain.
[2021-06-15 13:56] LABS: Hemoglobin 9.6 g/dL (12.0-16.0)
--- NOTE | 2021-06-15 15:43 | CM.DANOTE ---
Patient is a 65 yo female who was RE-admitted on 06/15/21 for Dehydration/Cramps. Pt has [facility] and [facility] for insurance and her PCP is Dr. Bala Paula. EMR was reviewed. Per MD, pt with hx of peptic ulcer, endoscopy, gastric perforation, migraines and Surgeon to Consult. Pt was just recently admitted last week on 06/07/21 for upper endoscopy for likely upper GI Bleed. Per Surgeon, pt with acute GI bleed and transfusions needed and plan for colonoscopy and scope again. Per RN, pt having copious amounts of bloody stools. SW met briefly bedside with pt and explained role and pt clearly was not feeling well . She confirms that she lives in [place] with her spouse and is typically independent at baseline and very disappointed to have to come back to the hospital as she was really hoping to be medically improving. Plan: SW to follow closely after surgical intervention today towards determining any d/c planning needs closer to discharge to reduce her risk of readmit. CHRISTINE Briceño
--- NOTE | 2021-06-15 16:15 | PC.NURSE ---
Reviewed d/c packet. Questions answered. D/c to home pending.
--- NOTE | 2021-06-21 17:05 | PC.NURSE ---
Late Entry; NS infusion initiated at 06:57, stopped by MD discharge order at 13:02.
== END 2021-06-15 15:40 | disposition home or self-care (01) | DRG 378 ==
LOC: ED 06-15 00:04 → AC 06-15 08:44
PROVIDERS: Internal Medicine; Specialist; Admitting Provider Nurse Practitioner Family; Emergency Provider Emergency Medicine; PCP Internal Medicine; Referring Provider Emergency Medicine; Visit Provider Nurse Practitioner Family
PROC: 0DJD8ZZ Inspection of Lower Intestinal Tract, Via Natural or Artificial Opening Endoscopic (ICD-10-PCS; CPT 45378; principal; 2021-06-15 09:30)
PROC: 0DJ08ZZ Inspection of Upper Intestinal Tract, Via Natural or Artificial Opening Endoscopic (ICD-10-PCS; CPT 43235; 2021-06-15 09:30)
DX: K92.1 Melena (principal); D62 Acute posthemorrhagic anemia; E44.0 Moderate protein-calorie malnutrition; K25.9 Gastric ulcer, unspecified as acute or chronic, without hemorrhage or perforation; Z68.1 Body mass index [BMI] 19.9 or less, adult; F41.9 Anxiety disorder, unspecified; G43.909 Migraine, unspecified, not intractable, without status migrainosus; F32.9 Major depressive disorder, single episode, unspecified; J44.9 Chronic obstructive pulmonary disease, unspecified; Z20.822 Contact with and (suspected) exposure to COVID-19; Z87.891 Personal history of nicotine dependence
CPT/HCPCS: 43235; 45378; 36415; 36430; 80048; 80053; 81003; 82962; 83735; 85018; 85025; 85610; 85730; 86850; 86900; 86901; 87635; 93005; 94640; 94760; 96361; 96374; 96375; 96376; 99218; 99284; C9803; G0378; P9016; C9113; J0330; J0780; J1100; J1170; J2250; J2405; J2704

== ENCOUNTER 2021-06-26 17:31 | Emergency (ER) | payer MEDICARE, BC, SELFPAY ==
[2021-06-15 00:30] VITALS: BMI 17.6
[2021-06-26] VITALS (12 sets, daily range): BP systolic 136–188; BP diastolic 75–93; PULSE 64–80; RESP 16–23; TEMP 36.6; O2SAT 97–100; BMI 18.1
[2021-06-26 18:13] LABS: Add Manual Diff / Slide Review NO; Basophils Absolute Auto 0 /uL (0-100); Basophils Percent Auto 0.4 % (0-2); Eosinophils Absolute Auto 300 /uL (0-450); Hematocrit 37.3 % (36-46); Hemoglobin 12.2 g/dL (12.0-16.0); Lymphocytes Absolute Auto 2200 /uL (1100-4500); Mean Corpuscular HGB Conc 32.8 % (30-36); Mean Corpuscular Hemoglobin 29.6 PG (26-34); Mean Corpuscular Volume 90.3 fL (80-100); Monocytes Absolute Auto 800 /uL (0-900); Monocytes Percent Auto 9.9 % (3-14); Neutrophils Absolute Auto 4500 /uL (1500-7000); Neutrophils Percent Auto 57.7 % (50-75); Platelet Count 313 X10^3/uL (150-400); Red Blood Cell Count 4.13 X10^6/uL (4.0-5.2); Red Cell Distribution Width 15.9 % (11.6-14.8); White Blood Cell Count 7.7 X10^3/uL (4.5-11.0)
[2021-06-26 18:23] LABS: Alanine Aminotransferase 21 IU/L (<35); Albumin 4.5 g/dL (3.5-5.0); Albumin Globulin Ratio 1.6 (1.0-2.8); Alkaline Phosphatase 123 U/L (38-126); Aspartate Aminotransferase 36 IU/L (14-36); BUN Creatinine Ratio 16.7 (6-22); Bilirubin Total 0.3 mg/dL (0.2-1.3); Blood Urea Nitrogen 14 mg/dL (7-17); Carbon Dioxide 29 mmol/L (22-32); Chloride 101 mmol/L (98-107); Creatine Kinase 82 U/L (30-135); Estimated Glomerular Filt Rate > 60.0 mL/min (>60); Globulin 2.9 g/dL (1.7-4.1); Glucose 103 mg/dL (80-110); HEMOLYSIS 18 (0-50); Potassium 4.4 mmol/L (3.4-5.1); Sodium 137 mmol/L (137-145); Total Protein 7.4 g/dL (6.3-8.2)
--- NOTE | 2021-06-26 18:33 | ED.DIZZY ---
HPI - Dizziness General Chief Complaint: Dizziness Stated Complaint: dizziness Time Seen by Provider: 06/26/21 18:06 History of Present Illness HPI Narrative: 65-year-old former smoker with medical history consisting of depression, anxiety, COPD, type 2 diabetes, GI bleeding presents with a chief complaint of lightheadedness over the past few days. She was recently seen and admitted for symptomatic GI bleeding resulting in anemia that required transfusion and feels similar. She denies any nausea or vomiting. She denies any abdominal pain, diarrhea, black and tarry stools. She denies any obvious evidence of bleeding. She states that she had been seen on Thursday for regularly scheduled follow-up from this past admission and blood work was drawn. She did not get the results of the blood work until Thursday but was called and told the numbers were reassuring. Thursday evening patient started becoming lightheaded again, particularly when standing. She denies any recent trauma. She has had no runny nose or sore throat. She denies chest pain or shortness of breath. Related Data Home Medications Medication Instructions Recorded Confirmed [place] 3 See Rx Instructions .ROUTE .COMPLEX 08/02/18 06/15/21 Reclast See Rx Instructions .ROUTE .COMPLEX 08/02/18 06/15/21 fluticasone propionate 110 1 puff INHALATION PRN PRN 06/08/21 06/15/21 mcg/actuation HFA aerosol inhaler (Flovent HFA) buspirone 10 mg tablet 30 mg PO DAILY 06/15/21 06/15/21 Previous Rx's Medication Instructions Recorded olopatadine 0.6 % nasal spray 2 spray NASAL BID #30.5 gram 03/16/19 onabotulinumtoxinA 200 unit 200 unit IM ONCE #1 each 05/24/19 solution for injection (Botox) ipratropium 20 mcg-albuterol 100 1 puff INHALATION QID PRN #4 gram 09/21/19 mcg/actuation mist for inhalation (Combivent Respimat) olopatadine 0.1 % eye drops 1 drop EYE-BOTH BID #5 ml 11/17/19 Chiropractor 1 each TOPICAL .EVERY 2 WEEKS #24 11/18/19 each Massage Therapy 1 each TOPICAL .EVERY 2 WEEKS #24 11/18/19 each venlafaxine 75 mg tablet 150 mg PO BID #360 tab 02/29/20 baclofen 20 mg tablet 20 mg PO .COMPLEX #180 tab 04/20/20 scopolamine base 1 mg over 3 days 1 patch TRANSDERMAL Q3D PRN #4 each 06/22/20 transdermal patch sucralfate 1 gram tablet 1 gram PO BID PRN #180 tab 06/25/20 acyclovir 400 mg tablet 400 mg PO QID #1080 tab 07/30/20 amitriptyline 50 mg tablet 100 - 200 mg PO HS #1080 tab 07/30/20 hydrocodone 7.5 mg-acetaminophen 1 tab PO Q12H PRN #30 tab 07/30/20 325 mg tablet ipratropium 0.5 mg-albuterol 3 mg 3 ml INHALATION Q6HP PRN #2 ml 08/02/20 (2.5 mg base)/3 mL nebulization soln [id number] 1 cap PO TID #90 cap 10/01/20 6,000-19,000-30,000 unit capsule,delayed rel misoprostol 200 mcg tablet 200 mcg PO BID #180 tab 11/29/20 (Cytotec) montelukast 10 mg tablet 10 mg PO QDAY #90 tab 12/03/20 (Singulair) hydroxyzine pamoate 25 mg capsule See Rx Instructions PO DAILY PRN 03/13/21 #60 cap ondansetron 8 mg disintegrating 8 mg PO TID PRN #30 tab 05/27/21 tablet pantoprazole 40 mg tablet,delayed 40 mg PO BID 30 Days #60 tab 06/09/21 release (Protonix) ferrous sulfate 300 mg (60 mg 300 mg PO BID #500 ml 06/15/21 iron)/5 mL oral liquid Allergies Allergy/AdvReac Type Severity Reaction Status Date / Time fentanyl Allergy Severe Drug Verified 06/26/21 17:47 Sick/Can't take it. Adverse Reaction as well. Sulfa (Sulfonamide Allergy Severe ITCHING Verified 06/26/21 17:47 Antibiotics) [SULFA (SULFONAMIDE ANTIBIOTICS)] codeine [CODEINE] AdvReac Mild JITTERS Verified 06/26/21 17:47 morphine [MORPHINE] AdvReac Mild JITTERS Verified 06/26/21 17:47 Review of Systems Review of Systems Narrative: GENERAL: Denies chills, fatigue, malaise, fever, sweats. HEENT: Denies sinus pain, ear pain, sore throat, difficulty swallowing, dizziness. RESPIRATORY: Denies dyspnea, cough, wheezing, hemoptysis, sputum. CARDIOVASCULAR: See HPI GASTROINTESTINAL: Denies nausea, vomiting, abdominal pain, diarrhea, constipation, melena. : Denies dysuria, frequency, incontinence, hematuria, urinary retention. MUSCULOSKELETAL: denies weakness, joint pain, or bony pain SKIN: Denies rash, skin lesions, or other NEUROLOGIC: Denies weakness, headache, numbness, change in speech, confusion, seizures, incoordination. PSYCHIATRIC: No concerning psychosocial issues. 12 point review of systems is negative except for those stated above Patient History Medical History Asthma (Unknown) Cervical spine disease (Unknown) Chronic constipation Depression (Unknown) Diabetes type 2, controlled Herpes (~1992) History of bleeding peptic ulcer (2011) Migraines (Unknown) Osteoporosis (Unknown) Pancreatic insufficiency Peptic ulcer disease (Unknown) Substance abuse (~1983) Surgical History History of incision and drainage (02/2018) History of open reduction and internal fixation (ORIF) procedure (01/2017) Hx of gastric bypass (Unknown) Family History Mother Pancreatic cancer Father Old age Son Alive and well Social History household members: spouse and children Smoking Status: Former smoker Tobacco: How many years used: 20 second hand exposure: No alcohol intake: former substance use type: does not use Smoking Status: Former smoker alcohol intake frequency: holidays/special occasions only Substance Use Type: does not use Exam Narrative Exam Narrative: GENERAL: [65] year old patient appears stated age. Well-developed patient, in no obvious distress HEAD: Atraumatic. Normocephalic. EYES: Pupils equal round and reactive. Extraocular motions intact. No scleral icterus. No injection or drainage. ENT: Moist mucous membranes Nose without bleeding, purulent drainage. Throat without erythema, tonsillar hypertrophy or exudate. Airway patent. NECK: Trachea midline. Non tender CARDIOVASCULAR: Regular rate and rhythm without murmurs, gallops, or rubs. RESPIRATORY: Clear to auscultation. Breath sounds equal bilaterally. No wheezes, rales, or rhonchi. GASTROINTESTINAL: Abdomen soft, non-tender, nondistended. EXTREMITIES: No edema or joint tenderness. BACK: Nontender without deformity or crepitance. No flank tenderness. NEURO: AOx3. SKIN: No rash or erythema of visible areas Initial Vital Signs Initial Vital Signs: Vital Signs Temperature 97.9 F 06/26/21 17:40 Pulse Rate 80 06/26/21 17:40 Respiratory Rate 16 06/26/21 17:40 Blood Pressure 162/76 H 06/26/21 17:40 Pulse Oximetry 99 06/26/21 17:40 Course Orders Ordered: ED Orders 06/26/21 17:50 EKG-12 Lead Stat 06/26/21 18:00 Complete Blood Count AUTO DIFF Stat Comprehensive Metabolic Panel Stat 06/26/21 18:06 Troponin & CK Cardiac Panel Stat Vital Signs Vital signs: Vital Signs - 8 hr 06/26/21 19:21 Pulse Rate 64 Blood Pressure 171/88 H Pulse Oximetry 97 MDM - Dizziness Lab Data Result diagrams: 06/26/21 18:00 06/26/21 18:00 Labs: Lab Results 06/26/21 06/26/21 06/26/21 Range/Units 18:00 18:00 18:00 WBC 7.7 (4.5-11.0) X10^3/uL RBC 4.13 (4.0-5.2) X10^6/uL Hgb 12.2 (12.0-16.0) g/dL Hct 37.3 (36-46) % MCV 90.3 (80-100) fL MCH 29.6 (26-34) PG MCHC 32.8 (30-36) % RDW 15.9 H (11.6-14.8) % Plt Count 313 (150-400) X10^3/uL Neut % (Auto) 57.7 (50-75) % Lymph % (Auto) 28.0 (25-40) % [place] % (Auto) 9.9 (3-14) % Eos % (Auto) 4.0 (2-4) % Baso % (Auto) 0.4 (0-2) % Neut # (Auto) 4500 (7170-7320) /uL Lymph # (Auto) 2200 (2360-1936) /uL [place] # (Auto) 800 (0-900) /uL Eos # (Auto) 300 (0-450) /uL Baso # (Auto) 0 (0-100) /uL Sodium 137 (137-145) mmol/L Potassium 4.4 (3.4-5.1) mmol/L Chloride 101 (98-107) mmol/L Carbon Dioxide 29 (22-32) mmol/L BUN 14 (7-17) mg/dL Creatinine 0.84 (0.52-1.04) mg/dL Estimated GFR > 60.0 (>60) mL/min BUN/Creatinine Ratio 16.7 (6-22) Glucose 103 (80-110) mg/dL Calcium 10.0 (8.4-10.2) mg/dL Total Bilirubin 0.3 (0.2-1.3) mg/dL AST 36 (14-36) IU/L ALT 21 (<35) IU/L Alkaline Phosphatase 123 (38-126) U/L Total Creatine Kinase 82 (30-135) U/L CK-MB (CK-2) TNP CK-MB (CK-2) Rel Index TNP Troponin I < 0.012 (0.01-0.034) ng/mL Total Protein 7.4 (6.3-8.2) g/dL Albumin 4.5 (3.5-5.0) g/dL Globulin 2.9 (1.7-4.1) g/dL Albumin/Globulin Ratio 1.6 (1.0-2.8) MDM Narrative Medical decision making narrative: Multiple etiologies for patient's symptoms considered including: [GI bleed with anemia versus dehydration versus electrolyte abnormality versus cardiac disease versus medication reaction versus other] Patient's symptoms improved over duration of stay with above-stated therapies. Findings and discharge diagnosis discussed with patient/family followed by verbalization of understanding Return precautions discussed with patient/family whom verbalize understanding. Discharge Plan Departure Patient Disposition: Home Clinical Impression: Dizziness Instructions: DI for Dizziness-Nonvertigo Activity Restrictions/Additional Instructions: *You have been diagnosed with [dizziness. Your history, physical exam and labs are very reassuring. There is no evidence of anemia, electrolyte abnormality or heart attack.] *What to do: *Please continue to take your regular medications as directed. [ ] New medication prescriptions sent to your pharmacy: [ ] [ ] New medication written as a paper prescription [x ] No new medications given *Please follow up with your primary care provider in 2-3 days, call for an appointment. Let them know you were seen in the Emergency Department and that we ask that you be seen in follow up. We will electronically transmit a record of today's note if your PCP is in our system *If you do not have a primary care provider please contact the [facility] Resource line at [phone]. They will ask some questions about your medical history and help get you set up with a doctor in the community. *Return to Emergency Department if you should have any new, worsening or concerning symptoms, such as [fever greater than 101 F, shaking chills, worsening pain, persistent vomiting or other bothersome symptoms] Prescriptions: No Action [place] 3 See Rx Instructions .ROUTE .COMPLEX RF: 0 Reclast See Rx Instructions .ROUTE .COMPLEX RF: 0 Combivent Respimat 20-100 mcg/actuation mist 1 puff INHALATION QID PRN (Reason: shortness of breath or wheezing) Qty: 4 RF: 6 olopatadine 0.1 % drops 1 drop EYE-BOTH BID Qty: 5 RF: 3 Massage Therapy 1 each topical .EVERY 2 WEEKS Qty: 24 RF: 0 Chiropractor 1 each topical .EVERY 2 WEEKS Qty: 24 RF: 3 baclofen 20 mg tablet 20 mg PO .COMPLEX Qty: 180 RF: 11 scopolamine base 1 mg over 3 days patch 3 day 1 patch transdermal Q3D PRN (Reason: nausea and vomiting) Qty: 4 RF: 2 sucralfate 1 gram tablet 1 gram PO BID PRN (Reason: acid reflux) Qty: 180 RF: 3 ipratropium-albuterol 0.5 mg-3 mg(2.5 mg base)/3 mL solution for nebulization 3 ml inhalation Q6HP PRN (Reason: shortness of breath or wheezing) Qty: 2 RF: 3 xrmsqa-sdhqqszp-znucawj 6,000-19,000 -30,000 unit capsule,delayed release(DR/EC) 1 cap PO TID Qty: 90 RF: 3 misoprostol [Cytotec] 200 mcg tablet 200 mcg PO BID Qty: 180 RF: 2 montelukast [Singulair] 10 mg tablet 10 mg PO QDAY Qty: 90 RF: 3 hydroxyzine pamoate 25 mg capsule See Rx Instructions PO DAILY PRN (Reason: anxiety) Qty: 60 RF: 3 ondansetron 8 mg tablet,disintegrating 8 mg PO TID PRN (Reason: nausea and vomiting) Qty: 30 RF: 1 olopatadine 0.6 % spray,non-aerosol 2 spray NASAL BID Qty: 30.5 RF: 3 venlafaxine 75 mg tablet 150 mg PO BID Qty: 360 RF: 3 acyclovir 400 mg tablet 400 mg PO QID Qty: 1080 RF: 3 amitriptyline 50 mg tablet 100 - 200 mg PO HS Qty: 1080 RF: 3 hydrocodone-acetaminophen 7.5-325 mg tablet 1 tab PO Q12H PRN (Reason: pain) Qty: 30 RF: 0 Flovent HFA 110 mcg/actuation HFA aerosol inhaler 1 puff INHALATION PRN PRN (Reason: Congestion) RF: 0 pantoprazole [Protonix] 40 mg tablet,delayed release (DR/EC) 40 mg PO BID 30 Days Qty: 60 RF: 1 buspirone 10 mg tablet 30 mg PO DAILY RF: 0 ferrous sulfate 300 mg (60 mg iron)/5 mL liquid 300 mg PO BID Qty: 500 RF: 0 Botox 200 unit recon soln 200 unit IM ONCE Qty: 1 RF: 3 Referrals: Patricia Andrews, PAEmanuelC [Primary Care Provider] -
[2021-06-26 18:34] LABS: Troponin I < 0.012 ng/mL (0.01-0.034)
== END 2021-06-26 19:23 | disposition home or self-care (01) ==
PROVIDERS: Emergency Medicine; Emergency Provider Emergency Medicine; PCP Physician Assistant
DX: R42 Dizziness and giddiness (principal); K92.2 Gastrointestinal hemorrhage, unspecified
CPT/HCPCS: 80053; 82550; 84484; 85025; 93005; 99283; 99284

== ENCOUNTER → 2022-04-23 10:18 | Outpatient (CLI) | payer MEDICARE, BC, SELFPAY ==
[2021-06-15 00:30] VITALS: BMI 17.6
[2022-04-23 10:42] LABS: Add Manual Diff / Slide Review NO; Basophils Absolute Auto 0 /uL (0-100); Basophils Percent Auto 0.3 % (0-2); Eosinophils Absolute Auto 200 /uL (0-450); Eosinophils Percent Auto 3.4 % (2-4); Hematocrit 37.4 % (36-46); Hemoglobin 12.6 g/dL (12.0-16.0); Lymphocytes Absolute Auto 1700 /uL (1100-4500); Lymphocytes Percent Auto 28.8 % (25-40); Mean Corpuscular HGB Conc 33.6 % (30-36); Mean Corpuscular Hemoglobin 30.2 PG (26-34); Monocytes Absolute Auto 800 /uL (0-900); Monocytes Percent Auto 12.8 % (3-14); Neutrophils Absolute Auto 3200 /uL (1500-7000); Neutrophils Percent Auto 54.7 % (50-75); Platelet Count 261 X10^3/uL (150-400); Red Blood Cell Count 4.16 X10^6/uL (4.0-5.2); Red Cell Distribution Width 14.1 % (11.6-14.8); White Blood Cell Count 5.9 X10^3/uL (4.5-11.0)
[2022-04-23 11:23] LABS: Alanine Aminotransferase 25 IU/L (<35); Albumin 4.3 g/dL (3.5-5.0); Albumin Globulin Ratio 1.7 (1.0-2.8); Alkaline Phosphatase 150 U/L (38-126); Aspartate Aminotransferase 36 IU/L (14-36); BUN Creatinine Ratio 13.5 (6-22); Bilirubin Total 0.4 mg/dL (0.2-1.3); Blood Urea Nitrogen 12 mg/dL (7-17); Calcium 9.1 mg/dL (8.4-10.2); Carbon Dioxide 26 mmol/L (22-32); Chloride 103 mmol/L (98-107); Estimated Glomerular Filt Rate > 60 mL/min (>60); Globulin 2.5 g/dL (1.7-4.1); Glucose 120 mg/dL (80-110); HEMOLYSIS < 15 (0-50); Potassium 4.3 mmol/L (3.4-5.1); Sodium 133 mmol/L (137-145); Total Protein 6.8 g/dL (6.3-8.2)
[2022-04-23 12:56] LABS: HEMOLYSIS 17 (0-50); Iron 146 ug/dL (37-170)
[2022-04-23 13:06] LABS: Percent Iron Saturation 35 % (15-50); Total Iron Binding Capacity 414 ug/dL (265-497); Transferrin 335 mg/dL (206-381)
[2022-04-23 14:11] LABS: Hemoglobin A1C% w Est Avg Glu 6.8 % (4.0-6.0)
== END ==
PROVIDERS: PCP Internal Medicine; Referring Provider Internal Medicine; Visit Provider Internal Medicine
DX: E11.9 Type 2 diabetes mellitus without complications (principal); E61.1 Iron deficiency; F41.8 Other specified anxiety disorders; K86.89 Other specified diseases of pancreas
CPT/HCPCS: 36415; 80053; 83036; 83540; 83550; 85025

== ENCOUNTER → 2022-06-12 09:59 | Outpatient (CLI) | payer MEDICARE, OTHER, SELFPAY ==
[2021-06-15 00:30] VITALS: BMI 17.6
[2022-06-12 11:20] LABS: Add Manual Diff / Slide Review NO; Basophils Absolute Auto 0 /uL (0-100); Basophils Percent Auto 0.6 % (0-2); Eosinophils Absolute Auto 300 /uL (0-450); Eosinophils Percent Auto 3.7 % (2-4); Hematocrit 35.5 % (36-46); Hemoglobin 12.1 g/dL (12.0-16.0); Lymphocytes Absolute Auto 1500 /uL (1100-4500); Lymphocytes Percent Auto 19.2 % (25-40); Mean Corpuscular Hemoglobin 30.4 PG (26-34); Mean Corpuscular Volume 89.4 fL (80-100); Monocytes Absolute Auto 800 /uL (0-900); Monocytes Percent Auto 10.3 % (3-14); Neutrophils Absolute Auto 5100 /uL (1500-7000); Neutrophils Percent Auto 66.2 % (50-75); Platelet Count 270 X10^3/uL (150-400); Red Blood Cell Count 3.97 X10^6/uL (4.0-5.2); Red Cell Distribution Width 14.1 % (11.6-14.8); White Blood Cell Count 7.7 X10^3/uL (4.5-11.0)
[2022-06-12 11:41] LABS: Alanine Aminotransferase 22 IU/L (<35); Albumin 4.1 g/dL (3.5-5.0); Albumin Globulin Ratio 1.6 (1.0-2.8); Alkaline Phosphatase 170 U/L (38-126); Aspartate Aminotransferase 33 IU/L (14-36); BUN Creatinine Ratio 18.8 (6-22); Bilirubin Total 0.3 mg/dL (0.2-1.3); Blood Urea Nitrogen 13 mg/dL (7-17); Calcium 9.2 mg/dL (8.4-10.2); Carbon Dioxide 24 mmol/L (22-32); Chloride 103 mmol/L (98-107); Estimated Glomerular Filt Rate > 60 mL/min (>60); Globulin 2.5 g/dL (1.7-4.1); Glucose 111 mg/dL (80-110); HEMOLYSIS < 15 (0-50); Potassium 4.1 mmol/L (3.4-5.1); Sodium 133 mmol/L (137-145); Total Protein 6.6 g/dL (6.3-8.2)
== END ==
PROVIDERS: PCP Internal Medicine; Referring Provider Physician Assistant; Visit Provider Physician Assistant
DX: R42 Dizziness and giddiness (principal)
CPT/HCPCS: 36415; 80053; 85025

== ENCOUNTER → 2022-07-01 10:57 | Outpatient (CLI) | payer MEDICARE, OTHER, SELFPAY ==
[2021-06-15 00:30] VITALS: BMI 17.6
--- NOTE | 2022-07-01 10:58 | DI.MG.S_ITS ---
BILATERAL DIGITAL SCREENING MAMMOGRAM 3D/2D WITH CAD: 07/01/2022 CLINICAL: Routine screening. Comparison is made to exams dated: 02/12/2019 mammogram, 12/11/2017 mammogram, and 11/18/2016 mammogram - [facility]. The tissue of both breasts is heterogeneously dense. This may lower the sensitivity of mammography. Current study was also evaluated with a Computer Aided Detection (CAD) system. There are benign vascular calcifications in both breasts. No significant masses, calcifications, or other findings are seen in either breast. There has been no significant interval change. IMPRESSION: BENIGN There is no mammographic evidence of malignancy. A 1 year screening mammogram is recommended. Based on the Tyrer Cuzick model (a risk assessment model) the patient's lifetime risk is 6.9% and her 10 year risk is 3.4%. According to the ACR, ACS, and NCCN guidelines, an annual breast MRI exam along with mammogram is recommended if the patient's lifetime risk is 20% or greater. This exam was interpreted at Station ID: [id number]. NOTE: For mammograms, a report in lay terms will be sent to the patient. Approximately 15% of breast malignancies will not be visualized mammographically. In the management of a palpable breast mass, a negative mammogram must not discourage biopsy of a clinically suspicious lesion. Electronically Signed By: Rudy lind/ihsan:07/01/2022 14:32:11 letter sent: Normal Exam ACR BI-RADS Category 2: Benign Finding(s) 3342F
== END ==
PROVIDERS: PCP Internal Medicine; Referring Provider Internal Medicine; Visit Provider Internal Medicine
DX: Z12.31 Encounter for screening mammogram for malignant neoplasm of breast (principal)
CPT/HCPCS: 77063; 77067

== ENCOUNTER 2022-07-19 16:47 | Emergency (ER) | payer MEDICARE, OTHER, SELFPAY ==
[2021-06-15 00:30] VITALS: BMI 17.6
[2022-07-19 16:59] VITALS: BP 171/81; PULSE 77; RESP 18; TEMP 36.7; O2SAT 100; BMI 17.9
[2022-07-19 18:21] LABS: COVID19 -Nasal RAPID Negative (Negative)
--- NOTE | 2022-07-19 18:35 | PC.NURSE ---
Pt requesting pain meds for headache. Provider aware.
--- NOTE | 2022-07-19 18:38 | PC.NURSE ---
Lab reports 4 attempts and not able to get any blood. Provider aware. This RN and RN Ana able to draw some blood off of her left foot with provider and patient approval.
[2022-07-19 18:41] LABS: Add Manual Diff / Slide Review NO; Basophils Absolute Auto 0 /uL (0-100); Basophils Percent Auto 0.2 % (0-2); Eosinophils Absolute Auto 0 /uL (0-450); Eosinophils Percent Auto 0.2 % (2-4); Hematocrit 36.5 % (36-46); Hemoglobin 12.3 g/dL (12.0-16.0); Lymphocytes Absolute Auto 1100 /uL (1100-4500); Lymphocytes Percent Auto 10.2 % (25-40); Mean Corpuscular HGB Conc 33.7 % (30-36); Mean Corpuscular Hemoglobin 30.2 PG (26-34); Mean Corpuscular Volume 89.6 fL (80-100); Monocytes Absolute Auto 600 /uL (0-900); Neutrophils Absolute Auto 8800 /uL (1500-7000); Neutrophils Percent Auto 83.4 % (50-75); Platelet Count 258 X10^3/uL (150-400); Red Blood Cell Count 4.08 X10^6/uL (4.0-5.2); Red Cell Distribution Width 14.6 % (11.6-14.8); White Blood Cell Count 10.6 X10^3/uL (4.5-11.0)
[2022-07-19 18:53] LABS: Alanine Aminotransferase 16 IU/L (<35); Albumin 3.9 g/dL (3.5-5.0); Albumin Globulin Ratio 1.3 (1.0-2.8); Alkaline Phosphatase 153 U/L (38-126); Aspartate Aminotransferase 24 IU/L (14-36); BUN Creatinine Ratio 12.7 (6-22); Bilirubin Total 0.3 mg/dL (0.2-1.3); Blood Urea Nitrogen 8 mg/dL (7-17); Calcium 9.5 mg/dL (8.4-10.2); Carbon Dioxide 32 mmol/L (22-32); Chloride 101 mmol/L (98-107); Estimated Glomerular Filt Rate > 60 mL/min (>60); Globulin 2.9 g/dL (1.7-4.1); Glucose 132 mg/dL (80-110); HEMOLYSIS < 15 (0-50); Lipase 19 U/L (23-300); Potassium 3.9 mmol/L (3.4-5.1); Sodium 135 mmol/L (137-145); Total Protein 6.8 g/dL (6.3-8.2)
--- NOTE | 2022-07-19 18:57 | PC.NURSE ---
1840: Pt declining orthostatic blood pressures.
--- NOTE | 2022-07-19 19:10 | ED.GIBLEED ---
HPI - GI Bleed <Basilio Siddiqui PA-C - Last Filed: 07/19/22 20:34> General Chief complaint: GI Bleed Stated complaint: Poss stomach bleed Time Seen by Provider: 07/19/22 17:16 Source: patient Mode of arrival: Wheelchair History of Present Illness HPI Narrative: Patient is a 66-year-old female presents to the emergency room today with complaint GI bleed for 2 days.. She had GI bleed about a year ago and this feels the same. Does complain of nausea and vomiting associated with with GI bleed. States it is all started about 2 days ago. All started about 2 days ago. Denies any blood in her vomit or blood in her stools. Also declines to have a rectal exam done at this time. Her main concern now is the headache. Cannot take morphine for the headache and states that IV Dilaudid has helped with the headache in the past. Also states she cannot take Percocet with a headache. Related Data Home Medications Medication Instructions Recorded Confirmed [place] 3 See Rx Instructions .Route .COMPLEX 08/02/18 04/22/22 Reclast See Rx Instructions .Route .COMPLEX 08/02/18 04/22/22 Previous Rx's Medication Instructions Recorded olopatadine 0.6 % nasal spray 2 spray intranasal BID #30.5 grams 03/16/19 onabotulinumtoxinA 200 unit 200 unit IM ONCE #1 ea 05/24/19 solution for injection (Botox) ipratropium 20 mcg-albuterol 100 1 puff inhalation QID PRN 09/21/19 mcg/actuation mist for inhalation shortness of breath or wheezing #4 (Combivent Respimat) grams olopatadine 0.1 % eye drops 1 drop EYE-BOTH BID #5 mL 11/17/19 Chiropractor 1 each topical .EVERY 2 WEEKS #24 11/18/19 ea Massage Therapy 1 each topical .EVERY 2 WEEKS #24 11/18/19 ea sucralfate 1 gram tablet 1 gram PO BID PRN acid reflux #180 06/25/20 tabs ondansetron 8 mg disintegrating 8 mg PO TID PRN nausea and 05/27/21 tablet vomiting #30 tabs montelukast 10 mg tablet 10 mg PO QDAY #90 tabs 07/23/21 (Singulair) Home Nebulizer #1 ea 09/03/21 venlafaxine 75 mg tablet 75 mg PO BID #180 tabs 09/03/21 ipratropium 0.5 mg-albuterol 3 mg 3 ml inhalation Q6HP PRN shortness 09/12/21 (2.5 mg base)/3 mL nebulization of breath or wheezing #120 vials soln acyclovir 400 mg tablet 400 mg PO QID #360 tabs 09/24/21 hydroxyzine pamoate 25 mg capsule 25 - 50 mg PO DAILY PRN anxiety 10/02/21 #180 caps ferrous sulfate 220 mg (44 mg 220 mg (5 mL) PO BID #473 mL 10/31/21 iron)/5 mL oral solution Creon 6,000-19,000-30,000 unit 1 cap PO TID #270 caps 11/29/21 capsule,delayed release (rrjico-vlcptmuj-crglztq) baclofen 20 mg tablet 20 mg PO .COMPLEX #180 tabs 12/17/21 pantoprazole 40 mg tablet,delayed 40 mg PO BID #180 tabs 01/27/22 release (Protonix) amitriptyline 50 mg tablet 100 - 200 mg PO HS #1,080 tabs 02/04/22 hydrocodone 7.5 mg-acetaminophen 1 tab PO Q12H PRN pain #30 tabs 04/01/22 325 mg tablet buspirone 10 mg tablet 10 mg PO BID #180 tabs 04/22/22 scopolamine base 1 mg over 3 days 1 patch transdermal Q3D PRN nausea 06/12/22 transdermal patch and vomiting #4 ea misoprostol 200 mcg tablet 200 mcg PO BID #180 tabs 06/30/22 (Cytotec) clonazepam 1 mg tablet 1 mg PO BID #60 tabs 07/08/22 hydrocodone 5 mg-acetaminophen 300 1 tab PO Q8H PRN pain #10 tabs 07/19/22 mg tablet nitrofurantoin 100 mg PO BID #10 caps 07/19/22 monohydrate/macrocrystals 100 mg capsule (Macrobid) ondansetron HCl 4 mg tablet 4 mg PO Q8H #14 tabs 07/19/22 Allergies Allergy/AdvReac Type Severity Reaction Status Date / Time fentanyl Allergy Severe Drug Verified 06/12/22 08:58 Sick/Can't take it. Adverse Reaction as well. Sulfa (Sulfonamide Allergy Severe ITCHING Verified 06/12/22 08:58 Antibiotics) [SULFA (SULFONAMIDE ANTIBIOTICS)] codeine [CODEINE] AdvReac Mild JITTERS Verified 06/12/22 08:58 morphine [MORPHINE] AdvReac Mild JITTERS Verified 06/12/22 08:58 Review of Systems <Basilio Siddiqui PA-C - Last Filed: 07/19/22 20:34> Review of Systems Narrative: R.O.S.: General: No fever, chills or fatigue. Cardiovascular: No chest pain or palpitations Respiratory: No S.O.B. HEENT: No congestion, ear pain, rhinorrhea, sore throat or tinnitus Gastrointestinal: GI bleed with nausea and vomiting Skin: No rash or associated abnormalities Musculoskeletal: No pain in muscles or joints, no limitation of range of motion, no paresthesia or numbness. ?? Neurological: Awake, alert and in not apparent distress. No Headaches, changes in vision or other related neurological concerns. Patient History <Basilio Siddiqui PA-C - Last Filed: 07/19/22 20:34> Medical History Acute GI bleeding Asthma (Unknown) Cervical spine disease (Unknown) Chronic constipation Depression (Unknown) Diabetes type 2, controlled Herpes (~1992) History of bleeding peptic ulcer (2011) Iron deficiency Migraines (Unknown) Osteoporosis (Unknown) Pancreatic insufficiency Peptic ulcer disease (Unknown) Substance abuse (~1983) Surgical History History of incision and drainage (02/2018) History of open reduction and internal fixation (ORIF) procedure (01/2017) Hx of gastric bypass (Unknown) Family History Mother Pancreatic cancer Father Old age Son Alive and well Social History household members: spouse and children Smoking Status: Former smoker Tobacco: How many years used: 20 second hand exposure: No alcohol intake: former substance use type: does not use Smoking Status: Former smoker alcohol intake frequency: holidays/special occasions only Substance Use Type: does not use Exam <Basilio Siddiqui PA-C - Last Filed: 07/19/22 20:34> Narrative Exam Narrative: Physical Exam: ? General: normal appearance, well developed, well nourished, alert, and awake. Not in acute distress. ? Head: Normocephalic, no lesions. Chest: Lungs CTAB, no rales, rhonchi or wheezes. ?? Heart: RRR, no murmurs, rubs or gallops. Eyes: PERRLA, EOM's full, conjunctivae clear. ? Neuro: Physiological, no localizing findings, CN3-12 intact. ?? Extremities: Warm, well perfused, FROM, no deformities, no edema. ?? Skin: Normal, no rashes, no lesions noted. ?? PSYCHIATRIC: The mood is good, no blunted affect. Speech is clear. Thought process is linear, thought content is appropriate. The voice is without significant inflection. Gastrointestinal: Soft; mild tenderness to palpation in the lower abdomen; negative CVA tenderness; ND; Pos BS with Neg. rebound tenderness. No scars or major deformities noted on Visual Inspection. Initial Vital Signs Initial Vital Signs: Vital Signs Temperature 98.1 F 07/19/22 16:59 Pulse Rate 77 07/19/22 16:59 Respiratory Rate 18 07/19/22 16:59 Blood Pressure 171/81 H 07/19/22 16:59 Pulse Oximetry 100 07/19/22 16:59 Oxygen Delivery Method 07/19/22 16:59 <Lavon Umanzor DO - Last Filed: 07/20/22 01:21> Initial Vital Signs Initial Vital Signs: Vital Signs Temperature 98.1 F 07/19/22 16:59 Pulse Rate 77 07/19/22 16:59 Respiratory Rate 18 07/19/22 16:59 Blood Pressure 171/81 H 07/19/22 16:59 Pulse Oximetry 100 07/19/22 16:59 Oxygen Delivery Method 07/19/22 16:59 Course <ASTON Barragan Last Filed: 07/19/22 20:34> Orders Ordered: ED Orders 07/19/22 17:44 COVID19 -Nasal RAPID/Pre-Proc Stat 07/19/22 17:45 EKG-12 Lead Stat 07/19/22 18:30 Complete Blood Count AUTO DIFF Stat Comprehensive Metabolic Panel Stat Lipase Stat Discontinued Medications Hydrocodone Bitart/Acetaminophen (Hydrocodone/Acet 5/325 Tablet) 1 tab PO NOW ONE Stop: 07/19/22 19:09 Last Admin: 07/19/22 19:54 Dose: Not Given Documented By: NR Ketorolac Tromethamine (Ketorolac 30 Mg/Ml Vial) 15 mg IM NOW ONE Stop: 07/19/22 19:19 Last Admin: 07/19/22 19:29 Dose: 15 mg Documented By: JOSSELYN Ketorolac Tromethamine (Ketorolac 30 Mg/Ml Vial) 15 mg IM NOW ONE Stop: 07/19/22 20:16 Last Admin: 07/19/22 20:19 Dose: 15 mg Documented By: JASON Ketorolac Tromethamine (Ketorolac 30 Mg/Ml Vial) 15 mg IM NOW ONE Stop: 07/19/22 20:06 Last Admin: 07/19/22 20:19 Dose: Not Given Documented By: JASON Nitrofurantoin Macrocrystals (Nitrofurantoin Er 100 Mg Capsule) 100 mg PO NOW ONE Stop: 07/19/22 20:31 Last Admin: 07/19/22 20:41 Dose: 100 mg Documented By: CHANDRA Ondansetron HCl (Ondansetron 4 Mg Odt) 4 mg SL NOW ONE Stop: 07/19/22 19:19 Last Admin: 07/19/22 19:29 Dose: 4 mg Documented By: NR Vital Signs Vital signs: Vital Signs - 8 hr 07/19/22 16:59 Temperature 98.1 F Pulse Rate 77 Respiratory Rate 18 Blood Pressure 171/81 H Pulse Oximetry 100 Oxygen Delivery Method Room Air <Lavon Umanzor DO - Last Filed: 07/20/22 01:21> Orders Ordered: ED Orders 07/19/22 17:44 COVID19 -Nasal RAPID/Pre-Proc Stat 07/19/22 17:45 EKG-12 Lead Stat 07/19/22 18:30 Complete Blood Count AUTO DIFF Stat Comprehensive Metabolic Panel Stat Lipase Stat Discontinued Medications Hydrocodone Bitart/Acetaminophen (Hydrocodone/Acet 5/325 Tablet) 1 tab PO NOW ONE Stop: 07/19/22 19:09 Last Admin: 07/19/22 19:54 Dose: Not Given Documented By: JOSSELYN Ketorolac Tromethamine (Ketorolac 30 Mg/Ml Vial) 15 mg IM NOW ONE Stop: 07/19/22 19:19 Last Admin: 07/19/22 19:29 Dose: 15 mg Documented By: JOSSELYN Ketorolac Tromethamine (Ketorolac 30 Mg/Ml Vial) 15 mg IM NOW ONE Stop: 07/19/22 20:16 Last Admin: 07/19/22 20:19 Dose: 15 mg Documented By: JASON Ketorolac Tromethamine (Ketorolac 30 Mg/Ml Vial) 15 mg IM NOW ONE Stop: 07/19/22 20:06 Last Admin: 07/19/22 20:19 Dose: Not Given Documented By: JASON Nitrofurantoin Macrocrystals (Nitrofurantoin Er 100 Mg Capsule) 100 mg PO NOW ONE Stop: 07/19/22 20:31 Last Admin: 07/19/22 20:41 Dose: 100 mg Documented By: CHANDRA Ondansetron HCl (Ondansetron 4 Mg Odt) 4 mg SL NOW ONE Stop: 07/19/22 19:19 Last Admin: 07/19/22 19:29 Dose: 4 mg Documented By: JOSSELYN Vital Signs Vital signs: Vital Signs - 8 hr 07/19/22 16:59 Temperature 98.1 F Pulse Rate 77 Respiratory Rate 18 Blood Pressure 171/81 H Pulse Oximetry 100 Oxygen Delivery Method Room Air MDM - GI Bleed <Basilio Siddiqui PA-C - Last Filed: 07/19/22 20:34> Lab Data Result diagrams: 07/19/22 18:30 07/19/22 18:30 Labs: Lab Results 07/19/22 07/19/22 07/19/22 Range/Units 17:44 18:30 18:30 WBC 10.6 (4.5-11.0) X10^3/uL RBC 4.08 (4.0-5.2) X10^6/uL Hgb 12.3 (12.0-16.0) g/dL Hct 36.5 (36-46) % MCV 89.6 (80-100) fL MCH 30.2 (26-34) PG MCHC 33.7 (30-36) % RDW 14.6 (11.6-14.8) % Plt Count 258 (150-400) X10^3/uL Neut % (Auto) 83.4 H (50-75) % Lymph % (Auto) 10.2 L (25-40) % [place] % (Auto) 6.0 (3-14) % Eos % (Auto) 0.2 L (2-4) % Baso % (Auto) 0.2 (0-2) % Neut # (Auto) 8800 H (6844-9339) /uL Lymph # (Auto) 1100 (2817-1188) /uL [place] # (Auto) 600 (0-900) /uL Eos # (Auto) 0 (0-450) /uL Baso # (Auto) 0 (0-100) /uL Sodium 135 L (137-145) mmol/L Potassium 3.9 (3.4-5.1) mmol/L Chloride 101 (98-107) mmol/L Carbon Dioxide 32 (22-32) mmol/L BUN 8 (7-17) mg/dL Creatinine 0.63 (0.52-1.04) mg/dL Estimated GFR > 60 (>60) mL/min BUN/Creatinine Ratio 12.7 (6-22) Glucose 132 H (80-110) mg/dL Calcium 9.5 (8.4-10.2) mg/dL Total Bilirubin 0.3 (0.2-1.3) mg/dL AST 24 (14-36) IU/L ALT 16 (<35) IU/L Alkaline Phosphatase 153 H (38-126) U/L Total Protein 6.8 (6.3-8.2) g/dL Albumin 3.9 (3.5-5.0) g/dL Globulin 2.9 (1.7-4.1) g/dL Albumin/Globulin Ratio 1.3 (1.0-2.8) Lipase 19 L (23-300) U/L SARS-CoV-2 (PCR) Negative (Negative) Urine Dip Bedside Urine Glucose Negative Bedside Urine Bilirubin - Negative Bedside Urine Ketone - Negative Urine Specific [place] 1.010 Bedside Urine Occult Blood - Negative Bedside Urine pH 8.0 Bedside Urine Protein - Negative Bedside Urine Urobilinogen - Negative Bedside Urine Nitrite - Negative Bedside Urine Leukocytes +/- 15 Esterase MDM Narrative Medical decision making narrative: Patient is a 66-year-old female who presents to the emergency room today with complaint of a GI bleed. Patient states this feels exactly as it did about a year ago she had a GI bleed. Patient may complaint today is headache. Labs urine ordered and revealed patient to have a urinary tract infection. Toradol was administered at this visit for the headache. Patient agrees to be discharged with oral hydrocodone for her headache,Zofran for the nausea and antibiotics for her urinary tract infection. Patient to receive the 1st dose of her Macrobid here in the emergency room and the other prescription has been sent to her pharmacy. Patient agrees with this plan. <Lavon Umanzor, DO - Last Filed: 07/20/22 01:21> Lab Data Labs: Lab Results 07/19/22 07/19/22 07/19/22 Range/Units 17:44 18:30 18:30 WBC 10.6 (4.5-11.0) X10^3/uL RBC 4.08 (4.0-5.2) X10^6/uL Hgb 12.3 (12.0-16.0) g/dL Hct 36.5 (36-46) % MCV 89.6 (80-100) fL MCH 30.2 (26-34) PG MCHC 33.7 (30-36) % RDW 14.6 (11.6-14.8) % Plt Count 258 (150-400) X10^3/uL Neut % (Auto) 83.4 H (50-75) % Lymph % (Auto) 10.2 L (25-40) % [place] % (Auto) 6.0 (3-14) % Eos % (Auto) 0.2 L (2-4) % Baso % (Auto) 0.2 (0-2) % Neut # (Auto) 8800 H (9461-4185) /uL Lymph # (Auto) 1100 (9811-9756) /uL [place] # (Auto) 600 (0-900) /uL Eos # (Auto) 0 (0-450) /uL Baso # (Auto) 0 (0-100) /uL Sodium 135 L (137-145) mmol/L Potassium 3.9 (3.4-5.1) mmol/L Chloride 101 (98-107) mmol/L Carbon Dioxide 32 (22-32) mmol/L BUN 8 (7-17) mg/dL Creatinine 0.63 (0.52-1.04) mg/dL Estimated GFR > 60 (>60) mL/min BUN/Creatinine Ratio 12.7 (6-22) Glucose 132 H (80-110) mg/dL Calcium 9.5 (8.4-10.2) mg/dL Total Bilirubin 0.3 (0.2-1.3) mg/dL AST 24 (14-36) IU/L ALT 16 (<35) IU/L Alkaline Phosphatase 153 H (38-126) U/L Total Protein 6.8 (6.3-8.2) g/dL Albumin 3.9 (3.5-5.0) g/dL Globulin 2.9 (1.7-4.1) g/dL Albumin/Globulin Ratio 1.3 (1.0-2.8) Lipase 19 L (23-300) U/L SARS-CoV-2 (PCR) Negative (Negative) Urine Dip Bedside Urine Glucose Negative Bedside Urine Bilirubin - Negative Bedside Urine Ketone - Negative Urine Specific [place] 1.010 Bedside Urine Occult Blood - Negative Bedside Urine pH 8.0 Bedside Urine Protein - Negative Bedside Urine Urobilinogen - Negative Bedside Urine Nitrite - Negative Bedside Urine Leukocytes +/- 15 Esterase Discharge Plan Departure Patient Disposition: Home Clinical Impression: Urinary tract infection, Headache, Nausea Instructions: DI for Urinary Tract Infection (UTI), DI for Nausea -- Adult, DI for Headache Activity Restrictions/Additional Instructions: *You have been diagnosed with urinary tract infection with associated headache and nausea. Have ordered pain medicine to manage her pain anti nausea medicine for nausea and antibiotics for your urinary tract infection. I suggest you take the antibiotics as ordered take the pain medicines and antinausea medicines as needed. You will receive a 1st dose of your antibiotics here tonight and the other prescription has been sent to your pharmacy. [ ] *What to do: *Please continue to take your regular medications as directed. [x] New medication prescriptions sent to your pharmacy: [ ] [x] New medication written as a paper prescription [ ] No new medications given *Please follow up with your primary care provider in 2-3 days, call for an appointment. Let them know you were seen in the Emergency Department and that we ask that you be seen in follow up. We will electronically transmit a record of today's note if your PCP is in our system *If you do not have a primary care provider please contact the [facility] Resource line at [phone]. They will ask some questions about your medical history and help get you set up with a doctor in the community. *Return to Emergency Department if you should have any new, worsening or concerning symptoms, such as [fever greater than 101 F, shaking chills, worsening pain, persistent vomiting or other bothersome symptoms] Prescriptions: New hydrocodone-acetaminophen 5-300 mg tablet 1 tab PO Q8H PRN (Reason: pain) Qty: 10 0RF ondansetron HCl 4 mg tablet 4 mg PO Q8H Qty: 14 0RF nitrofurantoin monohyd/m-cryst [Macrobid] 100 mg capsule 100 mg PO BID Qty: 10 0RF Rx Instructions: must administer with a meal/food No Action [place] 3 See Rx Instructions .ROUTE .COMPLEX Label Comments: 1 Liquid capsule PO BID Rx Instructions: 1 Liquid capsule PO BID Reclast See Rx Instructions .ROUTE .COMPLEX Label Comments: 5 mg IV Annually Rx Instructions: 5 mg IV Annually Combivent Respimat 20-100 mcg/actuation mist 1 puff INHALATION QID PRN (Reason: shortness of breath or wheezing) Qty: 4 6RF olopatadine 0.1 % drops 1 drop EYE-BOTH BID Qty: 5 3RF Massage Therapy 1 each topical .EVERY 2 WEEKS Qty: 24 0RF Chiropractor 1 each topical .EVERY 2 WEEKS Qty: 24 3RF sucralfate 1 gram tablet 1 gram PO BID PRN (Reason: acid reflux) Qty: 180 3RF ondansetron 8 mg tablet,disintegrating 8 mg PO TID PRN (Reason: nausea and vomiting) Qty: 30 1RF montelukast [Singulair] 10 mg tablet 10 mg PO QDAY Qty: 90 3RF ipratropium-albuterol 0.5 mg-3 mg(2.5 mg base)/3 mL solution for nebulization 3 ml inhalation Q6HP PRN (Reason: shortness of breath or wheezing) Qty: 120 3RF acyclovir 400 mg tablet 400 mg PO QID Qty: 360 3RF hydroxyzine pamoate 25 mg capsule 25 - 50 mg PO DAILY PRN (Reason: anxiety) Qty: 180 3RF ferrous sulfate 220 mg (44 mg iron)/5 mL solution 220 mg PO BID Qty: 473 6RF Creon 6,000-19,000 -30,000 unit capsule,delayed release(DR/EC) 1 cap PO TID Qty: 270 3RF Rx Instructions: PATIENT IS REQUESTING RX TO BE MAILED TO HER HOME ADDRESS. baclofen 20 mg tablet 20 mg PO .COMPLEX Qty: 180 11RF Rx Instructions: 20 mg PO 1 1/2 to 2 tid; pantoprazole [Protonix] 40 mg tablet,delayed release (DR/EC) 40 mg PO BID Qty: 180 2RF amitriptyline 50 mg tablet 100 - 200 mg PO HS Qty: 1080 2RF hydrocodone-acetaminophen 7.5-325 mg tablet 1 tab PO Q12H PRN (Reason: pain) Qty: 30 0RF scopolamine base 1 mg over 3 days patch 3 day 1 patch transdermal Q3D PRN (Reason: nausea and vomiting) Qty: 4 2RF misoprostol [Cytotec] 200 mcg tablet 200 mcg PO BID Qty: 180 2RF clonazepam 1 mg tablet 1 mg PO BID Qty: 60 0RF buspirone 10 mg tablet 10 mg PO BID Qty: 180 3RF olopatadine 0.6 % spray,non-aerosol 2 spray NASAL BID Qty: 30.5 3RF Rx Instructions: administer into each nostril venlafaxine 75 mg tablet 75 mg PO BID Qty: 180 3RF (DME) Home Nebulizer See Rx Instructions .Route .MEDSUPPLY Qty: 1 0RF Rx Instructions: With supplies for use with nebulized medications Botox 200 unit recon soln 200 unit IM ONCE Qty: 1 3RF Rx Instructions: q 90 days for chronic migraine prevention. Referrals: Mike Amezcua MD [Primary Care Provider] - Visit Report Forms: Patient Portal/API <Lavon Umanzor DO - Last Filed: 07/20/22 01:21> [facility] Gueritaature Attestation: I was immediately available in the department for consultation. This documentation has been reviewed and I agree with assessment and plan. Supervised by Lavon Umanzor DO
[2022-07-19] MEDS: ONDANSETRON 4 MG ODT SL (19:29)
[2022-07-19] MEDS: KETOROLAC 30 MG/ML VIAL 15 MG IM ×2 (19:29→20:19)
[2022-07-19] MEDS: NITROFURANTOIN ER 100 MG CAPSULE PO (20:41)
== END 2022-07-19 20:52 | disposition home or self-care (01) ==
PROVIDERS: Emergency Medicine; Emergency Provider Physician Assistant; PCP Internal Medicine
DX: N39.0 Urinary tract infection, site not specified (principal); R51.9 Headache, unspecified; R11.2 Nausea with vomiting, unspecified; R10.9 Unspecified abdominal pain; Z20.822 Contact with and (suspected) exposure to COVID-19
CPT/HCPCS: 80053; 81003; 83690; 85025; 87635; 93005; 93010; 96372; 99284; C9803; J1885

== ENCOUNTER → 2022-07-29 10:02 | Outpatient (CLI) | payer MEDICARE, OTHER, SELFPAY ==
[2021-06-15 00:30] VITALS: BMI 17.6
== END ==
PROVIDERS: PCP Internal Medicine; Visit Provider Registered Nurse
DX: N39.0 Urinary tract infection, site not specified (principal); J02.9 Acute pharyngitis, unspecified
CPT/HCPCS: 87070; 87086

== ENCOUNTER → 2022-08-24 11:03 | Outpatient (CLI) | payer MEDICARE, OTHER, SELFPAY ==
[2021-06-15 00:30] VITALS: BMI 17.6
== END ==
PROVIDERS: PCP Internal Medicine; Visit Provider Nurse Practitioner Family
DX: R21 Rash and other nonspecific skin eruption (principal)
CPT/HCPCS: 87070; 87077; 87147; 87186; 87205; 87252

== ENCOUNTER → 2022-09-26 14:21 | Outpatient (CLI) | payer MEDICARE, OTHER, SELFPAY ==
[2021-06-15 00:30] VITALS: BMI 17.6
== END ==
PROVIDERS: PCP Internal Medicine; Visit Provider Internal Medicine
DX: L03.90 Cellulitis, unspecified (principal)
CPT/HCPCS: 87070; 87075; 87205

== ENCOUNTER → 2022-10-11 11:01 | Outpatient (CLI) | payer MEDICARE, OTHER, SELFPAY ==
[2021-06-15 00:30] VITALS: BMI 17.6
== END ==
PROVIDERS: PCP Internal Medicine; Visit Provider Physician Assistant
DX: L03.90 Cellulitis, unspecified (principal)
CPT/HCPCS: 87070; 87075; 87205

== ENCOUNTER → 2022-10-14 09:57 | Outpatient (CLI) | payer MEDICARE, OTHER, SELFPAY ==
[2021-06-15 00:30] VITALS: BMI 17.6
--- NOTE | 2022-10-14 11:58 | DIAB.MNT ---
Initial Diabetes Medical Nutrition Therapy Assessment Name: Shirin Tuttle Date: 10/14/22 Time: 1010-1120a Dx: Type II Diabetes Provider: Goldie Carpio presents for initial visit regarding new dx of T2DM with hga1c of 6.8%. Denies any FH of DM. Attributes this diagnosis in part to an abdominal surgery she had 35 years ago, when her provider told her eventually you will have diabetes. Reports h/o cyst on her pancreas. Reports she was previously on Metformin with PCP Susy Bourgeois, though not currently on Metformin. Shirin reports h/o anxiety and feels if she has to manage her diet for diabetes in combination with current food restrictions r/t digestion issues, she will be very stressed. States she would like to try Metformin instead. Encouraged her to discuss with PCP the addition of Metformin. Shirin has h/o chronic protein calorie malnutrition. States that eating in general is a challenge. Most foods tolerated are carbohydrates. Does drink a protein ONS once per day. Tried Keto this past summer. States it helped with her bloating, but also endorses about 15# weight loss from this. She attributes most of this weight to bloating. Upon seeing Shirin, it is clear that she has some wasting with muscle/fat loss of temporal, orbital, and clavicle regions Diet Recall: 9a: tea with 2 TBS coconut creamer and pro shake 12p: 1.5c cereal with half n half OR half eng muffin with PB and buter 4p: Indonesian takeout (noodles, veggies, protein) +/- slice pie; spaghetti, no meat 11p: 2c cheddar puff snack Beverages: 12oz mt dew, egg nog x 8oz, gatorade occasionally, tea, water 4-5 x 16.8oz. Anthropometrics: Ht: Wt: 110# reported (down from 119# at last PCP visit and down from 127# reported this summer) Physical Activity: daily gardening, 100 ball exercises and 100 sit ups, arm exercises, always on the move Self-Monitoring Blood Glucose: None Diabetes Medications: None Pertinent Labs: 6.8% HgA1c 04/2022 Past Medical History: (Last Updated 10/11/22 @ 11:05 by Basilio Siddiqui PA-C) Acute GI bleeding Asthma (Unknown) Cervical spine disease (Unknown) spinal stenosis Chronic constipation Depression (Unknown) Diabetes type 2, controlled Erythema Generalized anxiety disorder Herpes (~1992) History of bleeding peptic ulcer (2011) 11/09/12-11/13/12 Infection Iron deficiency Migraines (Unknown) Osteoporosis (Unknown) Pancreatic insufficiency after bariatric surgery, followed GI [facility] Peptic ulcer disease (Unknown) Substance abuse (~1983) alcohol--quit drinking 1983 Nutrition Rx: 1700-1800kcals (35kcla/kg per BMI) 75-100g Protein daily (1.5-2g/kg per PCM) 170-180g CHO Daily (40% kcals) Nutrition Diagnosis: - Predicted excessive CHO intake r/t limited foods she can eat with GI issues aeb pt report and diet recall - Severe chronic PCM r/t GI issues and limited foods aeb diet recall, weight loss, severe temporal scooping, orbital hollowing, and protruding clavicle Intervention: This participant was very receptive. Provided appropriate educational handouts. Discussed the following topics: Completed intake assessment. Discussed barriers to care. HgA1c, how it is measured, its correlation to blood glucose numbers, and rationale for goal Potential for oral DM meds if she feels it is too difficult to reduce carb intake, may benefit from low dose Metformin? Importance of weight gain for muscle retention and health Importance of protein and increasing shake intake Created SMART goals for patient self-care and success. Goals: Drink ONS BID Track food intake for one week Follow-up: YANIRA GALLARDO follow-up in 3 weeks. Though Shirin's hgA1c is considered therapeutically in range, she may benefit from Metformin given the amount of carbohydrate she consumes and the anxiety associated with managing both her weight gain and DM. Will continue to help her make lifestyle changes and follow-up in 3 weeks. Gaby Samson RDN, [facility] Certified Diabetes Care and Grounds Crew Supervisor P: [phone] Thank you for this referral
== END ==
PROVIDERS: PCP Internal Medicine; Referring Provider Internal Medicine; Visit Provider Internal Medicine
DX: E11.9 Type 2 diabetes mellitus without complications (principal); E43 Unspecified severe protein-calorie malnutrition; Z71.3 Dietary counseling and surveillance
CPT/HCPCS: 97802

== ENCOUNTER → 2022-11-11 11:14 | Outpatient (CLI) | payer MEDICARE, OTHER, SELFPAY ==
[2021-06-15 00:30] VITALS: BMI 17.6
--- NOTE | 2022-11-12 15:13 | DIAB.MNTFU ---
Follow-up Diabetes Medical Nutrition Therapy Assessment Name: Shirin Tuttle Date: 11/11/22 Time: 5050a-2550p Dx: Type II Diabetes Shirin presents for follow-up DM visit. States with the weight loss her bloat and GI issues have not been present. This RD has concern for her malnutrition status. With a BMi of 16.9 and physical wasting, she is at risk for health complications r/t malnutrition. Shirin is not concerned with current weight and feels that her GI system is working much better and attributes it to this weight. This RD predicts that the GI issues have subsided with the small amounts she is eating in a sitting versus the actual weight. She has been tracking her food intake and has noticed that her energy intake is minimal in the morning. States she has been drinking pro shake 1-2x per day most days. Expresses concerns about her veins having difficulty with lab work. Worries that she will not be able to see what her new hgA1c is due to this issues. Also does not want to check BG. Overall, has expressed that she has many health concerns she is juggling and adding Dm is stressful. Would like to manage DM with as little interventions as possible. Given HgA1c and current weight, would rec focusing more on weight gain without returning GI issues. Worries about low BG, but not on any meds to cause this. may be having some lows with inadequate intake. Diet Recall: 10a: half eng muffin with eggs and PRO shake 3p: half sandwich grazing for the afternoon HS pro shake Anthropometrics: Ht: 68 Wt: 111# reported Physical Activity: last visit reproted daily gardening, 100 ball exercises and 100 sit ups, arm exercises, always on the move Self-Monitoring Blood Glucose: None and not interested Diabetes Medications: None Pertinent Labs: 6.8% HgA1c 04/2022 Past Medical History: (Last Updated 10/11/22 @ 11:05 by Basilio Siddiqui PA-C) Acute GI bleeding Asthma (Unknown) Cervical spine disease (Unknown) spinal stenosis Chronic constipation Depression (Unknown) Diabetes type 2, controlled Erythema Generalized anxiety disorder Herpes (~1992) History of bleeding peptic ulcer (2011) 11/09/12-11/13/12 Infection Iron deficiency Migraines (Unknown) Osteoporosis (Unknown) Pancreatic insufficiency after bariatric surgery, followed [facility] Peptic ulcer disease (Unknown) Substance abuse (~1983) alcohol--quit drinking 1983 Nutrition Rx: 1700-1800kcals (35kcla/kg per BMI) 75-100g Protein daily (1.5-2g/kg per PCM) 170-180g CHO Daily (40% kcals) Nutrition Diagnosis: - Severe chronic PCM r/t GI issues and limited foods and feeling that low weight has resolved GI issues aeb diet recall, weight loss, severe temporal scooping, orbital hollowing, and protruding clavicle and BMI <18 Intervention: This participant was very receptive. Provided appropriate educational handouts. Discussed the following topics: Ways to increase kcal intake easily for her; higher fat and pro options Health concerns with very low BMI Small frequent meals to help with increasing kcals without exacerbation of GI HgA1c ranges POC HgA1c and lab work Hypoglycemia s/s and causes Metformin: potentially good for her given the limited changes she wants to make, however may exacerbate her feeling of low BG if not eating adequately. Created SMART goals for patient self-care and success. Goals: Drink ONS BID- in progress Track food intake for one week - met Incorporate higher kcal foods discussed , ie avocado, PB Follow-up: [facility] follow-up in [address] concerned about her weight loss. Shirin, however, is happy with current weight given the GI relief. She plans to follow-up with GI next month. Hoping she can gain some weight with pro shakes and higher kcal foods without increased GI issue. Gaby Samson, YANIRA, CDCES Certified Diabetes Care and [employer]or P: [phone] Thank you for this referral
== END ==
PROVIDERS: PCP Internal Medicine; Referring Provider Internal Medicine; Visit Provider Internal Medicine
DX: E11.9 Type 2 diabetes mellitus without complications (principal); E43 Unspecified severe protein-calorie malnutrition; Z68.1 Body mass index [BMI] 19.9 or less, adult; Z71.3 Dietary counseling and surveillance
CPT/HCPCS: 97803

== ENCOUNTER → 2022-12-05 14:15 | Outpatient (CLI) | payer MEDICARE, OTHER, SELFPAY ==
[2021-06-15 00:30] VITALS: BMI 17.6
[2022-12-05 15:04] LABS: Bilirubin Urine UA NEGATIVE (NEGATIVE); Glucose Urine UA NEGATIVE (Negative); Leukocyte Esterase Urine UA NEGATIVE (NEGATIVE); Nitrite Urine UA NEGATIVE (Negative); Urobilinogen Urine UA 0.2 E.U./dL (0.2)
[2022-12-05 15:37] LABS: Appearance Urine UA CLEAR; Color Urine UA YELLOW; Ketones Urine UA NEGATIVE (NEGATIVE); Occult Blood Urine UA NEGATIVE (Negative); Protein Urine UA NEGATIVE (Negative)
[2022-12-05 15:45] LABS: Bacteria Urine None Seen; RBC Urine 0-1/HPF (0-5/HPF); Squamous Epithelial Cell Urine 0-1 /HPF (0-5/HPF); WBC Urine 0-1/HPF (0-5/HPF)
[2022-12-05 15:46] LABS: Culture Indicated Urine Cult Not Indicated
[2022-12-05 16:34] LABS: Alanine Aminotransferase 19 IU/L (<35); Albumin 4.1 g/dL (3.5-5.0); Albumin Globulin Ratio 1.4 (1.0-2.8); Alkaline Phosphatase 223 U/L (38-126); Aspartate Aminotransferase 25 IU/L (14-36); BUN Creatinine Ratio 16.9 (6-22); Bilirubin Total 0.3 mg/dL (0.2-1.3); Blood Urea Nitrogen 12 mg/dL (7-17); Calcium 8.7 mg/dL (8.4-10.2); Carbon Dioxide 25 mmol/L (22-32); Chloride 99 mmol/L (98-107); Estimated Glomerular Filt Rate > 60 mL/min (>60); Globulin 2.9 g/dL (1.7-4.1); Glucose 111 mg/dL (80-110); HEMOLYSIS < 15 (0-50); Potassium 4.2 mmol/L (3.4-5.1); Sodium 133 mmol/L (137-145)
== END ==
PROVIDERS: PCP Internal Medicine; Referring Provider Internal Medicine; Visit Provider Internal Medicine
DX: R30.0 Dysuria (principal); M81.0 Age-related osteoporosis without current pathological fracture
CPT/HCPCS: 36415; 80053; 81001

== ENCOUNTER → 2022-12-15 13:42 | Outpatient (CLI) | payer MEDICARE, OTHER, SELFPAY ==
[2021-06-15 00:30] VITALS: BMI 17.6
[2022-12-15 14:30] LABS: Add Manual Diff / Slide Review NO; Basophils Absolute Auto 0 /uL (0-100); Basophils Percent Auto 0.8 % (0-2); Eosinophils Absolute Auto 300 /uL (0-450); Eosinophils Percent Auto 6.7 % (2-4); Hematocrit 36.3 % (36-46); Hemoglobin 11.9 g/dL (12.0-16.0); Lymphocytes Absolute Auto 1300 /uL (1100-4500); Lymphocytes Percent Auto 30.8 % (25-40); Mean Corpuscular HGB Conc 32.7 % (30-36); Mean Corpuscular Hemoglobin 29.1 PG (26-34); Mean Corpuscular Volume 89.3 fL (80-100); Monocytes Absolute Auto 500 /uL (0-900); Monocytes Percent Auto 12.4 % (3-14); Neutrophils Absolute Auto 2100 /uL (1500-7000); Neutrophils Percent Auto 49.3 % (50-75); Platelet Count 258 X10^3/uL (150-400); Red Blood Cell Count 4.07 X10^6/uL (4.0-5.2); Red Cell Distribution Width 14.9 % (11.6-14.8); White Blood Cell Count 4.2 X10^3/uL (4.5-11.0)
[2022-12-15 14:49] LABS: HEMOLYSIS 23 (0-50); Iron 83 ug/dL (37-170)
[2022-12-15 15:00] LABS: Percent Iron Saturation 16 % (15-50); Total Iron Binding Capacity 510 ug/dL (265-497); Transferrin 364 mg/dL (206-381)
[2022-12-15 15:09] LABS: Free T4, Direct Thyroxine 1.01 ng/dL (0.78-2.19)
[2022-12-15 15:23] LABS: Thyroid Stimulating Hormone 1.28 uIU/mL (0.47-4.68)
[2022-12-17 12:11] LABS: Hemoglobin A1C% w Est Avg Glu 6.9 % (4.0-6.0)
== END ==
PROVIDERS: PCP Internal Medicine; Referring Provider Internal Medicine; Visit Provider Internal Medicine
DX: D64.9 Anemia, unspecified (principal); E61.1 Iron deficiency; R53.83 Other fatigue; E11.9 Type 2 diabetes mellitus without complications
CPT/HCPCS: 36415; 83036; 83540; 83550; 84439; 84443; 85025

== ENCOUNTER → 2023-01-06 17:24 | Outpatient (CLI) | payer MEDICARE, OTHER, SELFPAY ==
[2021-06-15 00:30] VITALS: BMI 17.6
[2023-01-06 18:47] LABS: Alanine Aminotransferase 18 IU/L (<35); Albumin Globulin Ratio 1.4 (1.0-2.8); Alkaline Phosphatase 200 U/L (38-126); Aspartate Aminotransferase 28 IU/L (14-36); BUN Creatinine Ratio 20.3 (6-22); Bilirubin Total 0.3 mg/dL (0.2-1.3); Blood Urea Nitrogen 13 mg/dL (7-17); Calcium 8.5 mg/dL (8.4-10.2); Carbon Dioxide 24 mmol/L (22-32); Chloride 100 mmol/L (98-107); Estimated Glomerular Filt Rate > 60 mL/min (>60); Globulin 2.8 g/dL (1.7-4.1); Glucose 107 mg/dL (80-110); HEMOLYSIS 23 (0-50); Sodium 132 mmol/L (137-145); Total Protein 6.8 g/dL (6.3-8.2)
== END ==
PROVIDERS: PCP Internal Medicine; Referring Provider Internal Medicine; Visit Provider Internal Medicine
DX: Z01.812 Encounter for preprocedural laboratory examination (principal)
CPT/HCPCS: 36415; 80053

== ENCOUNTER → 2023-01-14 10:04 | Outpatient (CLI) | payer MEDICARE, OTHER, SELFPAY ==
[2021-06-15 00:30] VITALS: BMI 17.6
--- NOTE | 2023-01-27 17:00 | DIAB.MNTFU ---
Follow-up Diabetes Medical Nutrition Therapy Assessment Name: Shirin Tuttle Date: 01/14/23 Time: 1010-11a Dx: Type II Diabetes Shirin presents for DM follow-up. Reports she has just recovered from MRSA in her sinuses. Saw ENT. Plans to switch PCP to Sari Oliver in February. Has not seen GI since this past summer. Reports some increase in appetite in the evening. Reports mostly grazing during the day. 1 protein shake per day. RD continues to be concerned about her malnutrition status, which has been expressed to provider. Diet recall: by noon: 2 raisin toast with raisins and butter or eggs with sauce and eggs, ham 2p: soup or yogurt or shake 7p: crackers and soup x 1/2 can OR half sandwich with handful chips Grazing: quiche, cashews, cheerios Beverages; water, 12oz Mt Dew Anthropometrics: Ht: 68 Wt: 108# reported (down from 111# last RD visit) Weight history: Reports she had been holding at 110# consistently but recently just below this. Physical Activity: gardening, core exercises daily, ball bounces TID Self-Monitoring Blood Glucose: No SMBG. Endorses some shaking when gone too long without eating. Diabetes Medications: None Pertinent Labs: 6.8% HgA1c 04/2022 , 6.9% 12/2022 Past Medical History: (Last Updated 12/16/22 @ 15:06 by Mike Amezcua MD) Acute GI bleeding Asthma (Unknown) Cervical spine disease (Unknown) spinal stenosis Chronic constipation Depression (Unknown) Diabetes type 2, controlled Generalized anxiety disorder Herpes (~1992) History of bleeding peptic ulcer (2011) 11/09/12-11/13/12 Iron deficiency Migraines (Unknown) Osteoporosis (Unknown) Pancreatic insufficiency after bariatric surgery, followed [facility] Peptic ulcer disease (Unknown) Substance abuse (~1983) alcohol--quit drinking 1983 Nutrition Rx: 1700-1800kcals (35kcla/kg per BMI) 75-100g Protein daily (1.5-2g/kg per PCM) 170-180g CHO Daily (40% kcals) Nutrition Diagnosis: - Severe chronic PCM r/t GI issues and limited foods and feeling that low weight has resolved GI issues aeb diet recall, weight loss, severe temporal scooping, orbital hollowing, and protruding clavicle and BMI <18 Intervention: This participant was very receptive. Provided appropriate educational handouts. Discussed the following topics: Nutrition recs, including protein shake BID Eating small frequent meals Compared different protein shake content and adame and answered questions regarding Discussed ways to increase kcals Created SMART goals for patient self-care and success. Goals: Drink ONS BID- in progress Incorporate higher kcal foods discussed , ie avocado, PB- in progress Try to eat every 3-4 hours- new Follow-up: YANIRA GALLARDO follow-up prn. Offered follow-up. Shirin would like to call for follow-up when needed. HgA1c has increased a little, however the main concern nutritionally is her very low wt. Plans to see PCP next month. Gaby Samson RDN, [facility] Certified Diabetes Care and Production Planning Manager P: [phone] Thank you for this referral
== END ==
PROVIDERS: PCP Internal Medicine; Referring Provider Internal Medicine; Visit Provider Internal Medicine
DX: E11.9 Type 2 diabetes mellitus without complications (principal); Z71.3 Dietary counseling and surveillance
CPT/HCPCS: 97803

== ENCOUNTER → 2023-02-17 11:41 | Outpatient (CLI) | payer MEDICARE, OTHER, SELFPAY ==
[2021-06-15 00:30] VITALS: BMI 17.6
[2023-02-17 12:34] LABS: Hemoglobin 11.8 g/dL (12.0-16.0)
== END ==
PROVIDERS: PCP Internal Medicine; Referring Provider Nurse Practitioner; Visit Provider Nurse Practitioner
DX: J44.9 Chronic obstructive pulmonary disease, unspecified (principal)
CPT/HCPCS: 36415; 85014; 85018

== ENCOUNTER → 2023-03-04 10:50 | Outpatient (CLI) | payer MEDICARE, OTHER, SELFPAY ==
[2021-06-15 00:30] VITALS: BMI 17.6
--- NOTE | 2023-03-06 16:29 | PM.PFT.1 ---
Pulmonary Function Test Referral & Results Date Patient Seen: 03/04/23 Results: The spirometry demonstrates an FVC of 2.95 L which is 80% of predicted. The FEV1 was measured at 1.79 L which is 64% of predicted. The FEV1/FVC ratio was 61 which is 80% of predicted. Following the administration of bronchodilator there was 15% improvement in FEV1 and a 60% improvement in FEF 25-75%. Lung volumes show an SVC of 2.99 L which is 88% of predicted. The diffusing capacity was measured at 15.85 which is 52% of predicted. No hemoglobin value was provided, so no correction for potential anemia could be made, if appropriate. The maximum voluntary ventilation was reduced Interpretation: This study demonstrates moderate obstructive lung disease based on reduction FEV1. There is evidence of benefit following bronchodilator administration particularly small airway flow based on improvement in FEF 25-75% as above. There is a very minimal reduction in lung volumes, suggesting the presence of minimal restrictive lung disease There is a moderate reduction diffusing capacity suggesting significant disease at the capillary alveolar level Clinical correlation suggested
== END ==
PROVIDERS: PCP Nurse Practitioner; Referring Provider Nurse Practitioner; Visit Provider Nurse Practitioner
DX: J44.9 Chronic obstructive pulmonary disease, unspecified (principal); Z87.891 Personal history of nicotine dependence
CPT/HCPCS: 94060; 94726; 94729

== ENCOUNTER 2023-03-28 11:55 | Emergency (ER) | payer MEDICARE, OTHER, SELFPAY ==
[2021-06-15 00:30] VITALS: BMI 17.6
[2023-03-28] VITALS (24 sets, daily range): BP systolic 153–176; BP diastolic 69–87; PULSE 53–84; RESP 12–45; TEMP 36.8; O2SAT 99–100; BMI 17.3
--- NOTE | 2023-03-28 12:02 | DI.RAD.S_ITS ---
PROCEDURE: XR CHEST 1V INDICATIONS: chest pain TECHNIQUE: One view of the chest was acquired. COMPARISON: [facility], , CHEST 1 VIEW, 01/19/2018, 17:25. FINDINGS: Surgical changes and devices: None. Lungs and pleura: Lungs are clear. No pleural effusions or pneumothorax. Mediastinum: Mediastinal contours appear normal. Heart size is normal. Bones and chest wall: No suspicious bony lesions. Overlying soft tissues appear unremarkable. Rightward curvature of the thoracic spine. IMPRESSION: No acute cardiopulmonary abnormality. Dictated by: Rudy Salazar M.D. on 03/28/2023 at 13:11 Approved by: Rudy Salazar M.D. on 03/28/2023 at 13:12
--- NOTE | 2023-03-28 12:15 | ED_ITS ---
HPI - Dizziness <Fany Sousa, - Last Filed: 04/03/23 19:39> General Chief Complaint: Dizziness Stated Complaint: Dizzy, Dehydrated, possible bladder infect. Time Seen by Provider: 03/28/23 12:13 Source: patient, RN notes reviewed and old records reviewed Limitations: no limitations History of Present Illness HPI Narrative: This is a 67-year-old female with history of depression, anxiety, COPD, type 2 diabetes and prior GI bleeds who presents with complaint of lightheadedness or dizziness, headache fatigue. Patient denies fevers or chills. She states headaches was slow, she states not the worst headache of her life she describes it as [id number]. She denies any trauma or head injuries. She states no blood thinners. She denies vision change. Denies any difficulty with speech. She denies chest pain or shortness of breath. She denies abdominal back or flank pain. She denies nausea or vomiting. She denies any numbness, tingling or weakness. She denies urgency but had some mild frequency and dysuria. She was concerned about possibly having a GI bleed she has not had any black or bl oody stools. She has not had any diarrhea or constipation. She has had GI bleeds in the past she is on medications such as omeprazole for it and has followed with gastroenterology before. Patient states she does take baclofen daily as well as her chronic pain medications. She states she is borderline diabetic. She states she is had prior hip surgery. States she has some adverse reactions to medications but no true allergies. No tobacco, alcohol or illicit. She states her primary care Sari oliver, she notes she follows with gastroenterology. Related Data Home Medications Medication Instructions Recorded Confirmed Brimley 3 See Rx Instructions .Route .COMPLEX 08/02/18 04/01/23 Reclast See Rx Instructions .Route .COMPLEX 08/02/18 04/01/23 Previous Rx's Medication Instructions Recorded olopatadine 0.6 % nasal spray 2 spray intranasal BID #30.5 grams 03/16/19 onabotulinumtoxinA 200 unit 200 unit IM ONCE #1 ea 05/24/19 solution for injection (Botox) olopatadine 0.1 % eye drops 1 drop EYE-BOTH BID #5 mL 11/17/19 Chiropractor 1 each topical .EVERY 2 WEEKS #24 11/18/19 ea Massage Therapy 1 each topical .EVERY 2 WEEKS #24 11/18/19 ea Home Nebulizer #1 ea 09/03/21 ipratropium 0.5 mg-albuterol 3 mg 3 ml inhalation Q6HP PRN shortness 09/12/21 (2.5 mg base)/3 mL nebulization of breath or wheezing #120 vials soln hydroxyzine pamoate 25 mg capsule 25 - 50 mg PO DAILY PRN anxiety 10/02/21 #180 caps Creon 6,000-19,000-30,000 unit 1 cap PO TID #270 caps 11/29/21 capsule,delayed release ([id number]-[id number]) scopolamine base 1 mg over 3 days 1 patch transdermal Q3D PRN nausea 06/12/22 transdermal patch and vomiting #4 ea misoprostol 200 mcg tablet 200 mcg PO BID #180 tabs 06/30/22 (Cytotec) blood sugar diagnostic (Blood #100 ea 11/13/22 Glucose Test strips) blood-glucose meter #1 ea 11/13/22 lancets 30 gauge #200 ea 11/13/22 ondansetron HCl 8 mg tablet 8 mg PO Q8H PRN nausea and 12/16/22 vomiting #30 tabs ipratropium 20 mcg-albuterol 100 1 puff inhalation QID shortness of 01/01/23 mcg/actuation mist for inhalation breath or wheezing #12 grams (Combivent Respimat) metformin 500 mg tablet,extended 500 mg PO QPM #90 tabs 02/17/23 release 24hr acyclovir 400 mg tablet 400 mg PO QID #360 tabs 02/18/23 baclofen 20 mg tablet 20 mg PO BID PRN neck pain #180 02/18/23 tabs montelukast 10 mg tablet 10 mg PO QDAY #90 tabs 02/18/23 (Singulair) pantoprazole 40 mg tablet,delayed 40 mg PO BID #180 tabs 02/18/23 release (Protonix) buspirone 10 mg tablet 30 mg PO DAILY #270 tabs 02/20/23 clonazepam 2 mg tablet 2 mg PO BID PRN anxiety #60 tabs 03/02/23 budesonide 0.5 mg/2 mL suspension 0.5 mg (2 mL) inhalation BID #60 mL 03/12/23 for nebulization duloxetine 20 mg capsule,delayed 60 mg PO BID 90 days #540 caps 03/24/23 release Allergies Allergy/AdvReac Type Severity Reaction Status Date / Time fentanyl Allergy Severe Drug Verified 04/01/23 09:02 Sick/Can't take it. Adverse Reaction as well. Sulfa (Sulfonamide Allergy Severe ITCHING Verified 04/01/23 09:02 Antibiotics) [SULFA (SULFONAMIDE ANTIBIOTICS)] codeine [CODEINE] AdvReac Mild JITTERS Verified 04/01/23 09:02 morphine [MORPHINE] AdvReac Mild JITTERS Verified 04/01/23 09:02 Review of Systems <Fany Sousa DO - Last Filed: 04/03/23 19:39> Review of Systems ROS Unobtainable: All systems reviewed & are unremarkable except as noted in HPI and below Patient History <Fayn Sousa DO - Last Filed: 04/03/23 19:39> Medical History Acute GI bleeding Asthma (Unknown) Cervical spine disease (Unknown) Chronic constipation Depression (Unknown) Diabetes type 2, controlled Generalized anxiety disorder Herpes (~1992) History of bleeding peptic ulcer (2011) HLD (hyperlipidemia) Iron deficiency Migraines (Unknown) Osteoporosis (Unknown) Pancreatic insufficiency Peptic ulcer disease (Unknown) Substance abuse (~1983) Surgical History History of incision and drainage (02/2018) History of open reduction and internal fixation (ORIF) procedure (01/2017) Hx of gastric bypass (Unknown) Family History Mother Pancreatic cancer Father Old age Son Alive and well Social History household members: spouse and children Smoking Status: Former smoker Tobacco: How many years used: 20 second hand exposure: No alcohol intake: former substance use type: does not use Smoking Status: Former smoker alcohol intake frequency: holidays/special occasions only Substance Use Type: does not use Exam <Fany Sousa DO - Last Filed: 04/03/23 19:39> Narrative Exam Narrative: GEN: Thin older appearing female, alert and oriented x 3, patient appears to be in mild distress. Patient answers all questions without issue but does seem sl eepy and has to be verbally stimulated occasionally. HEENT: Atraumatic, pupils are equal round reactive to light, pupils are 5-6 mm bilaterally, extraocular movements are intact, nares are clear, TMs are clear with no fluid, there is no conjunctival pallor. Throat is clear without any exudates, erythema, tonsillar enlargement or uvular deviation, no facial droop. HEART: Regular rate and rhythm without murmur, clicks, rubs. pulses are equal in upper and lower extremities LUNGS:Lungs clear to auscultation, no wheezes, rales, crackles, chest moves symmetrically, no tachypnea or accessory muscle use. Speaks in full sentences ABD:bowel sounds normal, soft, non-tender, no guarding, rebound, rigidity, no masses noted, no hepatosplenomegaly :No CVA tenderness MSCL: Non-tender, no muscle atrophy, muscles strength 5/5 upper and lower extremities, full range of motion. NEURO:CN 2-12 intact, sensation normal, reflexes 2/4 upper and lower extremities. No dysarthria or aphasia. SKIN: No rash, erythema or other skin changes noted Initial Vital Signs Initial Vital Signs: Vital Signs Temperature 98.2 F 03/28/23 11:57 Pulse Rate 84 03/28/23 11:57 Respiratory Rate 15 03/28/23 11:57 Blood Pressure 166/76 H 03/28/23 11:57 Pulse Oximetry 99 03/28/23 11:57 Oxygen Delivery Method Room Air 03/28/23 11:57 <Caron Alexandre, DO - Last Filed: 03/29/23 03:06> Initial Vital Signs Initial Vital Signs: Vital Signs Temperature 98.2 F 03/28/23 11:57 Pulse Rate 84 03/28/23 11:57 Respiratory Rate 15 03/28/23 11:57 Blood Pressure 166/76 H 03/28/23 11:57 Pulse Oximetry 99 03/28/23 11:57 Oxygen Delivery Method Room Air 03/28/23 11:57 Scores <Fnay Sousa, DO - Last Filed: 04/03/23 19:39> GCS Valery coma scale eye opening: Spontaneous [place] coma scale verbal response: Orientated [place] coma scale motor response: Obey commands [place] coma scale total score: 15 <Caron Alexandre DO - Last Filed: 03/29/23 03:06> GCS [place] coma scale total score: 15 Course <Fany Sousa DO - Last Filed: 04/03/23 19:39> Orders Ordered: Discontinued Medications Sodium Chloride (Normal Saline 0.9%) 1,000 mls @ 1,000 mls/hr IV BOLUS ONE Stop: 03/28/23 13:05 Last Infusion: 03/28/23 13:50 Dose: 0 mls/hr Documented By: Admin: 03/28/23 12:53 Dose: 1,000 mls/hr Documented By: YAKELIN Vital Signs Vital signs: Vital Signs - 8 hr 03/28/23 19:30 03/28/23 19:30 Pulse Rate 66 Respiratory Rate 37 H Blood Pressure 176/82 H <Caron Alexandre DO - Last Filed: 03/29/23 03:06> Orders Ordered: Discontinued Medications Sodium Chloride (Normal Saline 0.9%) 1,000 mls @ 1,000 mls/hr IV BOLUS ONE Stop: 03/28/23 13:05 Last Infusion: 03/28/23 13:50 Dose: 0 mls/hr Documented By: Admin: 03/28/23 12:53 Dose: 1,000 mls/hr Documented By: YAKELIN Vital Signs Vital signs: Vital Signs - 8 hr 03/28/23 19:30 03/28/23 19:30 Pulse Rate 66 Respiratory Rate 37 H Blood Pressure 176/82 H MDM - Dizziness <Fany Sousa DO - Last Filed: 04/03/23 19:39> Lab Data 03/28/23 11:24 03/28/23 11:24 Labs: Lab Results 03/28/23 03/28/23 03/28/23 Range/Units 11:24 11:24 11:24 WBC 3.9 L (4.5-11.0) X10^3/uL RBC 4.16 (4.0-5.2) X10^6/uL Hgb 12.1 (12.0-16.0) g/dL Hct 36.5 (36-46) % MCV 87.6 (80-100) fL MCH 29.1 (26-34) PG MCHC 33.2 (30-36) % RDW 14.6 (11.6-14.8) % Plt Count 246 (150-400) X10^3/uL Neut % (Auto) 59.8 (50-75) % Lymph % (Auto) 22.3 L (25-40) % Letcher % (Auto) 10.0 (3-14) % Eos % (Auto) 7.3 H (2-4) % Baso % (Auto) 0.6 (0-2) % Neut # (Auto) 2400 (2733-2456) /uL Lymph # (Auto) 900 L (8345-7839) /uL Letcher # (Auto) 400 (0-900) /uL Eos # (Auto) 300 (0-450) /uL Baso # (Auto) 0 (0-100) /uL PT 11.8 (10.1-12.7) SECONDS INR 1.0 (0.9-1.3) APTT 35 (26-36) SECONDS Sodium 134 L (137-145) mmol/L Potassium 4.4 (3.4-5.1) mmol/L Chloride 98 (98-107) mmol/L Carbon Dioxide 29 (22-32) mmol/L BUN 15 (7-17) mg/dL Creatinine 0.77 (0.52-1.04) mg/dL Estimated GFR > 60 (>60) mL/min BUN/Creatinine Ratio 19.5 (6-22) Glucose 134 H (80-110) mg/dL Lactate (0.7-2.1) mmol/L Calcium 9.6 (8.4-10.2) mg/dL Magnesium 1.6 (1.6-2.3) mg/dL Total Bilirubin 0.6 (0.2-1.3) mg/dL AST 27 (14-36) IU/L ALT 17 (<35) IU/L Alkaline Phosphatase 131 H (38-126) U/L Ammonia (9-30) umol/L Total Creatine Kinase 185 H (30-135) U/L CK-MB (CK-2) 6.17 H (<2.37) ng/mL CK-MB (CK-2) Rel Index 3.3 (1.5-5.0) % Troponin I < 0.012 (0.01-0.034) ng/mL Total Protein 7.4 (6.3-8.2) g/dL Albumin 4.6 (3.5-5.0) g/dL Globulin 2.8 (1.7-4.1) g/dL Albumin/Globulin Ratio 1.6 (1.0-2.8) Lipase 25 (23-300) U/L TSH (0.47-4.68) uIU/mL Urine Color Urine Appearance Urine pH (4.5-8.0) Ur Specific Daykin (1.000-1.035) Urine Protein (Negative) Urine Glucose (UA) (Negative) g/dL Urine Ketones (NEGATIVE) Urine Occult Blood (Negative) Urine Nitrate (Negative) Urine Bilirubin (NEGATIVE) Urine Urobilinogen (0.2) E.U./dL Ur Leukocyte Esterase (NEGATIVE) Urine RBC (0-5/HPF) Urine WBC (0-5/HPF) Urine Bacteria (None) Ur Culture Indicated? Micro UA Comment Salicylates (<20) mg/dL U Opiates 300ng/mL cut (Negative) Ur Oxycodone Screen (Negative) Urine Methadone Screen (Negative) Acetaminophen (10-30) ug/mL Ur Barbiturates Screen (Negative) U Tricyclic Antidepress (Negative) Ur Phencyclidine Scrn (Negative) Ur Amphetamines Screen (Negative) U Methamphetamines Scrn (Negative) Ur MDMA Scrn (Ecstasy) (Negative) U Benzodiazepines Scrn (Negative) Urine Cocaine Screen (Negative) U Marijuana (THC) Screen (Negative) Ethyl Alcohol ( - 10) mg/dL 03/28/23 03/28/23 03/28/23 Range/Units 11:24 11:24 11:24 WBC (4.5-11.0) X10^3/uL RBC (4.0-5.2) X10^6/uL Hgb (12.0-16.0) g/dL Hct (36-46) % MCV (80-100) fL MCH (26-34) PG MCHC (30-36) % RDW (11.6-14.8) % Plt Count (150-400) X10^3/uL Neut % (Auto) (50-75) % Lymph % (Auto) (25-40) % Letcher % (Auto) (3-14) % Eos % (Auto) (2-4) % Baso % (Auto) (0-2) % Neut # (Auto) (2174-9089) /uL Lymph # (Auto) (4465-1217) /uL Letcher # (Auto) (0-900) /uL Eos # (Auto) (0-450) /uL Baso # (Auto) (0-100) /uL PT (10.1-12.7) SECONDS INR (0.9-1.3) APTT (26-36) SECONDS Sodium (137-145) mmol/L Potassium (3.4-5.1) mmol/L Chloride (98-107) mmol/L Carbon Dioxide (22-32) mmol/L BUN (7-17) mg/dL Creatinine (0.52-1.04) mg/dL Estimated GFR (>60) mL/min BUN/Creatinine Ratio (6-22) Glucose (80-110) mg/dL Lactate 1.0 (0.7-2.1) mmol/L Calcium (8.4-10.2) mg/dL Magnesium (1.6-2.3) mg/dL Total Bilirubin (0.2-1.3) mg/dL AST (14-36) IU/L ALT (<35) IU/L Alkaline Phosphatase (38-126) U/L Ammonia < 9 L (9-30) umol/L Total Creatine Kinase (30-135) U/L CK-MB (CK-2) (<2.37) ng/mL CK-MB (CK-2) Rel Index (1.5-5.0) % Troponin I (0.01-0.034) ng/mL Total Protein (6.3-8.2) g/dL Albumin (3.5-5.0) g/dL Globulin (1.7-4.1) g/dL Albumin/Globulin Ratio (1.0-2.8) Lipase (23-300) U/L TSH 2.21 (0.47-4.68) uIU/mL Urine Color Urine Appearance Urine pH (4.5-8.0) Ur Specific [place] (1.000-1.035) Urine Protein (Negative) Urine Glucose (UA) (Negative) g/dL Urine Ketones (NEGATIVE) Urine Occult Blood (Negative) Urine Nitrate (Negative) Urine Bilirubin (NEGATIVE) Urine Urobilinogen (0.2) E.U./dL Ur Leukocyte Esterase (NEGATIVE) Urine RBC (0-5/HPF) Urine WBC (0-5/HPF) Urine Bacteria (None) Ur Culture Indicated? Micro UA Comment Salicylates (<20) mg/dL U Opiates 300ng/mL cut (Negative) Ur Oxycodone Screen (Negative) Urine Methadone Screen (Negative) Acetaminophen (10-30) ug/mL Ur Barbiturates Screen (Negative) U Tricyclic Antidepress (Negative) Ur Phencyclidine Scrn (Negative) Ur Amphetamines Screen (Negative) U Methamphetamines Scrn (Negative) Ur MDMA Scrn (Ecstasy) (Negative) U Benzodiazepines Scrn (Negative) Urine Cocaine Screen (Negative) U Marijuana (THC) Screen (Negative) Ethyl Alcohol ( - 10) mg/dL 03/28/23 03/28/23 03/28/23 Range/Units 11:24 15:09 15:09 WBC (4.5-11.0) X10^3/uL RBC (4.0-5.2) X10^6/uL Hgb (12.0-16.0) g/dL Hct (36-46) % MCV (80-100) fL MCH (26-34) PG MCHC (30-36) % RDW (11.6-14.8) % Plt Count (150-400) X10^3/uL Neut % (Auto) (50-75) % Lymph % (Auto) (25-40) % [place] % (Auto) (3-14) % Eos % (Auto) (2-4) % Baso % (Auto) (0-2) % Neut # (Auto) (5597-9009) /uL Lymph # (Auto) (9378-3195) /uL [place] # (Auto) (0-900) /uL Eos # (Auto) (0-450) /uL Baso # (Auto) (0-100) /uL PT (10.1-12.7) SECONDS INR (0.9-1.3) APTT (26-36) SECONDS Sodium (137-145) mmol/L Potassium (3.4-5.1) mmol/L Chloride (98-107) mmol/L Carbon Dioxide (22-32) mmol/L BUN (7-17) mg/dL Creatinine (0.52-1.04) mg/dL Estimated GFR (>60) mL/min BUN/Creatinine Ratio (6-22) Glucose (80-110) mg/dL Lactate (0.7-2.1) mmol/L Calcium (8.4-10.2) mg/dL Magnesium (1.6-2.3) mg/dL Total Bilirubin (0.2-1.3) mg/dL AST (14-36) IU/L ALT (<35) IU/L Alkaline Phosphatase (38-126) U/L Ammonia (9-30) umol/L Total Creatine Kinase (30-135) U/L CK-MB (CK-2) (<2.37) ng/mL CK-MB (CK-2) Rel Index (1.5-5.0) % Troponin I (0.01-0.034) ng/mL Total Protein (6.3-8.2) g/dL Albumin (3.5-5.0) g/dL Globulin (1.7-4.1) g/dL Albumin/Globulin Ratio (1.0-2.8) Lipase (23-300) U/L TSH (0.47-4.68) uIU/mL Urine Color Yellow Urine Appearance Clear Urine pH 6.0 (4.5-8.0) Ur Specific [place] 1.010 (1.000-1.035) Urine Protein Negative (Negative) Urine Glucose (UA) Negative (Negative) g/dL Urine Ketones Negative (NEGATIVE) Urine Occult Blood Negative (Negative) Urine Nitrate Negative (Negative) Urine Bilirubin Negative (NEGATIVE) Urine Urobilinogen 0.2 (0.2) E.U./dL Ur Leukocyte Esterase Negative (NEGATIVE) Urine RBC None seen (0-5/HPF) Urine WBC None seen (0-5/HPF) Urine Bacteria None seen (None) Ur Culture Indicated? Cult not indicated Micro UA Comment Microscopic normal Salicylates 2.9 (<20) mg/dL U Opiates 300ng/mL cut Negative (Negative) Ur Oxycodone Screen Negative (Negative) Urine Methadone Screen Negative (Negative) Acetaminophen < 10 (10-30) ug/mL Ur Barbiturates Screen Negative (Negative) U Tricyclic Antidepress Positive H (Negative) Ur Phencyclidine Scrn Negative (Negative) Ur Amphetamines Screen Negative (Negative) U Methamphetamines Scrn Negative (Negative) Ur MDMA Scrn (Ecstasy) Negative (Negative) U Benzodiazepines Scrn Positive H (Negative) Urine Cocaine Screen Negative (Negative) U Marijuana (THC) Screen Negative (Negative) Ethyl Alcohol < 10 ( - 10) mg/dL Imaging Data CT scan - head: Radiologist's Impression: [address] [address] [address] Scan Report Signed Patient: Shirin Tuttle MR#: [id number] : 1955 Acct:[id number] Age/Sex: 67 / F Date of Service: 03/28/23 Loc: ED Accession Number: [id number] ?? Procedure: CT head/brain wo con Ordering Provider: Fany Sousa D.O. PROCEDURE:? CT HEAD/BRAIN WO CON ? INDICATIONS:? dizzy, feels tired, sleepy + Rubio ? TECHNIQUE:? Noncontrast 4.5 mm thick angled axial sections acquired from the foramen magnum to the vertex, with coronal and sagittal reformats.? For radiation dose reduction, the following was used:? automated exposure control, adjustment of mA and/or kV according to patient size.? ? COMPARISON:? None. ? FINDINGS:? Image quality:? Excellent.? ? CSF spaces:? Basal cisterns are patent.? No extra-axial fluid collections.? Ventricles are normal in size and shape.? ? Brain:? No midline shift.? No intracranial masses or hemorrhage.? Rodriguez-white matter interface is normal.? ? Skull and face:? Calvarium and visualized facial bones are intact, without suspicious lesions.? ? Sinuses:? Visualized sinuses and mastoids are clear.? Postoperative changes are noted in both maxillary sinuses. ? IMPRESSION:? No acute intracranial abnormality. ? ? Dictated by: Rudy Salazar M.D. on 03/28/2023 at 13:38 ? ? Approved by: Rudy Salazar M.D. on 03/28/2023 at 13:39? Chest x-ray: Radiologist's Impression: [address] [address] XRay Report Signed Patient: Shirin Tuttle MR#: [id number] : 1955 Acct:[id number] Age/Sex: 67 / F Date of Service: 03/28/23 Loc: ED Accession Number: [id number] ?? Procedure: XR chest 1V Ordering Provider: Fany Sousa D.O. PROCEDURE:? XR CHEST 1V ? INDICATIONS:? chest pain ? TECHNIQUE:? One view of the chest was acquired.? ? COMPARISON:? [facility], , CHEST 1 VIEW, 01/19/2018, 17:25. ? FINDINGS:? ? Surgical changes and devices:? None.? ? Lungs and pleura:? Lungs are clear.? No pleural effusions or pneumothorax.? ? Mediastinum:? Mediastinal contours appear normal.? Heart size is normal.? ? Bones and chest wall:? No suspicious bony lesions.? Overlying soft tissues appear unremarkable.? Rightward curvature of the thoracic spine. ? IMPRESSION:? No acute cardiopulmonary abnormality. ? ? Dictated by: Rudy Salazar M.D. on 03/28/2023 at 13:11 ? ? Approved by: Rudy Salazar M.D. on 03/28/2023 at 13:12?? ECG Data Attestation: I personally reviewed and interpreted this ECG as follows: Prior ECG tracings: available for review Interpretation: Sinus rhythm rate of 68 [place] 152 QRS 88 QTC 423. T-waves inverted V3 but not appreciated in other leads. Patient has nonspecific change. Prior from 07/19/2022 does not show inverted T-wave in 3 but otherwise appears similar. MDM Narrative Medical decision making narrative: This is a 67-year-old female who presents with complaint of some dizziness generally feeling unwell and headache. Patient's vitals she is slightly hypertensive but afebrile 99% on room air. Patient seems a little sleepy, she has clear speech no acute neurologic changes but occasionally has to be verbally stimulated to continue her questions. She does not appear altered otherwise pupils are 5-6 mm they are equal. She does take baclofen regularly but with her complaint of headache can dizziness plan for head CT, lab workup and some further evaluation. Head CT is negative, chest x-ray is negative. Patient's white count 3.9, otherwise no major changes eosinophils are slightly elevated. Coags are negati ve, sodium is 134, glucose is 134 with normal renal function and other electrolytes. Patient's alk phos was slightly elevated at 131- ammonia, CK was 617 relative index normal with a negative troponin, negative TSH. Urine is negative, UDS shows positive for tricyclics and benzodiazepines. Patient does seem a little somnolent and based on her medication list she is on baclofen, clonazepam, hydroxyzine this combination may be causing some of her symptoms no other clear cause is found she is no other clear specific neurologic changes my suspicion for stroke is much lower. No other acute infectious, Toxicology or medical reasons have been found so far. Patient signed out to Dr. Alexandre while awaiting to arrive. Dr. Alexandre- Patient signed out to me by Dr. Sousa I have seen evaluated patient myself. Awake alert oriented able to give me history of what happened today yesterday she is plans next week. She is a history of MRSA, she is had it for 20 years she is seeing an infectious disease doctor next week she apparently is getting antibiotics. She reports that the MRSA infection gives her headache sometimes makes her dizzy and nauseous. She took a scopolamine patch put it on last night both and patient report that the scopolamine patch frequently makes her ?loopy? after 7 have hours in the emergency department she seems to have cleared. There is no evidence of infection, sepsis. At this time I think presentation is likely secondary to medication. We discussed not using the scopolamine patch seeing Infect[facility] <Caron Alexandre, DO - Last Filed: 03/29/23 03:06> Lab Data Labs: Lab Results 03/28/23 03/28/23 03/28/23 Range/Units 11:24 11:24 11:24 WBC 3.9 L (4.5-11.0) X10^3/uL RBC 4.16 (4.0-5.2) X10^6/uL Hgb 12.1 (12.0-16.0) g/dL Hct 36.5 (36-46) % MCV 87.6 (80-100) fL MCH 29.1 (26-34) PG MCHC 33.2 (30-36) % RDW 14.6 (11.6-14.8) % Plt Count 246 (150-400) X10^3/uL Neut % (Auto) 59.8 (50-75) % Lymph % (Auto) 22.3 L (25-40) % [place]cher % (Auto) 10.0 (3-14) % Eos % (Auto) 7.3 H (2-4) % Baso % (Auto) 0.6 (0-2) % Neut # (Auto) 2400 (6794-3160) /uL Lymph # (Auto) 900 L (2116-7845) /uL Letcher # (Auto) 400 (0-900) /uL Eos # (Auto) 300 (0-450) /uL Baso # (Auto) 0 (0-100) /uL PT 11.8 (10.1-12.7) SECONDS INR 1.0 (0.9-1.3) APTT 35 (26-36) SECONDS Sodium 134 L (137-145) mmol/L Potassium 4.4 (3.4-5.1) mmol/L Chloride 98 (98-107) mmol/L Carbon Dioxide 29 (22-32) mmol/L BUN 15 (7-17) mg/dL Creatinine 0.77 (0.52-1.04) mg/dL Estimated GFR > 60 (>60) mL/min BUN/Creatinine Ratio 19.5 (6-22) Glucose 134 H (80-110) mg/dL Lactate (0.7-2.1) mmol/L Calcium 9.6 (8.4-10.2) mg/dL Magnesium 1.6 (1.6-2.3) mg/dL Total Bilirubin 0.6 (0.2-1.3) mg/dL AST 27 (14-36) IU/L ALT 17 (<35) IU/L Alkaline Phosphatase 131 H (38-126) U/L Ammonia (9-30) umol/L Total Creatine Kinase 185 H (30-135) U/L CK-MB (CK-2) 6.17 H (<2.37) ng/mL CK-MB (CK-2) Rel Index 3.3 (1.5-5.0) % Troponin I < 0.012 (0.01-0.034) ng/mL Total Protein 7.4 (6.3-8.2) g/dL Albumin 4.6 (3.5-5.0) g/dL Globulin 2.8 (1.7-4.1) g/dL Albumin/Globulin Ratio 1.6 (1.0-2.8) Lipase 25 (23-300) U/L TSH (0.47-4.68) uIU/mL Urine Color Urine Appearance Urine pH (4.5-8.0) Ur Specific [place] (1.000-1.035) Urine Protein (Negative) Urine Glucose (UA) (Negative) g/dL Urine Ketones (NEGATIVE) Urine Occult Blood (Negative) Urine Nitrate (Negative) Urine Bilirubin (NEGATIVE) Urine Urobilinogen (0.2) E.U./dL Ur Leukocyte Esterase (NEGATIVE) Urine RBC (0-5/HPF) Urine WBC (0-5/HPF) Urine Bacteria (None) Ur Culture Indicated? Micro UA Comment Salicylates (<20) mg/dL U Opiates 300ng/mL cut (Negative) Ur Oxycodone Screen (Negative) Urine Methadone Screen (Negative) Acetaminophen (10-30) ug/mL Ur Barbiturates Screen (Negative) U Tricyclic Antidepress (Negative) Ur Phencyclidine Scrn (Negative) Ur Amphetamines Screen (Negative) U Methamphetamines Scrn (Negative) Ur MDMA Scrn (Ecstasy) (Negative) U Benzodiazepines Scrn (Negative) Urine Cocaine Screen (Negative) U Marijuana (THC) Screen (Negative) Ethyl Alcohol ( - 10) mg/dL 03/28/23 03/28/23 03/28/23 Range/Units 11:24 11:24 11:24 WBC (4.5-11.0) X10^3/uL RBC (4.0-5.2) X10^6/uL Hgb (12.0-16.0) g/dL Hct (36-46) % MCV (80-100) fL MCH (26-34) PG MCHC (30-36) % RDW (11.6-14.8) % Plt Count (150-400) X10^3/uL Neut % (Auto) (50-75) % Lymph % (Auto) (25-40) % Letcher % (Auto) (3-14) % Eos % (Auto) (2-4) % Baso % (Auto) (0-2) % Neut # (Auto) (3235-3679) /uL Lymph # (Auto) (2587-7868) /uL Letcher # (Auto) (0-900) /uL Eos # (Auto) (0-450) /uL Baso # (Auto) (0-100) /uL PT (10.1-12.7) SECONDS INR (0.9-1.3) APTT (26-36) SECONDS Sodium (137-145) mmol/L Potassium (3.4-5.1) mmol/L Chloride (98-107) mmol/L Carbon Dioxide (22-32) mmol/L BUN (7-17) mg/dL Creatinine (0.52-1.04) mg/dL Estimated GFR (>60) mL/min BUN/Creatinine Ratio (6-22) Glucose (80-110) mg/dL Lactate 1.0 (0.7-2.1) mmol/L Calcium (8.4-10.2) mg/dL Magnesium (1.6-2.3) mg/dL Total Bilirubin (0.2-1.3) mg/dL AST (14-36) IU/L ALT (<35) IU/L Alkaline Phosphatase (38-126) U/L Ammonia < 9 L (9-30) umol/L Total Creatine Kinase (30-135) U/L CK-MB (CK-2) (<2.37) ng/mL CK-MB (CK-2) Rel Index (1.5-5.0) % Troponin I (0.01-0.034) ng/mL Total Protein (6.3-8.2) g/dL Albumin (3.5-5.0) g/dL Globulin (1.7-4.1) g/dL Albumin/Globulin Ratio (1.0-2.8) Lipase (23-300) U/L TSH 2.21 (0.47-4.68) uIU/mL Urine Color Urine Appearance Urine pH (4.5-8.0) Ur Specific [place] (1.000-1.035) Urine Protein (Negative) Urine Glucose (UA) (Negative) g/dL Urine Ketones (NEGATIVE) Urine Occult Blood (Negative) Urine Nitrate (Negative) Urine Bilirubin (NEGATIVE) Urine Urobilinogen (0.2) E.U./dL Ur Leukocyte Esterase (NEGATIVE) Urine RBC (0-5/HPF) Urine WBC (0-5/HPF) Urine Bacteria (None) Ur Culture Indicated? Micro UA Comment Salicylates (<20) mg/dL U Opiates 300ng/mL cut (Negative) Ur Oxycodone Screen (Negative) Urine Methadone Screen (Negative) Acetaminophen (10-30) ug/mL Ur Barbiturates Screen (Negative) U Tricyclic Antidepress (Negative) Ur Phencyclidine Scrn (Negative) Ur Amphetamines Screen (Negative) U Methamphetamines Scrn (Negative) Ur MDMA Scrn (Ecstasy) (Negative) U Benzodiazepines Scrn (Negative) Urine Cocaine Screen (Negative) U Marijuana (THC) Screen (Negative) Ethyl Alcohol ( - 10) mg/dL 03/28/23 03/28/23 03/28/23 Range/Units 11:24 15:09 15:09 WBC (4.5-11.0) X10^3/uL RBC (4.0-5.2) X10^6/uL Hgb (12.0-16.0) g/dL Hct (36-46) % MCV (80-100) fL MCH (26-34) PG MCHC (30-36) % RDW (11.6-14.8) % Plt Count (150-400) X10^3/uL Neut % (Auto) (50-75) % Lymph % (Auto) (25-40) % [place] % (Auto) (3-14) % Eos % (Auto) (2-4) % Baso % (Auto) (0-2) % Neut # (Auto) (6408-8015) /uL Lymph # (Auto) (7696-2703) /uL [place] # (Auto) (0-900) /uL Eos # (Auto) (0-450) /uL Baso # (Auto) (0-100) /uL PT (10.1-12.7) SECONDS INR (0.9-1.3) APTT (26-36) SECONDS Sodium (137-145) mmol/L Potassium (3.4-5.1) mmol/L Chloride (98-107) mmol/L Carbon Dioxide (22-32) mmol/L BUN (7-17) mg/dL Creatinine (0.52-1.04) mg/dL Estimated GFR (>60) mL/min BUN/Creatinine Ratio (6-22) Glucose (80-110) mg/dL Lactate (0.7-2.1) mmol/L Calcium (8.4-10.2) mg/dL Magnesium (1.6-2.3) mg/dL Total Bilirubin (0.2-1.3) mg/dL AST (14-36) IU/L ALT (<35) IU/L Alkaline Phosphatase (38-126) U/L Ammonia (9-30) umol/L Total Creatine Kinase (30-135) U/L CK-MB (CK-2) (<2.37) ng/mL CK-MB (CK-2) Rel Index (1.5-5.0) % Troponin I (0.01-0.034) ng/mL Total Protein (6.3-8.2) g/dL Albumin (3.5-5.0) g/dL Globulin (1.7-4.1) g/dL Albumin/Globulin Ratio (1.0-2.8) Lipase (23-300) U/L TSH (0.47-4.68) uIU/mL Urine Color Yellow Urine Appearance Clear Urine pH 6.0 (4.5-8.0) Ur Specific [place] 1.010 (1.000-1.035) Urine Protein Negative (Negative) Urine Glucose (UA) Negative (Negative) g/dL Urine Ketones Negative (NEGATIVE) Urine Occult Blood Negative (Negative) Urine Nitrate Negative (Negative) Urine Bilirubin Negative (NEGATIVE) Urine Urobilinogen 0.2 (0.2) E.U./dL Ur Leukocyte Esterase Negative (NEGATIVE) Urine RBC None seen (0-5/HPF) Urine WBC None seen (0-5/HPF) Urine Bacteria None seen (None) Ur Culture Indicated? Cult not indicated Micro UA Comment Microscopic normal Salicylates 2.9 (<20) mg/dL U Opiates 300ng/mL cut Negative (Negative) Ur Oxycodone Screen Negative (Negative) Urine Methadone Screen Negative (Negative) Acetaminophen < 10 (10-30) ug/mL Ur Barbiturates Screen Negative (Negative) U Tricyclic Antidepress Positive H (Negative) Ur Phencyclidine Scrn Negative (Negative) Ur Amphetamines Screen Negative (Negative) U Methamphetamines Scrn Negative (Negative) Ur MDMA Scrn (Ecstasy) Negative (Negative) U Benzodiazepines Scrn Positive H (Negative) Urine Cocaine Screen Negative (Negative) U Marijuana (THC) Screen Negative (Negative) Ethyl Alcohol < 10 ( - 10) mg/dL MDM Narrative Medical decision making narrative: This is a 67-year-old female who presents with complaint of some dizziness generally feeling unwell and headache. Patient's vitals she is slightly hypertensive but afebrile 99% on room air. Patient seems a little sleepy, she has clear speech no acute neurologic changes but occasionally has to be verbally stimulated to continue her questions. She does not appear altered otherwise pupils are 5-6 mm they are equal. She does take baclofen regularly but with her complaint of headache can dizziness plan for head CT, lab workup and some further evaluation. Head CT is negative, chest x-ray is negative. Patient's white count 3.9, otherwise no major changes eosinophils are slightly elevated. Coags are negative, sodium is 134, glucose is 134 with normal renal function and other electrolytes. Patient's alk phos was slightly elevated at 131- ammonia, CK was 617 relative index normal with a negative troponin, negative TSH. Urine is negative, UDS shows positive for tricyclics and benzodiazepines. Patient does seem a little somnolent and based on her medication list she is on baclofen, clonazepam, hydroxyzine this combination may be causing some of her symptoms no other clear cause is found she is no other clear specific neurologic changes my suspicion for stroke is much lower. No other acute infectious, Toxicology or medical reasons have been found so far. Dr. Alexandre- Patient signed out to me by Dr. Sousa I have seen evaluated patient myself. Awake alert oriented able to give me history of what happened today yesterday she is plans next week. She is a history of MRSA, she is had it for 20 years she is seeing an infectious disease doctor next week she apparently is getting antibiotics. She reports that the MRSA infection gives her headache sometimes makes her dizzy and nauseous. She took a scopolamine patch put it on last night both and patient report that the scopolamine patch frequently makes her ?loopy? after 7 have hours in the emergency department she seems to have cleared. There is no evidence of infection, sepsis. At this time I think presentation is likely secondary to medication. We discussed not using the scopolamine patch seeing Infectious Disease doctor in treating her nasal MRSA infection chronically been there for 20 years. Discharge Plan Departure Patient Disposition: Home Clinical Impression: Acute metabolic encephalopathy Instructions: DI for Altered Mental Status Activity Restrictions/Additional Instructions: *You have been diagnosed with metabolic encephalopathy resolved *What to do: At this time I think her confusion was highly likely due to multiple medications. I recommend that you do not use scopolamine patch. I hope that you can be weaned off baclofen and other medication as you treat your MRSA infection. *Continue to take medications as directed *Follow up with your primary care provider in 2-3 days or call [phone] *Return to ER if you should have increasing confusion weakness falls or any new, worsening or concerning symptoms Prescriptions: No Action [place] 3 See Rx Instructions .ROUTE .COMPLEX Patient Comments: 1 Liquid capsule PO BID Rx Instructions: 1 Liquid capsule PO BID Reclast See Rx Instructions .ROUTE .COMPLEX Patient Comments: 5 mg IV Annually Rx Instructions: 5 mg IV Annually olopatadine 0.1 % drops 1 drop EYE-BOTH BID Qty: 5 3RF Massage Therapy 1 each topical .EVERY 2 WEEKS Qty: 24 0RF Chiropractor 1 each topical .EVERY 2 WEEKS Qty: 24 3RF ipratropium-albuterol 0.5 mg-3 mg(2.5 mg base)/3 mL solution for nebulization 3 ml inhalation Q6HP PRN (Reason: shortness of breath or wheezing) Qty: 120 3RF hydroxyzine pamoate 25 mg capsule 25 - 50 mg PO DAILY PRN (Reason: anxiety) Qty: 180 3RF Creon 6,000-19,000 -30,000 unit capsule,delayed release(DR/EC) 1 cap PO TID Qty: 270 3RF Rx Instructions: PATIENT IS REQUESTING RX TO BE MAILED TO HER HOME ADDRESS. scopolamine base 1 mg over 3 days patch 3 day 1 patch transdermal Q3D PRN (Reason: nausea and vomiting) Qty: 4 2RF misoprostol [Cytotec] 200 mcg tablet 200 mcg PO BID Qty: 180 2RF (DME) blood-glucose meter Kit See Rx Instructions .Route Qty: 1 0RF Rx Instructions: Use to check BS 1-2x a day (DME) Blood Glucose Test Strip See Rx Instructions .Route Qty: 100 3RF Rx Instructions: Use to check BS 1-2x a day (DME) lancets 30 gauge misc See Rx Instructions .Route Qty: 200 3RF Rx Instructions: Use to check BS 1-2x a day Combivent Respimat 20-100 mcg/actuation mist 1 puff INHALATION QID Qty: 12 3RF Rx Instructions: Please dispense every four months upon patient request acyclovir 400 mg tablet 400 mg PO QID Qty: 360 3RF baclofen 20 mg tablet 20 mg PO BID PRN (Reason: neck pain) Qty: 180 3RF Rx Instructions: Take 1 tab as needed twice per day montelukast [Singulair] 10 mg tablet 10 mg PO QDAY Qty: 90 3RF pantoprazole [Protonix] 40 mg tablet,delayed release (DR/EC) 40 mg PO BID Qty: 180 3RF buspirone 10 mg tablet 30 mg PO DAILY Qty: 270 3RF clonazepam 2 mg tablet 2 mg PO BID PRN (Reason: anxiety) Qty: 60 2RF Rx Instructions: Take 1 tab twice daily as needed for anxiety. duloxetine 20 mg capsule,delayed release(DR/EC) 60 mg PO BID 90 Days Qty: 540 3RF budesonide 0.5 mg/2 mL suspension for nebulization 0.5 mg inhalation BID Qty: 60 3RF Rx Instructions: Inhale 1 bullet twice daily for COPD. olopatadine 0.6 % spray,non-aerosol 2 spray NASAL BID Qty: 30.5 3RF Rx Instructions: administer into each nostril (DME) Home Nebulizer See Rx Instructions .Route .MEDSUPPLY Qty: 1 0RF Rx Instructions: With supplies for use with nebulized medications ondansetron HCl 8 mg tablet 8 mg PO Q8H PRN (Reason: nausea and vomiting) Qty: 30 1RF metformin 500 mg tablet extended release 24hr 500 mg PO QPM Qty: 90 3RF Rx Instructions: Take 1 tab with evening meal daily for diabetes Botox 200 unit recon soln 200 unit IM ONCE Qty: 1 3RF Rx Instructions: q 90 days for chronic migraine prevention. Referrals: Sari Oliver ARNP [Primary Care Provider] - Stand Alone Forms: Patient Portal/API
[2023-03-28] MEDS: SODIUM CHLORIDE 0.9% 1,000 ML 1000 ML IV (12:53)
--- NOTE | 2023-03-28 13:04 | DI.CT.S_ITS ---
PROCEDURE: CT HEAD/BRAIN WO CON INDICATIONS: dizzy, feels tired, sleepy + Rubio TECHNIQUE: Noncontrast 4.5 mm thick angled axial sections acquired from the foramen magnum to the vertex, with coronal and sagittal reformats. For radiation dose reduction, the following was used: automated exposure control, adjustment of mA and/or kV according to patient size. COMPARISON: None. FINDINGS: Image quality: Excellent. CSF spaces: Basal cisterns are patent. No extra-axial fluid collections. Ventricles are normal in size and shape. Brain: No midline shift. No intracranial masses or hemorrhage. Rodriguez-white matter interface is normal. Skull and face: Calvarium and visualized facial bones are intact, without suspicious lesions. Sinuses: Visualized sinuses and mastoids are clear. Postoperative changes are noted in both maxillary sinuses. IMPRESSION: No acute intracranial abnormality. Dictated by: Rudy Salazar M.D. on 03/28/2023 at 13:38 Approved by: Rudy Salazar M.D. on 03/28/2023 at 13:39
[2023-03-28 13:07] LABS: Add Manual Diff / Slide Review NO; Basophils Absolute Auto 0 /uL (0-100); Basophils Percent Auto 0.6 % (0-2); Eosinophils Absolute Auto 300 /uL (0-450); Eosinophils Percent Auto 7.3 % (2-4); Hematocrit 36.5 % (36-46); Hemoglobin 12.1 g/dL (12.0-16.0); Lymphocytes Absolute Auto 900 /uL (1100-4500); Lymphocytes Percent Auto 22.3 % (25-40); Mean Corpuscular HGB Conc 33.2 % (30-36); Mean Corpuscular Hemoglobin 29.1 PG (26-34); Mean Corpuscular Volume 87.6 fL (80-100); Monocytes Absolute Auto 400 /uL (0-900); Neutrophils Absolute Auto 2400 /uL (1500-7000); Neutrophils Percent Auto 59.8 % (50-75); Platelet Count 246 X10^3/uL (150-400); Red Blood Cell Count 4.16 X10^6/uL (4.0-5.2); Red Cell Distribution Width 14.6 % (11.6-14.8); White Blood Cell Count 3.9 X10^3/uL (4.5-11.0)
[2023-03-28 13:14] LABS: Prothrombin Time 11.8 SECONDS (10.1-12.7)
[2023-03-28 13:17] LABS: PTT Partial Thromboplastin Tim 35 SECONDS (26-36)
[2023-03-28 13:23] LABS: Acetaminophen < 10 ug/mL (10-30); Ethanol (ETOH) < 10 mg/dL; Salicylate 2.9 mg/dL (<20)
[2023-03-28 13:24] LABS: Alanine Aminotransferase 17 IU/L (<35); Albumin 4.6 g/dL (3.5-5.0); Albumin Globulin Ratio 1.6 (1.0-2.8); Alkaline Phosphatase 131 U/L (38-126); Aspartate Aminotransferase 27 IU/L (14-36); BUN Creatinine Ratio 19.5 (6-22); Bilirubin Total 0.6 mg/dL (0.2-1.3); Blood Urea Nitrogen 15 mg/dL (7-17); Calcium 9.6 mg/dL (8.4-10.2); Carbon Dioxide 29 mmol/L (22-32); Chloride 98 mmol/L (98-107); Creatine Kinase 185 U/L (30-135); Estimated Glomerular Filt Rate > 60 mL/min (>60); Globulin 2.8 g/dL (1.7-4.1); Glucose 134 mg/dL (80-110); HEMOLYSIS < 15 (0-50); Lipase 25 U/L (23-300); Magnesium 1.6 mg/dL (1.6-2.3); Potassium 4.4 mmol/L (3.4-5.1); Sodium 134 mmol/L (137-145); Total Protein 7.4 g/dL (6.3-8.2)
[2023-03-28 13:26] LABS: Ammonia (NH3) < 9 umol/L (9-30)
[2023-03-28 13:35] LABS: Troponin I < 0.012 ng/mL (0.01-0.034)
[2023-03-28 13:39] LABS: CKMB % Relative Index 3.3 % (1.5-5.0); Creatine Kinase MB 6.17 ng/mL (<2.37)
[2023-03-28 13:55] LABS: Thyroid Stimulating Hormone 2.21 uIU/mL (0.47-4.68)
[2023-03-28 15:12] LABS: Appearance Urine UA CLEAR; Bilirubin Urine UA NEGATIVE (NEGATIVE); Color Urine UA YELLOW; Glucose Urine UA NEGATIVE (Negative); Ketones Urine UA NEGATIVE (NEGATIVE); Leukocyte Esterase Urine UA NEGATIVE (NEGATIVE); Nitrite Urine UA NEGATIVE (Negative); Occult Blood Urine UA NEGATIVE (Negative); Protein Urine UA NEGATIVE (Negative); Urobilinogen Urine UA 0.2 E.U./dL (0.2)
[2023-03-28 15:17] LABS: UR Morphine/Opiate cutoff 300 Negative (Negative); Ur Creatinine Normal (Normal); Ur Specific Gravity Normal (Normal); Urine Amphetamines Negative (Negative); Urine Barbiturates Negative (Negative); Urine Benzodiazepines Positive (Negative); Urine Cocaine Negative (Negative); Urine MDMA Negative (Negative); Urine Methadone Negative (Negative); Urine Methamphetamines Negative (Negative); Urine Oxycodone Negative (Negative); Urine Phencyclidine Negative (Negative); Urine Tetrahydrocannabinol Negative (Negative); Urine Tricyclic Antidepressant Positive (Negative); Urine pH Normal (Normal)
[2023-03-28 15:20] LABS: Bacteria Urine None Seen; Culture Indicated Urine Cult Not Indicated; RBC Urine None Seen (0-5/HPF); Urine Comments Microscopic Normal; WBC Urine None Seen (0-5/HPF)
== END 2023-03-28 19:49 | disposition home or self-care (01) ==
PROVIDERS: Emergency Medicine; Emergency Provider Emergency Medicine; PCP Nurse Practitioner
DX: G93.41 Metabolic encephalopathy (principal); R51.9 Headache, unspecified; R07.9 Chest pain, unspecified; R03.0 Elevated blood-pressure reading, without diagnosis of hypertension
CPT/HCPCS: 36415; 70450; 71045; 80053; 80305; 80320; 80329; 81001; 82140; 82550; 82553; 83605; 83690; 83735; 84443; 84484; 85025; 85610; 85730; 87040; 87086; 93005; 96360; 99284; G0480

== ENCOUNTER → 2023-04-24 12:43 | Outpatient (CLI) | payer MEDICARE, OTHER, SELFPAY ==
[2023-03-30 09:35] VITALS: BMI 17.6
[2023-04-24 13:44] LABS: Blood Urea Nitrogen 15 mg/dL (7-17); Calcium 8.4 mg/dL (8.4-10.2); Carbon Dioxide 27 mmol/L (22-32); Chloride 99 mmol/L (98-107); Estimated Glomerular Filt Rate > 60 mL/min (>60); Glucose 84 mg/dL (80-110); HEMOLYSIS < 15 (0-50); Potassium 4.2 mmol/L (3.4-5.1); Sodium 131 mmol/L (137-145)
== END ==
PROVIDERS: PCP Nurse Practitioner; Referring Provider Internal Medicine Infectious Disease; Visit Provider Internal Medicine Infectious Disease
DX: J32.9 Chronic sinusitis, unspecified (principal)
CPT/HCPCS: 36415; 80048

== ENCOUNTER → 2023-07-22 09:18 | Outpatient (CLI) | payer MEDICARE, OTHER, SELFPAY ==
[2023-05-25 13:28] VITALS: BMI 17.6
[2023-07-22 11:03] LABS: Add Manual Diff / Slide Review NO; Basophils Absolute Auto 0 /uL (0-100); Basophils Percent Auto 0.6 % (0-2); Eosinophils Absolute Auto 300 /uL (0-450); Eosinophils Percent Auto 6.6 % (2-4); Hematocrit 36.3 % (36-46); Hemoglobin 12.1 g/dL (12.0-16.0); Lymphocytes Absolute Auto 1200 /uL (1100-4500); Lymphocytes Percent Auto 27.3 % (25-40); Mean Corpuscular HGB Conc 33.4 % (30-36); Mean Corpuscular Hemoglobin 29.4 PG (26-34); Monocytes Absolute Auto 600 /uL (0-900); Monocytes Percent Auto 13.7 % (3-14); Neutrophils Absolute Auto 2300 /uL (1500-7000); Neutrophils Percent Auto 51.8 % (50-75); Platelet Count 267 X10^3/uL (150-400); Red Blood Cell Count 4.12 X10^6/uL (4.0-5.2); Red Cell Distribution Width 14.5 % (11.6-14.8); White Blood Cell Count 4.5 X10^3/uL (4.5-11.0)
[2023-07-22 11:15] LABS: Hemoglobin A1C% w Est Avg Glu 6.3 % (4.0-6.0)
[2023-07-22 11:19] LABS: Alanine Aminotransferase 21 IU/L (<35); Albumin 4.4 g/dL (3.5-5.0); Albumin Globulin Ratio 1.7 (1.0-2.8); Alkaline Phosphatase 100 U/L (38-126); Aspartate Aminotransferase 27 IU/L (14-36); Bilirubin Total 0.4 mg/dL (0.2-1.3); Blood Urea Nitrogen 10 mg/dL (7-17); Calcium 8.7 mg/dL (8.4-10.2); Carbon Dioxide 24 mmol/L (22-32); Chloride 93 mmol/L (98-107); Cholesterol 172 mg/dL (140-199); Estimated Glomerular Filt Rate > 60 mL/min (>60); Globulin 2.6 g/dL (1.7-4.1); Glucose 108 mg/dL (80-110); HEMOLYSIS < 15 (0-50); Potassium 4.8 mmol/L (3.4-5.1); Sodium 124 mmol/L (137-145); Triglycerides 82 mg/dL (35-150)
[2023-07-22 11:36] LABS: HDL Cholesterol 111 mg/dL (40-60); LDL Cholesterol Calculated 45 mg/dL (<100)
[2023-07-22 11:40] LABS: Free T3, Triiodothyronine Free 3.67 pg/mL (2.77-5.27); Free T4, Direct Thyroxine 1.03 ng/dL (0.78-2.19)
[2023-07-22 11:49] LABS: Creatinine Urine Random 57.2 mg/dL
[2023-07-22 11:51] LABS: Microalbumin Urine Random < 0.6 mg/dL (0-1.6)
[2023-07-22 11:53] LABS: Thyroid Stimulating Hormone 2.38 uIU/mL (0.47-4.68)
[2023-07-22 12:06] LABS: Hep C Virus Ab w/Reflex Quant NEGATIVE s/c (NEGATIVE)
[2023-07-23 15:22] LABS: Fecal Immunochemical Test Negative (Negative)
== END ==
PROVIDERS: PCP Nurse Practitioner; Referring Provider Internal Medicine Infectious Disease; Visit Provider Internal Medicine Infectious Disease
DX: E11.9 Type 2 diabetes mellitus without complications (principal); J32.9 Chronic sinusitis, unspecified; Z22.322 Carrier or suspected carrier of Methicillin resistant Staphylococcus aureus; E44.0 Moderate protein-calorie malnutrition; E78.5 Hyperlipidemia, unspecified; F41.1 Generalized anxiety disorder; F41.8 Other specified anxiety disorders; Z11.59 Encounter for screening for other viral diseases; Z12.11 Encounter for screening for malignant neoplasm of colon
CPT/HCPCS: 36415; 80053; 80061; 82043; 82274; 82570; 83036; 84439; 84443; 84481; 85025; 86803

== ENCOUNTER 2023-07-29 18:01 | Observation (INO) | payer MEDICARE, OTHER, SELFPAY ==
[2023-05-25 13:28] VITALS: BMI 17.6
[2023-07-29 18:20] VITALS: BP 145/82; PULSE 76; RESP 18; TEMP 36.4; O2SAT 99; BMI 17.0
--- NOTE | 2023-07-29 18:33 | ED_ITS ---
HPI - Recheck/Abnormal Lab/Rx General Chief Complaint: Recheck/Abnormal Lab/Rx Stated Complaint: states MD worried about sodium level Time Seen by Provider: 07/29/23 18:33 Source: patient Mode of arrival: Ambulatory History of Present Illness HPI narrative: 67-year-old female with history of COPD, type 2 diabetes, prior GI bleeds, anxiety and depression presents at the request of her primary care provider for evaluation of outpatient labs noting critically low sodium. She states that she is been feeling poorly for a few weeks but had outpatient labs noting a sodium of 124. She feels dizzy, somewhat confused and weak. She denies any nausea, vomiting or diarrhea. She denies any measured fever but felt like she has run hot on occasion. She denies chest pain or shortness of breath. She has no abdominal pain, diarrhea or constipation. She does not take a diuretic Related Data Home Medications Medication Instructions Recorded Confirmed [place] 3 See Rx Instructions .Route .COMPLEX 08/02/18 07/29/23 Reclast See Rx Instructions .Route .COMPLEX 08/02/18 07/29/23 acyclovir 400 mg tablet 400 mg PO QID 07/29/23 07/29/23 buspirone 30 mg tablet 60 mg PO BID 07/29/23 07/29/23 hydroxyzine pamoate 50 mg capsule 25 mg PO PRN PRN anxiety 07/29/23 07/29/23 doxhrz-[id number]-[id number] 2 cap PO BID 07/29/23 07/29/23 6,000-19,000-30,000 unit capsule,delayed rel (Creon) Previous Rx's Medication Instructions Recorded olopatadine 0.6 % nasal spray 2 spray intranasal BID #30.5 grams 03/16/19 onabotulinumtoxinA 200 unit 200 unit IM ONCE #1 ea 05/24/19 solution for injection (Botox) olopatadine 0.1 % eye drops 1 drop EYE-BOTH BID #5 mL 11/17/19 Chiropractor 1 each topical .EVERY 2 WEEKS #24 11/18/19 ea Massage Therapy 1 each topical .EVERY 2 WEEKS #24 11/18/19 ea Home Nebulizer #1 ea 09/03/21 ipratropium 0.5 mg-albuterol 3 mg 3 ml inhalation Q6HP PRN shortness 09/12/21 (2.5 mg base)/3 mL nebulization of breath or wheezing #120 vials soln ipratropium 20 mcg-albuterol 100 1 puff inhalation QID shortness of 01/01/23 mcg/actuation mist for inhalation breath or wheezing #12 grams (Combivent Respimat) estradiol 0.01% (0.1 mg/gram) 0.5 g vaginal 2XW #42.5 grams 06/10/23 vaginal cream (Estrace) clonazepam 2 mg tablet 2 mg PO BID PRN anxiety #60 tabs 06/11/23 ondansetron HCl 8 mg tablet 8 mg PO Q8H PRN nausea and 06/19/23 vomiting #30 tabs budesonide 0.5 mg/2 mL suspension 0.5 mg (2 mL) inhalation BID #60 mL 06/23/23 for nebulization misoprostol 200 mcg tablet 200 mcg PO BID #180 tabs 06/23/23 (Cytotec) montelukast 10 mg tablet 10 mg PO QDAY #90 tabs 06/23/23 (Singulair) pantoprazole 40 mg tablet,delayed 40 mg PO BID #180 tabs 06/23/23 release (Protonix) metformin 500 mg tablet,extended 500 mg PO QPM #90 tabs 06/24/23 release 24hr bupropion HCl 300 mg 24 hr tablet, 300 mg PO QAM #90 tabs 07/14/23 extended release duloxetine 20 mg capsule,delayed 60 mg PO BID 90 days #540 caps 07/14/23 release hydrocodone 7.5 mg-acetaminophen 1 tab PO Q12H PRN pain #30 tabs 07/15/23 325 mg tablet baclofen 20 mg tablet See Rx Instructions PO Q8H PRN 07/29/23 neck spasm and migraine 30 days #180 tabs Allergies Allergy/AdvReac Type Severity Reaction Status Date / Time fentanyl Allergy Severe Drug Verified 07/29/23 18:24 Sick/Can't take it. Adverse Reaction as well. Sulfa (Sulfonamide Allergy Severe ITCHING Verified 07/29/23 18:24 Antibiotics) [SULFA (SULFONAMIDE ANTIBIOTICS)] codeine [CODEINE] AdvReac Mild JITTERS Verified 07/29/23 18:24 morphine [MORPHINE] AdvReac Mild JITTERS Verified 07/29/23 18:24 Review of Systems Review of Systems Narrative: GENERAL: See HPI HEENT: Denies sinus pain, ear pain, sore throat, difficulty swallowing, dizziness. RESPIRATORY: Denies dyspnea, cough, wheezing, hemoptysis, sputum. CARDIOVASCULAR: Denies chest pain, palpitations, orthopnea, edema, GASTROINTESTINAL: Denies nausea, vomiting, abdominal pain, diarrhea, constipation, melena. : Denies dysuria, frequency, incontinence, hematuria, urinary retention. MUSCULOSKELETAL: denies weakness, joint pain, or bony pain SKIN: Denies rash, skin lesions, or other NEUROLOGIC: See HPI PSYCHIATRIC: No concerning psychosocial issues. 12 point review of systems is negative except for those stated above Patient History Medical History Acute GI bleeding Asthma (Unknown) Cervical spine disease (Unknown) Chronic constipation Depression (Unknown) Diabetes type 2, controlled Generalized anxiety disorder Herpes (~1992) History of bleeding peptic ulcer (2011) HLD (hyperlipidemia) Iron deficiency Migraines (Unknown) MRSA (methicillin resistant staph aureus) culture positive Osteoporosis (Unknown) Pancreatic insufficiency Panic attacks Peptic ulcer disease (Unknown) Substance abuse (~1983) Tobacco use disorder Surgical History History of incision and drainage (02/2018) History of open reduction and internal fixation (ORIF) procedure (01/2017) Hx of gastric bypass (Unknown) Family History Mother Pancreatic cancer Father Old age Son Alive and well Social History household members: spouse and children Smoking Status: Current every day smoker Tobacco: How many years used: 20 second hand exposure: No alcohol intake: former substance use type: does not use Smoking Status: Current every day smoker alcohol intake frequency: holidays/special occasions only Substance Use Type: does not use Exam Narrative Exam Narrative: GENERAL: [67] year old patient appears stated age. Well-developed patient, in mild distress. Pleasantly confused (GCS 14) HEAD: Atraumatic. Normocephalic. EYES: Pupils equal round and reactive. Extraocular motions intact. No scleral icterus. No injection or drainage. ENT: Dry mucous membranes Nose without bleeding, purulent drainage. Throat without erythema, tonsillar hypertrophy or exudate. Airway patent. NECK: Trachea midline. Non tender CARDIOVASCULAR: Regular rate and rhythm without murmurs, gallops, or rubs. RESPIRATORY: Clear to auscultation. Breath sounds equal bilaterally. No wheezes, rales, or rhonchi. GASTROINTESTINAL: Abdomen soft, non-tender, nondistended. EXTREMITIES: No edema or joint tenderness. BACK: Nontender without deformity or crepitance. No flank tenderness. NEURO: AOx3. SKIN: Poor skin turgor No rash or erythema of visible areas Initial Vital Signs Initial Vital Signs: Vital Signs Temperature 97.6 F 07/29/23 18:20 Pulse Rate 76 07/29/23 18:20 Respiratory Rate 18 07/29/23 18:20 Blood Pressure 145/82 H 07/29/23 18:20 Pulse Oximetry 99 07/29/23 18:20 Oxygen Delivery Method Room Air 07/29/23 18:20 Course Orders Ordered: ED Orders 07/29/23 20:27 COVID19 -Nasal RAPID Stat Acetaminophen (Acetaminophen 325 Mg Tablet) 650 mg PO Q6H COUNT INCLUDES THE [facility] Last Admin: 07/30/23 02:25 Dose: Not Given Documented By: Admin: 07/29/23 22:33 Dose: Not Given Documented By: AT Calcium Carbonate (Calcium Carbonate 500 Mg Tab) 1,000 mg PO Q4HR PRN PRN Reason: Dyspepsia Enoxaparin Sodium (Enoxaparin 40 Mg/0.4 Ml Syringe) 40 mg SUBCUT DAILY COUNT INCLUDES THE [facility] Sodium Chloride (Normal Saline 0.9%) 1,000 mls @ 100 mls/hr IV CONT COUNT INCLUDES THE [facility] Last Admin: 07/29/23 22:29 Dose: 100 mls/hr Documented By: AT Naloxone HCl (Naloxone 0.4 Mg/Ml Vial) 0.2 mg IV Q2MIN PRN PRN Reason: Opiate Reversal Ondansetron HCl (Ondansetron 4 Mg/2 Ml Inj) 4 mg IV Q8HR PRN PRN Reason: Nausea And Vomiting Last Admin: 07/29/23 23:02 Dose: 4 mg Documented By: AT Pantoprazole Sodium (Pantoprazole Dr 20 Mg Tablet) 20 mg PO 0600 COUNT INCLUDES THE [facility] Promethazine HCl (Promethazine 12.5 Mg Supp) 12.5 mg TN Q6HR PRN PRN Reason: Nausea And Vomiting Last Admin: 07/30/23 00:46 Dose: 12.5 mg Documented By: AT Discontinued Medications Sodium Chloride (Normal Saline 0.9%) 500 mls @ 1,000 mls/hr IV BOLUS ONE Stop: 07/29/23 19:02 Last Infusion: 07/29/23 19:56 Dose: 0 mls/hr Documented By: Admin: 07/29/23 19:22 Dose: 1,000 mls/hr Documented By: DEYSI Vital Signs Vital signs: Vital Signs - 8 hr 07/29/23 18:20 Temperature 97.6 F Pulse Rate 76 Respiratory Rate 18 Blood Pressure 145/82 H Pulse Oximetry 99 Oxygen Delivery Method Room Air MDM - Recheck/Abnormal Lab/Rx Lab Data 07/29/23 18:56 07/29/23 21:04 Labs: Lab Results 07/29/23 07/29/23 07/29/23 Range/Units 18:56 18:56 18:56 WBC 4.8 (4.5-11.0) X10^3/uL RBC 3.58 L (4.0-5.2) X10^6/uL Hgb 10.5 L (12.0-16.0) g/dL Hct 31.2 L (36-46) % MCV 87.1 (80-100) fL MCH 29.3 (26-34) PG MCHC 33.7 (30-36) % RDW 14.7 (11.6-14.8) % Plt Count 224 (150-400) X10^3/uL Neut % (Auto) 66.8 (50-75) % Lymph % (Auto) 16.5 L (25-40) % [place] % (Auto) 12.9 (3-14) % Eos % (Auto) 3.4 (2-4) % Baso % (Auto) 0.4 (0-2) % Neut # (Auto) 3200 (6780-2256) /uL Lymph # (Auto) 800 L (1945-6001) /uL [place] # (Auto) 600 (0-900) /uL Eos # (Auto) 200 (0-450) /uL Baso # (Auto) 0 (0-100) /uL Sodium 124 L (137-145) mmol/L Potassium 4.2 (3.4-5.1) mmol/L Chloride 89 L (98-107) mmol/L Carbon Dioxide 27 (22-32) mmol/L BUN 13 (7-17) mg/dL Creatinine 0.90 (0.52-1.04) mg/dL Estimated GFR > 60 (>60) mL/min BUN/Creatinine Ratio 14.4 (6-22) Glucose 169 H (80-110) mg/dL Calcium 8.8 (8.4-10.2) mg/dL Magnesium 1.8 (1.6-2.3) mg/dL Total Bilirubin 0.3 (0.2-1.3) mg/dL AST 27 (14-36) IU/L ALT 22 (<35) IU/L Alkaline Phosphatase 136 H (38-126) U/L Total Creatine Kinase 118 (30-135) U/L Troponin I < 0.012 (0.01-0.034) ng/mL NT-Pro-B Natriuret Pep 235 H (<125) pg/mL Total Protein 6.5 (6.3-8.2) g/dL Albumin 4.1 (3.5-5.0) g/dL Globulin 2.4 (1.7-4.1) g/dL Albumin/Globulin Ratio 1.7 (1.0-2.8) Urine Color Yellow Urine Appearance Clear Urine pH 7.0 (4.5-8.0) Ur Specific [place] 1.020 (1.000-1.035) Urine Protein Negative (Negative) Urine Glucose (UA) 1+ H (Negative) g/dL Urine Ketones Negative (NEGATIVE) Urine Occult Blood Negative (Negative) Urine Nitrate Negative (Negative) Urine Bilirubin Negative (NEGATIVE) Urine Urobilinogen 1.0 (0.2) E.U./dL Ur Leukocyte Esterase Negative (NEGATIVE) Urine RBC 0-1/hpf (0-5/HPF) Urine WBC None seen (0-5/HPF) Ur Squamous Epith Cells 0-1 /hpf (0-5/HPF) Urine Bacteria None seen (None) Ur Culture Indicated? Cult not indicated MDM Narrative Medical decision making narrative: CC: 67-year-old female presents with known low sodium from outpatient labs, she complains of dizziness, weakness and lightheadedness Complicating co-morbidities: Age, diabetes, COPD Data collected from: Patient Medical records reviewed: Prior notes reviewed in our EMR Differential considered, but not limited to: Altered mental status from electrolyte abnormality versus toxic or infectious source versus intracranial hemorrhage versus other Exam documented above, pertinent findings include: Pleasantly confused no focal neurologic findings, dry mucous membranes, heart rate regular and lungs clear Lab Test results independently reviewed as above. Pertinent findings: Sodium 124, otherwise largely normal Independently reviewed EKG as above Imaging studies independently reviewed: head CT without acute findings Consultations: discussed with Dr. Johnson hospitalist, happy to accept on his service Treatments: saline Discharge Plan Departure Patient Disposition: Admitted As Inpatient Clinical Impression: Acute metabolic encephalopathy, Acute hyponatremia Admit Date/Time: 07/29/23 20:20 Admit Provider: Tyler Johnson
--- NOTE | 2023-07-29 18:35 | DI.CT.S_ITS ---
PROCEDURE: CT HEAD/BRAIN WO CON INDICATIONS: altered TECHNIQUE: Noncontrast 4.5 mm thick angled axial sections acquired from the foramen magnum to the vertex, with coronal and sagittal reformats. For radiation dose reduction, the following was used: automated exposure control, adjustment of mA and/or kV according to patient size. COMPARISON: [facility], CT, CT HEAD/BRAIN WO CON, 03/28/2023, 12:53. FINDINGS: Image quality: Excellent. CSF spaces: Basal cisterns are patent. No extra-axial fluid collections. Ventricles are normal in size and shape. Brain: No midline shift. No intracranial masses or hemorrhage. Rodriguez-white matter interface is normal. Skull and face: Calvarium and visualized facial bones are intact, without suspicious lesions. Sinuses: Visualized sinuses demonstrates scattered minimal mucosal thickening without fluid levels. IMPRESSION: 1. No acute intracranial process. Dictated by: Odalis Damon M.D. on 07/29/2023 at 19:29 Approved by: Odalis Damon M.D. on 07/29/2023 at 19:29
[2023-07-29 19:15] LABS: Add Manual Diff / Slide Review NO; Basophils Absolute Auto 0 /uL (0-100); Basophils Percent Auto 0.4 % (0-2); Eosinophils Absolute Auto 200 /uL (0-450); Eosinophils Percent Auto 3.4 % (2-4); Hematocrit 31.2 % (36-46); Hemoglobin 10.5 g/dL (12.0-16.0); Lymphocytes Absolute Auto 800 /uL (1100-4500); Lymphocytes Percent Auto 16.5 % (25-40); Mean Corpuscular HGB Conc 33.7 % (30-36); Mean Corpuscular Hemoglobin 29.3 PG (26-34); Mean Corpuscular Volume 87.1 fL (80-100); Monocytes Absolute Auto 600 /uL (0-900); Monocytes Percent Auto 12.9 % (3-14); Neutrophils Absolute Auto 3200 /uL (1500-7000); Neutrophils Percent Auto 66.8 % (50-75); Platelet Count 224 X10^3/uL (150-400); Red Blood Cell Count 3.58 X10^6/uL (4.0-5.2); Red Cell Distribution Width 14.7 % (11.6-14.8); White Blood Cell Count 4.8 X10^3/uL (4.5-11.0)
[2023-07-29] MEDS: SODIUM CHLORIDE 0.9% 500 ML 1000 ML IV (19:22)
[2023-07-29 19:25] LABS: Alanine Aminotransferase 22 IU/L (<35); Albumin 4.1 g/dL (3.5-5.0); Albumin Globulin Ratio 1.7 (1.0-2.8); Alkaline Phosphatase 136 U/L (38-126); Aspartate Aminotransferase 27 IU/L (14-36); BUN Creatinine Ratio 14.4 (6-22); Bilirubin Total 0.3 mg/dL (0.2-1.3); Blood Urea Nitrogen 13 mg/dL (7-17); Calcium 8.8 mg/dL (8.4-10.2); Carbon Dioxide 27 mmol/L (22-32); Chloride 89 mmol/L (98-107); Creatine Kinase 118 U/L (30-135); Estimated Glomerular Filt Rate > 60 mL/min (>60); Globulin 2.4 g/dL (1.7-4.1); Glucose 169 mg/dL (80-110); HEMOLYSIS < 15 (0-50); Magnesium 1.8 mg/dL (1.6-2.3); Potassium 4.2 mmol/L (3.4-5.1); Sodium 124 mmol/L (137-145); Total Protein 6.5 g/dL (6.3-8.2)
[2023-07-29 19:36] LABS: Appearance Urine UA CLEAR; Bilirubin Urine UA NEGATIVE (NEGATIVE); Color Urine UA YELLOW; Glucose Urine UA 1+ g/dL (Negative); Ketones Urine UA NEGATIVE (NEGATIVE); Leukocyte Esterase Urine UA NEGATIVE (NEGATIVE); Nitrite Urine UA NEGATIVE (Negative); Occult Blood Urine UA NEGATIVE (Negative); Protein Urine UA NEGATIVE (Negative)
[2023-07-29 19:37] LABS: NT-proBNP (BNP-Adult 18+) 235 pg/mL (<125); Troponin I < 0.012 ng/mL (0.01-0.034)
[2023-07-29 19:49] VITALS: BP 205/104; PULSE 60; O2SAT 92
[2023-07-29 19:49] LABS: Bacteria Urine None Seen; Culture Indicated Urine Cult Not Indicated; RBC Urine 0-1/HPF (0-5/HPF); Squamous Epithelial Cell Urine 0-1 /HPF (0-5/HPF); WBC Urine None Seen (0-5/HPF)
[2023-07-29 19:50] VITALS: BP 178/95; PULSE 67; O2SAT 100
[2023-07-29 20:00] VITALS: PULSE 69; O2SAT 94
[2023-07-29 20:01] VITALS: BP 157/72; PULSE 68
[2023-07-29 20:30] VITALS: BP 145/104; PULSE 65; O2SAT 99
[2023-07-29 20:44] LABS: COVID19 -Nasal RAPID Negative (Negative)
--- NOTE | 2023-07-29 21:22 | PM.HP.1 ---
History of Present Illness History of Present Illness Date Patient Seen: 07/29/23 Time Patient Seen: 21:22 Chief complaint: states MD worried about sodium level Narrative: The pt is a 67 yo who was referred to the ER by her PCP due to previous labs that showed a Na of 124. She does c/o dizziness, lightheadedness but she blames this on a sinus infection which she has had for the past 5 weeks. She states her sodium always goes south when her recurrent sinus infections are treated. She has been on Bactrim she says for the past 3 weeks, and she tried to drink 3-6 bottles of water daily plus ice all day. THere has been no no vertigo, BARR, fevers, chills, N/V or diarrhea. Her sodium is normally around 132, she has not started any neg meds, no change in diet, no herbals or supplements [facility] Medical History Acute GI bleeding Asthma (Unknown) Cervical spine disease (Unknown) Chronic constipation Depression (Unknown) Diabetes type 2, controlled Generalized anxiety disorder Herpes (~1992) History of bleeding peptic ulcer (2011) HLD (hyperlipidemia) Iron deficiency Migraines (Unknown) MRSA (methicillin resistant staph aureus) culture positive Osteoporosis (Unknown) Pancreatic insufficiency Panic attacks Peptic ulcer disease (Unknown) Substance abuse (~1983) Tobacco use disorder Surgical History History of incision and drainage (02/2018) History of open reduction and internal fixation (ORIF) procedure (01/2017) Hx of gastric bypass (Unknown) Family History Mother Pancreatic cancer Father Old age Son Alive and well Social History household members: spouse and children Smoking Status: Current every day smoker Tobacco: How many years used: 20 second hand exposure: No alcohol intake: former substance use type: does not use Meds Home Medications and Allergies Home Medications Medication Instructions Recorded Confirmed Type [place] 3 See Rx Instructions .Route .COMPLEX 08/02/18 06/19/23 History Reclast See Rx Instructions .Route .COMPLEX 08/02/18 07/29/23 History olopatadine 0.6 % nasal spray 2 spray intranasal BID #30.5 grams 03/16/19 06/19/23 Rx onabotulinumtoxinA 200 unit 200 unit IM ONCE #1 ea 05/24/19 06/19/23 Rx solution for injection (Botox) olopatadine 0.1 % eye drops 1 drop EYE-BOTH BID #5 mL 11/17/19 06/19/23 Rx Chiropractor 1 each topical .EVERY 2 WEEKS #24 11/18/19 07/29/23 Rx ea Massage Therapy 1 each topical .EVERY 2 WEEKS #24 11/18/19 07/29/23 Rx ea Home Nebulizer #1 ea 09/03/21 07/29/23 Rx ipratropium 0.5 mg-albuterol 3 mg 3 ml inhalation Q6HP PRN shortness 09/12/21 06/19/23 Rx (2.5 mg base)/3 mL nebulization of breath or wheezing #120 vials soln Creon 6,000-19,000-30,000 unit 1 cap PO TID #270 caps 11/29/21 06/19/23 Rx capsule,delayed release (cmpzac-wznjultt-lcctyow) ipratropium 20 mcg-albuterol 100 1 puff inhalation QID shortness of 01/01/23 06/19/23 Rx mcg/actuation mist for inhalation breath or wheezing #12 grams (Combivent Respimat) hydroxyzine pamoate 50 mg capsule 100 mg PO QID PRN anxiety #360 caps 05/21/23 06/19/23 Rx estradiol 0.01% (0.1 mg/gram) 0.5 g vaginal 2XW #42.5 grams 06/10/23 06/19/23 Rx vaginal cream (Estrace) clonazepam 2 mg tablet 2 mg PO BID PRN anxiety #60 tabs 06/11/23 06/19/23 Rx ondansetron HCl 8 mg tablet 8 mg PO Q8H PRN nausea and 06/19/23 Rx vomiting #30 tabs acyclovir 400 mg tablet 400 mg PO DAILY #90 tabs 06/23/23 06/23/23 Rx budesonide 0.5 mg/2 mL suspension 0.5 mg (2 mL) inhalation BID #60 mL 06/23/23 06/23/23 Rx for nebulization misoprostol 200 mcg tablet 200 mcg PO BID #180 tabs 06/23/23 06/23/23 Rx (Cytotec) montelukast 10 mg tablet 10 mg PO QDAY #90 tabs 06/23/23 06/23/23 Rx (Singulair) pantoprazole 40 mg tablet,delayed 40 mg PO BID #180 tabs 06/23/23 06/23/23 Rx release (Protonix) metformin 500 mg tablet,extended 500 mg PO QPM #90 tabs 06/24/23 Rx release 24hr buspirone 30 mg tablet 30 mg PO BID #180 tabs 07/06/23 Rx bupropion HCl 300 mg 24 hr tablet, 300 mg PO QAM #90 tabs 07/14/23 07/14/23 Rx extended release duloxetine 20 mg capsule,delayed 60 mg PO BID 90 days #540 caps 07/14/23 07/14/23 Rx release hydrocodone 7.5 mg-acetaminophen 1 tab PO Q12H PRN pain #30 tabs 07/15/23 Rx 325 mg tablet baclofen 20 mg tablet See Rx Instructions PO Q8H PRN 07/29/23 Rx neck spasm and migraine 30 days #180 tabs Allergies Allergy/AdvReac Type Severity Reaction Status Date / Time fentanyl Allergy Severe Drug Verified 07/29/23 18:24 Sick/Can't take it. Adverse Reaction as well. Sulfa (Sulfonamide Allergy Severe ITCHING Verified 07/29/23 18:24 Antibiotics) [SULFA (SULFONAMIDE ANTIBIOTICS)] codeine [CODEINE] AdvReac Mild JITTERS Verified 07/29/23 18:24 morphine [MORPHINE] AdvReac Mild JITTERS Verified 07/29/23 18:24 Exam Vital Signs (past 8 hours): - 07/29/23 18:20 07/29/23 19:49 07/29/23 19:49 Temperature 97.6 F Pulse Rate 76 60 Respiratory Rate 18 Blood Pressure 145/82 H 205/104 H Pulse Oximetry 99 92 Oxygen Delivery Method Room Air 07/29/23 19:50 07/29/23 19:50 07/29/23 20:00 Temperature Pulse Rate 67 69 Respiratory Rate Blood Pressure 178/95 H Pulse Oximetry 100 94 Oxygen Delivery Method Room Air 07/29/23 20:01 07/29/23 20:01 07/29/23 20:30 Temperature Pulse Rate 68 Respiratory Rate Blood Pressure 157/72 H 145/104 H Pulse Oximetry Oxygen Delivery Method 07/29/23 20:30 Temperature Pulse Rate 65 Respiratory Rate Blood Pressure Pulse Oximetry 99 Oxygen Delivery Method Room Air Oxygen Delivery Method Room Air Const General: cooperative, healthy appearing and comfortable Eyes General: appearance normal, both eyes and all related structures Resp Auscultation: clear to auscultation bilaterally Cardio Rate: regular rate Rhythm: regular rhythm GI Palpation: soft Auscultation: normal bowel sounds Extrem General: no clubbing, cyanosis or edema Objective Labs 07/29/23 18:56 07/29/23 21:04 Labs: Laboratory Results - last 24 hr 07/29/23 07/29/23 07/29/23 18:56 18:56 18:56 WBC 4.8 RBC 3.58 L Hgb 10.5 L Hct 31.2 L MCV 87.1 MCH 29.3 MCHC 33.7 RDW 14.7 Plt Count 224 Neut % (Auto) 66.8 Lymph % (Auto) 16.5 L [place] % (Auto) 12.9 Eos % (Auto) 3.4 Baso % (Auto) 0.4 Neut # (Auto) 3200 Lymph # (Auto) 800 L [place] # (Auto) 600 Eos # (Auto) 200 Baso # (Auto) 0 Sodium 124 L Potassium 4.2 Chloride 89 L Carbon Dioxide 27 BUN 13 Creatinine 0.90 Estimated GFR > 60 BUN/Creatinine Ratio 14.4 Glucose 169 H Calcium 8.8 Magnesium 1.8 Total Bilirubin 0.3 AST 27 ALT 22 Alkaline Phosphatase 136 H Total Creatine Kinase 118 Troponin I < 0.012 NT-Pro-B Natriuret Pep 235 H Total Protein 6.5 Albumin 4.1 Globulin 2.4 Albumin/Globulin Ratio 1.7 Urine Color Yellow Urine Appearance Clear Urine pH 7.0 Ur Specific [place] 1.020 Urine Protein Negative Urine Glucose (UA) 1+ H Urine Ketones Negative Urine Occult Blood Negative Urine Nitrate Negative Urine Bilirubin Negative Urine Urobilinogen 1.0 Ur Leukocyte Esterase Negative Urine RBC 0-1/hpf Urine WBC None seen Ur Squamous Epith Cells 0-1 /hpf Urine Bacteria None seen Ur Culture Indicated? Cult not indicated SARS-CoV-2 (PCR) 07/29/23 20:27 WBC RBC Hgb Hct MCV MCH MCHC RDW Plt Count Neut % (Auto) Lymph % (Auto) [place] % (Auto) Eos % (Auto) Baso % (Auto) Neut # (Auto) Lymph # (Auto) [place] # (Auto) Eos # (Auto) Baso # (Auto) Sodium Potassium Chloride Carbon Dioxide BUN Creatinine Estimated GFR BUN/Creatinine Ratio Glucose Calcium Magnesium Total Bilirubin AST ALT Alkaline Phosphatase Total Creatine Kinase Troponin I NT-Pro-B Natriuret Pep Total Protein Albumin Globulin Albumin/Globulin Ratio Urine Color Urine Appearance Urine pH Ur Specific [place] Urine Protein Urine Glucose (UA) Urine Ketones Urine Occult Blood Urine Nitrate Urine Bilirubin Urine Urobilinogen Ur Leukocyte Esterase Urine RBC Urine WBC Ur Squamous Epith Cells Urine Bacteria Ur Culture Indicated? SARS-CoV-2 (PCR) Negative Assessment & Plan Assessment and plan (1) Hyponatremia: Status: Acute (2) Generalized anxiety disorder: Status: Chronic (3) Diabetes type 2, controlled: Qualifiers: Diabetes mellitus complication status: without complication Diabetes mellitus assisted insulin use: without assisted use Qualified Code(s): E11.9 - Type 2 diabetes mellitus without complications Status: Chronic (4) COPD (chronic obstructive pulmonary disease): Qualifiers: COPD type: unspecified COPD Qualified Code(s): J44.9 - Chronic obstructive pulmonary disease, unspecified Status: Chronic Plan Will admit the pt for monitoring, on telemetry, checking labs Q6 hours, given NS bolus in the ER, continuing on NS IV fluids. Home meds reviewed, and restarted, CT head reviewed and is normal , Pharmacy to review home meds to see if anyone of them can cause this, meclizine ordered prn for the dizziness. We talked about reducing the amount of free water she is ingested at home. Bactrim could be a contributor to this also.
[2023-07-29 21:28] LABS: Magnesium 1.8 mg/dL (1.6-2.3)
[2023-07-29 21:29] LABS: BUN Creatinine Ratio 15.2 (6-22); Blood Urea Nitrogen 12 mg/dL (7-17); Calcium 8.6 mg/dL (8.4-10.2); Carbon Dioxide 29 mmol/L (22-32); Chloride 94 mmol/L (98-107); Estimated Glomerular Filt Rate > 60 mL/min (>60); Glucose 96 mg/dL (80-110); HEMOLYSIS < 15 (0-50); Potassium 3.9 mmol/L (3.4-5.1); Sodium 128 mmol/L (137-145)
[2023-07-29 22:06] VITALS: BMI 17.0
[2023-07-29] MEDS: SODIUM CHLORIDE 0.9% 1,000 ML 100 ML IV (22:29)
[2023-07-29] MEDS: ONDANSETRON 4 MG/2 ML INJ IV (23:02)
[2023-07-30 00:27] VITALS: O2SAT 98
[2023-07-30] MEDS: PROMETHAZINE 12.5 MG SUPP PR (00:46)
[2023-07-30 00:48] VITALS: BP 153/85; PULSE 66; RESP 20; TEMP 36.1; O2SAT 98
[2023-07-30 04:00] VITALS: O2SAT 96
[2023-07-30] MEDS: PANTOPRAZOLE DR 20 MG TABLET PO (05:09)
[2023-07-30 05:18] VITALS: BP 116/51; PULSE 72; RESP 18; TEMP 36.1; O2SAT 96
[2023-07-30 05:39] LABS: Add Manual Diff / Slide Review NO; Basophils Absolute Auto 0 /uL (0-100); Basophils Percent Auto 0.5 % (0-2); Eosinophils Absolute Auto 200 /uL (0-450); Eosinophils Percent Auto 4.7 % (2-4); Hematocrit 29.9 % (36-46); Lymphocytes Absolute Auto 1200 /uL (1100-4500); Lymphocytes Percent Auto 29.4 % (25-40); Mean Corpuscular HGB Conc 33.5 % (30-36); Mean Corpuscular Hemoglobin 29.1 PG (26-34); Mean Corpuscular Volume 86.8 fL (80-100); Monocytes Absolute Auto 700 /uL (0-900); Monocytes Percent Auto 16.5 % (3-14); Neutrophils Absolute Auto 2000 /uL (1500-7000); Neutrophils Percent Auto 48.9 % (50-75); Platelet Count 222 X10^3/uL (150-400); Red Blood Cell Count 3.45 X10^6/uL (4.0-5.2); Red Cell Distribution Width 14.6 % (11.6-14.8); White Blood Cell Count 4.1 X10^3/uL (4.5-11.0)
[2023-07-30 07:45] LABS: BUN Creatinine Ratio 15.2 (6-22); Blood Urea Nitrogen 10 mg/dL (7-17); Calcium 8.4 mg/dL (8.4-10.2); Carbon Dioxide 24 mmol/L (22-32); Chloride 103 mmol/L (98-107); Estimated Glomerular Filt Rate > 60 mL/min (>60); Glucose 117 mg/dL (80-110); HEMOLYSIS 21 (0-50); Potassium 4.2 mmol/L (3.4-5.1); Sodium 131 mmol/L (137-145)
[2023-07-30 08:00] VITALS: O2SAT 98
[2023-07-30 09:00] VITALS: BP 118/60; PULSE 67; RESP 18; TEMP 36.3; O2SAT 98
[2023-07-30] MEDS: BACLOFEN 10 MG TABLET PO (09:47)
--- NOTE | 2023-07-30 10:11 | OT.IPNOTE ---
Pt states has no OT needs and therefore discharge OT eval.
--- NOTE | 2023-07-30 10:17 | PT-IP ANOTE ---
Per rounds, pt does not require therapy as she will be discharging to home today. PT checked in with pt to ensure she had no PT concerns/needs and pt states she is doing all functional mobility independently. PT orders will be discharged.
--- NOTE | 2023-07-30 11:02 | CM.DANOTE ---
Initial DCP Assessment Note Pt is a 67 yo female, resident of [place], arrives with hyponatremia, patient has been discharged today, lab values have improved. PCP: Sari Oliver Payer: ALBINO/ Erlin Met w/patient to introduce self and role. Patient says she is eager to return home Patient lives with spouse, indp and active at baseline. Patient has a son, Peterson Tuttle P [phone] that also lives in [place] No DC needs identified Plan: Discharge home w/supportive family and friends, outpatient follow up recommended CHRISTINE Jefferson Discharge Planning/Care Management CM Discharge Assessment Start: 07/30/23 11:00 Freq: Status: Active Protocol: Document 07/30/23 11:01 KIRSTEN (Rec: 07/30/23 11:02 KIRSTEN [id number]) Discharge Planning Assessment Assigned Line Therapist CHRISTINE Aldridge DPOA/Assigned Designee Name Richmond Figueroa, spouse Contact Information [phone] Advance Directives? No Advance Directives on File No History Provided By Patient,Medical Record Prior Living Arrangements House Household Members spouse Type of transporation used prior to Drives own vehicle admit Independent with ADL's Yes Is patient alert and oriented? Yes Barriers to Discharge No Discharge Plan Home Transportation Arrangement Family can provide transport at d/c Referrals Initiated None needed Whiteboard Updated in Patient Room with Yes name and ext. # of Line Therapist
--- NOTE | 2023-07-30 13:06 | PC.NURSE ---
Patient is A&OX4, VSS, afebrile on RA. IVF stopped this a.m. Repeat NA+ much improved. She reports generalized pain and history of (MRSA migraines) Per request MD ordered 10 mg dose of baclofen with good effect. She tolerates breakfast well. No n/v, and reports dizziness has improved. She is cleared medically by MD at bedside this a.m. for discharge home today and follow up with PCP in x1 week. She verbalizes understanding of discharge intructions as well as following her sodium levels. She is escorted via w/ch with her bag of personal belongings to private vehicle where she waited for her friends at approximately 1151.
--- NOTE | 2023-07-31 13:02 | P.DS_ITS ---
History of Present Illness History of Present Illness Date Patient Seen: 07/29/23 Time Patient Seen: 21:22 Chief complaint: states MD worried about sodium level Narrative: Per admitting provider: The pt is a 67 yo who was referred to the ER by her PCP due to previous labs that showed a Na of 124. She does c/o dizziness, lightheadedness but she blames this on a sinus infection which she has had for the past 5 weeks. She states her sodium always goes south when her recurrent sinus infections are treated. She has been on Bactrim she says for the past 3 weeks, and she tried to drink 3- 6 bottles of water daily plus ice all day. THere has been no no vertigo, BARR, fevers, chills, N/V or diarrhea. Her sodium is normally around 132, she has not started any neg meds, no change in diet, no herbals or supplements Discharge Providers Provider Date of admission: 07/29/23 20:20 Discharge Date: 07/30/23 Primary care physician: MARY Hector Consults: 07/29/23 20:30 Consult to Occupational Therapy Evaluate & Treat Comment: Physician Instructions: Evaluate and treat Consult to Physical Therapy Evaluate & Treat Comment: Physician Instructions: Evaluate and Treat Discharge provider: Cricket Batista MD Summary Hospital Course Discharge Diagnosis: 1. Hyponatremia 2. Type 2 Diabetes 3. COPD Hospital Course: Ms. Tuttle was admitted with hyponatremia, initially at level of 124. She was given IV fluids and quickly resolved. She did acknowledge having significant free water intake which may be the cause of her symptoms. On discharge her sodium was 131. She was recommended to avoid drinking so much free water, which she was agreeable to. She was recommended to follow up with her PCP within one week and to continue to monitor her sodium. If she continues to have hyponatremia she would need additional etiologies investigated. Exam Vital Signs (past 8 hours): Oxygen Delivery Method Room Air Oxygen Flow Rate 0 Narrative Exam Narrative: GEN: no acute distress CV: regular rate and rhythm PULM: clear bilaterally ABD: soft, nontender Objective Labs 07/30/23 05:06 07/30/23 05:06 [facility] Medical History Acute GI bleeding Asthma (Unknown) Cervical spine disease (Unknown) Chronic constipation Depression (Unknown) Diabetes type 2, controlled Generalized anxiety disorder Herpes (~1992) History of bleeding peptic ulcer (2011) HLD (hyperlipidemia) Iron deficiency Migraines (Unknown) MRSA (methicillin resistant staph aureus) culture positive Osteoporosis (Unknown) Pancreatic insufficiency Panic attacks Peptic ulcer disease (Unknown) Substance abuse (~1983) Tobacco use disorder Surgical History History of incision and drainage (02/2018) History of open reduction and internal fixation (ORIF) procedure (01/2017) Hx of gastric bypass (Unknown) Family History Mother Pancreatic cancer Father Old age Son Alive and well Social History household members: spouse Smoking Status: Current every day smoker Tobacco: How many years used: 20 second hand exposure: No alcohol intake: former substance use type: does not use Discharge Plan Discharge Plan Patient Disposition: Home Provider Discharge Comment: Ms. Tuttle was admitted with low sodium. She improved with IV saline. She should be careful to drink significant amounts of water. She should follow up with her doctor within a week and continue to be monitored for low sodium. Discharge orders & Medications Prescriptions: Continued [place] 3 See Rx Instructions .ROUTE .COMPLEX Patient Comments: 1 Liquid capsule PO BID Rx Instructions: 1 Liquid capsule PO BID Reclast See Rx Instructions .ROUTE .COMPLEX Patient Comments: 5 mg IV Annually Rx Instructions: 5 mg IV Annually olopatadine 0.1 % drops 1 drop EYE-BOTH BID Qty: 5 3RF Massage Therapy 1 each topical .EVERY 2 WEEKS Qty: 24 0RF Chiropractor 1 each topical .EVERY 2 WEEKS Qty: 24 3RF ipratropium-albuterol 0.5 mg-3 mg(2.5 mg base)/3 mL solution for nebulization 3 ml inhalation Q6HP PRN (Reason: shortness of breath or wheezing) Qty: 120 3RF Combivent Respimat 20-100 mcg/actuation mist 1 puff INHALATION QID Qty: 12 3RF Rx Instructions: Please dispense every four months upon patient request clonazepam 2 mg tablet 2 mg PO BID PRN (Reason: anxiety) Qty: 60 2RF Rx Instructions: Take 1 tab twice daily as needed for anxiety. Pt misplaced recently refilled prescription. Ok to fill. ondansetron HCl 8 mg tablet 8 mg PO Q8H PRN (Reason: nausea and vomiting) Qty: 30 1RF metformin 500 mg tablet extended release 24hr 500 mg PO QPM Qty: 90 2RF Rx Instructions: Take 1 tab with evening meal daily for diabetes Dispense Glucophage 500ER, not osmotic hydrocodone-acetaminophen 7.5-325 mg tablet 1 tab PO Q12H PRN (Reason: pain) Qty: 30 0RF baclofen 20 mg tablet See Rx Instructions PO Q8H PRN (Reason: neck spasm and migraine) 30 Days Qty: 180 3RF Rx Instructions: Take 1 1/2 - 2 tabs orally every 8 hours PRN; estradiol [Estrace] 0.01 % (0.1 mg/gram) cream 0.5 g vaginal 2XW Qty: 42.5 3RF Rx Instructions: 0.5gm in vagina and small amount to the urethral area twice a week budesonide 0.5 mg/2 mL suspension for nebulization 0.5 mg inhalation BID Qty: 60 2RF Rx Instructions: Inhale 1 bullet twice daily for COPD. pantoprazole [Protonix] 40 mg tablet,delayed release (DR/EC) 40 mg PO BID Qty: 180 2RF montelukast [Singulair] 10 mg tablet 10 mg PO QDAY Qty: 90 2RF misoprostol [Cytotec] 200 mcg tablet 200 mcg PO BID Qty: 180 2RF olopatadine 0.6 % spray,non-aerosol 2 spray NASAL BID Qty: 30.5 3RF Rx Instructions: administer into each nostril (DME) Home Nebulizer See Rx Instructions .Route .MEDSUPPLY Qty: 1 0RF Rx Instructions: With supplies for use with nebulized medications duloxetine 20 mg capsule,delayed release(DR/EC) 60 mg PO BID 90 Days Qty: 540 3RF bupropion HCl 300 mg tablet extended release 24 hr 300 mg PO QAM Qty: 90 0RF hydroxyzine pamoate 50 mg capsule 25 mg PO PRN PRN (Reason: anxiety) Rx Instructions: 25-50mg orally daily prn aniety acyclovir 400 mg tablet 400 mg PO QID buspirone 30 mg tablet 60 mg PO BID Creon 6,000-19,000 -30,000 unit capsule,delayed release(DR/EC) 2 cap PO BID Rx Instructions: PATIENT IS REQUESTING RX TO BE MAILED TO HER HOME ADDRESS. Botox 200 unit recon soln 200 unit IM ONCE Qty: 1 3RF Rx Instructions: q 90 days for chronic migraine prevention. Medication counseling provided by Pharmacist: Yes Follow up/Referrals: Sari Oliver ARNP [Primary Care Provider] - 08/05/23 12:00 pm (Appt:08/05 @ noon with Dr Kapadia please arrive 15 min prior to your scheduled appointment time ) Diet/Activity/Treatments Diet: Regular Visit Report/Discharge Packet Stand Alone Forms: Patient Portal/API, Stroke Signs & Symptoms Discharge Data Primary Care Provider: Sari Oliver Attending Provider: Tyler Johnson Admit Date/Time: 07/29/23 20:20 Discharges patient from system. Discharge Date/Time: 07/30/23 11:51 Quality VTE Deep Vein Thrombosis/Pulmonary Embolism Present on Admission: No
== END 2023-07-30 11:51 | disposition home or self-care (01) ==
LOC: ED 18:33 → AC 21:27
PROVIDERS: Internal Medicine; Admitting Provider Internal Medicine; Emergency Provider Emergency Medicine; PCP Nurse Practitioner; Referring Provider Emergency Medicine; Visit Provider Internal Medicine
DX: E87.1 Hypo-osmolality and hyponatremia (principal); F41.1 Generalized anxiety disorder; E11.9 Type 2 diabetes mellitus without complications; J44.9 Chronic obstructive pulmonary disease, unspecified
CPT/HCPCS: 36415; 70450; 80048; 80053; 81001; 82550; 83735; 83880; 84484; 85025; 87635; 96361; 96374; 99284; C9803; G0378; J2405

== ENCOUNTER → 2023-08-12 12:53 | Outpatient (CLI) | payer MEDICARE, OTHER, SELFPAY ==
[2023-07-29 22:06] VITALS: BMI 17.0
[2023-08-12 13:25] LABS: BUN Creatinine Ratio 19.7 (6-22); Blood Urea Nitrogen 14 mg/dL (7-17); Calcium 8.8 mg/dL (8.4-10.2); Carbon Dioxide 23 mmol/L (22-32); Chloride 104 mmol/L (98-107); Estimated Glomerular Filt Rate > 60 mL/min (>60); Glucose 88 mg/dL (80-110); HEMOLYSIS < 15 (0-50); Potassium 4.2 mmol/L (3.4-5.1); Sodium 133 mmol/L (137-145)
[2023-08-13 13:32] LABS: Osmolality Urine 392 mOsmol/kg (.)
== END ==
PROVIDERS: PCP Nurse Practitioner; Visit Provider Family Medicine
DX: E87.1 Hypo-osmolality and hyponatremia (principal)
CPT/HCPCS: 80048; 83935

== ENCOUNTER → 2023-08-14 16:54 | Outpatient (CLI) | payer MEDICARE, OTHER, SELFPAY ==
[2023-07-29 22:06] VITALS: BMI 17.0
[2023-08-14 17:38] LABS: Sodium Urine Random 83 mmol/L (30-90)
== END ==
PROVIDERS: PCP Nurse Practitioner; Visit Provider Family Medicine
DX: E87.1 Hypo-osmolality and hyponatremia (principal)
CPT/HCPCS: 84300

== ENCOUNTER → 2023-08-25 11:39 | Outpatient (CLI) | payer MEDICARE, OTHER, SELFPAY ==
[2023-07-29 22:06] VITALS: BMI 17.0
== END ==
PROVIDERS: PCP Nurse Practitioner; Visit Provider Obstetrics & Gynecology
DX: Z87.440 Personal history of urinary (tract) infections (principal); R30.0 Dysuria
CPT/HCPCS: 87077; 87086; 87186

== ENCOUNTER → 2023-09-02 11:53 | Outpatient (CLI) | payer MEDICARE, OTHER, SELFPAY ==
[2023-09-02 12:35] LABS: Appearance Urine UA SL CLOUDY; Bilirubin Urine UA NEGATIVE (NEGATIVE); Color Urine UA YELLOW; Glucose Urine UA NEGATIVE (Negative); Ketones Urine UA NEGATIVE (NEGATIVE); Leukocyte Esterase Urine UA 2+ (NEGATIVE); Nitrite Urine UA POSITIVE (Negative); Occult Blood Urine UA 2+ (Negative); Protein Urine UA NEGATIVE (Negative); Urobilinogen Urine UA 0.2 E.U./dL (0.2)
[2023-09-02 12:40] LABS: pH Urine UA 6.5 (4.5-8.0)
[2023-09-02 12:47] LABS: Bacteria Urine Many (>30); Culture Indicated Urine Specimen Cultured; RBC Urine 10-30/HPF (0-5/HPF); Squamous Epithelial Cell Urine 1-5 /HPF (0-5/HPF); WBC Urine 30-100/HPF (0-5/HPF)
== END ==
PROVIDERS: PCP Nurse Practitioner; Referring Provider Family Medicine; Visit Provider Family Medicine
DX: R30.0 Dysuria (principal); Z87.440 Personal history of urinary (tract) infections
CPT/HCPCS: 81003; 81015; 87077; 87086; 87186

== ENCOUNTER → 2023-09-10 11:36 | Outpatient (CLI) | payer MEDICARE, OTHER, SELFPAY ==
--- NOTE | 2023-09-10 | DI.CT.S_ITS ---
PROCEDURE: CT SINUS SCREEN WO CON INDICATIONS: CHRONIC PANSINUSITIS TECHNIQUE: Noncontrast 3.0 mm axial images acquired from the frontal sinuses to the mid-sella, with coronal and sagittal reformats. For radiation dose reduction, the following was used: automated exposure control, adjustment of mA and/or kV according to patient size. COMPARISON: [facility], CT, SINUS SCREEN WO CONTRAST, 05/16/2015, 12:39. [facility], CT, CT HEAD/BRAIN WO CON, 07/29/2023, 19:05. FINDINGS: Image quality: Excellent. Maxillary Sinuses: Mild mucosal thickening can be seen within both maxillary sinuses. The majority of the medial rojas of the maxillary sinuses have been removed. The outer rojas of the maxillary sinuses are thickened. Ethmoid Air Cells: Portions of the ethmoid air cell septations have been removed. There is mild mucosal thickening within the remainder of the ethmoid air cells. Sphenoid Sinuses: No bony remodeling or destruction. Sinuses are clear. Frontal Sinuses: No bony remodeling or destruction. Sinuses are clear. Ostiomeatal Complexes: Removed. Miscellaneous: Visualized intra-orbital contents are normal. Prominent portions of the nasal turbinates have been removed. No terry bullosa can be seen. There is minimal rightward nasal septal deviation. IMPRESSION: Bilateral postoperative change, with bilateral antrectomy. Mild mucosal thickening can be seen within the maxillary sinuses and the remaining ethmoid air cells. The appearance is improved compared to 2014. Dictated by: Terry Cornejo M.D. on 09/10/2023 at 13:25 Approved by: Terry Cornejo M.D. on 09/10/2023 at 13:28
== END ==
PROVIDERS: PCP Nurse Practitioner; Referring Provider Otolaryngology; Visit Provider Otolaryngology
DX: J32.4 Chronic pansinusitis (principal); Z22.322 Carrier or suspected carrier of Methicillin resistant Staphylococcus aureus
CPT/HCPCS: 70486

== ENCOUNTER → 2023-10-22 17:12 | Outpatient (CLI) | payer MEDICARE, OTHER, SELFPAY ==
[2023-09-15 17:13] VITALS: BMI 17.0
[2023-10-22 18:21] LABS: BUN Creatinine Ratio 18.2 (6-22); Blood Urea Nitrogen 14 mg/dL (7-17); Calcium 9.1 mg/dL (8.4-10.2); Carbon Dioxide 24 mmol/L (22-32); Chloride 94 mmol/L (98-107); Estimated Glomerular Filt Rate > 60 mL/min (>60); Glucose 118 mg/dL (80-110); HEMOLYSIS < 15 (0-50); Potassium 4.1 mmol/L (3.4-5.1); Sodium 128 mmol/L (137-145)
== END ==
PROVIDERS: PCP Nurse Practitioner; Referring Provider Internal Medicine Infectious Disease; Visit Provider Internal Medicine Infectious Disease
DX: J32.9 Chronic sinusitis, unspecified (principal); E87.1 Hypo-osmolality and hyponatremia
CPT/HCPCS: 36415; 80048

== ENCOUNTER → 2024-01-16 16:38 | Outpatient (CLI) | payer MEDICARE, OTHER, SELFPAY ==
[2023-09-15 17:13] VITALS: BMI 17.0
[2024-01-16 17:24] LABS: Influenza A - CEPHEID Flu A NEGATIVE (NEGATIVE); Influenza B - CEPHEID Flu B NEGATIVE (NEGATIVE); Respiratory Syncytial Virus Negative (Negative)
[2024-01-16 17:25] LABS: COVID-19 CEPHEID 4-PLEX PCR Negative (Negative)
== END ==
PROVIDERS: PCP Nurse Practitioner; Visit Provider Physician Assistant
DX: J02.9 Acute pharyngitis, unspecified (principal)
CPT/HCPCS: 0241U

== ENCOUNTER → 2024-01-27 15:18 | Outpatient (CLI) | payer MEDICARE, OTHER, SELFPAY ==
[2023-09-15 17:13] VITALS: BMI 17.0
[2024-01-27 16:20] LABS: Hemoglobin A1C% w Est Avg Glu 6.6 % (4.0-6.0)
[2024-01-27 16:37] LABS: Alanine Aminotransferase 17 IU/L (<35); Albumin 4.4 g/dL (3.5-5.0); Albumin Globulin Ratio 1.5 (1.0-2.8); Alkaline Phosphatase 143 U/L (38-126); Aspartate Aminotransferase 26 IU/L (14-36); BUN Creatinine Ratio 20.5 (6-22); Bilirubin Total 0.5 mg/dL (0.2-1.3); Blood Urea Nitrogen 15 mg/dL (7-17); Calcium 9.3 mg/dL (8.4-10.2); Carbon Dioxide 26 mmol/L (22-32); Chloride 98 mmol/L (98-107); Cholesterol 207 mg/dL (140-199); Estimated Glomerular Filt Rate > 60 mL/min (>60); Globulin 2.9 g/dL (1.7-4.1); Glucose 122 mg/dL (80-110); HEMOLYSIS < 15 (0-50); Magnesium 1.7 mg/dL (1.6-2.3); Potassium 4.1 mmol/L (3.4-5.1); Sodium 130 mmol/L (137-145); Total Protein 7.3 g/dL (6.3-8.2); Triglycerides 169 mg/dL (35-150)
[2024-01-27 16:45] LABS: HDL Cholesterol 124 mg/dL (40-60); LDL Cholesterol Calculated 49 mg/dL (<100)
[2024-01-27 16:52] LABS: Free T3, Triiodothyronine Free 3.01 pg/mL (2.77-5.27); Free T4, Direct Thyroxine 1.06 ng/dL (0.78-2.19)
[2024-01-27 17:05] LABS: Thyroid Stimulating Hormone 1.51 uIU/mL (0.47-4.68)
[2024-01-27 17:07] LABS: Creatinine Urine Random 55.7 mg/dL
[2024-01-27 17:12] LABS: Microalbumi Creatinin Ratio Ur 14.3 ug/mg CR (<30); Microalbumin Urine Random 0.8 mg/dL (0-1.6)
== END ==
PROVIDERS: PCP Nurse Practitioner; Referring Provider Nurse Practitioner; Visit Provider Nurse Practitioner
DX: Z79.899 Other long term (current) drug therapy (principal); E87.1 Hypo-osmolality and hyponatremia; E78.5 Hyperlipidemia, unspecified; E11.9 Type 2 diabetes mellitus without complications; F41.1 Generalized anxiety disorder; F32.9 Major depressive disorder, single episode, unspecified; E83.42 Hypomagnesemia
CPT/HCPCS: 80053; 80061; 82043; 82570; 83036; 83735; 84439; 84443; 84481

== ENCOUNTER → 2024-02-03 16:38 | Outpatient (CLI) | payer MEDICARE, OTHER, SELFPAY ==
[2023-09-15 17:13] VITALS: BMI 17.0
[2024-02-03 20:32] LABS: Hep C Virus Ab w/Reflex Quant NEGATIVE s/c (NEGATIVE)
[2024-02-06 14:14] LABS: Hepatitis B Virus HBV DNA not detected IU/mL (.)
== END ==
PROVIDERS: PCP Nurse Practitioner; Referring Provider Nurse Practitioner; Visit Provider Nurse Practitioner
DX: K76.0 Fatty (change of) liver, not elsewhere classified (principal)
CPT/HCPCS: 36415; 86803

== ENCOUNTER → 2024-02-09 14:49 | Outpatient (CLI) | payer MEDICARE, OTHER, SELFPAY ==
[2023-09-15 17:13] VITALS: BMI 17.0
--- NOTE | 2024-02-09 14:52 | DI.MG.S_ITS ---
BILATERAL DIGITAL SCREENING MAMMOGRAM 3D/2D WITH CAD: 02/09/2024 CLINICAL: Routine screening. Comparison is made to exams dated: 07/01/2022 mammogram, 02/12/2019 mammogram, and 12/11/2017 mammogram - [facility]. Both breasts are heterogeneously dense, which may obscure small masses (category c / 51-75% glandular tissue). Current study was also evaluated with a Computer Aided Detection (CAD) system. There is a possible oval focal asymmetry in the left breast at 1 o'clock anterior depth. This is more prominent. No other significant masses, calcifications, or other findings are seen in either breast. IMPRESSION: INCOMPLETE: NEEDS ADDITIONAL IMAGING EVALUATION The possible oval focal asymmetry in the left breast is indeterminate. Additional views with possible ultrasound are recommended. Based on the Tyrer Cuzick model (a risk assessment model) the patient's lifetime risk is 6.2% and her 10 year risk is 3.4%. According to the ACR, ACS, and NCCN guidelines, an annual breast MRI exam along with mammogram is recommended if the patient's lifetime risk is 20% or greater. This exam was interpreted at Station ID: [id number]. NOTE: For mammograms, a report in lay terms will be sent to the patient. Approximately 15% of breast malignancies will not be visualized mammographically. In the management of a palpable breast mass, a negative mammogram must not discourage biopsy of a clinically suspicious lesion. Electronically Signed By: Brendan Crawford M.D. aty/:02/10/2024 07:38:54 letter sent: Additional Imaging Needed ACR BI-RADS Category 0: Incomplete 3340F
--- NOTE | 2024-02-09 14:52 | DI.RAD.S_ITS ---
Bone Density Report Name: JUNG MORENO Age: 68 Sex: Female Ethnicity: White Date of : 1955 Indication: postmenopausal osteoporosis; monitoring treatment; prior fracture; Referring Provider: GEORGES SOLER Study: Bone densitometry was performed. Exam Date: February 09, 2024 Accession number: [id number] Bone Density: Region BMD T-score Z-score Classification AP Spine(L1-L4) 0.918 -1.2 0.8 Osteopenia Femoral Neck (Right) 0.481 -3.3 -1.6 Osteoporosis Total Hip (Right) 0.559 -3.1 -1.7 Osteoporosis Total Forearm (Left) 0.413 -3.1 -1.2 Osteoporosis 1/3 Forearm (Left) 0.562 -2.2 -0.3 Osteopenia UD Forearm (Left) 0.237 -3.5 -2.2 Osteoporosis World Health Organization criteria for BMD impression classify patients as: Normal (T-score at or above -1.0), Osteopenia (T-score between -1.0 and -2.5), or Osteoporosis (T-score at or below -2.5). 10-year Fracture Risk: FRAX not reported because: Some T-score for Spine Total or Hip Total or Femoral Neck at or below -2.5 Prior hip or vertebral fracture Treated for osteoporosis Previous Exams: -- Region Exam Age BMD T-score BMD Change BMD Change Date g/cm2 vs Baseline vs Previous -- AP Spine (L1-L4) 02/09/2024 68 0.918 -1.2 0.002 (0.2%)# -0.140 (-13.2%)# 08/30/2018 62 1.059 0.1 0.142 (15.5%)* 0.047 (4.7%)* 09/27/2015 59 1.011 -0.3 0.095 (10.3%)* -0.014 (-1.4%) 07/08/2011 55 1.025 -0.2 0.108 (11.8%)* -0.037 (-3.4%)* 04/06/2009 53 1.062 0.1 0.145 (15.8%)* 0.145 (15.8%)* 12/17/2005 50 0.917 -1.2 Total Hip(Right) 02/09/2024 68 0.559 -3.1 -0.024 (-4.1%)# -0.019 (-3.4%)# 08/30/2018 62 0.578 -3.0 -0.004 (-0.7%) -0.006 (-1.1%) 09/27/2015 59 0.585 -2.9 0.002 (0.3%) -0.020 (-3.4%) 07/08/2011 55 0.605 -2.8 0.022 (3.8%) 0.019 (3.3%) 04/06/2009 53 0.585 -2.9 0.003 (0.5%) 0.003 (0.5%) 12/17/2005 50 0.583 -2.9 -- *Denotes significance at 95% confidence level, LSC for AP Spine = 0.022 g/cm2, LSC for Total Hip = 0.027 g/cm2 # Denotes dissimilar scan types or analysis methods Impression: The patient has established osteoporosis, based on the Right Femoral Neck T-score and the existence of a prior fracture. The patient has risk factors, including: previous fracture. No significant bone loss was observed. Discussion: PATIENT UNDER TREATMENT WITH NO SIGNIFICANT BMD LOSS SINCE LAST EXAM. In an untreated patient, BMD typically declines with age. A lack of decline or gain is usually a sign that treatment is efficacious and fracture risk is reduced. It is important to ask patients whether they are taking their medications and to encourage continued and appropriate compliance with their osteoporosis therapies to reduce fracture risk. It is also important to review their risk factors and encourage appropriate calcium and vitamin D intakes, exercise, fall prevention and other lifestyle measures. Follow-Up: Consider a repeat BMD and Vertebral Fracture Assessment (VFA) exam in 2 years or sooner if medically necessary, to reassess this patient's status. Reported by: KRISTEN CARVALHO MD on 02/09/2024 3:17:00 PM.
== END ==
PROVIDERS: PCP Nurse Practitioner; Referring Provider Nurse Practitioner; Visit Provider Nurse Practitioner
DX: Z12.31 Encounter for screening mammogram for malignant neoplasm of breast (principal); R92.333 Mammographic heterogeneous density, bilateral breasts; M81.0 Age-related osteoporosis without current pathological fracture
CPT/HCPCS: 77063; 77067; 77080; 77081

== ENCOUNTER → 2024-02-25 09:27 | Outpatient (CLI) | payer MEDICARE, OTHER, SELFPAY ==
[2023-09-15 17:13] VITALS: BMI 17.0
[2024-02-26 03:01] LABS: Cortisol AM (Before 10AM) 15.5 ug/dL (4.46-22.7)
[2024-02-26 11:20] LABS: Adrenocorticotropic Hormone 97.4 pg/mL (7.2-63.3)
== END ==
PROVIDERS: PCP Nurse Practitioner; Referring Provider Nurse Practitioner; Visit Provider Nurse Practitioner
DX: E87.1 Hypo-osmolality and hyponatremia (principal)
CPT/HCPCS: 36415; 82024; 82533

== ENCOUNTER → 2024-03-03 10:13 | Outpatient (CLI) | payer MEDICARE, OTHER, SELFPAY ==
[2023-09-15 17:13] VITALS: BMI 17.0
--- NOTE | 2024-03-03 10:15 | DI.US.S_ITS ---
LIMITED ULTRASOUND OF LEFT BREAST: 03/03/2024 CLINICAL: Patient returns today to evaluate a focal asymmetry in the left breast. Comparison is made to exams dated: 03/03/2024 mammogram, 02/09/2024 mammogram, 07/01/2022 mammogram, 02/12/2019 mammogram, 12/11/2017 mammogram, and 11/18/2016 mammogram - [facility]. Color flow and real-time ultrasound of the left breast 1 o'clock region were performed. Rodriguez scale images of the real-time examination were reviewed. Confirmatory ultrasound demonstrates no sonographic correlate for mammographic focal asymmetry. Incidental benign 5 mm simple cyst is seen at 1 o'clock, 2 cm from the nipple. IMPRESSION: BENIGN Superimposition of normal breast tissue with confirmatory negative ultrasound. Incidental benign simple cyst at 1 o'clock position. No sonographic or mammographic evidence of malignancy. A 1 year screening mammogram is recommended. Findings and recommendations were discussed with the patient during today's examination. This exam was interpreted at Station ID: [id number]. Electronically Signed By: Ailyn Villarreal M.D., Ph.D. eb/:03/03/2024 14:00:35 letter sent: Normal Exam Ultrasound BI-RADS: 2 Benign
--- NOTE | 2024-03-03 10:16 | DI.MG.S_ITS ---
UNILATERAL LEFT DIGITAL DIAGNOSTIC MAMMOGRAM 3D/2D WITH ADDITIONAL VIEWS: 03/03/2024 CLINICAL: Additional evaluation requested from prior study. Comparison is made to exams dated: 02/09/2024 mammogram, 07/01/2022 mammogram, and 02/12/2019 mammogram - [facility]. The left breast is heterogeneously dense, which may obscure small masses (category c / 51-75% glandular tissue). The finding seen on recent screening mammogram did not persist with additional imaging and likely represents superimposition of normal breast tissue. No significant masses, calcifications, or other findings are seen in the breast. IMPRESSION: INCOMPLETE: NEEDS ADDITIONAL IMAGING EVALUATION Probable superimposition of normal breast tissue. Recommend further evaluation with targeted breast ultrasound, which will immediately follow this exam. Based on the Tyrer Cuzick model (a risk assessment model) the patient's lifetime risk is 6.2% and her 10 year risk is 3.4%. According to the ACR, ACS, and NCCN guidelines, an annual breast MRI exam along with mammogram is recommended if the patient's lifetime risk is 20% or greater. This exam was interpreted at Station ID: [id number]. NOTE: For mammograms, a report in lay terms will be sent to the patient. Approximately 15% of breast malignancies will not be visualized mammographically. In the management of a palpable breast mass, a negative mammogram must not discourage biopsy of a clinically suspicious lesion. Electronically Signed By: Ailyn Villarreal M.D., Ph.D. eb/:03/03/2024 13:57:23 ACR BI-RADS Category 0: Incomplete 3340F
== END ==
LOC: MAMMO 10:14
PROVIDERS: PCP Nurse Practitioner; Referring Provider Nurse Practitioner; Visit Provider Nurse Practitioner
DX: R92.8 Other abnormal and inconclusive findings on diagnostic imaging of breast (principal); R92.332 Mammographic heterogeneous density, left breast; N60.02 Solitary cyst of left breast
CPT/HCPCS: 76642; 77065; G0279

== ENCOUNTER → 2024-03-03 12:35 | Outpatient (CLI) | payer MEDICARE, OTHER, SELFPAY ==
[2023-09-15 17:13] VITALS: BMI 17.0
--- NOTE | 2024-03-15 08:31 | DIAB.MNT ---
Initial Diabetes Medical Nutrition Therapy Assessment Name: Shirin Tuttle Date: 03/03/24 Time: 105-2p Dx: Type II Diabetes Shirin presents for Dm visit. She is familiar to this RD. Our last visit was a little over one year ago 01/2023. reports recent fatty liver diagnosis. Also worries about her HgA1c, recent 6.6%. Continues on 500mg Metformin ER daily. Wants to review her diet today. Diet recall: 930-10a: coffee or tea with sf creamer, protein drink wtih 25g protein and 0 sugar, protein yogurt *feels very bloated after 2p: grilled cheese with a handful of chips or cheese snacks sn: 1/3c raisins and almonds *no dinner, snacks instead, craves sweets: apple pie, watermelon, sometimes veggies Switched to diet soda. Anthropometrics: Ht: 68 Wt: 115-120# reported Physical Activity: 10,000 steps q other night with step machine. Back exercises. Self-Monitoring Blood Glucose: None Diabetes Medications: 500mg Metformin ER Pertinent Labs: HgA1c: 6.3% 07/2023 6.6% 01/2024 Past Medical History: (Last Updated 03/14/24 @ 07:27 by MARY Hector) Acute GI bleeding Acute metabolic encephalopathy Asthma (Unknown) Benzodiazepine dependence, continuous Cervical spine disease (Unknown) spinal stenosis Chronic constipation Chronic headaches Depression (Unknown) Diabetes type 2, controlled Generalized anxiety disorder Hepatic steatosis Herpes (~1992) History of alcohol use disorder History of bleeding peptic ulcer (2011) 11/09/12-11/13/12 HLD (hyperlipidemia) Iron deficiency Migraines (Unknown) MRSA (methicillin resistant staph aureus) culture positive Osteoporosis (Unknown) Pancreatic abnormality Pancreatic insufficiency after bariatric surgery, followed [facility] Panic attacks Peptic ulcer disease (Unknown) Substance abuse (~1983) alcohol--quit drinking 1983 Tobacco use disorder Nutrition Rx: Carbohydrates: Meal:30-45g Snack:15-30g Nutrition Diagnosis: - Food and nutrition related knowledge deficit r/t need for review of nutrition recs aeb pt report Intervention: This participant was very receptive. Provided appropriate educational handouts. Discussed the following topics: Completed intake assessment. Discussed barriers to care. Meal timing, pairing macronutrients and spreading out carbohydrates for better blood glucose management Recommended servings for carbohydrates at meals and snacks Fatty liver nutrition Label reading review Created SMART goals for patient self-care and success. Goals: Try to eat q 3-4 hours to reduce sugar cravings in evening Pair CHO and pro for snacks Follow-up: YANIRA GALLARDO follow-up in 4-5 weeks Gaby Samson RDN, YURIYES Certified Diabetes Care and Sr Technical Sales Consultant P: [phone] Thank you for this referral
== END ==
PROVIDERS: PCP Nurse Practitioner; Referring Provider Nurse Practitioner; Visit Provider Nurse Practitioner
DX: E11.9 Type 2 diabetes mellitus without complications (principal); Z79.84 Long term (current) use of oral hypoglycemic drugs; Z71.3 Dietary counseling and surveillance
CPT/HCPCS: 97802

== ENCOUNTER → 2024-03-08 18:34 | Outpatient (CLI) | payer MEDICARE, OTHER, SELFPAY ==
[2023-09-15 17:13] VITALS: BMI 17.0
== END ==
PROVIDERS: PCP Nurse Practitioner; Visit Provider Physician Assistant Surgical
DX: R30.0 Dysuria (principal)
CPT/HCPCS: 87077; 87086; 87186

== ENCOUNTER → 2024-03-10 14:32 | Outpatient (CLI) | payer MEDICARE, OTHER, SELFPAY ==
[2023-09-15 17:13] VITALS: BMI 17.0
[2024-03-10 15:36] LABS: Add Manual Diff / Slide Review NO; Basophils Absolute Auto 0 /uL (0-100); Basophils Percent Auto 0.8 % (0-2); Eosinophils Absolute Auto 200 /uL (0-450); Eosinophils Percent Auto 4.2 % (2-4); Hematocrit 29.7 % (36-46); Hemoglobin 9.9 g/dL (12.0-16.0); Lymphocytes Absolute Auto 1300 /uL (1100-4500); Lymphocytes Percent Auto 23.2 % (25-40); Mean Corpuscular HGB Conc 33.3 % (30-36); Mean Corpuscular Hemoglobin 27.9 PG (26-34); Mean Corpuscular Volume 83.8 fL (80-100); Monocytes Absolute Auto 600 /uL (0-900); Monocytes Percent Auto 11.2 % (3-14); Neutrophils Absolute Auto 3400 /uL (1500-7000); Neutrophils Percent Auto 60.6 % (50-75); Platelet Count 242 X10^3/uL (150-400); Red Blood Cell Count 3.55 X10^6/uL (4.0-5.2); Red Cell Distribution Width 15.5 % (11.6-14.8); White Blood Cell Count 5.6 X10^3/uL (4.5-11.0)
[2024-03-10 15:53] LABS: HEMOLYSIS < 15 (0-50); Iron 34 ug/dL (37-170)
[2024-03-10 16:05] LABS: Percent Iron Saturation 7 % (15-50); Total Iron Binding Capacity 454 ug/dL (265-497); Transferrin 370 mg/dL (206-381)
[2024-03-10 16:43] LABS: Vitamin B12 > 1000 pg/mL (239-931)
== END ==
LOC: LAB 14:33
PROVIDERS: PCP Nurse Practitioner; Referring Provider Nurse Practitioner; Visit Provider Nurse Practitioner
DX: R53.83 Other fatigue (principal)
CPT/HCPCS: 82607; 83540; 83550; 85025

== ENCOUNTER → 2024-03-24 13:02 | Outpatient (CLI) | payer MEDICARE, OTHER, SELFPAY ==
[2023-09-15 17:13] VITALS: BMI 17.0
--- NOTE | 2024-04-13 16:39 | DIAB.MNTFU ---
Follow-up Diabetes Medical Nutrition Therapy Assessment Name: Shirin Tuttle Date: 03/24/24 Time:115-205 Dx: Type II Diabetes Shirin presents for Dm follow-up. Reports UTI will not subside. Plans for walk-in clinic after our visit. Pairing CHO and pro watching CHO portions Taking pancreatic enzyme, and cannot take with fiber per report, RD confirms this. Getting iron transfusions this week Stomach pains with iron supplement per report wants to ask PCP for liq iron supplement Bloat and ab pain continues. All nuts exacerbate issue. States GI dx her with IBC-c. Still has physical signs of malnutrition along with constipation and iron anemia. Anthropometrics: Ht: 68 Wt: 115-120# reported (today reports 118#-- BMI 17.9) Physical Activity: 10,000 steps q other night with step machine. Back exercises. Self-Monitoring Blood Glucose: None Diabetes Medications: 500mg Metformin ER Pertinent Labs: HgA1c: 6.3% 07/2023 6.6% 01/2024 Past Medical History: (Last Updated 03/14/24 @ 07:27 by MARY Hector) Acute GI bleeding Acute metabolic encephalopathy Asthma (Unknown) Benzodiazepine dependence, continuous Cervical spine disease (Unknown) spinal stenosis Chronic constipation Chronic headaches Depression (Unknown) Diabetes type 2, controlled Generalized anxiety disorder Hepatic steatosis Herpes (~1992) History of alcohol use disorder History of bleeding peptic ulcer (2011) 11/09/12-11/13/12 HLD (hyperlipidemia) Iron deficiency Migraines (Unknown) MRSA (methicillin resistant staph aureus) culture positive Osteoporosis (Unknown) Pancreatic abnormality Pancreatic insufficiency after bariatric surgery, followed GI [facility] Panic attacks Peptic ulcer disease (Unknown) Substance abuse (~1983) alcohol--quit drinking 1983 Tobacco use disorder Nutrition Rx: Carbohydrates: Meal:30-45g Snack:15-30g Nutrition Diagnosis: - Predicted inadequate energy intake r/t concerns for bloat and intolerances aeb pt report and BMI 17.9 Intervention: This participant was very receptive. Provided appropriate educational handouts. Discussed the following topics: GI symptoms and assoc foods Interactions with pancreatic enzyme Fiber intake and impact on GI health label reading for fiber Created SMART goals for patient self-care and success. Goals: Try to eat q 3-4 hours to reduce sugar cravings in evening- continue Pair CHO and pro for snacks- met Slowly increase fiber at times in the day away from enzyme intake- new Follow-up: YANIRA GALLARDO follow-up in 4 weeks Gaby Samson RDN, SAMI Certified Diabetes Care and Substation Mechanic P: [phone] Thank you for this referral
== END ==
PROVIDERS: PCP Nurse Practitioner; Referring Provider Internal Medicine
DX: E11.9 Type 2 diabetes mellitus without complications (principal); Z79.84 Long term (current) use of oral hypoglycemic drugs; Z71.3 Dietary counseling and surveillance
CPT/HCPCS: 97803

== ENCOUNTER → 2024-03-25 16:43 | Outpatient (CLI) | payer MEDICARE, OTHER, SELFPAY ==
[2023-09-15 17:13] VITALS: BMI 17.0
[2024-03-25 17:20] LABS: Appearance Urine UA CLEAR; Bilirubin Urine UA NEGATIVE (NEGATIVE); Color Urine UA YELLOW; Glucose Urine UA NEGATIVE (Negative); Ketones Urine UA NEGATIVE (NEGATIVE); Leukocyte Esterase Urine UA NEGATIVE (NEGATIVE); Nitrite Urine UA NEGATIVE (Negative); Occult Blood Urine UA NEGATIVE (Negative); Protein Urine UA NEGATIVE (Negative); Urobilinogen Urine UA 0.2 E.U./dL (0.2); pH Urine UA 6.5 (4.5-8.0)
[2024-03-25 17:44] LABS: Bacteria Urine None Seen; RBC Urine None Seen (0-5/HPF); Squamous Epithelial Cell Urine 1-5 /HPF (0-5/HPF); Urine Volume 10mL (spun); WBC Urine None Seen (0-5/HPF)
== END ==
PROVIDERS: PCP Nurse Practitioner; Visit Provider Physician Assistant Medical
DX: R39.15 Urgency of urination (principal)
CPT/HCPCS: 81001; 87086

== ENCOUNTER → 2024-04-26 14:06 | Outpatient (CLI) | payer MEDICARE, OTHER, SELFPAY ==
[2024-04-20 15:27] VITALS: BMI 17.0
--- NOTE | 2024-05-25 17:52 | DIAB.MNTFU ---
Follow-up Diabetes Medical Nutrition Therapy Assessment Name: Shirin Tuttle Date: 04/26/24 Time: 215-305p Dx: Type II Diabetes Shirin presents for DM follow-up. Reports trying higher fiber foods, but she c/o ab discomfort. Did endorse improved form of BM with higher fiber diet. Endorses reduced appetite, ?barely eating? which she attributes to a new medication, Trulance. No longer having pica symptoms, eating ice, with iron injections. Reporting stress and continued GI distress, not currently open CBT at this time. Not having any soda anymore. Eating higher protein yogurt and ONS daily. Still exhibiting s/s of PCM-- low BMI, signs of wasting, reported low intake. Anthropometrics: Ht: 68 Wt: 118#-- BMI 17.9 Physical Activity: 10,000 steps q other night with step machine. Back exercises. Self-Monitoring Blood Glucose: None Diabetes Medications: 500mg Metformin ER Pertinent Labs: HgA1c: 6.3% 07/2023 6.6% 01/2024 Past Medical History: (Last Updated 05/13/24 @ 19:25 by MARY Hector) Acute GI bleeding Acute metabolic encephalopathy Asthma (Unknown) Benzodiazepine dependence Benzodiazepine dependence, continuous Cervical spine disease (Unknown) spinal stenosis Chronic anxiety Chronic constipation Chronic headaches Depression (Unknown) Diabetes type 2, controlled Generalized anxiety disorder Hepatic steatosis Herpes (~1992) History of alcohol use disorder History of bleeding peptic ulcer (2011) 11/09/12-11/13/12 HLD (hyperlipidemia) Hydronephrosis Hyperlipidemia associated with type 2 diabetes mellitus Iron deficiency Iron deficiency anemia Migraines (Unknown) MRSA (methicillin resistant staph aureus) culture positive Osteoporosis (Unknown) Pancreatic abnormality Pancreatic insufficiency after bariatric surgery, followed GI [facility] Panic attacks Peptic ulcer disease (Unknown) Substance abuse (~1983) alcohol--quit drinking 1983 Tobacco use disorder Nutrition Rx: Carbohydrates: Meal:30-45g Snack:15-30g Nutrition Diagnosis: - Predicted inadequate energy intake r/t concerns for bloat and intolerances aeb pt report and BMI 17.9 -Predicted inadequate fiber intake r/t fear of GI upset and reported low intake aeb pt report. Intervention: This participant was very receptive. Provided appropriate educational handouts. Discussed the following topics: Slow increase in fiber foods to avoid GI upset Benefits of fiber Encouraged more consistent intake and higher kcal foods Different types of fiber Protein foods MNT for IBS-c Created SMART goals for patient self-care and success. Goals: Slowly increase fiber at times in the day away from enzyme intake- continue Try small frequent meals/snacks - new Follow-up: YANIRA GALLARDO follow-up in 3-4 weeks Gaby Samson RDN, SAMI Certified Diabetes Care and String Studies Director P: [phone] Thank you for this referral
== END ==
PROVIDERS: PCP Nurse Practitioner; Referring Provider Nurse Practitioner
DX: E11.9 Type 2 diabetes mellitus without complications (principal); Z71.3 Dietary counseling and surveillance; Z79.84 Long term (current) use of oral hypoglycemic drugs
CPT/HCPCS: 97803

== ENCOUNTER → 2024-05-10 12:46 | Outpatient (CLI) | payer MEDICARE, OTHER, SELFPAY ==
[2024-04-20 15:27] VITALS: BMI 17.0
--- NOTE | 2024-05-10 12:47 | DI.US.S_ITS ---
PROCEDURE: US ABDOMEN LIMITED INDICATIONS: ELEVATED LFT's TECHNIQUE: Real-time focused scanning was performed of the abdomen, with image documentation. COMPARISON: [facility], US, ABDOMEN LIMITED, 03/10/2014, 9:18. FINDINGS: The liver is normal size measuring 12.1 cm. The parenchyma is mildly coarse and echogenic. No focal mass. Appropriate direction of flow in the portal vein. The gallbladder is normal without stones, sludge, wall thickening, or pericholecystic fluid. No intrahepatic biliary dilatation. The common duct is normal caliber at 5 mm. The pancreas is diminutive. No peripancreatic fluid. Incidental note is made of [id number] right hydronephrosis. IMPRESSION: Mildly coarse hyperechoic hepatic parenchyma suggests intrinsic liver disease or steatosis. Normal gallbladder and biliary tree caliber. [id number] right hydronephrosis. Correlate clinically. Dictated by: Debi Navarro M.D. on 05/10/2024 at 14:23 Approved by: Debi Navarro M.D. on 05/10/2024 at 14:27
== END ==
PROVIDERS: PCP Nurse Practitioner; Referring Provider Nurse Practitioner; Visit Provider Nurse Practitioner
DX: K76.0 Fatty (change of) liver, not elsewhere classified (principal); N13.30 Unspecified hydronephrosis; E87.1 Hypo-osmolality and hyponatremia; E78.5 Hyperlipidemia, unspecified; E11.9 Type 2 diabetes mellitus without complications; F41.1 Generalized anxiety disorder; F41.0 Panic disorder [episodic paroxysmal anxiety]; Z79.899 Other long term (current) drug therapy
CPT/HCPCS: 36415; 76705; 80053; 82043; 82570; 83036; 83540; 83550; 84439; 84443; 84481; 85025

== ENCOUNTER → 2024-05-10 13:28 | Outpatient (CLI) | payer MEDICARE, OTHER, SELFPAY ==
[2024-04-20 15:27] VITALS: BMI 17.0
[2024-05-10 14:59] LABS: Add Manual Diff / Slide Review NO; Basophils Absolute Auto 0 /uL (0-100); Basophils Percent Auto 0.4 % (0-2); Eosinophils Absolute Auto 300 /uL (0-450); Eosinophils Percent Auto 3.4 % (2-4); Hematocrit 35.8 % (36-46); Hemoglobin 11.9 g/dL (12.0-16.0); Lymphocytes Absolute Auto 1400 /uL (1100-4500); Mean Corpuscular HGB Conc 33.2 % (30-36); Mean Corpuscular Hemoglobin 29.7 PG (26-34); Mean Corpuscular Volume 89.5 fL (80-100); Monocytes Absolute Auto 800 /uL (0-900); Monocytes Percent Auto 9.3 % (3-14); Neutrophils Absolute Auto 5900 /uL (1500-7000); Neutrophils Percent Auto 69.9 % (50-75); Platelet Count 196 X10^3/uL (150-400); Red Cell Distribution Width 19.3 % (11.6-14.8); White Blood Cell Count 8.4 X10^3/uL (4.5-11.0)
[2024-05-10 15:13] LABS: Hemoglobin A1C% w Est Avg Glu 5.7 % (4.0-6.0)
[2024-05-10 15:20] LABS: HEMOLYSIS 22 (0-50); Iron 96 ug/dL (37-170)
[2024-05-10 15:22] LABS: Alanine Aminotransferase 28 IU/L (<35); Albumin 4.5 g/dL (3.5-5.0); Albumin Globulin Ratio 1.9 (1.0-2.8); Alkaline Phosphatase 98 U/L (38-126); BUN Creatinine Ratio 36.9 (6-22); Bilirubin Total 0.7 mg/dL (0.2-1.3); Blood Urea Nitrogen 24 mg/dL (7-17); Calcium 9.1 mg/dL (8.4-10.2); Carbon Dioxide 21 mmol/L (22-32); Chloride 99 mmol/L (98-107); Estimated Glomerular Filt Rate > 60 mL/min (>60); Globulin 2.4 g/dL (1.7-4.1); Glucose 109 mg/dL (80-110); Sodium 129 mmol/L (137-145); Total Protein 6.9 g/dL (6.3-8.2)
[2024-05-10 15:23] LABS: Aspartate Aminotransferase 42 IU/L (14-36); HEMOLYSIS 93 (0-50)
[2024-05-10 15:33] LABS: Creatinine Urine Random 29.22 mg/dL
[2024-05-10 15:33] LABS: Percent Iron Saturation 31 % (15-50); Total Iron Binding Capacity 310 ug/dL (265-497); Transferrin 268 mg/dL (206-381)
[2024-05-10 15:38] LABS: Free T3, Triiodothyronine Free 3.13 pg/mL (2.77-5.27)
[2024-05-10 15:41] LABS: Microalbumin Urine Random < 0.6 mg/dL (0-1.6)
[2024-05-10 15:52] LABS: Thyroid Stimulating Hormone 1.82 uIU/mL (0.47-4.68)
== END ==
PROVIDERS: PCP Nurse Practitioner; Referring Provider Nurse Practitioner; Visit Provider Nurse Practitioner
DX: E11.9 Type 2 diabetes mellitus without complications; K76.0 Fatty (change of) liver, not elsewhere classified; E87.1 Hypo-osmolality and hyponatremia; E78.5 Hyperlipidemia, unspecified; F41.1 Generalized anxiety disorder; F41.0 Panic disorder [episodic paroxysmal anxiety]; Z79.899 Other long term (current) drug therapy
CPT/HCPCS: 36415; 80053; 82043; 82570; 83036; 83540; 83550; 84439; 84443; 84481; 85025

== ENCOUNTER → 2024-05-15 09:48 | Outpatient (CLI) | payer MEDICARE, OTHER, SELFPAY ==
[2024-04-20 15:27] VITALS: BMI 17.0
--- NOTE | 2024-05-15 09:49 | DI.CT.S_ITS ---
PROCEDURE: CT KIDNEY URETER BLADDER (KUB) INDICATIONS: abnormal US period hydronephrosis on prior ultrasound. TECHNIQUE: Axial sections were acquired from the lung bases to the pubic symphysis. Coronal and sagittal reformats were performed. For radiation dose reduction, the following was used: automated exposure control, adjustment of mA and/or kV according to patient size. COMPARISON: [facility], US, US ABDOMEN LIMITED, 05/10/2024, 13:14. FINDINGS: Image quality: Diagnostic. Lower Chest: No significant findings. URINARY: Right Kidney: No stones period moderate hydronephrosis. Right Ureter: No hydroureter. Left Kidney: No stones or hydronephrosis. Left Ureter: No hydroureter. Bladder: Normal wall thickness. No stones. ABDOMEN: Liver: No contour-deforming solid mass. Gallbladder: No radiopaque gallstones or wall thickening. Biliary ducts: No biliary dilation. Pancreas: No ductal dilation. Spleen: Size is within normal limits. Adrenal Glands: No adrenal nodules. Stomach and Bowel: Normal colonic caliber, without significant wall thickening. Moderate colonic stool load. Normal appendix. Peritoneum: No abnormal intraperitoneal fluid. No free air. Ventral Wall: No hernia. Abdominal Nodes: No enlarged retroperitoneal or mesenteric lymph nodes. Vessels: Aorta and inferior vena cava are normal in size. PELVIS: Pelvic Organs: Unremarkable. Pelvic Nodes: Unremarkable. Miscellaneous: No inguinal hernias are seen. Bones: Left screw and jam fixation of the left hip. Degenerative disc disease of the lumbar spine. IMPRESSION: Moderate right-sided hydronephrosis, with a transition point at the UPJ. Differential includes stricture or less likely mass. Consider CT IVP or urology referral for direct visualization. Dictated by: Davian Suero M.D. on 05/15/2024 at 14:22 Approved by: Davian Suero M.D. on 05/15/2024 at 14:24
== END ==
LOC: CT 09:49
PROVIDERS: PCP Nurse Practitioner; Referring Provider Nurse Practitioner; Visit Provider Nurse Practitioner
DX: N13.30 Unspecified hydronephrosis (principal); R93.5 Abnormal findings on diagnostic imaging of other abdominal regions, including retroperitoneum
CPT/HCPCS: 74176

== ENCOUNTER → 2024-05-21 14:18 | Outpatient (CLI) | payer MEDICARE, OTHER, SELFPAY ==
[2024-04-20 15:27] VITALS: BMI 17.0
== END ==
PROVIDERS: PCP Nurse Practitioner; Visit Provider Nurse Practitioner Family
DX: R30.0 Dysuria (principal)
CPT/HCPCS: 87077; 87086; 87186

== ENCOUNTER → 2024-05-26 08:53 | Outpatient (CLI) | payer MEDICARE, OTHER, SELFPAY ==
[2024-04-20 15:27] VITALS: BMI 17.0
--- NOTE | 2024-06-16 14:20 | DIAB.FU ---
Follow-up Diabetes Education Assessment Name: Shirin Tuttle Date: 05/26/24 Time: 9-930p Dx: Type II Diabetes Shirin presents for DM follow-up. Reports slowly increasing fiber since last visit, though has low appetite. Nothing sounds good. Has eye exam scheduled in Jun or Jul 2024. Dental up to date. Feet: reports checking skin and toes crack. Uses moisturizer to keep skin healthy per report. Diet recall indicates 3-4 eating occurrences per day. Moderate to low CHO intake. Had US for fatty liver per report and states no change. HgA1c down and in goal. Denies any symptoms of low BG. Anthropometrics: Ht: 68 Wt: 118#-- BMI 17.9 Physical Activity: 10,000 steps q other night with step machine. Back exercises. Self-Monitoring Blood Glucose: None Diabetes Medications: 500mg Metformin ER Pertinent Labs: HgA1c: 6.3% 07/2023 6.6% 01/2024 5.7% 04/2024 Past Medical History: (Last Updated 05/13/24 @ 19:25 by MARY Hector) Acute GI bleeding Acute metabolic encephalopathy Asthma (Unknown) Benzodiazepine dependence Benzodiazepine dependence, continuous Cervical spine disease (Unknown) spinal stenosis Chronic anxiety Chronic constipation Chronic headaches Depression (Unknown) Diabetes type 2, controlled Generalized anxiety disorder Hepatic steatosis Herpes (~1992) History of alcohol use disorder History of bleeding peptic ulcer (2011) 11/09/12-11/13/12 HLD (hyperlipidemia) Hydronephrosis Hyperlipidemia associated with type 2 diabetes mellitus Iron deficiency Iron deficiency anemia Migraines (Unknown) MRSA (methicillin resistant staph aureus) culture positive Osteoporosis (Unknown) Pancreatic abnormality Pancreatic insufficiency after bariatric surgery, followed [facility] Panic attacks Peptic ulcer disease (Unknown) Substance abuse (~1983) alcohol--quit drinking 1983 Tobacco use disorder Intervention: This participant was very receptive. Provided appropriate educational handouts. Discussed the following topics: Diet changes Eating frequency Reducing Dm risks HgA1c changes and implications Review of SMART goals for patient self-care and success. Goals: Slowly increase fiber at times in the day away from enzyme intake- met Try small frequent meals/snacks - in progress Follow-up: YANIRA GALLARDO follow-up in 4-6 weeks. Encouraged further out f/u given labs and diet, but she would like to follow-up sooner. Will offer 2-3 month f/u next visit. Gaby Samson RDN, [facility] Certified Diabetes Care and Photocomposition Keyboard Operator P: [phone] Thank you for this referral
== END ==
PROVIDERS: PCP Nurse Practitioner; Referring Provider Nurse Practitioner
DX: E11.9 Type 2 diabetes mellitus without complications (principal); Z71.3 Dietary counseling and surveillance; Z79.84 Long term (current) use of oral hypoglycemic drugs
CPT/HCPCS: G0108

== ENCOUNTER 2024-05-30 09:57 | Day surgery (SDC) | payer MEDICARE, OTHER, SELFPAY ==
[2024-04-20 15:27] VITALS: BMI 17.0
--- NOTE | 2024-05-30 | PATH_ITS ---
[facility] Accession Number: [id number] No. of containers..02 Tissue . 01 Material submitted: . PART A: colon - RIGHT COLON POLYP PART B: rectosigmoid junction - RECTOSIGMOID POLYP . 01 Diagnosis: A. RIGHT COLON POLYP: Tubular adenoma. . B. RECTOSIGMOID COLON POLYP: Tubular adenoma. Additional step sections examined. MRV 06/02/2024 1446 Local . 01 Electronically signed: . Eloy Ashley MD, PhD, Pathologist NPI- [id number] . 01 Gross description: . Part A: RIGHT COLON POLYP: Received in formalin are 2 fragment(s) of mejia, soft tissue measuring 0.2 x 0.2 x 0.2 cm to 0.4 x 0.4 x 0.2 cm submitted entirely in 1 cassette(s) Part B: RECTOSIGMOID POLYP: Received in formalin is 1 fragment(s) of mejia, soft tissue measuring 0.5 x 0.4 x 0.3 cm submitted entirely in 1 cassette(s) /JONNY 05/31/2024 0115 Local . 01 Pathologist provided ICD-10: D12.6, D12.7 . 01 CPT . 906770, [id number] Specimen Comment: A courtesy copy of this report has been sent to [phone] Performed at: [address] [id number] MD Brant Hamilton MD Phone: [phone]
[2024-05-30 11:16] VITALS: BP 143/77; PULSE 69; RESP 13; TEMP 36.5; O2SAT 99
--- NOTE | 2024-05-30 11:26 | P.HP_ITS ---
History of Present Illness History of Present Illness Date Patient Seen: 05/30/24 Time Patient Seen: 11:26 Chief complaint: Screening Colonoscopy Narrative: 68-year-old female here for colonoscopy. She has a history of constipation. At her last colonoscopy, the prep was inadequate. She took a couple of extra doses of Trulance and a dose of Linzess that she had left over prior to initiating the bowel prep and believes that this helped generate an appropriate cleanout. She reminds me that historically she has had a ?kink? in her colon that has prohibited completion colonoscopy. [facility] Medical History Chronic anxiety Hydronephrosis Hyperlipidemia associated with type 2 diabetes mellitus Iron deficiency anemia Benzodiazepine dependence Pancreatic abnormality Hepatic steatosis History of alcohol use disorder Benzodiazepine dependence, continuous Chronic headaches Chronic constipation Acute metabolic encephalopathy Tobacco use disorder MRSA (methicillin resistant staph aureus) culture positive Panic attacks HLD (hyperlipidemia) Generalized anxiety disorder Iron deficiency Acute GI bleeding Pancreatic insufficiency Diabetes type 2, controlled Herpes (~1992) History of bleeding peptic ulcer (2011) Asthma (Unknown) Cervical spine disease (Unknown) Osteoporosis (Unknown) Migraines (Unknown) Depression (Unknown) Substance abuse (~1983) Peptic ulcer disease (Unknown) Surgical History Hx of gastric bypass (Unknown) History of open reduction and internal fixation (ORIF) procedure (01/2017) History of incision and drainage (02/2018) Family History Mother Pancreatic cancer Father Old age Son Alive and well Social History household members: spouse Smoking Status: Current every day smoker Tobacco: How many years used: 20 second hand exposure: No alcohol intake: former substance use type: does not use Meds Home Medications and Allergies Home Medications Medication Instructions Recorded Confirmed Type [place] 3 See Rx Instructions .Route .COMPLEX 08/02/18 05/30/24 History Reclast See Rx Instructions .Route .COMPLEX 08/02/18 05/21/24 History olopatadine 0.6 % nasal spray 2 spray intranasal BID #30.5 grams 03/16/19 05/30/24 Rx onabotulinumtoxinA 200 unit 200 unit IM ONCE #1 ea 05/24/19 05/21/24 Rx solution for injection (Botox) olopatadine 0.1 % eye drops 1 drop EYE-BOTH BID #5 mL 11/17/19 05/30/24 Rx Chiropractor 1 each topical .EVERY 2 WEEKS #24 11/18/19 05/21/24 Rx ea Massage Therapy 1 each topical .EVERY 2 WEEKS #24 11/18/19 05/21/24 Rx ea Home Nebulizer #1 ea 09/03/21 05/21/24 Rx montelukast 10 mg tablet 10 mg PO QDAY #90 tabs 06/23/23 05/30/24 Rx (Singulair) metformin 500 mg tablet,extended 500 mg PO QPM #90 tabs 06/24/23 05/30/24 Rx release 24hr (osmotic) acyclovir 400 mg tablet 400 mg PO DAILY 09/14/23 05/30/24 History gabapentin 300 mg capsule 300 mg PO BEDTIME #90 caps 11/12/23 05/30/24 Rx lactulose 20 gram/30 mL oral 20 g (30 mL) PO BID #3,000 mL 01/07/24 05/21/24 Rx solution vvirtf-zsreunuc-jxmonwf 2 cap PO BID 90 days #360 caps 01/07/24 05/30/24 Rx 6,000-19,000-30,000 unit capsule,delayed rel (Creon) bupropion HCl 300 mg 24 hr tablet, 300 mg PO QAM #90 tabs 01/12/24 05/30/24 Rx extended release gabapentin 100 mg capsule 100 mg PO DAILY #270 caps 01/22/24 05/30/24 Rx pantoprazole 40 mg tablet,delayed 40 mg PO BID #180 tabs 04/13/24 05/30/24 Rx release (Protonix) fluticasone furoate 50 1 inh inhalation DAILY COPD #30 ea 04/20/24 05/30/24 Rx mcg/actuation blister powder for inhalation (Arnuity Ellipta) clonazepam 2 mg tablet See Rx Instructions .Route 04/21/24 05/30/24 Rx .COMPLEX #30 tabs baclofen 20 mg tablet 30 mg (1.5 x 20 mg) PO 3XD #270 04/25/24 05/30/24 Rx tabs budesonide 0.5 mg/2 mL suspension 0.5 mg (2 mL) inhalation BID #60 mL 04/27/24 05/30/24 Rx for nebulization estradiol 0.01% (0.1 mg/gram) 0.5 g vaginal 2XW #42.5 grams 04/27/24 05/30/24 Rx vaginal cream (Estrace) buspirone 30 mg tablet 60 mg (2 x 30 mg) PO TID 90 days 05/11/24 05/30/24 Rx #540 tabs ferrous sulfate 300 mg (60 mg 150 mg (2.5 mL) PO DAILY #500 mL 05/11/24 05/30/24 Rx iron)/5 mL oral liquid hydrocodone 7.5 mg-acetaminophen 1 tab PO BID PRN pain #30 tabs 05/11/24 05/30/24 Rx 325 mg tablet misoprostol 200 mcg tablet 200 mcg PO BID #180 tabs 05/11/24 05/30/24 Rx (Cytotec) duloxetine 20 mg capsule,delayed 60 mg (3 x 20 mg) PO BID #540 caps 05/20/24 05/30/24 Rx release cefdinir 300 mg capsule 300 mg PO BID #14 caps 05/21/24 05/21/24 Rx Allergies Allergy/AdvReac Type Severity Reaction Status Date / Time fentanyl Allergy Severe Drug Verified 05/21/24 14:24 Sick/Can't take it. Adverse Reaction as well. Sulfa (Sulfonamide Allergy Severe ITCHING Verified 05/21/24 14:24 Antibiotics) [SULFA (SULFONAMIDE ANTIBIOTICS)] nitrofurantoin Allergy Intermediate ITCHING Verified 05/21/24 14:24 [From Macrobid] codeine [CODEINE] AdvReac Mild JITTERS Verified 05/21/24 14:24 morphine [MORPHINE] AdvReac Mild JITTERS Verified 05/21/24 14:24 Review of Systems Review of Systems ROS: Yes All systems reviewed with the patient and are negative except as otherwise documented Exam Const General: cooperative HENMT Head: normal to inspection Eyes General: appearance normal, both eyes and all related structures Neck Neck: normal visual inspection Chest Chest: normal inspection of the chest Resp Effort & Inspection: normal respiratory effort Cardio Rate: regular rate GI Inspection: normal to inspection Skin General: no rashes or lesions noted Neuro General: patient alert and patient awake Extrem General: normal to inspection and no pedal edema Psych Appearance: grossly normal Assessment & Plan Assessment & Plan narrative: 68-year-old female with chronic constipation. Colon cancer screening with colonoscopy is pursued today. Time-Based Coding :: [TOTAL MINUTES] spent with patient and on the chart (including review of chart, obtaining history, exam, reviewing outside data, placing orders, documenting exam and treatment plan, and counseling patient) on [DATE].
--- NOTE | 2024-05-30 11:31 | PM.PREOP ---
Pre-operative Note Interval Note History & Physical reviewed/Exam performed by Physician: Yes Changes to H&P: No ASA Class (for procedural sedation): III
--- NOTE | 2024-05-30 12:58 | PM.OP.COLON ---
Operative Date/Time/Diagnoses Date of procedure: 05/30/24 Time of procedure: 12:58 Pre-op diagnosis: Colon cancer screening Post-op diagnosis: same Procedure & Clinicians Study performed: Colonoscopy with hot and cold snare polypectomy Same procedure as scheduled: Yes Indications: Colon cancer screening Surgeon: Ambrose Matute Procedure Notes SCOAP/Timeout: Done Procedure in detail: After the risks and benefits were explained, written and verbal informed consent was obtained. The patient was brought into the procedure room and placed into the left lateral decubitus position. Please see anesthesia notes for sedation details. Digital rectal examination was accomplished. The scope was introduced into the patient and advanced under direct visualization to the cecum as identified by the appendiceal orifice and ileocecal valve. The scope was slowly withdrawn to carefully examine the mucosa for any defects or lesions. Comprehensive imaging was accomplished throughout the rectum including the dentate line. The colon was decompressed, the scope was then removed from the patient who tolerated the procedure well. Pediatric colonoscope Bowel prep adequate with copious irrigation and suction Scope withdrawal time: 12 minutes Sedation minutes: 25 Complications: none Impression: The patient had a moderately tortuous colon. There were a couple of extremely diminutive polyps in the cecum and ascending colon removed with cold snare. In the rectosigmoid region there was a sessile 5 mm polyp removed with hot snare. No other significant mucosal pathology appreciated throughout. The terminal ileum was interrogated and appeared visually normal. There was some residual green semi liquid stool debris left over but this was easily irrigated away and suctioned up for an acceptable exam. Endoscopic diagnosis 1. Small colon polyps 2. Tortuous colon Post-procedure Plan for aftercare: 1. Await histology 2. Continue bowel regimen 3. Timing of recommended repeat colonoscopy will be contingent on pathology results. Disposition: PACU
[2024-05-30 13:01] VITALS: BP 97/57; PULSE 64; RESP 16; TEMP 36.2; O2SAT 100
[2024-05-30 13:08] VITALS: BP 98/61; PULSE 63; RESP 17; O2SAT 100
[2024-05-30 13:11] VITALS: BP 116/67; PULSE 63; RESP 14; TEMP 36.2; O2SAT 97
[2024-05-30 13:21] VITALS: BP 124/69; PULSE 64; RESP 14; TEMP 36.3; O2SAT 97
[2024-05-30] MEDS: LACTATED RINGERS 1,000 ML 42 ML IV (13:23)
== END 2024-05-30 13:35 | disposition home or self-care (01) ==
PROVIDERS: PCP Nurse Practitioner; Referring Provider Internal Medicine Gastroenterology; Visit Provider Internal Medicine Gastroenterology
PROC: 0DJD8ZZ Inspection of Lower Intestinal Tract, Via Natural or Artificial Opening Endoscopic (ICD-10-PCS; CPT 45378; principal; 2024-05-30 11:30)
DX: Z12.11 Encounter for screening for malignant neoplasm of colon (principal); D12.2 Benign neoplasm of ascending colon; D12.7 Benign neoplasm of rectosigmoid junction
CPT/HCPCS: 45385; 87070; J2704

== ENCOUNTER → 2024-05-30 18:17 | Outpatient (CLI) | payer MEDICARE, OTHER, SELFPAY ==
[2024-04-20 15:27] VITALS: BMI 17.0
== END ==
PROVIDERS: PCP Nurse Practitioner; Visit Provider Student in an Organized Health Care Education/Training Program
DX: J02.9 Acute pharyngitis, unspecified (principal)
CPT/HCPCS: 87070

== ENCOUNTER → 2024-06-03 12:32 | Outpatient (CLI) | payer MEDICARE, OTHER, SELFPAY ==
[2024-04-20 15:27] VITALS: BMI 17.0
[2024-06-03 13:39] LABS: Add Manual Diff / Slide Review NO; Basophils Absolute Auto 0 /uL (0-100); Basophils Percent Auto 0.7 % (0-2); Eosinophils Absolute Auto 100 /uL (0-450); Eosinophils Percent Auto 2.7 % (2-4); Hematocrit 36.1 % (36-46); Lymphocytes Absolute Auto 1100 /uL (1100-4500); Lymphocytes Percent Auto 22.7 % (25-40); Mean Corpuscular HGB Conc 33.3 % (30-36); Mean Corpuscular Hemoglobin 30.2 PG (26-34); Mean Corpuscular Volume 90.6 fL (80-100); Monocytes Absolute Auto 500 /uL (0-900); Monocytes Percent Auto 10.2 % (3-14); Neutrophils Absolute Auto 3100 /uL (1500-7000); Neutrophils Percent Auto 63.7 % (50-75); Platelet Count 208 X10^3/uL (150-400); Red Blood Cell Count 3.98 X10^6/uL (4.0-5.2); Red Cell Distribution Width 17.9 % (11.6-14.8); White Blood Cell Count 4.9 X10^3/uL (4.5-11.0)
[2024-06-03 14:32] LABS: Hemoglobin A1C% w Est Avg Glu 6.2 % (4.0-6.0)
[2024-06-03 15:19] LABS: HEMOLYSIS < 15 (0-50); Iron 122 ug/dL (37-170)
[2024-06-03 15:21] LABS: Alanine Aminotransferase 55 IU/L (<35); Albumin 4.1 g/dL (3.5-5.0); Albumin Globulin Ratio 2.2 (1.0-2.8); Alkaline Phosphatase 99 U/L (38-126); Aspartate Aminotransferase 53 IU/L (14-36); BUN Creatinine Ratio 20.3 (6-22); Bilirubin Total 0.4 mg/dL (0.2-1.3); Blood Urea Nitrogen 13 mg/dL (7-17); Carbon Dioxide 27 mmol/L (22-32); Chloride 96 mmol/L (98-107); Cholesterol 174 mg/dL (140-199); Estimated Glomerular Filt Rate > 60 mL/min (>60); Globulin 1.9 g/dL (1.7-4.1); Glucose 104 mg/dL (80-110); HEMOLYSIS < 15 (0-50); Potassium 4.8 mmol/L (3.4-5.1); Sodium 126 mmol/L (137-145); Triglycerides 93 mg/dL (35-150)
[2024-06-03 15:31] LABS: Percent Iron Saturation 39 % (15-50); Total Iron Binding Capacity 309 ug/dL (265-497); Transferrin 264 mg/dL (206-381)
[2024-06-03 15:41] LABS: HDL Cholesterol 126 mg/dL (40-60); LDL Cholesterol Calculated 29 mg/dL (<100)
[2024-06-03 15:55] LABS: Ferritin 79 ng/mL (11-264)
[2024-06-03 16:09] LABS: Vitamin B12 > 1000 pg/mL (239-931)
[2024-06-03 16:54] LABS: Microalbumin Urine Random < 0.6 mg/dL (0-1.6)
== END ==
PROVIDERS: PCP Nurse Practitioner; Referring Provider Urology; Visit Provider Nurse Practitioner
DX: D50.9 Iron deficiency anemia, unspecified (principal); E11.9 Type 2 diabetes mellitus without complications; K76.0 Fatty (change of) liver, not elsewhere classified; E87.1 Hypo-osmolality and hyponatremia; E11.69 Type 2 diabetes mellitus with other specified complication; E78.5 Hyperlipidemia, unspecified
CPT/HCPCS: 36415; 80053; 80061; 82043; 82570; 82607; 82728; 83036; 83540; 83550; 85025

== ENCOUNTER → 2024-06-14 11:54 | Outpatient (CLI) | payer MEDICARE, OTHER, SELFPAY ==
[2024-04-20 15:27] VITALS: BMI 17.0
--- NOTE | 2024-06-14 11:56 | DI.CT.S_ITS ---
PROCEDURE: CT IVP A/P W/WO INDICATIONS: Right hydronephrosis TECHNIQUE: Optional 5 mm thick noncontrast images acquired from the diaphragm to the symphysis pubis. After the administration of intravenous contrast, 5 mm thick images acquired from the diaphragm to the symphysis pubis after a 10-minute delay. 2 mm thick coronal and sagittal reformats were then performed of the kidneys and ureters. For radiation dose reduction, the following was used: automated exposure control, adjustment of mA and/or kV according to patient size. COMPARISON: [facility], CT, CT KIDNEY URETER BLADDER (KUB), 05/15/2024, 9:57. FINDINGS: Image quality: Portions of the lower pelvis are suboptimally evaluated secondary to metallic streak artifact from hip arthroplasty. Kidneys and Ureters: Left kidney demonstrates mild prominence of the extrarenal pelvis and minimal prominence of the renal collecting system.. Significant hydronephrosis persists on the right with prominent extrarenal pelvis. No filling defects. No perinephric fat stranding. There is normal bilateral renal enhancement. Renal calyces appear normal in morphology when filled with contrast. Opacified portions of both ureters demonstrate normal caliber Bladder: Bladder wall thickness is normal. No calcified bladder stones. OTHER: Lower chest: Unremarkable. Liver: No solid mass. Gallbladder: No radiopaque gallstones or wall thickening. Biliary ducts: No biliary dilation. Pancreas: No ductal dilation. Spleen: Size is within normal limits. Adrenal Glands: No adrenal nodules. Stomach and Bowel: Normal colonic caliber, without significant wall thickening. Significant colonic stool. Peritoneum: No abnormal intraperitoneal fluid. No free air. Ventral Wall: No hernia. Abdominal Nodes: No retroperitoneal or mesenteric adenopathy by size criteria. Vessels: Aorta and inferior vena cava are normal in size. PELVIS: Pelvic Organs: Unremarkable. Pelvic Nodes: No enlarged lymph nodes. Miscellaneous: No inguinal hernias are seen. Bones: No aggressive osseous abnormality. IMPRESSION: Persistent appearance of moderate right hydronephrosis and prominent extrarenal pelvis without ureteral dilation. Finding is suspicious for UPJ obstruction. Prominent extrarenal pelvis is also noted on the left with very minimal prominence of the collecting system, similar. Dictated by: Odalis Damon M.D. on 06/14/2024 at 12:57 Approved by: Odalis Damon M.D. on 06/14/2024 at 13:17
== END ==
PROVIDERS: PCP Nurse Practitioner; Referring Provider Urology; Visit Provider Urology
DX: N13.30 Unspecified hydronephrosis (principal)
CPT/HCPCS: 74178; Q9967

== ENCOUNTER → 2024-07-06 11:00 | Outpatient (CLI) | payer MEDICARE, OTHER, SELFPAY ==
[2024-04-20 15:27] VITALS: BMI 17.0
--- NOTE | 2024-07-06 11:05 | DIAB.FU ---
Follow-up Diabetes Education Assessment Name: Shirin Tuttle Date: 07/06/24 Time: 1105-1150a Dx: Type II Diabetes Shirin presents for DM follow-up. Worried about her kidney and liver health. States she is worried about her DM, however last two hgA1c were under 6.5%. Not checking BG but worries that she is always tired after eating. States she does not know if she is having highs or lows at that time. Worries she may not be getting enough food. Open to CGM sample. Having small freq meals. Reduced water intake due to hydronephrosis. Reports some shaking when waking. Reports fatigue and shaking at times after meals. Unclear if she is having lows or not. She does not check her BG and is not wanting to start finger sticks. Anthropometrics: Ht: 68 Wt: 118#-- BMI 17.9 Physical Activity: 10,000 steps q other night with step machine. Back exercises. Self-Monitoring Blood Glucose: None. Placed CGM sample today x 10days. Diabetes Medications: 500mg Metformin ER Pertinent Labs: HgA1c: 6.3% 07/2023 6.6% 01/2024 5.7% 04/2024 6.2% 05/2024 Past Medical History: (Last Updated 05/13/24 @ 19:25 by MARY Hector) Acute GI bleeding Acute metabolic encephalopathy Asthma (Unknown) Benzodiazepine dependence Benzodiazepine dependence, continuous Cervical spine disease (Unknown) spinal stenosis Chronic anxiety Chronic constipation Chronic headaches Depression (Unknown) Diabetes type 2, controlled Generalized anxiety disorder Hepatic steatosis Herpes (~1992) History of alcohol use disorder History of bleeding peptic ulcer (2011) 11/09/12-11/13/12 HLD (hyperlipidemia) Hydronephrosis Hyperlipidemia associated with type 2 diabetes mellitus Iron deficiency Iron deficiency anemia Migraines (Unknown) MRSA (methicillin resistant staph aureus) culture positive Osteoporosis (Unknown) Pancreatic abnormality Pancreatic insufficiency after bariatric surgery, followed [facility] Panic attacks Peptic ulcer disease (Unknown) Substance abuse (~1983) alcohol--quit drinking 1983 Tobacco use disorder Intervention: This participant was very receptive. Provided appropriate educational handouts. Discussed the following topics: s/s of low BG HgA1c measurement and goal CGM Sample Reviewed CGM use and equipment Discussed when to check blood sugars using finger stick Reviewed high and low blood sugar signs/symptoms and treatment options Provided education for self-administration of CGM placement Educated patient on alarm settings Discussed when to replace equipment and disposal Review of SMART goals for patient self-care and success. Goals: Try small frequent meals/snacks - met Wear CGM x 10 days - new Follow-up: YANIRA GALLARDO follow-up in 4 weeks. Gaby Samson RDN, [facility] Certified Diabetes Care and Forestry Aide P: [phone] Thank you for this referral
== END ==
PROVIDERS: PCP Nurse Practitioner; Referring Provider Nurse Practitioner
DX: E11.9 Type 2 diabetes mellitus without complications (principal); N13.30 Unspecified hydronephrosis; Z79.84 Long term (current) use of oral hypoglycemic drugs; Z71.3 Dietary counseling and surveillance
CPT/HCPCS: G0108

== ENCOUNTER → 2024-07-12 14:17 | Outpatient (CLI) | payer MEDICARE, OTHER, SELFPAY ==
[2024-04-20 15:27] VITALS: BMI 17.0
[2024-07-12 18:04] LABS: Sodium Urine Random 59 mmol/L (30-90)
== END ==
PROVIDERS: PCP Nurse Practitioner; Referring Provider Student in an Organized Health Care Education/Training Program; Visit Provider Student in an Organized Health Care Education/Training Program
DX: E87.1 Hypo-osmolality and hyponatremia (principal); E03.9 Hypothyroidism, unspecified
CPT/HCPCS: 83935; 84300

== ENCOUNTER → 2024-07-13 09:25 | Outpatient (CLI) | payer MEDICARE, OTHER, SELFPAY ==
[2024-04-20 15:27] VITALS: BMI 17.0
[2024-07-13 10:41] LABS: Alanine Aminotransferase 39 IU/L (<35); Albumin 4.6 g/dL (3.5-5.0); Albumin Globulin Ratio 1.9 (1.0-2.8); Alkaline Phosphatase 116 U/L (38-126); Aspartate Aminotransferase 47 IU/L (14-36); BUN Creatinine Ratio 17.6 (6-22); Bilirubin Total 0.7 mg/dL (0.2-1.3); Blood Urea Nitrogen 12 mg/dL (7-17); Calcium 9.3 mg/dL (8.4-10.2); Carbon Dioxide 25 mmol/L (22-32); Chloride 97 mmol/L (98-107); Estimated Glomerular Filt Rate > 60 mL/min (>60); Globulin 2.4 g/dL (1.7-4.1); Glucose 167 mg/dL (80-110); HEMOLYSIS < 15 (0-50); Potassium 4.4 mmol/L (3.4-5.1); Sodium 131 mmol/L (137-145)
[2024-07-13 11:12] LABS: Cortisol AM (Before 10AM) 14.2 ug/dL (4.46-22.7)
[2024-07-13 11:15] LABS: Thyroid Stimulating Hormone 1.59 uIU/mL (0.47-4.68)
[2024-07-13 11:41] LABS: Influenza A - CEPHEID Flu A NEGATIVE (NEGATIVE); Influenza B - CEPHEID Flu B NEGATIVE (NEGATIVE); Respiratory Syncytial Virus Negative (Negative)
[2024-07-13 11:42] LABS: COVID-19 CEPHEID 4-PLEX PCR Negative (Negative)
[2024-07-14 13:10] LABS: Osmolality, Serum 282 mOsmol/kg (280-301)
== END ==
PROVIDERS: Nurse Practitioner Family; PCP Nurse Practitioner; Referring Provider Student in an Organized Health Care Education/Training Program; Visit Provider Student in an Organized Health Care Education/Training Program
DX: E78.1 Pure hyperglyceridemia (principal); E03.9 Hypothyroidism, unspecified; E87.1 Hypo-osmolality and hyponatremia; N13.39 Other hydronephrosis; R05.1 Acute cough
CPT/HCPCS: 0241U; 36415; 80053; 82533; 83930; 84443; 87070

== ENCOUNTER → 2024-08-05 11:02 | Outpatient (CLI) | payer MEDICARE, OTHER, SELFPAY ==
[2024-04-20 15:27] VITALS: BMI 17.0
--- NOTE | 2024-08-24 12:09 | DIAB.MNTFU ---
Follow-up Diabetes Medical Nutrition Therapy Assessment Name: Shirin Tuttle Date: 08/05/24 Time: 1110-1150a Dx: Type II Diabetes Shirin presents for DM follow-up. Wore CGM and results indicate hypoglycemic events under 55mg/dl (see SMBG below). Endorses hypo symptoms including shakiness, hunger, and nausea. Treats with yogurt or cereal. Has had to restrict driving during episodes of lows. States sometimes lows occur when eating mostly protein and low CHO. States she has been trying to eat more small/freq meals. Has questions today about nutrition for liver health. Anthropometrics: Ht: 68 Wt: 118#-- BMI 17.9 Physical Activity: 10,000 steps q other night with step machine. Back exercises. Self-Monitoring Blood Glucose: Patterns indicate 5 occasions of low BG under 55 mg/dl while wearing 10 day sensor. 07/14/24 at 1052p: 44mg/dl 07/11/24 at 1022p: 54mg/dl 07/09/24 at 12p: 52mg/dl 07/07/24 at 852p: 51mg/dl TIR: 1% very high 8% high 88% in range 3% low <1% very low Av mg/dl GMI: 6.3% Variation: 29.1% Diabetes Medications: 500mg Metformin ER Pertinent Labs: HgA1c: 6.3% 07/2023 6.6% 01/2024 5.7% 04/2024 6.2% 05/2024 Past Medical History: (Last Updated 05/13/24 @ 19:25 by MARY Hector) Acute GI bleeding Acute metabolic encephalopathy Asthma (Unknown) Benzodiazepine dependence Benzodiazepine dependence, continuous Cervical spine disease (Unknown) spinal stenosis Chronic anxiety Chronic constipation Chronic headaches Depression (Unknown) Diabetes type 2, controlled Generalized anxiety disorder Hepatic steatosis Herpes (~1992) History of alcohol use disorder History of bleeding peptic ulcer (2011) 11/09/12-11/13/12 HLD (hyperlipidemia) Hydronephrosis Hyperlipidemia associated with type 2 diabetes mellitus Iron deficiency Iron deficiency anemia Migraines (Unknown) MRSA (methicillin resistant staph aureus) culture positive Osteoporosis (Unknown) Pancreatic abnormality Pancreatic insufficiency after bariatric surgery, followed [facility] Panic attacks Peptic ulcer disease (Unknown) Substance abuse (~1983) alcohol--quit drinking 1983 Tobacco use disorder Intervention: This participant was very receptive. Provided appropriate educational handouts. Discussed the following topics: s/s of low BG Treatment of lows CHO/pro paring CGM options in Rx or OTC form Liver MNT Review of SMART goals for patient self-care and success. Goals: Wear CGM x 10 days - met Continue small/freq meals Pair CHO and protein Keep food journal with BG checks/CGM sample 2 Follow-up: YANIRA GALLARDO follow-up in 2-3 weeks Gaby Samson RDN, [facility] Certified Diabetes Care and Inbound Call Center Agent P: [phone] Thank you for this referral
== END ==
PROVIDERS: PCP Nurse Practitioner; Referring Provider Nurse Practitioner
DX: E11.9 Type 2 diabetes mellitus without complications (principal); Z71.3 Dietary counseling and surveillance; Z68.1 Body mass index [BMI] 19.9 or less, adult; Z79.84 Long term (current) use of oral hypoglycemic drugs
CPT/HCPCS: G0270

== ENCOUNTER → 2024-08-06 09:04 | Outpatient (CLI) | payer MEDICARE, OTHER, SELFPAY ==
[2024-04-20 15:27] VITALS: BMI 17.0
[2024-08-06 10:49] LABS: Influenza A - CEPHEID Flu A NEGATIVE (NEGATIVE); Influenza B - CEPHEID Flu B NEGATIVE (NEGATIVE); Respiratory Syncytial Virus Negative (Negative)
[2024-08-06 10:52] LABS: COVID-19 CEPHEID 4-PLEX PCR Negative (Negative)
== END ==
PROVIDERS: PCP Nurse Practitioner; Visit Provider Physician Assistant Surgical
DX: R30.0 Dysuria (principal)
CPT/HCPCS: 0241U; 87086

== ENCOUNTER → 2024-08-24 10:49 | Outpatient (CLI) | payer MEDICARE, OTHER, SELFPAY ==
[2024-04-20 15:27] VITALS: BMI 17.0
--- NOTE | 2024-08-24 12:20 | DIAB.MNTFU ---
Follow-up Diabetes Medical Nutrition Therapy Assessment Name: Shirin Tuttle Date: 08/24/24 Time: 119 Dx: Type II Diabetes Shirin presents for DM follow-up. Wore CGM and results indicate continued hypoglycemic events under 55mg/dl (see SMBG below). Endorses hypo symptoms including shakiness, hunger, and nausea. Endorses small frequent meals. Pairing CHO and protein at meals/snacks. Some high CHO intake seems apparent, ie sugar cereal with yogurt, more recently having soda. CGM indicates her body's overcorrecting lows after elevations does occur at times. Endorses constipation and IBS-c. Diet generally very low in fiber, which she states is intentional due to taking pancreatic enzyme and GI upset with fiber foods. Anthropometrics: Ht: 68 Wt: 118#-- BMI 17.9 Physical Activity: 10,000 steps q other night with step machine. Back exercises. Self-Monitoring Blood Glucose: Patterns indicate 3 occasions of low BG under 55 mg/dl while wearing 10 day sensor this visit. At least 7 readings <55mg/dl over the last month captured. Recent lows <55mg/dl 08/11/24 at 230a: 52mg/dl 08/09/24 at 255p: 50mg/dl 08/06/24 at 349p: 53mg/dl Today's Visit TIR: 1% very high 7% high 90% in range 2% low <1% very low Av mg/dl GMI: NA% Variation: 30.5% Last Visit lows <55mg/dl 07/14/24 at 1052p: 44mg/dl 07/11/24 at 1022p: 54mg/dl 07/09/24 at 12p: 52mg/dl 07/07/24 at 852p: 51mg/dl Last Visit TIR: 1% very high 8% high 88% in range 3% low <1% very low Av mg/dl GMI: 6.3% Variation: 29.1% Diabetes Medications: 500mg Metformin ER Pertinent Labs: HgA1c: 6.3% 07/2023 6.6% 01/2024 5.7% 04/2024 6.2% 05/2024 Past Medical History: (Last Updated 05/13/24 @ 19:25 by Sari Brown, [employer] CLERK) Acute GI bleeding Acute metabolic encephalopathy Asthma (Unknown) Benzodiazepine dependence Benzodiazepine dependence, continuous Cervical spine disease (Unknown) spinal stenosis Chronic anxiety Chronic constipation Chronic headaches Depression (Unknown) Diabetes type 2, controlled Generalized anxiety disorder Hepatic steatosis Herpes (~1992) History of alcohol use disorder History of bleeding peptic ulcer (2011) 11/09/12-11/13/12 HLD (hyperlipidemia) Hydronephrosis Hyperlipidemia associated with type 2 diabetes mellitus Iron deficiency Iron deficiency anemia Migraines (Unknown) MRSA (methicillin resistant staph aureus) culture positive Osteoporosis (Unknown) Pancreatic abnormality Pancreatic insufficiency after bariatric surgery, followed [facility] Panic attacks Peptic ulcer disease (Unknown) Substance abuse (~1983) alcohol--quit drinking 1983 Tobacco use disorder Intervention: This participant was very receptive. Provided appropriate educational handouts. Discussed the following topics: BG trends and review Fiber v pancreatic enzyme use Fiber role in BM BG changes with hyperglycemia and hypo rxn Review of SMART goals for patient self-care and success. Goals: Continue small/freq meals- met Pair CHO and protein- met Keep food journal with BG checks/CGM sample 2- met but not brought today Cut out soda- new Follow-up: YANIRA GALLARDO follow-up after personal CGm received. Gaby Samson RDN, [facility] Certified Diabetes Care and Assistant Chief Nursing Officer P: [phone] Thank you for this referral
== END ==
PROVIDERS: PCP Family Medicine; Referring Provider Nurse Practitioner
DX: E11.649 Type 2 diabetes mellitus with hypoglycemia without coma (principal); Z79.84 Long term (current) use of oral hypoglycemic drugs; Z71.3 Dietary counseling and surveillance
CPT/HCPCS: 97803

== ENCOUNTER → 2024-10-08 18:35 | Outpatient (CLI) | payer MEDICARE, OTHER, SELFPAY ==
[2024-04-20 15:27] VITALS: BMI 17.0
[2024-10-08 19:18] LABS: Influenza A - CEPHEID Flu A NEGATIVE (NEGATIVE); Influenza B - CEPHEID Flu B NEGATIVE (NEGATIVE); Respiratory Syncytial Virus Negative (Negative)
[2024-10-08 19:21] LABS: COVID-19 CEPHEID 4-PLEX PCR Negative (Negative)
== END ==
PROVIDERS: PCP Family Medicine; Visit Provider Nurse Practitioner Family
DX: R05.1 Acute cough (principal)
CPT/HCPCS: 0241U

== ENCOUNTER → 2024-10-25 10:14 | Outpatient (CLI) | payer MEDICARE, OTHER, SELFPAY ==
[2024-04-20 15:27] VITALS: BMI 17.0
--- NOTE | 2024-10-25 10:20 | DI.RAD.S_ITS ---
PROCEDURE: XR ABDOMEN MIN 2V INDICATIONS: ABD PAIN TECHNIQUE: 2 views of the abdomen were acquired. COMPARISON: None. FINDINGS: Surgical changes and devices: Surgical clips in the GE junction region. Anastomotic staple line in the left mid abdomen. Anastomosis present in the right upper quadrant. Left hip pinning. Bowel: No pneumoperitoneum. Increased quantity of solid stool in the colon. No dilated air-filled small bowel loops. Soft tissues: No masses; visualized solid organ contours appear normal in size. No suspicious abdominal calcifications. Bones: No suspicious bony abnormalities. IMPRESSION: Nonobstructive bowel gas pattern. Probable colonic obstipation. Dictated by: Debi Navarro M.D. on 10/25/2024 at 17:45 Approved by: Debi Navarro M.D. on 10/25/2024 at 17:46
--- NOTE | 2024-10-25 10:20 | DI.RAD.S_ITS ---
PROCEDURE: XR CHEST 2V INDICATIONS: Cough TECHNIQUE: 2 views of the chest were acquired. COMPARISON: [facility], CR, XR CHEST 1V, 03/28/2023, 12:02. FINDINGS: Surgical changes and devices: Surgical changes below the diaphragm. Lungs and pleura: Multifocal small alveolar patches in the left mid upper lung. Findings superimposed on pulmonary hyperinflation. Probable trace left pleural effusion, chronic. No pneumothorax. Mediastinum: Slightly prominent left suprahilar structures. Otherwise normal cardiomediastinal contour. Bones and chest wall: No suspicious bony abnormalities. Soft tissues appear unremarkable. IMPRESSION: Patchy opacities in the left mid lung. Although these are most likely infectious, underlying malignancy cannot be excluded. Chest x-ray at the completion of treatment is recommended. Possible left hilar adenopathy. Probable underlying COPD. Dictated by: Debi Navarro M.D. on 10/25/2024 at 17:46 Approved by: Debi Navarro M.D. on 10/25/2024 at 17:48
[2024-10-25 12:13] LABS: Alanine Aminotransferase 28 IU/L (<35); Albumin 3.7 g/dL (3.5-5.0); Albumin Globulin Ratio 1.4 (1.0-2.8); Alkaline Phosphatase 152 U/L (38-126); Aspartate Aminotransferase 28 IU/L (14-36); BUN Creatinine Ratio 34.3 (6-22); Bilirubin Total 0.4 mg/dL (0.2-1.3); Blood Urea Nitrogen 23 mg/dL (7-17); Carbon Dioxide 29 mmol/L (22-32); Chloride 97 mmol/L (98-107); Estimated Glomerular Filt Rate > 60 mL/min (>60); Globulin 2.6 g/dL (1.7-4.1); Glucose 94 mg/dL (80-110); HEMOLYSIS < 15 (0-50); Sodium 129 mmol/L (137-145); Total Protein 6.3 g/dL (6.3-8.2)
== END ==
PROVIDERS: PCP Family Medicine; Referring Provider Internal Medicine Gastroenterology; Visit Provider Internal Medicine Gastroenterology
DX: K59.00 Constipation, unspecified (principal); R14.0 Abdominal distension (gaseous); R19.8 Other specified symptoms and signs involving the digestive system and abdomen; R05.9 Cough, unspecified; M81.0 Age-related osteoporosis without current pathological fracture; Z98.0 Intestinal bypass and anastomosis status; Z79.899 Other long term (current) drug therapy
CPT/HCPCS: 36415; 71046; 74019; 80053

== ENCOUNTER 2024-11-11 16:07 | Emergency (ER) | payer MEDICARE, OTHER, SELFPAY ==
[2024-04-20 15:27] VITALS: BMI 17.0
[2024-11-11] VITALS (12 sets, daily range): BP systolic 150–186; BP diastolic 78–90; PULSE 83–97; RESP 16–24; TEMP 36.5; O2SAT 92–100; BMI 19.1
--- NOTE | 2024-11-11 16:16 | DI.RAD.S_ITS ---
PROCEDURE: XR CHEST 1V INDICATIONS: Shortness of breath TECHNIQUE: One view of the chest was acquired. COMPARISON: [facility], CT, CT IVP A/P W/WO, 06/14/2024, 12:00. [facility], CR, XR CHEST 2V, 10/25/2024, 10:26. [facility], CR, XR CHEST 1V, 03/28/2023, 12:02. [facility], CR, CHEST 1 VIEW, 01/19/2018, 17:25. [facility], CR, CHEST 2 VIEW, 11/30/2014, 16:28. FINDINGS: Surgical changes and devices: Epigastric region surgical clips. Lungs and pleura: Hyperinflation with diffuse reticulation. No focal lung consolidation. Nipple shadows projecting over the lower lobes. No pleural effusions or pneumothorax. Mediastinum: Mediastinal contours appear normal. Heart size is normal. Bones and chest wall: No suspicious bony lesions. Overlying soft tissues appear unremarkable. IMPRESSION: Emphysema. Otherwise, no acute cardiothoracic process. Dictated by: Dustin Villarreal M.D. on 11/11/2024 at 16:37 Approved by: Dustin Villarreal M.D. on 11/11/2024 at 16:38
[2024-11-11] MEDS: ALBUTEROL/IPRATROPIUM 3 ML AMPUL INH (17:35)
--- NOTE | 2024-11-11 17:53 | EKG_ITS ---
[address] [address] Test Date: 2024-11-11 Pat Name: Shirin Tuttle Department: [facility] Room: Gender: Female [employer]: WOLFGANG : 1955 Requested By: Order Number: [id number] Reading MD: Laureano Schaefer Measurements Intervals [place] Rate: 91 P: 83 MO: 148 QRS: 42 QRSD: 98 T: 66 QT: 352 QTc: 432 Interpretive Statements Normal sinus rhythm Biatrial enlargement Incomplete right bundle branch block T wave abnormality, consider anterior ischemia Electronically Signed On 11-17-2024 9:06:02 PST by Laureano Schaefer
[2024-11-11 17:55] LABS: Add Manual Diff / Slide Review NO; Basophils Absolute Auto 0 /uL (0-100); Basophils Percent Auto 0.3 % (0-2); Eosinophils Absolute Auto 0 /uL (0-450); Eosinophils Percent Auto 0.1 % (2-4); Hematocrit 38.1 % (36-46); Hemoglobin 12.7 g/dL (12.0-16.0); Lymphocytes Absolute Auto 700 /uL (1100-4500); Lymphocytes Percent Auto 5.9 % (25-40); Mean Corpuscular HGB Conc 33.3 % (30-36); Mean Corpuscular Hemoglobin 30.3 PG (26-34); Monocytes Absolute Auto 700 /uL (0-900); Monocytes Percent Auto 5.6 % (3-14); Neutrophils Absolute Auto 10400 /uL (1500-7000); Neutrophils Percent Auto 88.1 % (50-75); Platelet Count 257 X10^3/uL (150-400); Red Blood Cell Count 4.19 X10^6/uL (4.0-5.2); Red Cell Distribution Width 13.7 % (11.6-14.8); White Blood Cell Count 11.8 X10^3/uL (4.5-11.0)
[2024-11-11 18:02] LABS: INR 1.1 (0.9-1.3)
[2024-11-11 18:06] LABS: Lactate (Lactic Acid) 1.6 mmol/L (0.7-2.1)
[2024-11-11 18:08] LABS: Alanine Aminotransferase 25 IU/L (<35); Albumin 4.4 g/dL (3.5-5.0); Albumin Globulin Ratio 1.5 (1.0-2.8); BUN Creatinine Ratio 23.3 (6-22); Bilirubin Total 0.6 mg/dL (0.2-1.3); Blood Urea Nitrogen 14 mg/dL (7-17); Calcium 9.8 mg/dL (8.4-10.2); Carbon Dioxide 26 mmol/L (22-32); Chloride 96 mmol/L (98-107); Estimated Glomerular Filt Rate > 60 mL/min (>60); Globulin 2.9 g/dL (1.7-4.1); Glucose 158 mg/dL (80-110); Sodium 130 mmol/L (137-145); Total Protein 7.3 g/dL (6.3-8.2)
[2024-11-11 18:16] LABS: Aspartate Aminotransferase 38 IU/L (14-36); HEMOLYSIS 62 (0-50); Potassium 4.6 mmol/L (3.4-5.1)
[2024-11-11 18:17] LABS: Alkaline Phosphatase 158 U/L (38-126)
[2024-11-11 18:20] LABS: NT-proBNP (BNP-Adult 18+) 320 pg/mL (<125); Troponin I < 0.012 ng/mL (0.01-0.034)
[2024-11-11 19:30] LABS: Adenovirus Not Detected (Not Detect); B. parapertussis Not Detected (Not Detecte); Bordetella pertussis Not Detected (Not Detect); Chlamydophila pneumoniae Not Detected (Not Detect); Coronavirus 229E Not Detected (Not Detect); Coronavirus HKU1 Not Detected (Not Detect); Coronavirus NL 63 Not Detected (Not Detect); Coronavirus OC43 Not Detected (Not Detect); Human Metapneumovirus Not Detected (Not Detect); Human Rhinovirus/Enterovirus Not Detected (Not Detect); Influenza A Not Detected (Not Detect); Influenza B Not Detected (Not Detect); Mycoplasma pneumoniae Not Detected (Not Detect); Parainfluenza Virus 1 Not Detected (Not Detect); Parainfluenza Virus 2 Not Detected (Not Detect); Parainfluenza Virus 3 Not Detected (Not Detect); Parainfluenza Virus 4 Not Detected (Not Detect); Respiratory Syncytial Virus Not Detected (Not Detect); SARS- CoV-2 Not Detected (Not Detecte)
--- NOTE | 2024-11-11 20:17 | ED.GENADULT ---
HPI - General Adult General Chief complaint: Shortness of Breath/Dyspnea Stated complaint: pneumonia can't breathe Time Seen by Provider: 11/11/24 17:58 Source: patient Mode of arrival: Ambulatory History of Present Illness HPI narrative: 69-year-old female. Here for evaluation of prior diagnosis of pneumonia that seems to not be improving despite antibiotics and shortness of breath. No fevers. Does not have a productive cough. No history of COPD/emphysema/asthma although she does have a prescription for inhalers and nebulizers. Over the past several weeks she was completed a course of azithromycin and amoxicillin. She was also completed a course of Levaquin. She reports still having dyspnea on exertion. No lower extremity swelling. No chest pain. Related Data Home Medications Medication Instructions Recorded Confirmed Dowling 3 See Rx Instructions .Route .COMPLEX 08/02/18 11/07/24 plecanatide 3 mg tablet (Trulance) 3 mg PO DAILY ABS-C 07/13/24 11/07/24 amitriptyline 100 mg tablet 100 mg PO DAILY 09/02/24 11/07/24 Previous Rx's Medication Instructions Recorded olopatadine 0.6 % nasal spray 2 spray intranasal BID #30.5 grams 03/16/19 olopatadine 0.1 % eye drops 1 drop EYE-BOTH BID #5 mL 11/17/19 Home Nebulizer #1 ea 09/03/21 lsazfh-[id number] 2 cap PO BID 90 days #360 caps 01/07/24 6,000-19,000-30,000 unit capsule,delayed rel (Creon) budesonide 0.5 mg/2 mL suspension 0.5 mg (2 mL) inhalation BID #60 mL 04/27/24 for nebulization misoprostol 200 mcg tablet 200 mcg PO BID #180 tabs 05/11/24 (Cytotec) CMP Estradiol 0.0125% cream See Rx Instructions .Route 06/16/24 .COMPLEX #30 grams pantoprazole 40 mg tablet,delayed 40 mg PO BID #180 tabs 07/01/24 release (Protonix) duloxetine 20 mg capsule,delayed 60 mg (3 x 20 mg) PO BID #540 caps 07/21/24 release gabapentin 100 mg capsule 100 mg PO DAILY #270 caps 07/21/24 gabapentin 300 mg capsule 300 mg PO BEDTIME #90 caps 09/05/24 hydrocodone 7.5 mg-acetaminophen 0.25 tab PO BID PRN pain #30 tabs 07/21/24 325 mg tablet blood-glucose meter,continuous #1 ea 08/22/24 (Dexcom G7 Cartography Technician) blood-glucose sensor (Dexcom G7 #4 ea 08/22/24 Sensor device) ondansetron HCl 8 mg tablet 8 mg PO Q8H PRN nausea/vomiting 08/23/24 #30 tabs montelukast 10 mg tablet 10 mg PO QDAY #90 tabs 09/06/24 (Singulair) metformin 500 mg tablet,extended 500 mg PO QPM #90 tabs 09/15/24 release 24hr (osmotic) buspirone 30 mg tablet 30 mg PO BID 90 days #180 tabs 09/28/24 bupropion HCl 300 mg 24 hr tablet, 300 mg PO QAM #90 tabs 09/29/24 extended release baclofen 20 mg tablet 30 mg (1.5 x 20 mg) PO 3XD #270 10/11/24 tabs acyclovir 400 mg tablet 400 mg PO DAILY #90 tabs 10/25/24 ipratropium 20 mcg-albuterol 100 1 puff inhalation QID shortness of 11/02/24 mcg/actuation mist for inhalation breath or wheezing #12 grams (Combivent Respimat) benzonatate 100 mg capsule 100 mg PO BID PRN cough #20 caps 11/07/24 levofloxacin 750 mg tablet 750 mg PO DAILY #5 tabs 11/07/24 nystatin 100,000 unit/mL oral 1 ml PO DAILY #60 mL 11/07/24 suspension prednisone 10 mg tablet 10 mg PO DIRECTED #40 tabs 11/07/24 Allergies Allergy/AdvReac Type Severity Reaction Status Date / Time fentanyl Allergy Severe Drug Verified 11/11/24 16:13 Sick/Can't take it. Adverse Reaction as well. Sulfa (Sulfonamide Allergy Severe ITCHING Verified 11/11/24 16:13 Antibiotics) [SULFA (SULFONAMIDE ANTIBIOTICS)] nitrofurantoin Allergy Intermediate ITCHING Verified 11/11/24 16:13 [From Macrobid] codeine [CODEINE] AdvReac Mild JITTERS Verified 11/11/24 16:13 morphine [MORPHINE] AdvReac Mild JITTERS Verified 11/11/24 16:13 Review of Systems Review of Systems ROS Unobtainable: All systems reviewed & are unremarkable except as noted in HPI and below Patient History Medical History Urgency of urination Tortuous colon History of urinary tract infection Hydronephrosis of right kidney Chronic anxiety Hydronephrosis Hyperlipidemia associated with type 2 diabetes mellitus Iron deficiency anemia Benzodiazepine dependence Pancreatic abnormality Hepatic steatosis History of alcohol use disorder Benzodiazepine dependence, continuous Chronic headaches Chronic constipation Acute metabolic encephalopathy Tobacco use disorder MRSA (methicillin resistant staph aureus) culture positive Panic attacks HLD (hyperlipidemia) Generalized anxiety disorder Iron deficiency Acute GI bleeding Pancreatic insufficiency Diabetes type 2, controlled Herpes (~1992) History of bleeding peptic ulcer (2011) Asthma (Unknown) Cervical spine disease (Unknown) Osteoporosis (Unknown) Migraines (Unknown) Depression (Unknown) Substance abuse (~1983) Peptic ulcer disease (Unknown) Surgical History Hx of gastric bypass (Unknown) History of open reduction and internal fixation (ORIF) procedure (01/2017) History of incision and drainage (02/2018) Family History Mother Pancreatic cancer Father Old age Son Alive and well Social History marital status: number of children: 1 household members: spouse Smoking Status: Former smoker Tobacco: How many years used: 20 second hand exposure: No alcohol intake: former substance use type: does not use caffeine: Yes Smoking Status: Former smoker alcohol intake frequency: holidays/special occasions only Exam Initial Vital Signs Initial Vital Signs: Vital Signs Temperature 97.7 F 11/11/24 16:11 Pulse Rate 97 H 11/11/24 16:11 Respiratory Rate 24 11/11/24 16:11 Blood Pressure 169/78 H 11/11/24 16:11 Pulse Oximetry 92 11/11/24 16:11 Oxygen Delivery Method Room Air 11/11/24 16:11 Const General: cooperative, comfortable and No ill appearing HENMT Head: normal to inspection and normocephalic Resp Effort & Inspection: normal respiratory effort, no cough and decreased respiratory effort Auscultation: clear to auscultation bilaterally, rhonchi and no wheezes Cardio Rate: regular rate Rhythm: regular rhythm GI Inspection: normal to inspection Skin General: no rashes or lesions noted Neuro General: patient alert, patient awake and moves all extremities Extrem General: capillary refill normal Course Orders Ordered: ED Orders 11/11/24 16:16 XR chest 1V Stat EKG-12 Lead Stat Measure peak expiratory flow ONCE RT Consult Eval and Treat NOW 11/11/24 17:46 Complete Blood Count AUTO DIFF Stat Comprehensive Metabolic Panel Stat Lactate (Lactic Acid) Stat NT-proBNP (BNP-Adult 18+) Stat Prothrombin Time INR Stat Troponin I Stat 11/11/24 18:16 Respiratory Panel (Film Array) Stat 11/11/24 20:18 CT angio chest PE protocol Stat Discontinued Medications Albuterol (Albuterol 2.5 Mg/3 Ml Neb (Adult)) 2.5 mg INH NOW ONE Stop: 11/11/24 22:05 Last Admin: 11/11/24 22:12 Dose: 2.5 mg Documented By: MR Albuterol/Ipratropium (Albuterol/Ipratropium 3 Ml Ampul) 3 ml INH NOW ONE Stop: 11/11/24 17:35 Last Admin: 11/11/24 17:35 Dose: 3 ml Documented By: CHEIKH Vital Signs Vital signs: Vital Signs - 8 hr 11/11/24 17:22 11/11/24 17:30 11/11/24 17:36 Pulse Rate 90 89 94 H Respiratory Rate 16 Blood Pressure Pulse Oximetry 92 96 96 Oxygen Delivery Method Room Air 11/11/24 17:47 11/11/24 17:47 11/11/24 18:00 Pulse Rate 90 Respiratory Rate Blood Pressure 151/85 H 150/87 H Pulse Oximetry 92 Oxygen Delivery Method 11/11/24 18:00 11/11/24 18:45 11/11/24 19:00 Pulse Rate 91 H 93 H Respiratory Rate 22 Blood Pressure 154/79 H Pulse Oximetry 94 Oxygen Delivery Method 11/11/24 19:00 11/11/24 19:30 11/11/24 20:00 Pulse Rate 92 H 88 86 Respiratory Rate 24 23 16 Blood Pressure 155/86 H Pulse Oximetry 93 94 93 Oxygen Delivery Method Room Air Room Air 11/11/24 21:06 11/11/24 22:36 Pulse Rate 83 87 Respiratory Rate 22 20 Blood Pressure 175/86 H 186/90 H Pulse Oximetry 94 100 Oxygen Delivery Method Room Air Room Air Medical Decision Making Lab Data Lab results reviewed: Yes I reviewed the patient's lab results. 11/11/24 17:46 11/11/24 17:46 Labs: Lab Results 11/11/24 11/11/24 Range/Units 17:46 18:16 WBC 11.8 H (4.5-11.0) X10^3/uL RBC 4.19 (4.0-5.2) X10^6/uL Hgb 12.7 (12.0-16.0) g/dL Hct 38.1 (36-46) % MCV 91.0 (80-100) fL MCH 30.3 (26-34) PG MCHC 33.3 (30-36) % RDW 13.7 (11.6-14.8) % Plt Count 257 (150-400) X10^3/uL Neut % (Auto) 88.1 H (50-75) % Lymph % (Auto) 5.9 L (25-40) % [place] % (Auto) 5.6 (3-14) % Eos % (Auto) 0.1 L (2-4) % Baso % (Auto) 0.3 (0-2) % Neut # (Auto) 34994 H (0437-4732) /uL Lymph # (Auto) 700 L (5500-1217) /uL [place] # (Auto) 700 (0-900) /uL Eos # (Auto) 0 (0-450) /uL Baso # (Auto) 0 (0-100) /uL PT 12.0 (9.4-12.5) SECONDS INR 1.1 (0.9-1.3) Sodium 130 L (137-145) mmol/L Potassium 4.6 (3.4-5.1) mmol/L Chloride 96 L (98-107) mmol/L Carbon Dioxide 26 (22-32) mmol/L BUN 14 (7-17) mg/dL Creatinine 0.60 (0.52-1.04) mg/dL Estimated GFR > 60 (>60) mL/min BUN/Creatinine Ratio 23.3 H (6-22) Glucose 158 H (80-110) mg/dL Lactate 1.6 (0.7-2.1) mmol/L Calcium 9.8 (8.4-10.2) mg/dL Total Bilirubin 0.6 (0.2-1.3) mg/dL AST 38 H (14-36) IU/L ALT 25 (<35) IU/L Alkaline Phosphatase 158 H (38-126) U/L Troponin I < 0.012 (0.01-0.034) ng/mL NT-Pro-B Natriuret Pep 320 H (<125) pg/mL Total Protein 7.3 (6.3-8.2) g/dL Albumin 4.4 (3.5-5.0) g/dL Globulin 2.9 (1.7-4.1) g/dL Albumin/Globulin Ratio 1.5 (1.0-2.8) Chlamy pneumoniae PCR Not detected (Not Detect) Adenovirus (PCR) Not detected (Not Detect) B. pertussis DNA (PCR) Not detected (Not Detect) B.parapertussis DNA PCR Not detected (Not Detecte) Coronavirus OC43 (PCR) Not detected (Not Detect) Coronavirus HKU1 (PCR) Not detected (Not Detect) Coronavirus 229E (PCR) Not detected (Not Detect) SARS-CoV-2 (PCR) Not detected (Not Detecte) Coronavirus NL63 (PCR) Not detected (Not Detect) Human Metapneumovir PCR Not detected (Not Detect) Influenza Type A (PCR) Not detected (Not Detect) Influenza Type B (PCR) Not detected (Not Detect) M. pneumoniae (PCR) Not detected (Not Detect) Parainfluenza 1 (PCR) Not detected (Not Detect) Parainfluenza 2 (PCR) Not detected (Not Detect) Parainfluenza 3 (PCR) Not detected (Not Detect) Parainfluenza 4 (PCR) Not detected (Not Detect) RSV (PCR) Not detected (Not Detect) Entero/Rhino (PCR) Not detected (Not Detect) Imaging Data Chest x-ray: Radiologist's Impression: PROCEDURE: XR CHEST 1V INDICATIONS: Shortness of breath TECHNIQUE: One view of the chest was acquired. COMPARISON: [facility], CT, CT IVP A/P W/WO, 06/14/2024, 12:00. [facility], CR, XR CHEST 2V, 10/25/2024, 10:26. [facility], CR, XR CHEST 1V, 03/28/2023, 12:02. [facility], CR, CHEST 1 VIEW, 01/19/2018, 17:25. [facility], CR, CHEST 2 VIEW, 11/30/2014, 16:28. FINDINGS: Surgical changes and devices: Epigastric region surgical clips. Lungs and pleura: Hyperinflation with diffuse reticulation. No focal lung consolidation. Nipple shadows projecting over the lower lobes. No pleural effusions or pneumothorax. Mediastinum: Mediastinal contours appear normal. Heart size is normal. Bones and chest wall: No suspicious bony lesions. Overlying soft tissues appear unremarkable. IMPRESSION: Emphysema. Otherwise, no acute cardiothoracic process. CT scan - chest: Radiologist's Impression: PROCEDURE: CT ANGIO CHEST PE PROTOCOL INDICATIONS: Chest pain, shortness of breath, tachycardia TECHNIQUE: After the administration of intravenous contrast, 2 mm thick sections acquired from the pulmonary apices to the posterior costophrenic angles. 3-dimensional maximum intensity projection (MIP) coronal and sagittal reformats were then acquired through the thorax. For radiation dose reduction, the following was used: automated exposure control, adjustment of mA and/or kV according to patient size. COMPARISON: CT, THORAX WITHOUT CONTRAST, 02/05/2018, 14:05. [facility], CT, PE STUDY (CTA CHEST), 11/26/2016, 14:47. [facility], CR, XR CHEST 1V, 11/11/2024, 16:28. FINDINGS: Image quality: Diagnostic. Pulmonary arteries: Pulmonary arteries are normal in size, and demonstrate no intraluminal filling defects to suggest central pulmonary embolism. Pulmonary veins: Mild appearance of filling defect within the proximal left inferior pulmonary vein. Lower Neck: No enlarged lymph nodes. Thyroid: No thyroid nodules which require sonographic follow up, per consensus guidelines. Axillae: No enlarged lymph nodes. Chest Wall: Unremarkable. Bones: Unremarkable. Lungs and Pleura: Confluent areas of ground-glass opacity are present within upper lobes, right greater than. Heart: Heart size is normal. No pericardial effusion. Thoracic Vessels: No aortic aneurysm. Mediastinum and [place]: No enlarged lymph nodes. Esophagus: No wall thickening. Mild hiatal hernia. Upper Abdomen: Visualized upper abdomen solid organs and bowel loops appear normal. IMPRESSION: No pulmonary artery embolus. Filling defect in the proximal left inferior pulmonary vein. This is overall nonspecific and is uncertain clinical significance. Confluent ground-glass opacities in the upper lobe suggestive of infection/inflammation ECG Data Attestation: I personally reviewed and interpreted this ECG as follows: Interpretation: Sinus rhythm Ventricular rate of [address] T wave changes MDM Narrative Medical decision making narrative: Chest x-ray shows signs consistent with emphysema but no focal consolidation. Patient was afebrile. Has a slight leukocytosis of 11.8. Does not have a productive cough. Low suspicion for ACS. Clinically is not in heart failure. Respiratory panel was negative. CT scan shows no signs of pulmonary embolism. I have low suspicion that her symptoms today are infectious in nature. She was completed 2 courses of antibiotics that would be appropriate for any respiratory infection and she still is not having improvement. I have a higher suspicion that this is related to emphysema/COPD. She has both a nebulizer and a albuterol MDI. She was also currently on steroids. There was no indication for admission to the hospital. We will hold on any further antibiotics for now. Provided reassurance. She was not hypoxic. Not tachypneic. Advised that she complete the course of antibiotics. Use the inhaler/nebulizers as needed. Contact your primary care doctor as she may need further testing to include pulmonary function test. She was given return precautions. She expressed understanding and agreement with the plan. Discharge Plan Departure Patient Disposition: Home Clinical Impression: Shortness of breath Instructions: How to Manage Shortness of Breath Activity Restrictions/Additional Instructions: Continue to take all of your medications as directed. I recommend on Thursday you contact your primary care doctor's office for a follow-up return to the emergency department for new or worsening symptoms. Prescriptions: No Action Dowling 3 See Rx Instructions .ROUTE .COMPLEX Patient Comments: 1 Liquid capsule PO BID Rx Instructions: 1 Liquid capsule PO BID Trulance 3 mg tablet 3 mg PO DAILY olopatadine 0.1 % drops 1 drop EYE-BOTH BID Qty: 5 3RF budesonide 0.5 mg/2 mL suspension for nebulization 0.5 mg inhalation BID Qty: 60 2RF Rx Instructions: Inhale 1 bullet twice daily for COPD. CMP Estradiol 0.0125% cream See Rx Instructions .ROUTE .COMPLEX Qty: 30 3RF Rx Instructions: Insert 0.5gm intravaginally and a small amount to urethea twice weekly; pantoprazole [Protonix] 40 mg tablet,delayed release (DR/EC) 40 mg PO BID Qty: 180 3RF (DME) Dexcom G7 Sensor Device See Rx Instructions .Route Qty: 4 0RF Rx Instructions: As directed (DME) Dexcom G7 Cartography Technician Misc See Rx Instructions .Route Qty: 1 0RF Rx Instructions: As directed montelukast [Singulair] 10 mg tablet 10 mg PO QDAY Qty: 90 2RF metformin 500 mg tablet extended release 24 hr 500 mg PO QPM Qty: 90 2RF Rx Instructions: Take 1 tab with evening meal daily for diabetes Dispense Glucophage 500ER, not osmotic buspirone 30 mg tablet 30 mg PO BID 90 Days Qty: 180 3RF bupropion HCl 300 mg tablet extended release 24 hr 300 mg PO QAM Qty: 90 0RF baclofen 20 mg tablet 30 mg PO 3XD Qty: 270 0RF acyclovir 400 mg tablet 400 mg PO DAILY Qty: 90 0RF misoprostol [Cytotec] 200 mcg tablet 200 mcg PO BID Qty: 180 2RF hydrocodone-acetaminophen 7.5-325 mg tablet 0.25 tab PO BID PRN (Reason: pain) Qty: 30 0RF Rx Instructions: Take 1 tab twice per day as needed for pain gabapentin 100 mg capsule 100 mg PO DAILY Qty: 270 3RF Rx Instructions: Take 100mg up to 3 per day in addition to 300mg at bedtime daily gabapentin 300 mg capsule 300 mg PO BEDTIME Qty: 90 3RF Rx Instructions: Take 300mg at bedtime for insomnia, in addition (2) doses of 100mg strength during the day duloxetine 20 mg capsule,delayed release(DR/EC) 60 mg PO BID Qty: 540 4RF amitriptyline 100 mg tablet 100 mg PO DAILY olopatadine 0.6 % spray,non-aerosol 2 spray NASAL BID Qty: 30.5 3RF Rx Instructions: administer into each nostril (DME) Home Nebulizer See Rx Instructions .Route .MEDSUPPLY Qty: 1 0RF Rx Instructions: With supplies for use with nebulized medications Creon 6,000-19,000 -30,000 unit capsule,delayed release(DR/EC) 2 cap PO BID 90 Days Qty: 360 3RF Rx Instructions: PATIENT IS REQUESTING RX TO BE MAILED TO HER HOME ADDRESS. ondansetron HCl 8 mg tablet 8 mg PO Q8H PRN (Reason: nausea/vomiting) Qty: 30 0RF Combivent Respimat 20-100 mcg/actuation mist 1 puff INHALATION QID Qty: 12 3RF Rx Instructions: Please dispense every four months upon patient request nystatin 100,000 unit/mL suspension 1 ml PO DAILY Qty: 60 0RF Rx Instructions: swish and swallow levofloxacin 750 mg tablet 750 mg PO DAILY Qty: 5 0RF prednisone 10 mg tablet 10 mg PO DIRECTED Qty: 40 0RF Rx Instructions: Take 40 mg daily for 4 days; Take 30 mg daily for 3 days; Take 20 mg daily for 2 days; Take 10 mg daily for 1 day benzonatate 100 mg capsule 100 mg PO BID PRN (Reason: cough) Qty: 20 0RF Referrals: Brooke Walker DO [Primary Care Provider] - Stand Alone Forms: Patient Portal/API/Survey
[2024-11-11] MEDS: ALBUTEROL 2.5 MG/3 ML NEB (ADULT) INH (22:12)
== END 2024-11-11 22:38 | disposition home or self-care (01) ==
PROVIDERS: Emergency Medicine; Emergency Provider Emergency Medicine; PCP Family Medicine
DX: R06.02 Shortness of breath (principal); Z87.01 Personal history of pneumonia (recurrent)
CPT/HCPCS: 36415; 71045; 71275; 80053; 83605; 83880; 84484; 85025; 85610; 87633; 93005; 94640; 99284; 99285; J7613; Q9967

== ENCOUNTER → 2024-11-28 13:47 | Outpatient (CLI) | payer MEDICARE, OTHER, SELFPAY ==
[2024-04-20 15:27] VITALS: BMI 17.0
--- NOTE | 2024-11-28 13:49 | DI.NM.S_ITS ---
PROCEDURE: NM RENAL FUNCTION W LASIX RADIOPHARMACEUTICAL: 10.8 mCi Tc-99m MAG3 IV and 40 mg furosemide IV. INDICATIONS: Right hydronephrosis TECHNIQUE: The patient was hydrated orally before the examination was begun. After intravenous administration of Tc-99m MAG3, posterior abdominal radionuclide angiogram and sequential (1 minute each frame) renal images were obtained. A time-activity curve for each kidney was generated and analyzed. To evaluate for obstruction, the patient was given 40 mg furosemide via slow intravenous injection after the start of the examination. Sequential images were obtained for up to an additional 20 minutes. COMPARISON: [facility], CT, CT IVP A/P W/WO, 06/14/2024, 12:00. FINDINGS: Perfusion: There is normal vascular flow to both kidneys. Morphology: Both kidneys are normal in size and shape. Dilated right-sided collecting system. Function: Normal cortical uptake on the left, at around 4 minutes. Delayed cortical uptake on the right, with time to peak at 8 minutes. The right kidney contributes 47.8 % of total renal function. The left kidney contributes 52.2 % of total renal function. Lasix stimulation: After diuretic administration, there is prompt clearance of tracer activity from the renal collecting systems in both kidneys. The half-time of emptying of tracer activity from the right pelvicaliceal system is 23.3 minutes. The half-time of emptying from the left pelvicaliceal system is 28.3 minutes. Normal emptying half-times are less than 10 minutes; borderline ranges are from 10 to 20 minutes. IMPRESSION: Delayed radiotracer uptake of the right kidney. However, the right kidney contributes 52.2 percent of total renal function. Both kidneys demonstrate delayed reaction to Lasix stimulation. Dictated by: Davian Suero M.D. on 11/28/2024 at 15:19 Approved by: Davian Suero M.D. on 11/28/2024 at 15:22
== END ==
PROVIDERS: PCP Family Medicine; Referring Provider Urology; Visit Provider Urology
DX: N13.30 Unspecified hydronephrosis (principal)
CPT/HCPCS: 78708; A9562

== ENCOUNTER → 2024-12-06 | Outpatient (CLI) | payer MEDICARE, OTHER, SELFPAY ==
[2024-04-20 15:27] VITALS: BMI 17.0
--- NOTE | 2024-12-06 09:32 | DI.ECHO.S_ITS ---
[facility] : : [address] : : [place] : : [id number] : : Phone: [phone] Echocardiogram Report + + :Name: UJNG MORENO Study Date: 12/06/2024 Height: 68 in : :[facility] ReadingLocation: Weight: 126 lb : : Gender: Female BSA: 1.7 m2 : :: 1955 Age: 69 yrs BP: 127/79 mmHg: :Reason For Study: RIGHT BUNDLE BRANCH BLOCK : :Ordering Physician: KENYATTA, : :NATY Performed By: Bibiana Lynn : :Referring: NATY YOU : + + Interpretation Summary Normal biventricular size and systolic function. LVEF is 60-65%. Normal atrial sizes. No significant valvular pathology is noted. Other findings as below. No previous echo images are available for comparison. Procedure: A two-dimensional transthoracic echocardiogram with color flow and Doppler was performed. The study quality was technically adequate. There is no prior echocardiogram noted for this patient. The patient was in sinus rhythm with heart rates between 67-70 bpm during the exam. Left Ventricle: The left ventricle is normal in size and wall thickness. The ejection fraction is estimated to be 60-65%. Right Ventricle: The right ventricle is normal in size and function. Atria: The left atrial size is normal. Right atrial size is normal. There is no Doppler evidence for an interatrial shunt. Mitral Valve: The mitral valve leaflets appear to open well. There is mild mitral regurgitation. Aortic Valve: The aortic valve is trileaflet. The aortic valve opens well. There is no aortic valve stenosis. No aortic regurgitation is present. Tricuspid Valve: The tricuspid valve leaflets are thin and pliable. There is mild tricuspid regurgitation. The right ventricular systolic pressure is estimated to be at least 27 mmHg based on an estimated right atrial pressure of 3 mm Hg. Pulmonic Valve: The pulmonic valve leaflets are thin and pliable; valve motion is normal. There is trace pulmonic regurgitation. Great Vessels: The aortic root is normal size. The dimensions of the ascending aorta are normal. The IVC is of normal diameter and collapses greater than 50% with a sniff. This suggests a low right atrial pressure of 3 mm Hg. Pericardium/ Pleura There is no pericardial effusion. There is no pleural effusion. MMode/2D Measurements & Calculations LVIDd: 4.4 cm LVOT diam: 1.9 cm LVIDs: 2.7 cm Ao root diam: 3.0 cm FS: 37.9 % asc Aorta Diam: 3.7 cm IVSd: 0.71 cm Ao Arch Diam (Prox Trans): 2.8 cm LVPWd: 0.71 cm LV pleitez. diameter/BSA (cm/m^2): 2.6 LV sys. diameter/BSA (cm/m^2): 1.6 LA A2 area: 13.9 cm2 RA long axis: 4.0 cm LA A4 area: 11.4 cm2 RA area: 10.5 cm2 LA length (vol): 4.0 cm RA vol: 23.7 ml LA vol: 33.2 ml RA : 14.1 ml/m2 LA vol index: 19.8 ml/m2 IVC diam: 1.0 cm RVD1 (basal): 3.0 cm TAPSE: 1.8 cm Doppler Measurements & Calculations Ao V2 max: 130.0 cm/sec LVOT Max Herbert: 103.3 cm/sec Ao V2 mean: 99.1 cm/sec LV V1 max P.3 mmHg Ao max P.8 mmHg LV V1 VTI: 23.3 cm Ao mean P.2 mmHg RICHA(I,D): 2.1 cm2 Ao V2 VTI: 31.2 cm RICHA(V,D): 2.3 cm2 sev ratio: 0.75 RICHA indexed to BSA (cm^2/m^2): 1.3 MV E max herbert: 82.1 cm/sec TR max herbert: 242.6 cm/sec MV A max herbert: 56.6 cm/sec TR max P.5 mmHg MV E/A: 1.4 PA V2 max: 94.0 cm/sec Med Peak E' Herbert: 9.5 cm/sec PA V2 mean: 69.5 cm/sec E/E' med: 8.6 PA mean P.1 mmHg Lat Peak E' Herbert: 8.5 cm/sec PA pr(Accel): 34.5 mmHg E/E' lat: 9.7 E/e' average: 9.1 MV dec time: 0.20 sec MVA(VTI): 2.4 cm2 MV V2 mean: 54.8 cm/sec SV(LVOT): 66.2 ml MV mean P.4 mmHg MV V2 VTI: 27.1 cm Reading Physician:07:52 PM
== END ==
PROVIDERS: PCP Family Medicine; Referring Provider Family Medicine; Visit Provider Family Medicine
DX: I08.1 Rheumatic disorders of both mitral and tricuspid valves (principal); R06.02 Shortness of breath; E11.69 Type 2 diabetes mellitus with other specified complication; E78.5 Hyperlipidemia, unspecified; F17.200 Nicotine dependence, unspecified, uncomplicated; R05.3 Chronic cough; I45.10 Unspecified right bundle-branch block
CPT/HCPCS: 93306

== ENCOUNTER → 2025-01-03 14:22 | Outpatient (CLI) | payer MEDICARE, OTHER, SELFPAY ==
[2024-04-20 15:27] VITALS: BMI 17.0
== END ==
PROVIDERS: PCP Family Medicine; Visit Provider Urology
DX: N36.2 Urethral caruncle (principal); N39.3 Stress incontinence (female) (male)
CPT/HCPCS: 87086

== ENCOUNTER → 2025-02-06 15:47 | Outpatient (CLI) | payer MEDICARE, OTHER, SELFPAY ==
[2024-04-20 15:27] VITALS: BMI 17.0
--- NOTE | 2025-02-06 15:58 | DI.CT.S_ITS ---
PROCEDURE: CT HEAD/BRAIN WO CON INDICATIONS: INTRACTABLE MIGRAINE TECHNIQUE: Noncontrast 4.5 mm thick angled axial sections acquired from the foramen magnum to the vertex, with coronal and sagittal reformats. For radiation dose reduction, the following was used: automated exposure control, adjustment of mA and/or kV according to patient size. COMPARISON: [facility], CT, CT SINUS SCREEN WO CON, 09/10/2023, 11:43. [facility], CT, CT HEAD/BRAIN WO CON, 03/28/2023, 12:53. [facility], CT, CT HEAD/BRAIN WO CON, 07/29/2023, 19:05. FINDINGS: Image quality: Diagnostic. CSF spaces: Basal cisterns are patent. No extra-axial fluid collections. The ventricles are symmetric in size and shape. Brain: No intracranial bleeds or masses. There is cerebral volume loss for age, with resultant ventricular and sulcal prominence. There are periventricular and deep white matter chronic small vessel ischemic changes. There is intracranial internal carotid artery atherosclerosis. Skull and face: Calvarium and visualized facial bones appear intact, without suspicious lesions. Sinuses: Visualized sinuses and mastoids are clear. Postoperative change is seen, with bilateral antrectomy. IMPRESSION: No imaging explanation is found for this patient's presenting symptoms. To the limits of this noncontrast study, no findings of intracranial masses or mass effect can be seen. Dictated by: Terry Cornejo M.D. on 02/06/2025 at 16:00 Approved by: Terry Cornejo M.D. on 02/06/2025 at 16:01
== END ==
PROVIDERS: PCP Family Medicine; Referring Provider Otolaryngology; Visit Provider Otolaryngology
DX: G43.019 Migraine without aura, intractable, without status migrainosus (principal); J32.4 Chronic pansinusitis; I65.29 Occlusion and stenosis of unspecified carotid artery; J44.9 Chronic obstructive pulmonary disease, unspecified; R05.3 Chronic cough; F17.200 Nicotine dependence, unspecified, uncomplicated; E87.1 Hypo-osmolality and hyponatremia; B37.0 Candidal stomatitis; E11.9 Type 2 diabetes mellitus without complications; D50.9 Iron deficiency anemia, unspecified; Z86.2 Personal history of diseases of the blood and blood-forming organs and certain disorders involving the immune mechanism
CPT/HCPCS: 36415; 70450; 80048; 82728; 84145

== ENCOUNTER → 2025-02-06 16:11 | Outpatient (CLI) | payer MEDICARE, OTHER, SELFPAY ==
[2024-04-20 15:27] VITALS: BMI 17.0
[2025-02-06 17:17] LABS: BUN Creatinine Ratio 22.8 (6-22); Blood Urea Nitrogen 18 mg/dL (7-17); Calcium 10.1 mg/dL (8.4-10.2); Carbon Dioxide 27 mmol/L (22-32); Chloride 96 mmol/L (98-107); Estimated Glomerular Filt Rate > 60 mL/min (>60); Glucose 109 mg/dL (80-110); HEMOLYSIS < 15 (0-50); Potassium 4.8 mmol/L (3.4-5.1); Sodium 130 mmol/L (137-145)
[2025-02-06 17:33] LABS: Procalcitonin 0.051 ng/mL (<0.5)
[2025-02-06 17:51] LABS: Ferritin 49 ng/mL (11-264)
== END ==
PROVIDERS: PCP Family Medicine; Referring Provider Family Medicine; Visit Provider Family Medicine
DX: R05.3 Chronic cough (principal); J44.9 Chronic obstructive pulmonary disease, unspecified; E87.1 Hypo-osmolality and hyponatremia; F17.200 Nicotine dependence, unspecified, uncomplicated; B37.0 Candidal stomatitis; E11.9 Type 2 diabetes mellitus without complications; D50.9 Iron deficiency anemia, unspecified; Z86.2 Personal history of diseases of the blood and blood-forming organs and certain disorders involving the immune mechanism
CPT/HCPCS: 36415; 80048; 82728; 84145

== ENCOUNTER → 2025-02-14 12:39 | Outpatient (CLI) | payer MEDICARE, OTHER, SELFPAY ==
[2024-04-20 15:27] VITALS: BMI 17.0
--- NOTE | 2025-03-16 07:44 | DIAB.MNTFU ---
Follow-up Diabetes Medical Nutrition Therapy Assessment Name: Shirin Tuttle Date: 02/14/25 Time: 1-2p Dx: Type II Diabetes Shirin presents for DM follow-up. Reports sugar cravings. BG fluctuations, having rebound lows per CGm report. Has elevation and then low int he 60s after. BM unpredictable (constipation and diarrhea per report ). Tried increasing fiber with supplements d/c of creon but has not noticed improvement of BM diet recall: 930a: egg, cinnamon raisin wheat bread with coffee and sf creamer OR special K reed cereal 130p: sting cheese or nuts 3-5p: bun with burger, cheese oakley eats 3/4 of this OR just nuts with handful of chips 10p: belvita crackers, mandarin oranges and string cheese water: 16.9x4 fiber seems <20g per day on average Anthropometrics: Ht: 68 Wt: 134# reported 02/2025 Physical Activity: elliptical q 3 days Self-Monitoring Blood Glucose: Patterns improved TIR with less lows and less time >250mg/dl. Today's Visit TIR: 0% very high 9% high 90% in range 1% low 0% very low Av mg/dl GMI: 6.4% Variation: 25% Last Visit TIR: 1% very high 7% high 90% in range 2% low <1% very low Av mg/dl GMI: NA% Variation: 30.5% Diabetes Medications: 500mg Metformin ER BID Pertinent Labs: HgA1c: 6.3% 07/2023 6.6% 01/2024 5.7% 04/2024 6.2% 05/2024 7% 01/2025 Past Medical History: Acute GI bleeding Acute metabolic encephalopathy Asthma (Unknown) Benzodiazepine dependence Benzodiazepine dependence, continuous Cervical spine disease (Unknown) spinal stenosis Chronic anxiety Chronic constipation Chronic headaches Depression (Unknown) Diabetes type 2, controlled Generalized anxiety disorder Hepatic steatosis Herpes (~1992) History of alcohol use disorder History of bleeding peptic ulcer (2011) 11/09/12-11/13/12 HLD (hyperlipidemia) Hydronephrosis Hyperlipidemia associated with type 2 diabetes mellitus Iron deficiency Iron deficiency anemia Migraines (Unknown) MRSA (methicillin resistant staph aureus) culture positive Osteoporosis (Unknown) Pancreatic abnormality Pancreatic insufficiency after bariatric surgery, followed GI [facility] Panic attacks Peptic ulcer disease (Unknown) Substance abuse (~1983) alcohol--quit drinking 1983 Tobacco use disorder Intervention: This participant was very receptive. Provided appropriate educational handouts. Discussed the following topics: BG trends and review Fiber foods Constipation MNT Pairing foods CHO recs Rebound lows and preventing elevations that may cause lows Review of SMART goals for patient self-care and success. Goals: Cut out soda- in progress Keep a food journal- new Pair macronutrients- new Choose higher fiber foods, increasing slowly- new Aim for 30-45g CHO at meals- new Follow-up: YANIRA GALLARDO follow-up in 4 weeks Gaby Samson RDN, SAMI Certified Diabetes Care and Inventory Coordinator P: [phone] Thank you for this referral
== END ==
LOC: DIET 12:40
PROVIDERS: PCP Family Medicine; Referring Provider Family Medicine
DX: E11.69 Type 2 diabetes mellitus with other specified complication (principal); K59.00 Constipation, unspecified; R19.7 Diarrhea, unspecified; Z79.84 Long term (current) use of oral hypoglycemic drugs; Z71.3 Dietary counseling and surveillance; E78.5 Hyperlipidemia, unspecified
CPT/HCPCS: 97803

== ENCOUNTER → 2025-03-11 11:12 | Outpatient (CLI) | payer MEDICARE, OTHER, SELFPAY ==
[2024-04-20 15:27] VITALS: BMI 17.0
--- NOTE | 2025-03-11 11:15 | DI.MG.S_ITS ---
MM screening mammo BI: 03/11/2025. BI-RADS: 1 CLINICAL: 69-year old female for bilateral screening mammogram. Tyrer-Cuzick lifetime risk of 3.2%. No personal or first-degree family history of breast cancer. PRIOR EXAMS 03/03/2024, 02/09/2024, 07/01/2022, 02/12/2019, 12/11/2017, 11/18/2016, 11/15/2015. MAMMOGRAPHY TECHNIQUE: 2D and 3D (tomosynthesis) digital mammographic views obtained, with additional images as needed for full coverage. Current study was also evaluated with a Computer Aided Detection (CAD) system. DENSITY C. The breasts are heterogeneously dense, which may obscure small masses. MAMMOGRAPHY FINDINGS Bilateral: No suspicious mass, asymmetry, microcalcification, or other abnormality seen. IMPRESSION: * No evidence of malignancy. RECOMMENDATIONS Bilateral * Annual screening mammography. OVERALL ASSESSMENT CATEGORY BI-RADS-1: Negative. The [employer] recommends annual screening mammography beginning at age 40 for women with average risk of breast cancer. ELECTRONICALLY SIGNED: Brendan Crawford M.D. on 03/13/2025 at 06:20:49 PM PT Interpreting Station ID: [id number]
== END ==
PROVIDERS: PCP Family Medicine; Referring Provider Family Medicine; Visit Provider Family Medicine
DX: Z12.31 Encounter for screening mammogram for malignant neoplasm of breast (principal); R92.333 Mammographic heterogeneous density, bilateral breasts
CPT/HCPCS: 77063; 77067

== ENCOUNTER → 2025-03-22 11:02 | Outpatient (CLI) | payer MEDICARE, OTHER, SELFPAY ==
[2024-04-20 15:27] VITALS: BMI 17.0
--- NOTE | 2025-03-22 16:46 | DIAB.MNTFU ---
Follow-up Diabetes Medical Nutrition Therapy Assessment Name: Shirin Tuttle Date: 03/22/25 Time: 1110-1140a Dx: Type II Diabetes Shriin presents for DM follow-up. Reports bloat that is visible in this visit, lower abdominal bloating. States it is often coupled with constipation. Fiber does not seem to help. States she wonders if she has a lactose intolerance, but has tried cutting this out in the past without relief. Has not tried a gluten free diet. Endorses worsening bloat with oatmeal and cereal. Denies any food intolerance testing with GI. States she feels she has to already limit intake with BG. This RD does have concerns for low intake contributing to her constipation. Endorses about 30g CHO at meals and pairing macros at meals/snacks. States she kept a food journal for a short time, but found this unhelpful. Anthropometrics: Ht: 68 Wt: 134# reported 02/2025 Physical Activity: elliptical q 3 days Self-Monitoring Blood Glucose: TIR similar to last visit. Seems to experience rebound lows after hyperglycemia. Treating appropriately. Today's Visit TIR: 1% very high 8% high 90% in range 1% low 0% very low Av mg/dl GMI: 6.3% Variation: 27.7% Last Visit TIR: 0% very high 9% high 90% in range 1% low 0% very low Av mg/dl GMI: 6.4% Variation: 25% Diabetes Medications: 500mg Metformin ER BID Pertinent Labs: HgA1c: 6.3% 07/2023 6.6% 01/2024 5.7% 04/2024 6.2% 05/2024 7% 01/2025 Past Medical History: Acute GI bleeding Acute metabolic encephalopathy Asthma (Unknown) Benzodiazepine dependence Benzodiazepine dependence, continuous Cervical spine disease (Unknown) spinal stenosis Chronic anxiety Chronic constipation Chronic headaches Depression (Unknown) Diabetes type 2, controlled Generalized anxiety disorder Hepatic steatosis Herpes (~1992) History of alcohol use disorder History of bleeding peptic ulcer (2011) 11/09/12-11/13/12 HLD (hyperlipidemia) Hydronephrosis Hyperlipidemia associated with type 2 diabetes mellitus Iron deficiency Iron deficiency anemia Migraines (Unknown) MRSA (methicillin resistant staph aureus) culture positive Osteoporosis (Unknown) Pancreatic abnormality Pancreatic insufficiency after bariatric surgery, followed GI [facility] Panic attacks Peptic ulcer disease (Unknown) Substance abuse (~1983) alcohol--quit drinking 1983 Tobacco use disorder Nutrition Rx: Carbohydrates: Meal:30-45g Snack:15-30g Nutrition Diagnosis: - Predicted inadequate energy intake r/t concerns for bloat and intolerances and BG management aeb pt report -Nutrition and food related knowledge deficit r/t needing info to try gluten limiting diet aeb pt report Intervention: This participant was very receptive. Provided appropriate educational handouts. Discussed the following topics: BG trends and review Potential for a food intolerance May consider gluten limiting diet Foods with gluten, higher kcal foods without gluten, breakfast ideas Encouraged adequate intake Rebound lows and preventing elevations that may cause lows Review of SMART goals for patient self-care and success. Goals: Keep a food journal- d/c Pair macronutrients- met Choose higher fiber foods, increasing slowly- d/c Aim for 30-45g CHO at meals- met Try gluten limiting diet 3-7 days- new Follow-up: YANIRA GALLARDO follow-up in 2-3 weeks Gaby Samson RDN, SAMI Certified Diabetes Care and Buckle Assembler P: [phone] Thank you for this referral
== END ==
LOC: DIET 11:04
PROVIDERS: PCP Family Medicine
DX: E11.69 Type 2 diabetes mellitus with other specified complication (principal); R14.0 Abdominal distension (gaseous); Z79.84 Long term (current) use of oral hypoglycemic drugs; E78.5 Hyperlipidemia, unspecified
CPT/HCPCS: 97803

== ENCOUNTER → 2025-04-12 13:27 | Outpatient (CLI) | payer MEDICARE, OTHER, SELFPAY ==
[2024-04-20 15:27] VITALS: BMI 17.0
[2025-04-12 15:49] LABS: Blood Urea Nitrogen 16 mg/dL (7-17); Calcium 9.2 mg/dL (8.4-10.2); Carbon Dioxide 24 mmol/L (22-32); Chloride 94 mmol/L (98-107); Estimated Glomerular Filt Rate > 60 mL/min (>60); Glucose 139 mg/dL (70-99); HEMOLYSIS 44 (0-50); Potassium 4.5 mmol/L (3.4-5.1); Sodium 127 mmol/L (137-145)
== END ==
PROVIDERS: PCP Family Medicine; Referring Provider Urology; Visit Provider Urology
DX: N13.30 Unspecified hydronephrosis (principal)
CPT/HCPCS: 36415; 80048

== ENCOUNTER → 2025-04-14 14:03 | Outpatient (CLI) | payer MEDICARE, OTHER, SELFPAY ==
[2024-04-20 15:27] VITALS: BMI 17.0
--- NOTE | 2025-04-19 16:52 | DIAB.MNTFU ---
Follow-up Diabetes Medical Nutrition Therapy Assessment Name: Shirin Tuttle Date: 04/14/25 Time: 215-315p Dx: Type II Diabetes Shirin presents for DM follow-up. Endorses continued excessive bloat. Reports trying gluten free diet for limited time, but no relief per report. Feeling increased gas, constipation, and at times urinary incontinence. Followed by GI. Next appt with GI Thursday at . Eats 1 sandwich in fourths over the day due to the bloat, +/- chips and pickles. Has questions about gut health nutriiton. Last complete/formed BM was 7 days ago. Since that time some watery stool. Anthropometrics: Ht: 68 Wt: 134# reported 02/2025 Self-Monitoring Blood Glucose: TIR similar improved and well within goal. Today's Visit TIR: 1% very high 6% high 94% in range 0% low 0% very low Av mg/dl GMI: 6.2% Variation: 25.8% Last Visit TIR: 1% very high 8% high 90% in range 1% low 0% very low Av mg/dl GMI: 6.3% Variation: 27.7% Diabetes Medications: 500mg Metformin ER BID Pertinent Labs: HgA1c: 6.3% 07/2023 6.6% 01/2024 5.7% 04/2024 6.2% 05/2024 7% 01/2025 Past Medical History: Acute GI bleeding Acute metabolic encephalopathy Asthma (Unknown) Benzodiazepine dependence Benzodiazepine dependence, continuous Cervical spine disease (Unknown) spinal stenosisChronic anxiety Chronic constipation Chronic headaches Depression (Unknown) Diabetes type 2, controlled Generalized anxiety disorder Hepatic steatosis Herpes (~1992) History of alcohol use disorder History of bleeding peptic ulcer (2011) 11/09/12-11/13/12HLD (hyperlipidemia) Hydronephrosis Hyperlipidemia associated with type 2 diabetes mellitus Iron deficiency Iron deficiency anemia Migraines (Unknown) MRSA (methicillin resistant staph aureus) culture positive Osteoporosis (Unknown) Pancreatic abnormality Pancreatic insufficiency after bariatric surgery, [place] Peptic ulcer disease (Unknown) Substance abuse (~1983) alcohol--quit drinking 1983Tobacco use disorder Nutrition Rx: Carbohydrates: Meal:30-45gSnack:15-30g Nutrition Diagnosis: - Predicted inadequate energy intake r/t concerns for bloat and intolerances and BG management aeb pt report - continued -Nutrition and food related knowledge deficit r/t needing more info on gut health nutrition aeb pt report- new Intervention: This participant was very receptive. Provided appropriate educational handouts. Discussed the following topics: BG trends and review, DM well managed at this point probiotic foods fiber as prebiotic Types of fiber Encouraged adequate intake Review of SMART goals for patient self-care and success. Goals: Try gluten limiting diet 3-7 days- met Can try fiber and probiotic foods to see if improved BM if GI specialist agrees- new Follow-up: YANIRA GALLARDO follow-up in 3 months per pt request. Gaby Samson RDN, CDCES Certified Diabetes Care and Skip Locator P: [phone] Thank you for this referral
== END ==
PROVIDERS: PCP Family Medicine; Referring Provider Family Medicine
DX: E11.9 Type 2 diabetes mellitus without complications (principal); Z71.3 Dietary counseling and surveillance; Z79.84 Long term (current) use of oral hypoglycemic drugs
CPT/HCPCS: G0270

== ENCOUNTER → 2025-04-20 12:49 | Outpatient (CLI) | payer MEDICARE, OTHER, SELFPAY ==
[2024-04-20 15:27] VITALS: BMI 17.0
--- NOTE | 2025-04-20 12:54 | DI.RAD.S_ITS ---
PROCEDURE: XR ABDOMEN 3V INDICATIONS: abnormal labs TECHNIQUE: One view chest and two views of the abdomen were acquired. COMPARISON: [facility], , XR ABDOMEN MIN 2V, 10/25/2024, 10:26. FINDINGS: Surgical changes and devices: Surgical clips are noted within the epigastric region and central abdomen. Hardware present within the proximal left femur. Chest: Lungs are clear. Heart size is normal. No pleural effusions. No pneumoperitoneum. Abdomen: Bowel gas pattern is normal. Moderate retained stool within the colon. No suspicious calcifications. Visualized solid organ contours appear normal. Bones: No suspicious bony lesions. IMPRESSION: No acute abnormality. Moderate retained colonic stool. Dictated by: Dustin Mccauley M.D. on 04/21/2025 at 1:11 Approved by: Dustin Mccauley M.D. on 04/21/2025 at 1:12
== END ==
PROVIDERS: PCP Family Medicine; Referring Provider Internal Medicine Gastroenterology; Visit Provider Internal Medicine Gastroenterology
DX: Q45.3 Other congenital malformations of pancreas and pancreatic duct (principal); K76.0 Fatty (change of) liver, not elsewhere classified; R14.0 Abdominal distension (gaseous); K59.01 Slow transit constipation
CPT/HCPCS: 74021; 99215

== ENCOUNTER → 2025-06-03 12:15 | Outpatient (CLI) | payer MEDICARE, OTHER, SELFPAY ==
[2024-04-20 15:27] VITALS: BMI 17.0
[2025-06-03 12:49] LABS: Blood Urea Nitrogen 15 mg/dL (7-17); Calcium 9.2 mg/dL (8.4-10.2); Carbon Dioxide 25 mmol/L (22-32); Chloride 99 mmol/L (98-107); Estimated Glomerular Filt Rate > 60 mL/min (>60); Glucose 75 mg/dL (70-99); HEMOLYSIS 32 (0-50); Potassium 4.8 mmol/L (3.4-5.1); Sodium 131 mmol/L (137-145)
== END ==
PROVIDERS: PCP Family Medicine; Referring Provider Student in an Organized Health Care Education/Training Program; Visit Provider Student in an Organized Health Care Education/Training Program
DX: N05.9 Unspecified nephritic syndrome with unspecified morphologic changes (principal)
CPT/HCPCS: 36415; 80048

== ENCOUNTER → 2025-06-15 10:45 | Outpatient (CLI) | payer MEDICARE, OTHER, SELFPAY ==
[2024-04-20 15:27] VITALS: BMI 17.0
[2025-06-15 12:23] LABS: Hemoglobin A1C% w Est Avg Glu 6.7 % (4.0-6.0)
[2025-06-15 12:29] LABS: Blood Urea Nitrogen 14 mg/dL (7-17); Calcium 9.2 mg/dL (8.4-10.2); Carbon Dioxide 25 mmol/L (22-32); Chloride 97 mmol/L (98-107); Estimated Glomerular Filt Rate > 60 mL/min (>60); Glucose 94 mg/dL (70-99); HEMOLYSIS < 15 (0-50); Potassium 4.5 mmol/L (3.4-5.1); Sodium 131 mmol/L (137-145)
== END ==
PROVIDERS: PCP Family Medicine; Referring Provider Urology; Visit Provider Urology
DX: E11.9 Type 2 diabetes mellitus without complications (principal); N13.30 Unspecified hydronephrosis
CPT/HCPCS: 36415; 80048; 83036; 99213

== ENCOUNTER → 2025-06-23 13:47 | Outpatient (CLI) | payer MEDICARE, OTHER, SELFPAY ==
[2024-04-20 15:27] VITALS: BMI 17.0
--- NOTE | 2025-06-23 13:49 | DI.NM.S_ITS ---
PROCEDURE: GA RENAL FUNCTION W LASIX RADIOPHARMACEUTICAL: 10.8 mCi Tc-99m MAG3 IV and 40 mg furosemide IV. INDICATIONS: Follow-up right hydronephrosis TECHNIQUE: The patient was hydrated orally before the examination was begun. After intravenous administration of Tc-99m MAG3, posterior abdominal radionuclide angiogram and sequential (1 minute each frame) renal images were obtained. A time-activity curve for each kidney was generated and analyzed. To evaluate for obstruction, the patient was given 20 mg furosemide via slow intravenous injection 14 minutes after the start of the examination. Sequential images were obtained for up to an additional 20 minutes. COMPARISON: [place], [place], GA RENAL FUNCTION W LASIX, 11/28/2024, 14:03. FINDINGS: Perfusion: There is normal vascular flow to both kidneys. Morphology: Both kidneys are normal in size and shape. There is right hydronephrosis. Function: Both kidneys demonstrate normal cortical tracer uptake, with [id number] activity ranging from 3 to 5 minutes. The right kidney contributes 52.2 % of total renal function. The left kidney contributes 47.8 % of total renal function. Lasix stimulation: There is prompt pyelogram bilaterally. The half-time of emptying of tracer activity from the right pelvicaliceal system is 14 minutes. The half- time of emptying from the left pelvicaliceal system is 10 minutes. Normal emptying half-times are less than 10 minutes; borderline ranges are from 10 to 20 minutes. There is moderate amount of persistent activity in the dilated right renal pelvis, including on the postvoid images IMPRESSION: 1. Normal perfusion, with no signs of functional impairment of the right kidney. 2. Persistent right hydronephrosis with intermediate value of half time emptying post Lasix of 14 minutes, suggesting the possibility of partial urinary outflow obstruction. Appearance is similar compared to prior study. Dictated by: Moose Lockhart M.D. on 06/24/2025 at 14:03 Approved by: Moose Lockhart M.D. on 06/24/2025 at 14:09
== END ==
PROVIDERS: PCP Family Medicine; Referring Provider Urology; Visit Provider Urology
DX: N13.30 Unspecified hydronephrosis (principal)
CPT/HCPCS: 78708; A9562

== ENCOUNTER → 2025-07-31 14:21 | Outpatient (CLI) | payer MEDICARE, OTHER, SELFPAY ==
[2024-04-20 15:27] VITALS: BMI 17.0
[2025-07-31 14:48] LABS: Estimated Glomerular Filt Rate > 60 mL/min (>60)
== END ==
LOC: LAB 14:22
PROVIDERS: PCP Family Medicine; Referring Provider Urology; Visit Provider Family Medicine
DX: R14.0 Abdominal distension (gaseous) (principal)
CPT/HCPCS: 36415; 82565

== ENCOUNTER → 2025-08-01 09:50 | Outpatient (CLI) | payer MEDICARE, OTHER, SELFPAY ==
[2024-04-20 15:27] VITALS: BMI 17.0
--- NOTE | 2025-08-01 09:52 | DI.CT.S_ITS ---
PROCEDURE: CT LUNG LOW DOSE SCREENING INDICATIONS: lung screen TECHNIQUE: Noncontrast 2.0-2.5 mm thick sections acquired from the pulmonary apices to the posterior costophrenic angles. 7 mm thick axial MIP, and 5 mm coronal and sagittal reformats were then acquired. For radiation dose reduction, the following was used: automated exposure control, adjustment of mA and/or kV according to patient size. COMPARISON: None. FINDINGS: Image quality: Diagnostic Lungs and pleura: Scattered areas of scarring, most notable in the apices. Scattered atelectasis also present. A focal nodular region is seen in the anterior right lung measuring 9 mm 3/173. Other smaller nodules are present for example 5 mm nodule in the left lateral lung on image 3/106. Areas of possible mucous plugging also seen for example in the left upper lung /. Attention on follow-up. Mediastinum, heart, and esophagus: Normal heart size. Moderately patulous esophagus. Postsurgical changes seen around the GE junction. Ascending aorta measures 3.8 cm. No enlarged lymph nodes by size criteria. Chest wall and thyroid: Unremarkable Upper abdomen: Upper abdominal postsurgical changes. No gross abnormality on these noncontrast low-dose images Bones: There are degenerative changes. No aggressive appearing osseous abnormality. IMPRESSION: There is a nodular region in the right anterior lung measuring up to 9 mm on image 3/173. LUNG-RADS 4 A; 3 month low-dose screening chest CT is recommended Given flattened appearance on coronal images, this may represent an area of nodular atelectasis. Many other small pulmonary nodules and areas of possible mucous plugging are seen. Attention on follow-up. Other findings above. Dictated by: Adán Nunes M.D. on 08/01/2025 at 15:33 Approved by: Adán Nunes M.D. on 08/01/2025 at 15:39
--- NOTE | 2025-08-01 10:28 | DI.CT.S_ITS ---
PROCEDURE: CT ABDOMEN PELVIS W CON INDICATIONS: Chronic abdominal bloating, mild ileus on XR TECHNIQUE: After the administration of intravenous contrast, axial sections acquired from the lung bases to the pubic symphysis. Coronal and sagittal reformats were performed. For radiation dose reduction, the following was used: automated exposure control, adjustment of mA and/or kV according to patient size. COMPARISON: [facility], CT, CT ABDOMEN PELVIS W CON, 06/07/2021, 16:17. [facility], CT, CT IVP A/P W/WO, 06/14/2024, 12:00. [facility], CR, XR ABDOMEN 1V, 07/03/2025, 21:47. FINDINGS: Image quality: Diagnostic Lower chest: Unremarkable lung bases. mildly patulous distal esophagus, with postsurgical changes at the GE junction Liver: Unremarkable Gallbladder and biliary system: Unremarkable, nondilated Pancreas: Moderately atrophic, with mild ductal ectasia and calcifications, similar. This is favored to represent sequelae of prior inflammation. Spleen: Nonenlarged Adrenals: No discrete nodules Kidneys: No solid mass. Moderate right pelviectasis with normal diameter ureter again seen, probably UPJ narrowing. Vessels and lymph nodes: The main portal vein is patent. Mild aortoiliac atherosclerotic calcifications. No lymph nodes enlarged by size criteria. Bowel and peritoneum: Moderate to large colonic fecal loading. Scattered bowel suture lines are present. No bowel obstruction. No drainable abscess or ascites Body wall: Unremarkable Pelvis: Bladder is unremarkable, under distended. No significant abnormality in the adnexal regions on limited CT evaluation. Bones: Left femoral fixation hardware with surrounding metallic artifact. There are degenerative changes. IMPRESSION: Moderate to large colonic fecal loading. No bowel obstruction. No drainable abscess or ascites. Moderately atrophic pancreas with mild ductal ectasia and calcifications, similar to prior, favored represent sequelae of prior inflammation. Moderate right renal pelviectasis with normal diameter ureter, likely chronic UPJ narrowing. Other findings above. Dictated by: Adán Nunes M.D. on 08/01/2025 at 15:42 Approved by: Adán Nunes M.D. on 08/01/2025 at 15:49
== END ==
PROVIDERS: PCP Family Medicine; Referring Provider Family Medicine; Visit Provider Family Medicine
DX: Z12.2 Encounter for screening for malignant neoplasm of respiratory organs (principal); J44.9 Chronic obstructive pulmonary disease, unspecified; R91.8 Other nonspecific abnormal finding of lung field; Z87.891 Personal history of nicotine dependence; R14.0 Abdominal distension (gaseous); E11.9 Type 2 diabetes mellitus without complications; K59.09 Other constipation; K59.01 Slow transit constipation; K76.0 Fatty (change of) liver, not elsewhere classified; Q45.3 Other congenital malformations of pancreas and pancreatic duct; Q43.8 Other specified congenital malformations of intestine
CPT/HCPCS: 71271; 74177; Q9967

== ENCOUNTER → 2025-08-08 15:52 | Outpatient (CLI) | payer MEDICARE, OTHER, SELFPAY ==
[2024-04-20 15:27] VITALS: BMI 17.0
--- NOTE | 2025-08-08 16:59 | DIAB.FU ---
Follow-up Diabetes Education Assessment Name: Shirin Tuttle Date: 08/08/25 Time: 4-5p Dx: Type II Diabetes Shirin presents for DM follow-up. Endorses continued excessive bloat and gas. New GI doc. Nothing remarkable with recent GI tests per report. She is feeling frustrated with medical diagnoses, treatments, and chronic condition. Endorses stress. Not currently wanting to seek behavioral health services. Having lows after elevations in the morning continues. Endorses fatigue with lows. This continues despite lower CHO intake. Encouraged protein intake with breakfast. Physical activity: Reduced activity due to her fear of too big of muscles in her legs. 5 days per week on elliptical x 2,000 steps instead of 10,000. States she is open to increasing back up to previous activity plan. States she is frustrated with her body weight/shape changes in legs and abdominal. Anthropometrics: Ht: 68 Wt: 141.5# 07/2025 134# reported 02/2025 Self-Monitoring Blood Glucose: TIR in goal per ADA guidelines. Some increase in elevations and lows. Treating low appropriately. Today's Visit TIR: 1% very high 9% high 88% in range 2% low 0% very low Av mg/dl GMI: 6.4% Variation: 23.5% Last Visit TIR: 0% very high 9% high 90% in range 1% low 0% very low Av mg/dl GMI: 6.6% Variation: 23.8% Diabetes Medications: 500mg Metformin ER BID Pertinent Labs: HgA1c: 6.3% 07/2023 6.6% 01/2024 5.7% 04/2024 6.2% 05/2024 7% 01/2025 6.7% 05/2025 Past Medical History: Acute GI bleeding Acute metabolic encephalopathy Asthma (Unknown) Benzodiazepine dependence Benzodiazepine dependence, continuous Cervical spine disease (Unknown) spinal stenosisChronic anxiety Chronic constipation Chronic headaches Depression (Unknown) Diabetes type 2, controlled Generalized anxiety disorder Hepatic steatosis Herpes (~1992) History of alcohol use disorder History of bleeding peptic ulcer (2011) 11/09/12-11/13/12HLD (hyperlipidemia) Hydronephrosis Hyperlipidemia associated with type 2 diabetes mellitus Iron deficiency Iron deficiency anemia Migraines (Unknown) MRSA (methicillin resistant staph aureus) culture positive Osteoporosis (Unknown) Pancreatic abnormality Pancreatic insufficiency after bariatric surgery, [place] Peptic ulcer disease (Unknown) Substance abuse (~1983) alcohol--quit drinking 1983Tobacco use disorder Intervention: This participant was very receptive. Provided appropriate educational handouts. Discussed the following topics: BG trends and review Stress management and impact on GI and BG Potential for BH Physical activity Encouraged spreading out morning CHO to reduce elevations and lows Encouraged protein at breakfast Review of SMART goals for patient self-care and success. Goals: Spread out morning CHO intake- met Restart exercise program- new Pair protein with breakfast Follow-up: YANIRA GALLARDO follow-up prn per pt rerobby Samson RDN, [facility] Certified Diabetes Care and [employer] Manager P: [phone] Thank you for this referral
== END ==
LOC: DIET 15:52
PROVIDERS: PCP Family Medicine; Referring Provider Family Medicine
DX: E11.9 Type 2 diabetes mellitus without complications (principal); Z71.3 Dietary counseling and surveillance; R14.0 Abdominal distension (gaseous); Z79.84 Long term (current) use of oral hypoglycemic drugs
CPT/HCPCS: G0108

== ENCOUNTER → 2025-10-20 15:08 | Outpatient (CLI) | payer MEDICARE, OTHER, SELFPAY ==
[2024-04-20 15:27] VITALS: BMI 17.0
[2025-10-20 15:38] LABS: Hemoglobin A1C% w Est Avg Glu 6.6 % (4.0-6.0)
== END ==
PROVIDERS: PCP Family Medicine; Referring Provider Family Medicine; Visit Provider Family Medicine
DX: E11.69 Type 2 diabetes mellitus with other specified complication (principal); E78.5 Hyperlipidemia, unspecified
CPT/HCPCS: 36415; 83036

== ENCOUNTER → 2025-10-22 11:46 | Outpatient (CLI) | payer MEDICARE, OTHER, SELFPAY ==
[2024-04-20 15:27] VITALS: BMI 17.0
--- NOTE | 2025-10-22 11:47 | DI.CT.S_ITS ---
PROCEDURE: CT CHEST WO CON INDICATIONS: Follow up 9 mm right upper lobe lung nodule TECHNIQUE: Noncontrast 5 mm thick sections acquired from the pulmonary apices to the posterior costophrenic angles. 1 mm lung window, 5 mm thick coronal and sagittal and 7 mm axial MIP reformats were then acquired. For radiation dose reduction, the following was used: automated exposure control, adjustment of mA and/or kV according to patient size. COMPARISON: [facility], CT, CT LUNG LOW DOSE SCREENING, 08/01/2025, 10:17. FINDINGS: Image quality: Diagnostic. Lower Neck: No enlarged lymph nodes. Thyroid: No thyroid nodules which require sonographic follow up, per consensus guidelines. Axillae: No enlarged lymph nodes. Chest Wall: Unremarkable. Bones: Unremarkable. Lungs and Pleura: No pneumothorax or pleural effusions. 89 mm anterior right upper lobe area of nodularity series 3, image 160 is stable. 5 mm lateral left upper lobe nodule series 3, image 103 is stable. No new nodules are identified. Previous scattered areas of mucous plugging are similar versus improved. Heart: Heart size is normal. No pericardial effusion. Thoracic Vessels: The aorta and pulmonary arteries demonstrate normal size. Mediastinum and Faviola: No enlarged lymph nodes. Esophagus: No wall thickening. Postsurgical changes at the GE junction are present. Upper Abdomen: Visualized upper abdomen solid organs and bowel loops appear normal. IMPRESSION: Stable appearance of pulmonary nodules the largest measuring 9 mm. Interval follow-up CT chest in 1 year. Dictated by: Odalis Damon M.D. on 10/22/2025 at 15:40 Approved by: Odalis Damon M.D. on 10/22/2025 at 15:45
== END ==
LOC: CT 11:47
PROVIDERS: PCP Family Medicine; Referring Provider Family Medicine; Visit Provider Family Medicine
DX: R91.8 Other nonspecific abnormal finding of lung field (principal)
CPT/HCPCS: 71250